=== PATIENT | male | born 1945 | race Caucasian/White ===

== ENCOUNTER 2020-05-13 16:52 | Inpatient (IN) | payer OTHER ==
[~2020-05-13] VITALS: Ht 170.2 cm; Wt 54.6 kg
[2020-05-13] MEDS ORDERED: dexAMETHasone 10mg/ml Inj IV ONE (17:15)
[2020-05-13 17:30] VITALS: BP 131/52
[2020-05-13] MEDS ORDERED: PROSCAR5 MG ORAL (17:44)
[2020-05-13] MEDS ORDERED: ATORVASTATIN CA10 MG ORAL (17:44)
[2020-05-13] MEDS ORDERED: ISOSORBIDE MONO30 M1 PO (17:44)
[2020-05-13] MEDS ORDERED: MIRALAX17 G2 ORAL (17:44)
[2020-05-13] MEDS ORDERED: COREG3.125 MG ORAL (17:44)
[2020-05-13] MEDS ORDERED: ASPIRIN EC81 MG ORAL (17:44)
[2020-05-13] MEDS ORDERED: LISINOPRIL5 MG ORAL (17:45)
[2020-05-13] MEDS ORDERED: PACERONE200 MG ORAL (17:45)
[2020-05-13 18:22] LABS: HEMATOCRIT 43.7 % (42.0-52.0); HEMOGLOBIN 15.1 G/DL (14.2-18.0); MEAN CORPUSCULAR VOLUME 90 FL (80-99); PLATELET COUNT 386 K/UL (150-450); RED BLOOD COUNT 4.83 M/UL (4.70-6.10); RED CELL DISTRIBUTION WIDTH 13.4 % (11.6-14.8); WHITE BLOOD COUNT 9.2 K/UL (4.8-10.8)
[2020-05-13 18:25] LABS: APPEARANCE,URINE CLOUDY; BILIRUBIN, URINE NEGATIVE (NEGATIVE); COLOR,URINE AMBER; GLUCOSE, URINE (UA) NEGATIVE (NEGATIVE); KETONES,URINE 1+ (NEGATIVE); LEUKOCYTE ESTERASE ,URINE 1+ (NEGATIVE); NITRITE,URINE POSITIVE (NEGATIVE); PH,URINE 7 (4.5-8.0); PROTEIN,URINE 3+ (NEGATIVE); UROBILINOGEN,URINE NORMAL MG/DL (0.0-1.0)
[2020-05-13 18:26] LABS: BASOPHILS % (AUTO) 0.7 % (0.0-2.0); LYMPHOCYTES % (AUTO) 6.7 % (20.0-45.0); MONOCYTES % (AUTO) 4.7 % (1.0-10.0); NEUTROPHILS % (AUTO) 87.9 % (45.0-75.0)
[2020-05-13 18:39] LABS: ANION GAP 7 mmol/L (5-15); BLOOD UREA NITROGEN 31 mg/dL (7-18); CALCIUM 8.5 MG/DL (8.5-10.1); CARBON DIOXIDE 29 MMOL/L (21-32); CHLORIDE 98 MMOL/L (98-107); CREATININE 1.6 MG/DL (0.55-1.30); POTASSIUM 4.4 MMOL/L (3.5-5.1); SODIUM 134 MMOL/L (136-145)
--- NOTE | 2020-05-13 18:42 | Emergency Room Report ---
History of Present Illness General Chief Complaint: General Complaint Source: Patient, Medical Record Present Illness HPI Patient is 74-year-old male brought in by basic ambulance after increased generalized weakness. Prior history of COPD as well as cardiac disease. He was started on supplemental oxygen by paramedics. Was noted to have increased generalized weakness and decreased p.o. intake. 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 COVID-19 Screening: Positive COVID-19 COVID-19 Testing Source: at [facility] Patient History Past Medical History: see triage record Reviewed Nursing Documentation: PMH: Agreed; PSxH: Agreed Nursing Documentation-PMH Past Medical History: No History, Except For Hx Cardiac Problems: Yes - afib, high cholesterol, Covid + Hx Hypertension: Yes Hx COPD: Yes Hx Cerebrovascular Accident: Yes - TIA Review of Systems All Other Systems: negative except mentioned in HPI Physical Exam Vital Signs Date Time Temp Pulse Resp B/P (MAP) Pulse Ox O2 Delivery O2 Flow Rate FiO2 05/13/20 16:55 98.2 72 14 134/56 (82) 88 Room Air 05/13/20 17:30 12.0 91 Sp02 EP Interpretation: reviewed, normal General Appearance: normal inspection, well appearing, no apparent distress, alert, GCS 15, non-toxic Head: atraumatic ENT: normal ENT inspection, hearing grossly normal, normal voice Neck: normal inspection, full range of motion, supple, no bony tend Respiratory: normal inspection, lungs clear, normal breath sounds, no respiratory distress, no retraction, no wheezing Cardiovascular #1: regular rate, rhythm, no edema Gastrointestinal: normal inspection, normal bowel sounds, non tender, soft, no guarding, no hernia Genitourinary: no CVA tenderness Musculoskeletal: normal inspection, back normal, normal range of motion Neurologic: alert, motor strength/tone normal, 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 Differential diagnosis include was not limited to coronavirus pneumonia, psychosis, dehydration among others. Because of complexity of patient's case laboratory tests and imaging studies were ordered. Patient noted to have prior history of recent coronavirus infection. Chest x-ray showed diffuse patchy infiltrates to both lungs. Patient started on IV fluids as well as IV Decadron. He was given supplemental oxygen. Patient be hospitalized for further management of hypoxemia due to coronavirus. Dr. Sonny Gonzales was contacted for inpatient management. Labs Test 05/13/20 18:03 05/13/20 18:04 Urine Color Rema Urine Appearance Cloudy Urine pH 7 (4.5-8.0) Urine Specific [place] 1.010 (1.005-1.035) Urine Protein 3+ (NEGATIVE) Urine Glucose (UA) Negative (NEGATIVE) Urine Ketones 1+ (NEGATIVE) Urine Blood 3+ (NEGATIVE) Urine Nitrite Positive (NEGATIVE) Urine Bilirubin Negative (NEGATIVE) Urine Urobilinogen Normal MG/DL (0.0-1.0) Urine Leukocyte Esterase 1+ (NEGATIVE) White Blood Count 9.2 K/UL (4.8-10.8) Red Blood Count 4.83 M/UL (4.70-6.10) Hemoglobin 15.1 G/DL (14.2-18.0) Hematocrit 43.7 % (42.0-52.0) Mean Corpuscular Volume 90 FL (80-99) Mean Corpuscular Hemoglobin 31.3 PG (27.0-31.0) Mean Corpuscular Hemoglobin Concent 34.6 G/DL (32.0-36.0) Red Cell Distribution Width 13.4 % (11.6-14.8) Platelet Count 386 K/UL (150-450) Mean Platelet Volume 8.1 FL (6.5-10.1) Neutrophils (%) (Auto) 87.9 % (45.0-75.0) Lymphocytes (%) (Auto) 6.7 % (20.0-45.0) Monocytes (%) (Auto) 4.7 % (1.0-10.0) Eosinophils (%) (Auto) 0.0 % (0.0-3.0) Basophils (%) (Auto) 0.7 % (0.0-2.0) Sodium Level 134 MMOL/L (136-145) Potassium Level 4.4 MMOL/L (3.5-5.1) Chloride Level 98 MMOL/L (98-107) Carbon Dioxide Level 29 MMOL/L (21-32) Anion Gap 7 mmol/L (5-15) Blood Urea Nitrogen 31 mg/dL (7-18) Creatinine 1.6 MG/DL (0.55-1.30) Estimat Glomerular Filtration Rate 42.6 mL/min (>60) Glucose Level 103 MG/DL (74-106) Calcium Level 8.5 MG/DL (8.5-10.1) EKG Diagnostic Results Rate: normal Rhythm: NSR ASA given to the pt in ED: No Last Vital Signs Date Time Temp Pulse Resp B/P (MAP) Pulse Ox O2 Delivery O2 Flow Rate FiO2 05/13/20 17:30 98.2 75 18 131/52 91 Non-Rebreather 12.0 05/13/20 17:30 91 Status: unchanged Disposition: ADMITTED INPATIENT Condition: Stable Sanjeev Akbar MD May 13, 2020 18:42
[2020-05-13 18:53] LABS: ALANINE AMINOTRANSFERASE 88 U/L (12-78); ALBUMIN 2.6 G/DL (3.4-5.0); ALBUMIN/GLOBULIN RATIO 0.5 (1.0-2.7); ALKALINE PHOSPHATASE 54 U/L (46-116); ASPARTATE AMINO TRANSFERASE 165 U/L (15-37); BILIRUBIN,TOTAL 0.9 MG/DL (0.2-1.0); CKMB < 0.5 NG/ML (0.0-3.6); CREATINE KINASE 187 U/L (26-308); FERRITIN 1246 NG/ML (8-388); LACTATE DEHYDROGENASE 748 U/L (81-234)
[2020-05-13 21:03] VITALS: BP 127/53
[2020-05-13 22:26] VITALS: BP 121/55
[2020-05-13] MEDS ORDERED: Albuterol/Ipratropium 3ml neb HHN PRN (23:30)
[2020-05-13] MEDS ORDERED: Promethazine/Codeine 5ml UD ORAL PRN (23:30)
[2020-05-13] MEDS: cefTRIAXone 1 GM in D5W 55 ML IVPB SCH (23:43)
[2020-05-14] VITALS (9 sets, daily range): BP systolic 98–131; BP diastolic 59–77
[2020-05-14 06:25] LABS: HEMATOCRIT 37.5 % (42.0-52.0); HEMOGLOBIN 13.4 G/DL (14.2-18.0); MEAN CORPUSCULAR VOLUME 89 FL (80-99); PLATELET COUNT 349 K/UL (150-450); RED BLOOD COUNT 4.24 M/UL (4.70-6.10); RED CELL DISTRIBUTION WIDTH 14.6 % (11.6-14.8); WHITE BLOOD COUNT 7.2 K/UL (4.8-10.8)
[2020-05-14 07:27] LABS: ALANINE AMINOTRANSFERASE 80 U/L (12-78); ALBUMIN 2.2 G/DL (3.4-5.0); ALBUMIN/GLOBULIN RATIO 0.5 (1.0-2.7); ALKALINE PHOSPHATASE 47 U/L (46-116); ANION GAP 9 mmol/L (5-15); ASPARTATE AMINO TRANSFERASE 125 U/L (15-37); BILIRUBIN,TOTAL 0.6 MG/DL (0.2-1.0); BLOOD UREA NITROGEN 36 mg/dL (7-18); CALCIUM 8.1 MG/DL (8.5-10.1); CARBON DIOXIDE 25 MMOL/L (21-32); CHLORIDE 100 MMOL/L (98-107); CREATININE 1.5 MG/DL (0.55-1.30); PHOSPHORUS 4.5 MG/DL (2.5-4.9); POTASSIUM 4.4 MMOL/L (3.5-5.1); SODIUM 134 MMOL/L (136-145)
[2020-05-14] MEDS: Azithromycin 250 MG in D5W 275 ML IV SCH (08:29)
[2020-05-14] MEDS: Lisinopril 2.5mg tab ORAL SCH (08:58)
[2020-05-14] MEDS: Amiodarone 200mg tab ORAL SCH (08:59)
[2020-05-14] MEDS: Heparin 5000 units/ml inj SUBQ SCH ×2 (09:00→21:05)
--- NOTE | 2020-05-14 09:21 | Consultation ---
History of Present Illness General Date patient seen: May 14, 2020 Time patient seen: 13:23 Chief Complaint: General Complaint Referring physician: Dr. Gonzales Reason for Consultation: Pneumonia Present Illness HPI 74yo M from SNF who p/w generalized weakness. Started on suppl. O2 by paramedics. In house, pt has been AF with normal WBC, but on 15L NRB mask. COVID rapid test positive Pt is doing well on NRB mask, denies any fevers/chills, NVD, pain or even issues breathing, says breathing is OK. Is very surprised when told he is COVID positive Lives in SNF PMH: COPD Cardiac disease Allergies: Coded Allergies: No Known Allergies (Unverified , 05/13/20) Medication History Scheduled Amiodarone Hcl* (Pacerone*), 200 MG ORAL DAILY, (Reported) Aspirin Ec* (Aspirin Ec*), 81 MG ORAL DAILY, (Reported) Atorvastatin Calcium* (Lipitor*), 10 MG ORAL BEDTIME, (Reported) Carvedilol (Coreg), 3.125 MG ORAL EVERY 12 HOURS, (Reported) Finasteride* (Proscar*), 5 MG ORAL DAILY, (Reported) Isosorbide Mononitrate (Isosorbide Mononitrate Er), 30 MG PO DAILY, (Reported) Lisinopril (Lisinopril*), 5 MG ORAL DAILY, (Reported) Polyethylene Glycol 3350* (Miralax*), 17 GM ORAL DAILY, (Reported) Patient History Healthcare decision maker Resuscitation status Advanced Directive on File Review of Systems ROS Narrative 10-point ROS neg except as noted in HPI Physical Exam Physical Exam Narrative Gen: NAD HEENT: NCAT Pulm: BL chest rise Abd: Non-distended Ext: No c/c/e Skin: No visible rashes Neuro: Awake Last 24 Hour Vital Signs Date Time Temp Pulse Resp B/P (MAP) Pulse Ox O2 Delivery O2 Flow Rate FiO2 05/14/20 08:59 68 122/71 05/14/20 08:58 122/71 05/14/20 07:20 98.2 63 20 113/67 96 Non-Rebreather 15.0 05/14/20 05:42 55 19 101/61 97 Non-Rebreather 15.0 05/14/20 00:28 62 19 98/59 98 Non-Rebreather 15.0 05/13/20 22:26 98.2 64 21 121/55 94 Non-Rebreather 15.0 91 05/13/20 21:03 98.2 77 21 127/53 95 Non-Rebreather 15.0 91 05/13/20 17:30 98.2 75 18 131/52 91 Non-Rebreather 12.0 05/13/20 17:30 75 18 Non-Rebreather 12.0 91 05/13/20 16:55 98.2 72 14 134/56 (82) 88 Room Air Intake and Output 05/13/20 05/14/20 19:00 07:00 Intake Total 55 ml Balance 55 ml Intake IV Total 55 ml # Voids 1 Laboratory Tests Test 05/13/20 18:03 05/13/20 18:04 05/14/20 06:00 Urine Color Rema Urine Appearance Cloudy Urine pH 7 (4.5-8.0) Urine Specific [place] 1.010 (1.005-1.035) Urine Protein 3+ (NEGATIVE) H Urine Glucose (UA) Negative (NEGATIVE) Urine Ketones 1+ (NEGATIVE) H Urine Blood 3+ (NEGATIVE) H Urine Nitrite Positive (NEGATIVE) H Urine Bilirubin Negative (NEGATIVE) Urine Ictotest Negative (NEGATIVE) Urine Urobilinogen Normal MG/DL (0.0-1.0) Urine Leukocyte Esterase 1+ (NEGATIVE) H Urine RBC 10-15 /HPF (0 - 0) H Urine WBC 5-10 /HPF (0 - 0) H Urine Squamous Epithelial Cells None /LPF (NONE/OCC) Urine Bacteria Many /HPF (NONE) H White Blood Count 9.2 K/UL (4.8-10.8) 7.2 K/UL (4.8-10.8) Red Blood Count 4.83 M/UL (4.70-6.10) 4.24 M/UL (4.70-6.10) L Hemoglobin 15.1 G/DL (14.2-18.0) 13.4 G/DL (14.2-18.0) L Hematocrit 43.7 % (42.0-52.0) 37.5 % (42.0-52.0) L Mean Corpuscular Volume 90 FL (80-99) 89 FL (80-99) Mean Corpuscular Hemoglobin 31.3 PG (27.0-31.0) H 31.7 PG (27.0-31.0) H Mean Corpuscular Hemoglobin Concent 34.6 G/DL (32.0-36.0) 35.8 G/DL (32.0-36.0) Red Cell Distribution Width 13.4 % (11.6-14.8) 14.6 % (11.6-14.8) Platelet Count 386 K/UL (150-450) 349 K/UL (150-450) Mean Platelet Volume 8.1 FL (6.5-10.1) 8.2 FL (6.5-10.1) Neutrophils (%) (Auto) 87.9 % (45.0-75.0) H % (45.0-75.0) Lymphocytes (%) (Auto) 6.7 % (20.0-45.0) L % (20.0-45.0) Monocytes (%) (Auto) 4.7 % (1.0-10.0) % (1.0-10.0) Eosinophils (%) (Auto) 0.0 % (0.0-3.0) % (0.0-3.0) Basophils (%) (Auto) 0.7 % (0.0-2.0) % (0.0-2.0) Prothrombin Time 11.3 SEC (9.30-11.50) Prothromb Time International Ratio 1.0 (0.9-1.1) Activated Partial Thromboplast Time 31 SEC (23-33) D-Dimer 1.76 mg/L FEU (0.00-0.49) H Sodium Level 134 MMOL/L (136-145) L 134 MMOL/L (136-145) L Potassium Level 4.4 MMOL/L (3.5-5.1) 4.4 MMOL/L (3.5-5.1) Chloride Level 98 MMOL/L (98-107) 100 MMOL/L (98-107) Carbon Dioxide Level 29 MMOL/L (21-32) 25 MMOL/L (21-32) Anion Gap 7 mmol/L (5-15) 9 mmol/L (5-15) Blood Urea Nitrogen 31 mg/dL (7-18) H 36 mg/dL (7-18) H Creatinine 1.6 MG/DL (0.55-1.30) H 1.5 MG/DL (0.55-1.30) H Estimat Glomerular Filtration Rate 42.6 mL/min (>60) 45.9 mL/min (>60) Glucose Level 103 MG/DL (74-106) 154 MG/DL (74-106) H Lactic Acid Level 1.60 mmol/L (0.4-2.0) Calcium Level 8.5 MG/DL (8.5-10.1) 8.1 MG/DL (8.5-10.1) L Ferritin 1246 NG/ML (8-388) H Total Bilirubin 0.9 MG/DL (0.2-1.0) 0.6 MG/DL (0.2-1.0) Aspartate Amino Transf (AST/SGOT) 165 U/L (15-37) H 125 U/L (15-37) H Alanine Aminotransferase (ALT/SGPT) 88 U/L (12-78) H 80 U/L (12-78) H Alkaline Phosphatase 54 U/L (46-116) 47 U/L (46-116) Lactate Dehydrogenase 748 U/L (81-234) H Total Creatine Kinase 187 U/L (26-308) Creatine Kinase MB < 0.5 NG/ML (0.0-3.6) Creatine Kinase MB Relative Index 0.2 Troponin I 0.044 ng/mL (0.000-0.056) C-Reactive Protein, Quantitative 62.2 mg/dL (0.00-0.90) H 23.2 mg/dL (0.00-0.90) H Pro-B-Type Natriuretic Peptide 2242 pg/mL (0-125) H Total Protein 7.7 G/DL (6.4-8.2) 6.8 G/DL (6.4-8.2) Albumin 2.6 G/DL (3.4-5.0) L 2.2 G/DL (3.4-5.0) L Globulin 5.1 g/dL 4.6 g/dL Albumin/Globulin Ratio 0.5 (1.0-2.7) L 0.5 (1.0-2.7) L Lipase 248 U/L (73-393) Neutrophils % (Manual) Pending Lymphocytes % (Manual) Pending Platelet Estimate Pending Platelet Morphology Pending Erythrocyte Sedimentation Rate 53 MM/HR (0-20) H Phosphorus Level 4.5 MG/DL (2.5-4.9) Magnesium Level 2.9 MG/DL (1.8-2.4) H Height (Feet): 5 Height (Inches): 7.00 Weight (Pounds): 160 Medications Current Medications Medications (Trade) Dose Ordered Sig/Tami Route PRN Reason Start Time Stop Time Status Last Admin Dose Admin Acetaminophen (Tylenol) 650 mg Q4H PRN ORAL FEVER 05/13/20 23:30 06/12/20 23:29 Albuterol/ Ipratropium (Albuterol/ Ipratropium) 3 ml Q4H PRN HHN Shortness of Breath 05/13/20 23:30 05/18/20 23:29 Amiodarone HCl (Cordarone) 200 mg DAILY ORAL 05/14/20 09:00 08/12/20 08:59 05/14/20 08:59 Azithromycin 250 mg/Dextrose 275 ml @ 275 mls/hr Q24H IV 05/14/20 01:00 05/19/20 00:59 05/14/20 08:29 Carvedilol (Coreg) 3.125 mg EVERY 12 HOURS ORAL 05/14/20 09:00 06/13/20 08:59 05/14/20 08:59 Ceftriaxone Sodium 1 gm/ Dextrose 55 ml @ 110 mls/hr Q24H IVPB 05/13/20 23:30 05/20/20 23:29 05/13/20 23:43 Dexamethasone (Decadron) 4 mg DAILY ORAL 05/14/20 09:00 06/13/20 08:59 05/14/20 08:58 Dextrose (Dextrose 50%) 25 ml Q30M PRN IV Hypoglycemia 05/13/20 23:30 08/11/20 23:29 Dextrose (Dextrose 50%) 50 ml Q30M PRN IV Hypoglycemia 05/13/20 23:30 08/11/20 23:29 Finasteride (Proscar) 5 mg DAILY ORAL 05/14/20 09:00 08/12/20 08:59 05/14/20 08:59 Heparin Sodium (Porcine) (Heparin 5000 units/ml) 5,000 units EVERY 12 HOURS SUBQ 05/14/20 09:00 06/28/20 08:59 05/14/20 09:00 Lisinopril (ZestriL) 5 mg DAILY ORAL 05/14/20 09:00 06/13/20 08:59 05/14/20 08:58 Ondansetron HCl (Zofran) 4 mg Q6H PRN IVP Nausea & Vomiting 05/13/20 23:30 06/12/20 23:29 Polyethylene Glycol (Miralax) 17 gm DAILYPRN PRN ORAL Constipation 05/13/20 23:30 06/12/20 23:29 Promethazine HCl/ Codeine (Phenergan with Codeine) 5 ml Q6H PRN ORAL cough 05/13/20 23:30 06/12/20 23:29 Assessment/Plan Assessment/Plan: 74yo M with: Afebrile Normal WBC Lymphopenia Pneumonia COVID pneumonia, severe Acute hypoxic resp failure on NRB mask 05/13 BCx p UA 5-10 WBC, UCx p COVID rapid positive Elevated LFTs, AST/ALT 125 / 80 CKD, Cr 1.5 COPD Cardiac disease SNF resident Plan: Increase dexamethasone to 6mg daily Start remdesivir given COVID rapid test positive, severe hypoxia. Labs ok Cont CTX/azithro #1 for pneumonia F/u BCx, Resp cx F/u CXR Monitor CBC/CMP Monitor temp curve, hemodynamics Monitor resp status D/w RN Thank you for this consult. [facility] will continue to follow. Kathy Yap M.D. May 14, 2020 09:21
--- NOTE | 2020-05-14 13:46 | Diagnostic Imaging Report ---
Indication: Reason For Exam: SOB Technique: Single AP view of the chest. Comparison: None. Findings: Heart is normal in size when accounting for projection and technique. There are diffuse interstitial opacities and diffuse parenchymal thickening. There is dense right upper lobe and left lower lobe airspace consolidation. No pneumothorax. There is biapical scarring. No pleural effusion. No acute osseous abnormality. IMPRESSION: Findings concerning for multifocal pneumonia.
[2020-05-14] MEDS ORDERED: Varibar Pudding 230ml MC PRN (14:15)
[2020-05-14] MEDS ORDERED: Varibar Nectar 240ml MC PRN (14:15)
[2020-05-14] MEDS ORDERED: Varibar Honey 250ml MC PRN (14:15)
[2020-05-14] MEDS ORDERED: Varibar Thin Liquid powder 148gm MC PRN (14:15)
--- NOTE | 2020-05-14 14:15 | Consultation ---
Consult Note Consult Note I was asked to evaluate the patient at the request of for renal failure and electrolyte imbalances Patient is 74-year-old male brought in by basic ambulance after increased generalized weakness. Prior history of COPD as well as cardiac disease. He was started on supplemental oxygen by paramedics. Was noted to have increased generalized weakness and decreased p.o. intake. 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 Pulmonary treatment, in bed slight short of breath, refusing to answer questions. VITAL SIGNS: Temperature 98 degrees, pulse 64, respirations 22, blood pressure 105/61. HEENT: Normocephalic and atraumatic. NECK: Trachea midline. CARDIOVASCULAR: Slight short of breath. ABDOMEN: No apparent wounds. EXTREMITIES: No cyanosis or clubbing. NEUROLOGIC: The patient moves all extremities, slightly weak. LABORATORY AND DIAGNOSTIC DATA: Labs at this time show hemoglobin and hematocrit 13/37, otherwise CBC is normal. BMP shows sodium 134, BUN creatinine 36/1.5. Glucose 154. Magnesium 2.9. Calcium 8.1. AST 128, ALT 80. Albumin 2.2. INR is 1.0. Urinalysis show positive nitrites. . Assessment/Plan Impression: Renal failure, acute on chronic Partly dehydration COPD, hypoxia, COVID-19 disease Psychosis Atrial fibrillation High cholesterol Hypertension History of CVA Suggestions: Saline hydration Monitor renal parameters and electrolytes Pulmonary support Per consultants Avoid nephrotoxic's Urine studies Per orders Alan Sánchez MD May 14, 2020 14:15
--- NOTE | 2020-05-14 14:25 | Consultation ---
History of Present Illness General Date patient seen: May 14, 2020 Referring physician: Dr. Gonzales Reason for Consultation: Pneumonia Present Illness HPI 74-year-old male, with hx of schizophrenia, COPD, cardiac disease, shelter resident brought in by ambulance with CC of generalized weakness. . He was started on supplemental oxygen by paramedics. His initial CXR in ER showed ex tensive infiltrate and he was COVID positive. He is admitted for further management. Allergies: Coded Allergies: No Known Allergies (Unverified , 05/13/20) Medication History Scheduled Amiodarone Hcl* (Pacerone*), 200 MG ORAL DAILY, (Reported) Aspirin Ec* (Aspirin Ec*), 81 MG ORAL DAILY, (Reported) Atorvastatin Calcium* (Lipitor*), 10 MG ORAL BEDTIME, (Reported) Carvedilol (Coreg), 3.125 MG ORAL EVERY 12 HOURS, (Reported) Finasteride* (Proscar*), 5 MG ORAL DAILY, (Reported) Isosorbide Mononitrate (Isosorbide Mononitrate Er), 30 MG PO DAILY, (Reported) Lisinopril (Lisinopril*), 5 MG ORAL DAILY, (Reported) Polyethylene Glycol 3350* (Miralax*), 17 GM ORAL DAILY, (Reported) Patient History Healthcare decision maker Resuscitation status Advanced Directive on File Past Medical/Surgical History Past Medical/Surgical History: (1) HTN (hypertension) (2) COPD (chronic obstructive pulmonary disease) (3) Psychosis Review of Systems All Other Systems: negative except mentioned in HPI Physical Exam General Appearance: thin Lines, tubes and drains: peripheral Neck: non-tender, normal alignment Respiratory/Chest: chest wall non-tender, lungs clear, rhonchi - left, rhonchi - right Cardiovascular/Chest: normal peripheral pulses, normal rate Abdomen: normal bowel sounds, non tender, soft Genitourinary/Rectal: normal rectal exam Extremities: normal range of motion, non-tender Skin Exam: normal pigmentation Last 24 Hour Vital Signs Date Time Temp Pulse Resp B/P (MAP) Pulse Ox O2 Delivery O2 Flow Rate FiO2 05/14/20 13:00 98.5 63 23 108/77 97 Non-Rebreather 15.0 05/14/20 12:02 98.5 64 22 105/61 96 Non-Rebreather 15.0 91 05/14/20 10:27 98.2 65 22 101/63 97 Non-Rebreather 15.0 05/14/20 08:59 68 122/71 05/14/20 08:58 122/71 05/14/20 07:20 98.2 63 20 113/67 96 Non-Rebreather 15.0 05/14/20 05:42 55 19 101/61 97 Non-Rebreather 15.0 05/14/20 00:28 62 19 98/59 98 Non-Rebreather 15.0 05/13/20 22:26 98.2 64 21 121/55 94 Non-Rebreather 15.0 91 05/13/20 21:03 98.2 77 21 127/53 95 Non-Rebreather 15.0 91 05/13/20 17:30 98.2 75 18 131/52 91 Non-Rebreather 12.0 05/13/20 17:30 75 18 Non-Rebreather 12.0 91 05/13/20 16:55 98.2 72 14 134/56 (82) 88 Room Air Intake and Output 05/13/20 05/14/20 19:00 07:00 Intake Total 55 ml Balance 55 ml Intake IV Total 55 ml # Voids 1 Laboratory Tests Test 05/13/20 18:03 05/13/20 18:04 05/14/20 06:00 Urine Color Rema Urine Appearance Cloudy Urine pH 7 (4.5-8.0) Urine Specific [place] 1.010 (1.005-1.035) Urine Protein 3+ (NEGATIVE) H Urine Glucose (UA) Negative (NEGATIVE) Urine Ketones 1+ (NEGATIVE) H Urine Blood 3+ (NEGATIVE) H Urine Nitrite Positive (NEGATIVE) H Urine Bilirubin Negative (NEGATIVE) Urine Ictotest Negative (NEGATIVE) Urine Urobilinogen Normal MG/DL (0.0-1.0) Urine Leukocyte Esterase 1+ (NEGATIVE) H Urine RBC 10-15 /HPF (0 - 0) H Urine WBC 5-10 /HPF (0 - 0) H Urine Squamous Epithelial Cells None /LPF (NONE/OCC) Urine Bacteria Many /HPF (NONE) H White Blood Count 9.2 K/UL (4.8-10.8) 7.2 K/UL (4.8-10.8) Red Blood Count 4.83 M/UL (4.70-6.10) 4.24 M/UL (4.70-6.10) L Hemoglobin 15.1 G/DL (14.2-18.0) 13.4 G/DL (14.2-18.0) L Hematocrit 43.7 % (42.0-52.0) 37.5 % (42.0-52.0) L Mean Corpuscular Volume 90 FL (80-99) 89 FL (80-99) Mean Corpuscular Hemoglobin 31.3 PG (27.0-31.0) H 31.7 PG (27.0-31.0) H Mean Corpuscular Hemoglobin Concent 34.6 G/DL (32.0-36.0) 35.8 G/DL (32.0-36.0) Red Cell Distribution Width 13.4 % (11.6-14.8) 14.6 % (11.6-14.8) Platelet Count 386 K/UL (150-450) 349 K/UL (150-450) Mean Platelet Volume 8.1 FL (6.5-10.1) 8.2 FL (6.5-10.1) Neutrophils (%) (Auto) 87.9 % (45.0-75.0) H % (45.0-75.0) Lymphocytes (%) (Auto) 6.7 % (20.0-45.0) L % (20.0-45.0) Monocytes (%) (Auto) 4.7 % (1.0-10.0) % (1.0-10.0) Eosinophils (%) (Auto) 0.0 % (0.0-3.0) % (0.0-3.0) Basophils (%) (Auto) 0.7 % (0.0-2.0) % (0.0-2.0) Prothrombin Time 11.3 SEC (9.30-11.50) Prothromb Time International Ratio 1.0 (0.9-1.1) Activated Partial Thromboplast Time 31 SEC (23-33) D-Dimer 1.76 mg/L FEU (0.00-0.49) H Sodium Level 134 MMOL/L (136-145) L 134 MMOL/L (136-145) L Potassium Level 4.4 MMOL/L (3.5-5.1) 4.4 MMOL/L (3.5-5.1) Chloride Level 98 MMOL/L (98-107) 100 MMOL/L (98-107) Carbon Dioxide Level 29 MMOL/L (21-32) 25 MMOL/L (21-32) Anion Gap 7 mmol/L (5-15) 9 mmol/L (5-15) Blood Urea Nitrogen 31 mg/dL (7-18) H 36 mg/dL (7-18) H Creatinine 1.6 MG/DL (0.55-1.30) H 1.5 MG/DL (0.55-1.30) H Estimat Glomerular Filtration Rate 42.6 mL/min (>60) 45.9 mL/min (>60) Glucose Level 103 MG/DL (74-106) 154 MG/DL (74-106) H Lactic Acid Level 1.60 mmol/L (0.4-2.0) Calcium Level 8.5 MG/DL (8.5-10.1) 8.1 MG/DL (8.5-10.1) L Ferritin 1246 NG/ML (8-388) H Total Bilirubin 0.9 MG/DL (0.2-1.0) 0.6 MG/DL (0.2-1.0) Aspartate Amino Transf (AST/SGOT) 165 U/L (15-37) H 125 U/L (15-37) H Alanine Aminotransferase (ALT/SGPT) 88 U/L (12-78) H 80 U/L (12-78) H Alkaline Phosphatase 54 U/L (46-116) 47 U/L (46-116) Lactate Dehydrogenase 748 U/L (81-234) H Total Creatine Kinase 187 U/L (26-308) Creatine Kinase MB < 0.5 NG/ML (0.0-3.6) Creatine Kinase MB Relative Index 0.2 Troponin I 0.044 ng/mL (0.000-0.056) C-Reactive Protein, Quantitative 62.2 mg/dL (0.00-0.90) H 23.2 mg/dL (0.00-0.90) H Pro-B-Type Natriuretic Peptide 2242 pg/mL (0-125) H Total Protein 7.7 G/DL (6.4-8.2) 6.8 G/DL (6.4-8.2) Albumin 2.6 G/DL (3.4-5.0) L 2.2 G/DL (3.4-5.0) L Globulin 5.1 g/dL 4.6 g/dL Albumin/Globulin Ratio 0.5 (1.0-2.7) L 0.5 (1.0-2.7) L Lipase 248 U/L (73-393) Differential Total Cells Counted 100 Neutrophils % (Manual) 82 % (45-75) H Lymphocytes % (Manual) 6 % (20-45) L Monocytes % (Manual) 10 % (1-10) Eosinophils % (Manual) 2 % (0-3) Basophils % (Manual) 0 % (0-2) Band Neutrophils 0 % (0-8) Platelet Estimate Adequate Platelet Morphology Normal Anisocytosis 1+ Erythrocyte Sedimentation Rate 53 MM/HR (0-20) H Phosphorus Level 4.5 MG/DL (2.5-4.9) Magnesium Level 2.9 MG/DL (1.8-2.4) H Microbiology Date/Time Source Procedure Growth Status 05/14/20 08:35 Nasopharynx SARS-CoV-2 RdRp Gene Assay - Final Complete Height (Feet): 5 Height (Inches): 7.00 Weight (Pounds): 160 Medications Current Medications Medications (Trade) Dose Ordered Sig/Tami Route PRN Reason Start Time Stop Time Status Last Admin Dose Admin Acetaminophen (Tylenol) 650 mg Q4H PRN ORAL FEVER 05/13/20 23:30 06/12/20 23:29 Albuterol/ Ipratropium (Combivent Respimat) 1 puff Q4H PRN INH Shortness of Breath 05/14/20 14:15 06/13/20 14:14 Amiodarone HCl (Cordarone) 200 mg DAILY ORAL 05/14/20 09:00 08/12/20 08:59 05/14/20 08:59 Azithromycin 250 mg/Dextrose 275 ml @ 275 mls/hr Q24H IV 05/14/20 01:00 05/19/20 00:59 05/14/20 08:29 Barium Sulfate (Varibar Honey) 250 ml NOW PRN MC RAD 05/14/20 14:15 05/17/20 14:11 Barium Sulfate (Varibar [place]) 240 ml NOW PRN RAD 05/14/20 14:15 05/17/20 14:11 Barium Sulfate (Varibar Pudding) 230 ml NOW PRN RAD 05/14/20 14:15 05/17/20 14:11 Barium Sulfate (Varibar Thin Liquid powder) 148 gm NOW PRN RAD 05/14/20 14:15 05/17/20 14:11 Carvedilol (Coreg) 3.125 mg EVERY 12 HOURS ORAL 05/14/20 09:00 06/13/20 08:59 05/14/20 08:59 Ceftriaxone Sodium 1 gm/ Dextrose 55 ml @ 110 mls/hr Q24H IVPB 05/13/20 23:30 05/20/20 23:29 05/13/20 23:43 Dexamethasone (Decadron) 6 mg DAILY ORAL 05/15/20 09:00 05/24/20 09:01 Dextrose (Dextrose 50%) 25 ml Q30M PRN IV Hypoglycemia 05/13/20 23:30 08/11/20 23:29 Dextrose (Dextrose 50%) 50 ml Q30M PRN IV Hypoglycemia 05/13/20 23:30 08/11/20 23:29 Docusate Sodium (Colace) 100 mg TWICE A DAY ORAL 05/14/20 18:00 06/13/20 17:59 Finasteride (Proscar) 5 mg DAILY ORAL 05/14/20 09:00 08/12/20 08:59 05/14/20 08:59 Heparin Sodium (Porcine) (Heparin 5000 units/ml) 5,000 units EVERY 12 HOURS SUBQ 05/14/20 09:00 06/28/20 08:59 05/14/20 09:00 Lisinopril (ZestriL) 5 mg DAILY ORAL 05/14/20 09:00 06/13/20 08:59 05/14/20 08:58 Ondansetron HCl (Zofran) 4 mg Q6H PRN IVP Nausea & Vomiting 05/13/20 23:30 06/12/20 23:29 Pantoprazole (Protonix) 40 mg DAILY ORAL 05/15/20 09:00 06/14/20 08:59 Polyethylene Glycol (Miralax) 17 gm DAILYPRN PRN ORAL Constipation 05/13/20 23:30 06/12/20 23:29 Promethazine HCl/ Codeine (Phenergan with Codeine) 5 ml Q6H PRN ORAL cough 05/13/20 23:30 06/12/20 23:29 Sodium Chloride 1,000 ml @ 50 mls/hr Q20H IV 05/14/20 14:30 06/13/20 14:29 Tamsulosin HCl (Flomax) 0.4 mg BEDTIME ORAL 05/14/20 21:00 06/13/20 20:59 Assessment/Plan Problem List: (1) 2019 novel coronavirus disease (COVID-19) ICD Codes: U07.1 - COVID-19 SNOMED: 168732841 (2) COPD (chronic obstructive pulmonary disease) ICD Codes: J44.9 - Chronic obstructive pulmonary disease, unspecified SNOMED: 74249690 (3) Psychosis ICD Codes: F29 - Unspecified psychosis not due to a substance or known physiological condition SNOMED: 92541003 (4) HTN (hypertension) ICD Codes: I10 - Essential (primary) hypertension SNOMED: 26193013 Assessment/Plan: titrate fio2 to sat of 92% respiratory treatment prn f/u crp and cxr periodically check sputum ID to manage ABx monitor BP symptomatic treatment. dvt prophylaxis. Umesh Prajapait MD May 14, 2020 14:25
[2020-05-14] MEDS ORDERED: Loading Dose:Remdesivir 200mg/NS 210ml IV SCH ×2 (16:00)
[2020-05-14] MEDS: Docusate 100mg cap ORAL SCH (17:15)
--- NOTE | 2020-05-14 18:31 | History and Physical Report ---
DATE OF ADMISSION: 05/13/2020 DATE AND TIME SEEN: 05/14/2020 at 1 p.m. CONSULTANTS: 1. Richard Simmons MD. 2. Umesh Prajapati MD. 3. Modesto Alvarado MD. CHIEF COMPLAINT: Hypoxia, pneumonia, UTI, and COVID infection. BRIEF HISTORY: This is a 74-year-old male from [place], presented with two days of increased shortness of breath, lethargy, sent to [facility], diagnosed with the above, admitted to telemetry. Currently, getting pulmonary treatment, sleeping in bed, slightly confused, not talking much. REVIEW OF SYSTEMS: Unavailable. PAST MEDICAL HISTORY: Hypertension, COPD, AFib, TIA. PAST SURGICAL HISTORY: Unknown. ALLERGIES: Denies. SOCIAL HISTORY: Unable to obtain secondary to the patient's condition. OBJECTIVE: GENERAL: Calm in room. Pulmonary treatment, in bed slight short of breath, refusing to answer questions. VITAL SIGNS: Temperature 98 degrees, pulse 64, respirations 22, blood pressure 105/61. HEENT: Normocephalic and atraumatic. NECK: Trachea midline. CARDIOVASCULAR: Slight short of breath. ABDOMEN: No apparent wounds. EXTREMITIES: No cyanosis or clubbing. NEUROLOGIC: The patient moves all extremities, slightly weak. LABORATORY AND DIAGNOSTIC DATA: Labs at this time show hemoglobin and hematocrit 13/37, otherwise CBC is normal. BMP shows sodium 134, BUN creatinine 36/1.5. Glucose 154. Magnesium 2.9. Calcium 8.1. AST 128, ALT 80. Albumin 2.2. INR is 1.0. Urinalysis show positive nitrites. ASSESSMENT: 1. COVID infection. 2. Hypoxia. 3. UTI. 4. Bilateral infiltrate, pneumonia. 5. Malnutrition. 6. Hypertension. 7. COPD. 8. AFib. 9. TIA. 10. Dehydration. PLAN: 1. O2 and pulmonary treatment. 2. Antibiotics per Infectious Disease. 3. Blood pressure and pain control. 4. Resume home medications. 5. PT and dietary evaluation. 6. CBC and BMP in the morning. 7. We will continue to follow this patient. 8. We will add nephrology evaluation as well. Sonny Gonzales D.O. DR: MARIBETH JOB#: [id number] CC:
[2020-05-14] MEDS: Tamsulosin 0.4mg cap ORAL SCH (21:07)
--- NOTE | 2020-05-14 21:30 | Consultation ---
DATE OF CONSULTATION: 05/14/2020 PSYCHOTHERAPY CONSULTATION PROGRESS NOTE CONSULTING PHYSICIAN: Brandon Campos PsyD TREATING ATTENDING: Sonny Gonzales DO HISTORY OF PRESENT ILLNESS: Patient is a male patient, who was brought into the hospital for poor oral intake. Apparently, he has been confused psychotherapy services. He is 74 years old. He has history of COPD. I assessed this patient today. Patient was able to state that he wants to be able to go home. He is constantly asking when he can go home. , patient states okay . He denies suicidal or homicidal thoughts of ideation. He denies any auditory or visual hallucination at this time. PAST MEDICAL HISTORY: Includes a history of COPD, cardiac disease. ALLERGIES: Patient has no known drug allergies. SUBSTANCE ABUSE HISTORY: There is no indication of alcohol use or illicit substance use. PSYCHIATRIC HISTORY: No significant psychiatric history listed at this time. SOCIAL HISTORY: Patient is a 74-year-old male at [facility], financially sustained through [employer]. MENTAL STATUS EXAMINATION: He is alert and oriented to person and place. Mood is dysphoric. Affect is blunted. Thought process slightly disorganized. Poor attention and concentration. Poor insight, judgment, and impulse control. DIAGNOSES: 1. Rule out generalized anxiety disorder. 2. COPD. 3. Psychosocial stressors are moderate. PLAN: . I ASSESSED THIS PATIENT AND PROVIDED HIM WITH: 1. Reality orientation. Orientation of patient to person, place, time, and situation. 2. Supportive psychotherapy encouraging him to process thoughts and feelings utilizing positive communication skills. Plan is to make him medication compliant with positive coping skills and stabilizing thoughts and behaviors . This clinician has reviewed the patient's chart and discussed treatment with treatment team. Brandon Campos PsyD. : [facility] JOB#: [id number] CC:
[2020-05-14] MEDS: cefTRIAXone 1 GM in D5W 55 ML IVPB SCH (23:52)
[2020-05-15] VITALS: BP 136/66
[2020-05-15] MEDS: Azithromycin 250 MG in D5W 275 ML IV SCH ×2 (01:00→12:00)
[2020-05-15 04:00] VITALS: BP 108/67
[2020-05-15 05:04] LABS: AMMONIA 30 umol/L (11-32)
[2020-05-15 05:31] LABS: ALANINE AMINOTRANSFERASE 100 U/L (12-78); ALBUMIN 2.1 G/DL (3.4-5.0); ALBUMIN/GLOBULIN RATIO 0.5 (1.0-2.7); ALKALINE PHOSPHATASE 48 U/L (46-116); ANION GAP 10 mmol/L (5-15); ASPARTATE AMINO TRANSFERASE 129 U/L (15-37); BILIRUBIN,TOTAL 0.7 MG/DL (0.2-1.0); BLOOD UREA NITROGEN 37 mg/dL (7-18); CALCIUM 8.1 MG/DL (8.5-10.1); CARBON DIOXIDE 23 MMOL/L (21-32); CHLORIDE 101 MMOL/L (98-107); CHOLESTEROL 138 MG/DL (< 200); CREATININE 1.3 MG/DL (0.55-1.30); HDL CHOLESTEROL 37 MG/DL (40-60); POTASSIUM 4.4 MMOL/L (3.5-5.1); SODIUM 134 MMOL/L (136-145); TRIGLYCERIDES 144 MG/DL (30-150)
[2020-05-15 06:22] LABS: GAMMA GLUTAMYL TRANSPEPTIDASE 27 U/L (5-85); PHOSPHORUS 3.3 MG/DL (2.5-4.9)
[2020-05-15 07:54] LABS: HEMATOCRIT 40.4 % (42.0-52.0); HEMOGLOBIN 14.5 G/DL (14.2-18.0); MEAN CORPUSCULAR VOLUME 88 FL (80-99); PLATELET COUNT 387 K/UL (150-450); RED BLOOD COUNT 4.59 M/UL (4.70-6.10); RED CELL DISTRIBUTION WIDTH 14.4 % (11.6-14.8); WHITE BLOOD COUNT 9.7 K/UL (4.8-10.8)
[2020-05-15 08:00] VITALS: BP 105/62
[2020-05-15 08:19] LABS: % IRON SATURATION 45 % (15-50); IRON 70 ug/dL (50-175); TOTAL IRON BINDING CAPACITY 154 ug/dL (250-450)
--- NOTE | 2020-05-15 08:22 | Infectious Diseases Prog Note ---
Assessment/Plan 74yo M with: Afebrile Normal WBC Lymphopenia Pneumonia COVID pneumonia, severe Acute hypoxic resp failure on NRB mask Possible UTI 05/13 BCx NTD UA 5-10 WBC, UCx >100k GNRs COVID rapid positive CXR: Multifocal pna Elevated LFTs, AST/ALT 125 / 80 TOPHER on CKD, Cr 1.5, improving COPD Cardiac disease SNF resident Plan: Cont dexamethasone 6mg daily #2 Cont remdesivir #2/5 Cont CTX/azithro #2/5 for pneumonia/UTI F/u BCx, Resp cx F/u UCx +GNRs Monitor CBC/CMP Monitor temp curve, hemodynamics Monitor resp status D/w RN Thank you for this consult. [facility] will continue to follow. Subjective Allergies: Coded Allergies: No Known Allergies (Unverified , 05/13/20) AF Remains on 15L NRB mask NAD WBC 9.7 Not feeling well, c/o RIVAS, doesn't want to be examined Objective Last 24 Hour Vital Signs Date Time Temp Pulse Resp B/P (MAP) Pulse Ox O2 Delivery O2 Flow Rate FiO2 05/15/20 04:00 98.0 66 22 108/67 (81) 94 05/15/20 04:00 63 05/15/20 00:00 61 05/15/20 00:00 97.0 72 20 136/66 (89) 94 05/14/20 21:08 67 107/70 05/14/20 21:00 Non-Rebreather 15.0 05/14/20 20:00 67 05/14/20 20:00 97.8 67 24 107/70 (82) 94 05/14/20 16:00 97.3 67 20 120/62 (81) 91 05/14/20 16:00 68 05/14/20 13:11 Room Air 05/14/20 13:11 97.9 20 131/71 (91) 92 05/14/20 13:00 98.5 63 23 108/77 97 Non-Rebreather 15.0 05/14/20 13:00 98.5 63 23 108/77 97 Non-Rebreather 15.0 05/14/20 12:02 98.5 64 22 105/61 96 Non-Rebreather 15.0 91 05/14/20 10:27 98.2 65 22 101/63 97 Non-Rebreather 15.0 05/14/20 08:59 68 122/71 05/14/20 08:58 122/71 Height (Feet): 5 Height (Inches): 7.00 Weight (Pounds): 160 Cardiovascular: normal peripheral pulses Gen: NAD HEENT: NCAT Pulm: BL chest rise Abd: Non-distended Ext: No c/c/e Skin: No visible rashes Neuro: Awake Microbiology Date/Time Source Procedure Growth Status 05/14/20 08:35 Nasopharynx SARS-CoV-2 RdRp Gene Assay - Final Complete 05/13/20 18:04 Blood Blood Culture - Preliminary NO GROWTH AFTER 24 HOURS Resulted 05/13/20 18:03 Urine,Clean Catch Urine Culture - Preliminary Gram Negative Lucas Resulted 05/13/20 17:49 Blood Blood Culture - Preliminary NO GROWTH AFTER 24 HOURS Resulted Laboratory Tests Test 05/15/20 04:20 05/15/20 05:50 Sodium Level 134 MMOL/L (136-145) L Potassium Level 4.4 MMOL/L (3.5-5.1) Chloride Level 101 MMOL/L (98-107) Carbon Dioxide Level 23 MMOL/L (21-32) Anion Gap 10 mmol/L (5-15) Blood Urea Nitrogen 37 mg/dL (7-18) H Creatinine 1.3 MG/DL (0.55-1.30) Estimat Glomerular Filtration Rate 54.1 mL/min (>60) Glucose Level 143 MG/DL (74-106) H Hemoglobin A1c 6.2 % (4.3-6.0) H Uric Acid 4.0 MG/DL (2.6-7.2) Calcium Level 8.1 MG/DL (8.5-10.1) L Phosphorus Level 3.3 MG/DL (2.5-4.9) Magnesium Level 2.6 MG/DL (1.8-2.4) H Iron Level 70 ug/dL (50-175) Total Iron Binding Capacity 154 ug/dL (250-450) L Percent Iron Saturation 45 % (15-50) Unsaturated Iron Binding 84 ug/dL (112-346) L Total Bilirubin 0.7 MG/DL (0.2-1.0) Direct Bilirubin 0.2 MG/DL (0.0-0.3) Gamma Glutamyl Transpeptidase 27 U/L (5-85) Aspartate Amino Transf (AST/SGOT) 129 U/L (15-37) H Alanine Aminotransferase (ALT/SGPT) 100 U/L (12-78) H Alkaline Phosphatase 48 U/L (46-116) Ammonia 30 umol/L (11-32) Troponin I 0.022 ng/mL (0.000-0.056) C-Reactive Protein, Quantitative 12.6 mg/dL (0.00-0.90) H Pro-B-Type Natriuretic Peptide 1087 pg/mL (0-125) H Total Protein 6.7 G/DL (6.4-8.2) Albumin 2.1 G/DL (3.4-5.0) L Globulin 4.6 g/dL Albumin/Globulin Ratio 0.5 (1.0-2.7) L Triglycerides Level 144 MG/DL (30-150) Cholesterol Level 138 MG/DL (< 200) LDL Cholesterol 78 mg/dL (<100) HDL Cholesterol 37 MG/DL (40-60) L Cholesterol/HDL Ratio 3.7 (3.3-4.4) Lipase 282 U/L (73-393) Vitamin B12 Level Pending Folate Pending Thyroid Stimulating Hormone (TSH) 1.166 uiU/mL (0.358-3.740) White Blood Count 9.7 K/UL (4.8-10.8) Red Blood Count 4.59 M/UL (4.70-6.10) L Hemoglobin 14.5 G/DL (14.2-18.0) Hematocrit 40.4 % (42.0-52.0) L Mean Corpuscular Volume 88 FL (80-99) Mean Corpuscular Hemoglobin 31.5 PG (27.0-31.0) H Mean Corpuscular Hemoglobin Concent 35.9 G/DL (32.0-36.0) Red Cell Distribution Width 14.4 % (11.6-14.8) Platelet Count 387 K/UL (150-450) Mean Platelet Volume 8.1 FL (6.5-10.1) Neutrophils (%) (Auto) % (45.0-75.0) Lymphocytes (%) (Auto) % (20.0-45.0) Monocytes (%) (Auto) % (1.0-10.0) Eosinophils (%) (Auto) % (0.0-3.0) Basophils (%) (Auto) % (0.0-2.0) Neutrophils % (Manual) Pending Lymphocytes % (Manual) Pending Platelet Estimate Pending Platelet Morphology Pending Current Medications Medications (Trade) Dose Ordered Sig/Tami Route PRN Reason Start Time Stop Time Status Last Admin Dose Admin Acetaminophen (Tylenol) 650 mg Q4H PRN ORAL FEVER 05/13/20 23:30 06/12/20 23:29 Albuterol/ Ipratropium (Combivent Respimat) 1 puff Q4H PRN INH Shortness of Breath 05/14/20 14:15 06/13/20 14:14 Amiodarone HCl (Cordarone) 200 mg DAILY ORAL 05/14/20 09:00 08/12/20 08:59 05/14/20 08:59 Azithromycin 250 mg/Dextrose 275 ml @ 275 mls/hr Q24H IV 05/14/20 01:00 05/19/20 00:59 05/14/20 08:29 Barium Sulfate (Varibar Honey) 250 ml NOW PRN MC RAD 05/14/20 14:15 05/17/20 14:11 Barium Sulfate (Varibar [place]) 240 ml NOW PRN MC RAD 05/14/20 14:15 05/17/20 14:11 Barium Sulfate (Varibar Pud[place]) 230 ml NOW PRN MC RAD 05/14/20 14:15 05/17/20 14:11 Barium Sulfate (Varibar Thin Liquid powder) 148 gm NOW PRN MC RAD 05/14/20 14:15 05/17/20 14:11 Carvedilol (Coreg) 3.125 mg EVERY 12 HOURS ORAL 05/14/20 09:00 06/13/20 08:59 05/14/20 21:08 Ceftriaxone Sodium 1 gm/ Dextrose 55 ml @ 110 mls/hr Q24H IVPB 05/13/20 23:30 05/20/20 23:29 05/14/20 23:52 Dexamethasone (Decadron) 6 mg DAILY ORAL 05/15/20 09:00 05/24/20 09:01 Dextrose (Dextrose 50%) 25 ml Q30M PRN IV Hypoglycemia 05/13/20 23:30 08/11/20 23:29 Dextrose (Dextrose 50%) 50 ml Q30M PRN IV Hypoglycemia 05/13/20 23:30 08/11/20 23:29 Docusate Sodium (Colace) 100 mg TWICE A DAY ORAL 05/14/20 18:00 06/13/20 17:59 05/14/20 17:15 Finasteride (Proscar) 5 mg DAILY ORAL 05/14/20 09:00 08/12/20 08:59 05/14/20 08:59 Heparin Sodium (Porcine) (Heparin 5000 units/ml) 5,000 units EVERY 12 HOURS SUBQ 05/14/20 09:00 06/28/20 08:59 05/14/20 21:05 Lisinopril (ZestriL) 5 mg DAILY ORAL 05/14/20 09:00 06/13/20 08:59 05/14/20 08:58 Ondansetron HCl (Zofran) 4 mg Q6H PRN IVP Nausea & Vomiting 05/13/20 23:30 06/12/20 23:29 Pantoprazole (Protonix) 40 mg DAILY ORAL 05/15/20 09:00 06/14/20 08:59 Polyethylene Glycol (Miralax) 17 gm DAILYPRN PRN ORAL Constipation 05/13/20 23:30 06/12/20 23:29 Promethazine HCl/ Codeine (Phenergan with Codeine) 5 ml Q6H PRN ORAL cough 05/13/20 23:30 06/12/20 23:29 Remdesivir 100 mg/ Sodium Chloride 250 ml @ 250 mls/hr Q24H IV 05/15/20 16:00 05/18/20 16:59 Sodium Chloride 1,000 ml @ 50 mls/hr Q20H IV 05/14/20 14:30 06/13/20 14:29 05/14/20 14:43 Tamsulosin HCl (Flomax) 0.4 mg BEDTIME ORAL 05/14/20 21:00 06/13/20 20:59 05/14/20 21:07 Kathy Yap M.D. May 15, 2020 08:22
[2020-05-15] MEDS: Lisinopril 2.5mg tab ORAL SCH (08:34)
[2020-05-15] MEDS: Amiodarone 200mg tab ORAL SCH (08:36)
[2020-05-15] MEDS: Docusate 100mg cap ORAL SCH ×2 (08:37→17:22)
[2020-05-15] MEDS: Heparin 5000 units/ml inj SUBQ SCH ×2 (08:38→21:25)
--- NOTE | 2020-05-15 09:17 | General Progress Note ---
Subjective Constitutional: Reports: weakness Allergies: Coded Allergies: No Known Allergies (Unverified , 05/13/20) All Systems: reviewed and negative except above Subjective calm in room Objective Last 24 Hour Vital Signs Date Time Temp Pulse Resp B/P (MAP) Pulse Ox O2 Delivery O2 Flow Rate FiO2 05/15/20 08:34 105/62 05/15/20 08:34 66 105/62 05/15/20 08:00 97.7 66 20 105/62 (76) 92 05/15/20 04:00 98.0 66 22 108/67 (81) 94 05/15/20 04:00 63 05/15/20 00:00 61 05/15/20 00:00 97.0 72 20 136/66 (89) 94 05/14/20 21:08 67 107/70 05/14/20 21:00 Non-Rebreather 15.0 05/14/20 20:00 67 05/14/20 20:00 97.8 67 24 107/70 (82) 94 05/14/20 16:00 97.3 67 20 120/62 (81) 91 05/14/20 16:00 68 05/14/20 13:11 Room Air 05/14/20 13:11 97.9 20 131/71 (91) 92 05/14/20 13:00 98.5 63 23 108/77 97 Non-Rebreather 15.0 05/14/20 13:00 98.5 63 23 108/77 97 Non-Rebreather 15.0 05/14/20 12:02 98.5 64 22 105/61 96 Non-Rebreather 15.0 91 05/14/20 10:27 98.2 65 22 101/63 97 Non-Rebreather 15.0 Intake and Output 05/14/20 05/15/20 19:00 07:00 Intake Total 515 ml 150 ml Output Total 600 ml Balance 515 ml -450 ml Intake Oral 240 ml 150 ml IV Total 275 ml Output Urine Total 600 ml Laboratory Tests 05/15/20 04:20: Sodium Level 134L, Potassium Level 4.4, Chloride Level 101, Carbon Dioxide Level 23, Anion Gap 10, Blood Urea Nitrogen 37H, Creatinine 1.3, Estimat Glomerular Filtration Rate 54.1, Glucose Level 143H, Hemoglobin A1c 6.2H, Uric Acid 4.0, Calcium Level 8.1L, Phosphorus Level 3.3, Magnesium Level 2.6H, Iron Level 70, Total Iron Binding Capacity 154L, Percent Iron Saturation 45, Unsaturated Iron Binding 84L, Total Bilirubin 0.7, Direct Bilirubin 0.2, Gamma Glutamyl Transpeptidase 27, Aspartate Amino Transf (AST/SGOT) 129H, Alanine Aminotransferase (ALT/SGPT) 100H, Alkaline Phosphatase 48, Ammonia 30, Troponin I 0.022, C-Reactive Protein, Quantitative 12.6H, Pro-B-Type Natriuretic Peptide 1087H, Total Protein 6.7, Albumin 2.1L, Globulin 4.6, Albumin/Globulin Ratio 0.5L, Triglycerides Level 144, Cholesterol Level 138, LDL Cholesterol 78, HDL Cholesterol 37L, Cholesterol/HDL Ratio 3.7, Lipase 282, Vitamin B12 Level 1906H, Folate 18.3, Thyroid Stimulating Hormone (TSH) 1.166 05/15/20 05:50: White Blood Count 9.7, Red Blood Count 4.59L, Hemoglobin 14.5, Hematocrit 40.4L, Mean Corpuscular Volume 88, Mean Corpuscular Hemoglobin 31.5H, Mean Corpuscular Hemoglobin Concent 35.9, Red Cell Distribution Width 14.4, Platelet Count 387, Mean Platelet Volume 8.1, Neutrophils (%) (Auto) , Lymphocytes (%) (Auto) , Monocytes (%) (Auto) , Eosinophils (%) (Auto) , Basophils (%) (Auto) , Neutrophils % (Manual) [Pending], Lymphocytes % (Manual) [Pending], Platelet Estimate [Pending], Platelet Morphology [Pending] Height (Feet): 5 Height (Inches): 7.00 Weight (Pounds): 160 General Appearance: lethargic EENT: normal ENT inspection Neck: normal alignment Cardiovascular: normal peripheral pulses, normal rate, regular rhythm Respiratory/Chest: chest wall non-tender, lungs clear, normal breath sounds Abdomen: normal bowel sounds, non tender, soft Extremities: normal inspection Edema: no edema noted Arm (L), no edema noted Arm (R), no edema noted Leg (L), no edema noted Leg (R), no edema noted Pedal (L), no edema noted Pedal (R), no edema noted Generalized Neurologic: motor weakness Skin: normal pigmentation, warm/dry Assessment/Plan Problem List: (1) Pneumonia ICD Codes: J18.9 - Pneumonia, unspecified organism SNOMED: 878617399 (2) HTN (hypertension) ICD Codes: I10 - Essential (primary) hypertension SNOMED: 92953619 (3) COPD (chronic obstructive pulmonary disease) ICD Codes: J44.9 - Chronic obstructive pulmonary disease, unspecified SNOMED: 48694475 (4) Malnutrition ICD Codes: E46 - Unspecified protein-calorie malnutrition SNOMED: 25988588 (5) Dehydration ICD Codes: E86.0 - Dehydration SNOMED: 86510732 (6) Hypoxia ICD Codes: R09.02 - Hypoxemia SNOMED: 006274822 (7) 2019 novel coronavirus disease (COVID-19) ICD Codes: U07.1 - COVID-19 SNOMED: 652385205 (8) Psychosis ICD Codes: F29 - Unspecified psychosis not due to a substance or known physiological condition SNOMED: 42804773 Status: unchanged Assessment/Plan: o2p ulm tx abx pt diet cbc bmp am Sonny Gonzales DO May 15, 2020 09:17
[2020-05-15] MEDS ORDERED: Tubing IV Secondary IV ONE (10:07)
--- NOTE | 2020-05-15 10:48 | Nephrology Progress Note ---
Assessment/Plan Problem List: (1) TOPHER (acute kidney injury) (2) Dehydration (3) 2019 novel coronavirus disease (COVID-19) (4) Pneumonia (5) COPD (chronic obstructive pulmonary disease) (6) Psychosis Assessment Renal failure, acute on chronic Partly dehydration COPD, hypoxia, COVID-19 disease Psychosis Atrial fibrillation High cholesterol Hypertension History of CVA Plan Adjust blood pressure medication Stop saline hydration Monitor renal parameters and electrolytes Pulmonary support Per consultants Avoid nephrotoxic's Urine studies Per orders Subjective ROS Limited/Unobtainable: No Constitutional: Reports: malaise Objective Objective Last 24 Hour Vital Signs Date Time Temp Pulse Resp B/P (MAP) Pulse Ox O2 Delivery O2 Flow Rate FiO2 05/15/20 09:00 Room Air 05/15/20 08:34 105/62 05/15/20 08:34 66 105/62 05/15/20 08:00 66 05/15/20 08:00 97.7 66 20 105/62 (76) 92 05/15/20 04:00 98.0 66 22 108/67 (81) 94 05/15/20 04:00 63 05/15/20 00:00 61 05/15/20 00:00 97.0 72 20 136/66 (89) 94 05/14/20 21:08 67 107/70 05/14/20 21:00 Non-Rebreather 15.0 05/14/20 20:00 67 05/14/20 20:00 97.8 67 24 107/70 (82) 94 05/14/20 16:00 97.3 67 20 120/62 (81) 91 05/14/20 16:00 68 05/14/20 13:11 Room Air 05/14/20 13:11 97.9 20 131/71 (91) 92 05/14/20 13:00 98.5 63 23 108/77 97 Non-Rebreather 15.0 05/14/20 13:00 98.5 63 23 108/77 97 Non-Rebreather 15.0 05/14/20 12:02 98.5 64 22 105/61 96 Non-Rebreather 15.0 91 Intake and Output 05/14/20 05/15/20 19:00 07:00 Intake Total 515 ml 150 ml Output Total 600 ml Balance 515 ml -450 ml Intake Oral 240 ml 150 ml IV Total 275 ml Output Urine Total 600 ml Laboratory Tests 05/15/20 04:20: Sodium Level 134L, Potassium Level 4.4, Chloride Level 101, Carbon Dioxide Level 23, Anion Gap 10, Blood Urea Nitrogen 37H, Creatinine 1.3, Estimat Glomerular Filtration Rate 54.1, Glucose Level 143H, Hemoglobin A1c 6.2H, Uric Acid 4.0, Calcium Level 8.1L, Phosphorus Level 3.3, Magnesium Level 2.6H, Iron Level 70, Total Iron Binding Capacity 154L, Percent Iron Saturation 45, Unsaturated Iron Binding 84L, Total Bilirubin 0.7, Direct Bilirubin 0.2, Gamma Glutamyl Transpeptidase 27, Aspartate Amino Transf (AST/SGOT) 129H, Alanine Aminotransferase (ALT/SGPT) 100H, Alkaline Phosphatase 48, Ammonia 30, Troponin I 0.022, C-Reactive Protein, Quantitative 12.6H, Pro-B-Type Natriuretic Peptide 1087H, Total Protein 6.7, Albumin 2.1L, Globulin 4.6, Albumin/Globulin Ratio 0.5L, Triglycerides Level 144, Cholesterol Level 138, LDL Cholesterol 78, HDL Cholesterol 37L, Cholesterol/HDL Ratio 3.7, Lipase 282, Vitamin B12 Level 1906H, Folate 18.3, Thyroid Stimulating Hormone (TSH) 1.166 05/15/20 05:50: White Blood Count 9.7, Red Blood Count 4.59L, Hemoglobin 14.5, Hematocrit 40.4L, Mean Corpuscular Volume 88, Mean Corpuscular Hemoglobin 31.5H, Mean Corpuscular Hemoglobin Concent 35.9, Red Cell Distribution Width 14.4, Platelet Count 387, Mean Platelet Volume 8.1, Neutrophils (%) (Auto) , Lymphocytes (%) (Auto) , Monocytes (%) (Auto) , Eosinophils (%) (Auto) , Basophils (%) (Auto) , Neutrophi ls % (Manual) [Pending], Lymphocytes % (Manual) [Pending], Platelet Estimate [Pending], Platelet Morphology [Pending] Height (Feet): 5 Height (Inches): 7.00 Weight (Pounds): 160 General Appearance: no apparent distress Cardiovascular: normal rate Respiratory/Chest: decreased breath sounds Abdomen: distended Alan Sánchez MD May 15, 2020 10:48
--- NOTE | 2020-05-15 11:09 | Pulmonology Progress Note ---
Subjective ROS Limited/Unobtainable: No Allergies: Coded Allergies: No Known Allergies (Unverified , 05/13/20) All Systems: reviewed and negative except above Objective Last 24 Hour Vital Signs Date Time Temp Pulse Resp B/P (MAP) Pulse Ox O2 Delivery O2 Flow Rate FiO2 05/15/20 09:00 Room Air 05/15/20 08:34 105/62 05/15/20 08:34 66 105/62 05/15/20 08:00 66 05/15/20 08:00 97.7 66 20 105/62 (76) 92 05/15/20 04:00 98.0 66 22 108/67 (81) 94 05/15/20 04:00 63 05/15/20 00:00 61 05/15/20 00:00 97.0 72 20 136/66 (89) 94 05/14/20 21:08 67 107/70 05/14/20 21:00 Non-Rebreather 15.0 05/14/20 20:00 67 05/14/20 20:00 97.8 67 24 107/70 (82) 94 05/14/20 16:00 97.3 67 20 120/62 (81) 91 05/14/20 16:00 68 05/14/20 13:11 Room Air 05/14/20 13:11 97.9 20 131/71 (91) 92 05/14/20 13:00 98.5 63 23 108/77 97 Non-Rebreather 15.0 05/14/20 13:00 98.5 63 23 108/77 97 Non-Rebreather 15.0 05/14/20 12:02 98.5 64 22 105/61 96 Non-Rebreather 15.0 91 Intake and Output 05/14/20 05/15/20 19:00 07:00 Intake Total 515 ml 150 ml Output Total 600 ml Balance 515 ml -450 ml Intake Oral 240 ml 150 ml IV Total 275 ml Output Urine Total 600 ml General Appearance: WD/WN HEENT: normocephalic, atraumatic Respiratory: chest wall non-tender, rhonchi - left, rhonchi - right Cardiovascular: normal peripheral pulses, normal rate Abdomen: normal bowel sounds, soft, non tender Genitourinary: normal external genitalia Extremities: no clubbing Neurologic: dope sprayer II-XII grossly normal Microbiology Date/Time Source Procedure Growth Status 05/14/20 08:35 Nasopharynx SARS-CoV-2 RdRp Gene Assay - Final Complete 05/13/20 18:04 Blood Blood Culture - Preliminary NO GROWTH AFTER 24 HOURS Resulted 05/13/20 18:03 Urine,Clean Catch Urine Culture - Preliminary Gram Negative Lucas Resulted 05/13/20 17:49 Blood Blood Culture - Preliminary NO GROWTH AFTER 24 HOURS Resulted Laboratory Tests 05/15/20 04:20: Sodium Level 134L, Potassium Level 4.4, Chloride Level 101, Carbon Dioxide Level 23, Anion Gap 10, Blood Urea Nitrogen 37H, Creatinine 1.3, Estimat Glomerular Filtration Rate 54.1, Glucose Level 143H, Hemoglobin A1c 6.2H, Uric Acid 4.0, Calcium Level 8.1L, Phosphorus Level 3.3, Magnesium Level 2.6H, Iron Level 70, Total Iron Binding Capacity 154L, Percent Iron Saturation 45, Unsaturated Iron Binding 84L, Total Bilirubin 0.7, Direct Bilirubin 0.2, Gamma Glutamyl Transpeptidase 27, Aspartate Amino Transf (AST/SGOT) 129H, Alanine Aminotransferase (ALT/SGPT) 100H, Alkaline Phosphatase 48, Ammonia 30, Troponin I 0.022, C-Reactive Protein, Quantitative 12.6H, Pro-B-Type Natriuretic Peptide 1087H, Total Protein 6.7, Albumin 2.1L, Globulin 4.6, Albumin/Globulin Ratio 0.5L, Triglycerides Level 144, Cholesterol Level 138, LDL Cholesterol 78, HDL Cholesterol 37L, Cholesterol/HDL Ratio 3.7, Lipase 282, Vitamin B12 Level 1906H, Folate 18.3, Thyroid Stimulating Hormone (TSH) 1.166 05/15/20 05:50: White Blood Count 9.7, Red Blood Count 4.59L, Hemoglobin 14.5, Hematocrit 40.4L, Mean Corpuscular Volume 88, Mean Corpuscular Hemoglobin 31.5H, Mean Corpuscular Hemoglobin Concent 35.9, Red Cell Distribution Width 14.4, Platelet Count 387, Mean Platelet Volume 8.1, Neutrophils (%) (Auto) , Lymphocytes (%) (Auto) , Monocytes (%) (Auto) , Eosinophils (%) (Auto) , Basophils (%) (Auto) , Differential Total Cells Counted 100, Neutrophils % (Manual) 89H, Lymphocytes % (Manual) 6L, Monocytes % (Manual) 5, Eosinophils % (Manual) 0, Basophils % (Manual) 0, Band Neutrophils 0, Platelet Estimate Adequate, Platelet Morphology Normal, Red Blood Cell Morphology Normal Current Medications Medications (Trade) Dose Ordered Sig/Tami Route PRN Reason Start Time Stop Time Status Last Admin Dose Admin Acetaminophen (Tylenol) 650 mg Q4H PRN ORAL FEVER 05/13/20 23:30 06/12/20 23:29 Albuterol/ Ipratropium (Combivent Respimat) 1 puff Q4H PRN INH Shortness of Breath 05/14/20 14:15 06/13/20 14:14 Amiodarone HCl (Cordarone) 200 mg DAILY ORAL 05/14/20 09:00 08/12/20 08:59 05/15/20 08:36 Azithromycin 250 mg/Dextrose 275 ml @ 275 mls/hr Q24H IV 05/15/20 12:00 05/18/20 12:59 Barium Sulfate (Varibar Honey) 250 ml NOW PRN MC RAD 05/14/20 14:15 05/17/20 14:11 Barium Sulfate (Varibar [place]) 240 ml NOW PRN MC RAD 05/14/20 14:15 05/17/20 14:11 Barium Sulfate (Varibar Pudding) 230 ml NOW PRN MC RAD 05/14/20 14:15 05/17/20 14:11 Barium Sulfate (Varibar Thin Liquid powder) 148 gm NOW PRN MC RAD 05/14/20 14:15 05/17/20 14:11 Carvedilol (Coreg) 3.125 mg EVERY 12 HOURS ORAL 05/14/20 09:00 06/13/20 08:59 05/14/20 21:08 Ceftriaxone Sodium 1 gm/ Dextrose 55 ml @ 110 mls/hr Q24H IVPB 05/13/20 23:30 05/20/20 23:29 05/14/20 23:52 Dexamethasone (Decadron) 6 mg DAILY ORAL 05/15/20 09:00 05/24/20 09:01 05/15/20 08:37 Dextrose (Dextrose 50%) 25 ml Q30M PRN IV Hypoglycemia 05/13/20 23:30 08/11/20 23:29 Dextrose (Dextrose 50%) 50 ml Q30M PRN IV Hypoglycemia 05/13/20 23:30 08/11/20 23:29 Docusate Sodium (Colace) 100 mg TWICE A DAY ORAL 05/14/20 18:00 06/13/20 17:59 05/15/20 08:37 Finasteride (Proscar) 5 mg DAILY ORAL 05/14/20 09:00 08/12/20 08:59 05/15/20 08:36 Heparin Sodium (Porcine) (Heparin 5000 units/ml) 5,000 units EVERY 12 HOURS SUBQ 05/14/20 09:00 06/28/20 08:59 05/15/20 08:38 Lisinopril (ZestriL) 5 mg DAILY ORAL 05/14/20 09:00 06/13/20 08:59 05/14/20 08:58 Ondansetron HCl (Zofran) 4 mg Q6H PRN IVP Nausea & Vomiting 05/13/20 23:30 06/12/20 23:29 Pantoprazole (Protonix) 40 mg DAILY ORAL 05/15/20 09:00 06/14/20 08:59 05/15/20 08:36 Polyethylene Glycol (Miralax) 17 gm DAILYPRN PRN ORAL Constipation 05/13/20 23:30 06/12/20 23:29 Promethazine HCl/ Codeine (Phenergan with Codeine) 5 ml Q6H PRN ORAL cough 05/13/20 23:30 06/12/20 23:29 Remdesivir 100 mg/ Sodium Chloride 250 ml @ 250 mls/hr Q24H IV 05/15/20 16:00 05/18/20 16:59 Tamsulosin HCl (Flomax) 0.4 mg BEDTIME ORAL 05/14/20 21:00 06/13/20 20:59 05/14/20 21:07 Assessment/Plan Problems: (1) 2019 novel coronavirus disease (COVID-19) (2) COPD (chronic obstructive pulmonary disease) (3) Psychosis (4) HTN (hypertension) Assessment/Plan all reviewed titrate fio2 to sat of 92% respiratory treatment prn f/u crp and cxr periodically check sputum ID to manage ABx monitor BP symptomatic treatment. dvt prophylaxis. Umesh Prajapati MD May 15, 2020 11:09
[2020-05-15 12:00] VITALS: BP 110/62
[2020-05-15] MEDS: LORazepam 1mg tab ORAL PRN (15:45)
[2020-05-15 16:00] VITALS: BP 105/68
[2020-05-15] MEDS: Maintenance Dose:Remdesivir 100mg/NS 230ml x 4 Doses IV SCH ×2 (16:12)
[2020-05-15 20:00] VITALS: BP 148/66
[2020-05-15] MEDS: Tamsulosin 0.4mg cap ORAL SCH (21:23)
[2020-05-15] MEDS: cefTRIAXone 1 GM in D5W 55 ML IVPB SCH (23:23)
[2020-05-16] VITALS: BP 136/67
[2020-05-16 04:00] VITALS: BP 123/68
[2020-05-16 04:37] LABS: HEMATOCRIT 42.5 % (42.0-52.0); HEMOGLOBIN 15.3 G/DL (14.2-18.0); MEAN CORPUSCULAR VOLUME 89 FL (80-99); PLATELET COUNT 424 K/UL (150-450); RED CELL DISTRIBUTION WIDTH 14.4 % (11.6-14.8); WHITE BLOOD COUNT 11.4 K/UL (4.8-10.8)
[2020-05-16 04:55] LABS: PHOSPHORUS 2.8 MG/DL (2.5-4.9)
[2020-05-16 04:58] LABS: ALBUMIN 2.6 G/DL (3.4-5.0); ALBUMIN/GLOBULIN RATIO 0.5 (1.0-2.7); BILIRUBIN,DIRECT 0.3 MG/DL (0.0-0.3); BILIRUBIN,TOTAL 0.8 MG/DL (0.2-1.0); CALCIUM 8.7 MG/DL (8.5-10.1); CREATININE 1.5 MG/DL (0.55-1.30); POTASSIUM 4.6 MMOL/L (3.5-5.1)
[2020-05-16 08:00] VITALS: BP 151/74
--- NOTE | 2020-05-16 08:49 | General Progress Note ---
Subjective Constitutional: Reports: weakness Allergies: Coded Allergies: No Known Allergies (Unverified , 05/13/20) All Systems: reviewed and negative except above Subjective sleepy in room Objective Last 24 Hour Vital Signs Date Time Temp Pulse Resp B/P (MAP) Pulse Ox O2 Delivery O2 Flow Rate FiO2 05/16/20 04:00 67 05/16/20 04:00 97.2 68 20 123/68 (86) 94 05/16/20 00:00 97.0 65 20 136/67 (90) 94 05/16/20 00:00 60 05/15/20 21:23 64 148/66 05/15/20 21:00 Room Air 05/15/20 20:00 67 05/15/20 20:00 96.4 64 20 148/66 (93) 92 05/15/20 16:15 57 22 110/62 95 05/15/20 16:00 97.7 70 20 105/68 (80) 94 05/15/20 16:00 57 05/15/20 15:45 57 22 110/62 95 05/15/20 12:00 97.7 68 22 110/62 (78) 95 05/15/20 12:00 57 05/15/20 09:00 Room Air Intake and Output 05/15/20 05/16/20 19:00 07:00 Intake Total 370 ml 200 ml Balance 370 ml 200 ml Intake Oral 120 ml 200 ml IV Total 250 ml # Voids 3 3 Laboratory Tests 05/16/20 04:00: White Blood Count 11.4H, Red Blood Count 4.80, Hemoglobin 15.3, Hematocrit 42.5, Mean Corpuscular Volume 89, Mean Corpuscular Hemoglobin 31.8H, Mean Corpuscular Hemoglobin Concent 35.9, Red Cell Distribution Width 14.4, Platelet Count 424, Mean Platelet Volume 8.5, Neutrophils (%) (Auto) , Lymphocytes (%) (Auto) , Monocytes (%) (Auto) , Eosinophils (%) (Auto) , Basophils (%) (Auto) , Neutrophils % (Manual) [Pending], Lymphocytes % (Manual) [Pending], Platelet Estimate [Pending], Platelet Morphology [Pending], Erythrocyte Sedimentation Rate 31H, Sodium Level 133L, Potassium Level 4.6, Chloride Level 101, Carbon Dioxide Level 26, Anion Gap 6, Blood Urea Nitrogen 39H, Creatinine 1.5H, Estimat Glomerular Filtration Rate 45.9, Glucose Level 142H, Uric Acid 4.0, Calcium Level 8.7, Phosphorus Level 2.8, Magnesium Level 2.8H, Total Bilirubin 0.8, Direct Bilirubin 0.3, Aspartate Amino Transf (AST/SGOT) 77H, Alanine Aminotransferase (ALT/SGPT) 91H, Alkaline Phosphatase 54, C-Reactive Protein, Quantitative 6.8H, Total Protein 7.4, Albumin 2.6L, Globulin 4.8, Albumin/Globulin Ratio 0.5L Height (Feet): 5 Height (Inches): 7.00 Weight (Pounds): 160 General Appearance: lethargic EENT: normal ENT inspection Neck: normal alignment Cardiovascular: normal peripheral pulses, normal rate, regular rhythm Respiratory/Chest: chest wall non-tender, lungs clear, normal breath sounds Abdomen: normal bowel sounds, non tender, soft Extremities: normal inspection Edema: no edema noted Arm (L), no edema noted Arm (R), no edema noted Leg (L), no edema noted Leg (R), no edema noted Pedal (L), no edema noted Pedal (R), no edema noted Generalized Neurologic: motor weakness Skin: normal pigmentation, warm/dry Assessment/Plan Problem List: (1) Pneumonia ICD Codes: J18.9 - Pneumonia, unspecified organism SNOMED: 897536498 (2) HTN (hypertension) ICD Codes: I10 - Essential (primary) hypertension SNOMED: 14403087 (3) COPD (chronic obstructive pulmonary disease) ICD Codes: J44.9 - Chronic obstructive pulmonary disease, unspecified SNOMED: 58232678 (4) Dehydration ICD Codes: E86.0 - Dehydration SNOMED: 70676100 (5) 2019 novel coronavirus disease (COVID-19) ICD Codes: U07.1 - COVID-19 SNOMED: 948557658 (6) Psychosis ICD Codes: F29 - Unspecified psychosis not due to a substance or known physiological condition SNOMED: 18732204 Status: unchanged Assessment/Plan: o2p ulm tx abx pt diet cbc bmp am Sonny GonzalesNadege DO May 16, 2020 08:49
[2020-05-16] MEDS: Docusate 100mg cap ORAL SCH ×3 (09:00→17:13)
[2020-05-16] MEDS: Amiodarone 200mg tab ORAL SCH (09:16)
[2020-05-16] MEDS: Lisinopril 2.5mg tab ORAL SCH (09:16)
[2020-05-16] MEDS: Heparin 5000 units/ml inj SUBQ SCH ×2 (09:18→21:20)
[2020-05-16] MEDS: LORazepam 1mg tab ORAL PRN (10:13)
[2020-05-16] MEDS: Azithromycin 250 MG in D5W 275 ML IV SCH (11:22)
[2020-05-16 12:00] VITALS: BP 136/78
--- NOTE | 2020-05-16 12:18 | Nephrology Progress Note ---
Assessment/Plan Problem List: (1) TOPHER (acute kidney injury) (2) 2019 novel coronavirus disease (COVID-19) (3) Pneumonia (4) COPD (chronic obstructive pulmonary disease) (5) Psychosis Assessment Renal failure, acute on chronic Partly dehydration COPD, hypoxia, COVID-19 disease Psychosis Atrial fibrillation High cholesterol Hypertension History of CVA Plan May 16: Labs reviewed. Creatinine 1.5 unchanged. Blood pressure stable. Electrolytes unchanged. Serum sodium 133. Continue to monitor renal parameters Adjust blood pressure medication Stop saline hydration Monitor renal parameters and electrolytes Pulmonary support Per consultants Avoid nephrotoxic's Urine studies Per orders Subjective ROS Limited/Unobtainable: No Constitutional: Reports: malaise Objective Objective Last 24 Hour Vital Signs Date Time Temp Pulse Resp B/P (MAP) Pulse Ox O2 Delivery O2 Flow Rate FiO2 05/16/20 10:43 76 19 151/74 97 05/16/20 10:13 76 19 151/74 97 05/16/20 09:16 151/74 05/16/20 09:16 76 151/74 05/16/20 09:00 Room Air 05/16/20 08:00 76 05/16/20 08:00 97.8 76 18 151/74 (99) 97 05/16/20 04:00 67 05/16/20 04:00 97.2 68 20 123/68 (86) 94 05/16/20 00:00 97.0 65 20 136/67 (90) 94 05/16/20 00:00 60 05/15/20 21:23 64 148/66 05/15/20 21:00 Room Air 05/15/20 20:00 67 05/15/20 20:00 96.4 64 20 148/66 (93) 92 05/15/20 16:15 57 22 110/62 95 05/15/20 16:00 97.7 70 20 105/68 (80) 94 05/15/20 16:00 57 05/15/20 15:45 57 22 110/62 95 Intake and Output 05/15/20 05/16/20 19:00 07:00 Intake Total 370 ml 200 ml Balance 370 ml 200 ml Intake Oral 120 ml 200 ml IV Total 250 ml # Voids 3 3 Current Medications Medications (Trade) Dose Ordered Sig/Tami Route PRN Reason Start Time Stop Time Status Last Admin Dose Admin Acetaminophen (Tylenol) 650 mg Q4H PRN ORAL FEVER 05/13/20 23:30 06/12/20 23:29 Albuterol/ Ipratropium (Combivent Respimat) 1 puff Q4H PRN INH Shortness of Breath 05/14/20 14:15 06/13/20 14:14 Amiodarone HCl (Cordarone) 200 mg DAILY ORAL 05/14/20 09:00 08/12/20 08:59 05/16/20 09:16 Azithromycin 250 mg/Dextrose 275 ml @ 275 mls/hr Q24H IV 05/15/20 12:00 05/18/20 12:59 05/16/20 11:22 Barium Sulfate (Varibar Honey) 250 ml NOW PRN MC RAD 05/14/20 14:15 05/17/20 14:11 Barium Sulfate (Varibar [place]) 240 ml NOW PRN MC RAD 05/14/20 14:15 05/17/20 14:11 Barium Sulfate (Varibar Pudding) 230 ml NOW PRN MC RAD 05/14/20 14:15 05/17/20 14:11 Barium Sulfate (Varibar Thin Liquid powder) 148 gm NOW PRN MC RAD 05/14/20 14:15 05/17/20 14:11 Carvedilol (Coreg) 3.125 mg EVERY 12 HOURS ORAL 05/14/20 09:00 06/13/20 08:59 05/16/20 09:16 Ceftriaxone Sodium 1 gm/ Dextrose 55 ml @ 110 mls/hr Q24H IVPB 05/13/20 23:30 05/20/20 23:29 05/15/20 23:23 Dexamethasone (Decadron) 6 mg DAILY ORAL 05/15/20 09:00 05/24/20 09:01 05/16/20 09:16 Dextrose (Dextrose 50%) 25 ml Q30M PRN IV Hypoglycemia 05/13/20 23:30 08/11/20 23:29 Dextrose (Dextrose 50%) 50 ml Q30M PRN IV Hypoglycemia 05/13/20 23:30 08/11/20 23:29 Docusate Sodium (Colace) 100 mg TWICE A DAY ORAL 05/14/20 18:00 06/13/20 17:59 05/15/20 17:22 Finasteride (Proscar) 5 mg DAILY ORAL 05/14/20 09:00 08/12/20 08:59 05/16/20 09:16 Heparin Sodium (Porcine) (Heparin 5000 units/ml) 5,000 units EVERY 12 HOURS SUBQ 05/14/20 09:00 06/28/20 08:59 05/16/20 09:18 Lisinopril (ZestriL) 5 mg DAILY ORAL 05/14/20 09:00 06/13/20 08:59 05/16/20 09:16 Lorazepam (Ativan) 1 mg Q6H PRN ORAL For Anxiety 05/15/20 15:30 05/22/20 15:29 05/16/20 10:13 Ondansetron HCl (Zofran) 4 mg Q6H PRN IVP Nausea & Vomiting 05/13/20 23:30 06/12/20 23:29 Pantoprazole (Protonix) 40 mg DAILY ORAL 05/15/20 09:00 06/14/20 08:59 05/15/20 08:36 Polyethylene Glycol (Miralax) 17 gm DAILYPRN PRN ORAL Constipation 05/13/20 23:30 06/12/20 23:29 Promethazine HCl/ Codeine (Phenergan with Codeine) 5 ml Q6H PRN ORAL cough 05/13/20 23:30 06/12/20 23:29 Remdesivir 100 mg/ Sodium Chloride 250 ml @ 250 mls/hr Q24H IV 05/15/20 16:00 05/18/20 16:59 05/15/20 16:12 Risperidone (RisperDAL) 0.5 mg BID ORAL 05/15/20 18:00 06/29/20 17:59 05/16/20 09:16 Tamsulosin HCl (Flomax) 0.4 mg BEDTIME ORAL 05/14/20 21:00 06/13/20 20:59 05/15/20 21:23 Laboratory Tests 05/16/20 04:00: White Blood Count 11.4H, Red Blood Count 4.80, Hemoglobin 15.3, Hematocrit 42.5, Mean Corpuscular Volume 89, Mean Corpuscular Hemoglobin 31.8H, Mean Corpuscular Hemoglobin Concent 35.9, Red Cell Distribution Width 14.4, Platelet Count 424, Mean Platelet Volume 8.5, Neutrophils (%) (Auto) , Lymphocytes (%) (Auto) , Monocytes (%) (Auto) , Eosinophils (%) (Auto) , Basophils (%) (Auto) , Differential Total Cells Counted 100, Neutrophils % (Manual) 83H, Lymphocytes % (Manual) 12L, Monocytes % (Manual) 5, Eosinophils % (Manual) 0, Basophils % (Manual) 0, Band Neutrophils 0, Platelet Estimate Adequate, Platelet Morphology Normal, Anisocytosis 1+, Erythrocyte Sedimentation Rate 31H, Sodium Level 133L, Potassium Level 4.6, Chloride Level 101, Carbon Dioxide Level 26, Anion Gap 6, Blood Urea Nitrogen 39H, Creatinine 1.5H, Estimat Glomerular Filtration Rate 45.9, Glucose Level 142H, Uric Acid 4.0, Calcium Level 8.7, Phosphorus Level 2.8, Magnesium Level 2.8H, Total Bilirubin 0.8, Direct Bilirubin 0.3, Aspartate Amino Transf (AST/SGOT) 77H, Alanine Aminotransferase (ALT/SGPT) 91H, Alkaline Phosphatase 54, C-Reactive Protein, Quantitative 6.8H, Total Protein 7.4, Albumin 2.6L, Globulin 4.8, Albumin/Globulin Ratio 0.5L Height (Feet): 5 Height (Inches): 7.00 Weight (Pounds): 160 General Appearance: no apparent distress Cardiovascular: normal rate Respiratory/Chest: decreased breath sounds Abdomen: soft Alan Sánchez MD May 16, 2020 12:18
--- NOTE | 2020-05-16 12:38 | Pulmonology Progress Note ---
Subjective ROS Limited/Unobtainable: No Allergies: Coded Allergies: No Known Allergies (Unverified , 05/13/20) All Systems: reviewed and negative except above Objective Last 24 Hour Vital Signs Date Time Temp Pulse Resp B/P (MAP) Pulse Ox O2 Delivery O2 Flow Rate FiO2 05/16/20 10:43 76 19 151/74 97 05/16/20 10:13 76 19 151/74 97 05/16/20 09:16 151/74 05/16/20 09:16 76 151/74 05/16/20 09:00 Room Air 05/16/20 08:00 76 05/16/20 08:00 97.8 76 18 151/74 (99) 97 05/16/20 04:00 67 05/16/20 04:00 97.2 68 20 123/68 (86) 94 05/16/20 00:00 97.0 65 20 136/67 (90) 94 05/16/20 00:00 60 05/15/20 21:23 64 148/66 05/15/20 21:00 Room Air 05/15/20 20:00 67 05/15/20 20:00 96.4 64 20 148/66 (93) 92 05/15/20 16:15 57 22 110/62 95 05/15/20 16:00 97.7 70 20 105/68 (80) 94 05/15/20 16:00 57 05/15/20 15:45 57 22 110/62 95 Intake and Output 05/15/20 05/16/20 19:00 07:00 Intake Total 370 ml 200 ml Balance 370 ml 200 ml Intake Oral 120 ml 200 ml IV Total 250 ml # Voids 3 3 General Appearance: WD/WN HEENT: normocephalic, atraumatic Respiratory: chest wall non-tender, rhonchi - left, rhonchi - right Cardiovascular: normal peripheral pulses, normal rate Abdomen: normal bowel sounds, soft, non tender Genitourinary: normal external genitalia Extremities: no clubbing Neurologic: estimator paperboard boxes II-XII grossly normal Microbiology Date/Time Source Procedure Growth Status 05/14/20 08:35 Nasopharynx SARS-CoV-2 RdRp Gene Assay - Final Complete 05/13/20 18:04 Blood Blood Culture - Preliminary NO GROWTH AFTER 48 HOURS Resulted 05/13/20 18:03 Urine,Clean Catch Urine Culture - Final Klebsiella Pneumoniae Complete 05/13/20 17:49 Blood Blood Culture - Preliminary NO GROWTH AFTER 48 HOURS Resulted Laboratory Tests 05/16/20 04:00: White Blood Count 11.4H, Red Blood Count 4.80, Hemoglobin 15.3, Hematocrit 42.5, Mean Corpuscular Volume 89, Mean Corpuscular Hemoglobin 31.8H, Mean Corpuscular Hemoglobin Concent 35.9, Red Cell Distribution Width 14.4, Platelet Count 424, Mean Platelet Volume 8.5, Neutrophils (%) (Auto) , Lymphocytes (%) (Auto) , Monocytes (%) (Auto) , Eosinophils (%) (Auto) , Basophils (%) (Auto) , Differential Total Cells Counted 100, Neutrophils % (Manual) 83H, Lymphocytes % (Manual) 12L, Monocytes % (Manual) 5, Eosinophils % (Manual) 0, Basophils % (Manual) 0, Band Neutrophils 0, Platelet Estimate Adequate, Platelet Morphology Normal, Anisocytosis 1+, Erythrocyte Sedimentation Rate 31H, Sodium Level 133L, Potassium Level 4.6, Chloride Level 101, Carbon Dioxide Level 26, Anion Gap 6, Blood Urea Nitrogen 39H, Creatinine 1.5H, Estimat Glomerular Filtration Rate 45.9, Glucose Level 142H, Uric Acid 4.0, Calcium Level 8.7, Phosphorus Level 2.8, Magnesium Level 2.8H, Total Bilirubin 0.8, Direct Bilirubin 0.3, Aspartate Amino Transf (AST/SGOT) 77H, Alanine Aminotransferase (ALT/SGPT) 91H, Alkaline Phosphatase 54, C-Reactive Protein, Quantitative 6.8H, Total Protein 7.4, Albumin 2.6L, Globulin 4.8, Albumin/Globulin Ratio 0.5L Current Medications Medications (Trade) Dose Ordered Sig/Tami Route PRN Reason Start Time Stop Time Status Last Admin Dose Admin Acetaminophen (Tylenol) 650 mg Q4H PRN ORAL FEVER 05/13/20 23:30 06/12/20 23:29 Albuterol/ Ipratropium (Combivent Respimat) 1 puff Q4H PRN INH Shortness of Breath 05/14/20 14:15 06/13/20 14:14 Amiodarone HCl (Cordarone) 200 mg DAILY ORAL 05/14/20 09:00 08/12/20 08:59 05/16/20 09:16 Azithromycin 250 mg/Dextrose 275 ml @ 275 mls/hr Q24H IV 05/15/20 12:00 05/18/20 12:59 05/16/20 11:22 Barium Sulfate (Varibar Honey) 250 ml NOW PRN RAD 05/14/20 14:15 05/17/20 14:11 Barium Sulfate (Varibar [place]) 240 ml NOW PRN RAD 05/14/20 14:15 05/17/20 14:11 Barium Sulfate (Varibar Pudding) 230 ml NOW PRN RAD 05/14/20 14:15 05/17/20 14:11 Barium Sulfate (Varibar Thin Liquid powder) 148 gm NOW PRN RAD 05/14/20 14:15 05/17/20 14:11 Carvedilol (Coreg) 3.125 mg EVERY 12 HOURS ORAL 05/14/20 09:00 06/13/20 08:59 05/16/20 09:16 Ceftriaxone Sodium 1 gm/ Dextrose 55 ml @ 110 mls/hr Q24H IVPB 05/13/20 23:30 05/20/20 23:29 05/15/20 23:23 Dexamethasone (Decadron) 6 mg DAILY ORAL 05/15/20 09:00 05/24/20 09:01 05/16/20 09:16 Dextrose (Dextrose 50%) 25 ml Q30M PRN IV Hypoglycemia 05/13/20 23:30 08/11/20 23:29 Dextrose (Dextrose 50%) 50 ml Q30M PRN IV Hypoglycemia 05/13/20 23:30 08/11/20 23:29 Docusate Sodium (Colace) 100 mg TWICE A DAY ORAL 05/14/20 18:00 06/13/20 17:59 05/15/20 17:22 Finasteride (Proscar) 5 mg DAILY ORAL 05/14/20 09:00 08/12/20 08:59 05/16/20 09:16 Heparin Sodium (Porcine) (Heparin 5000 units/ml) 5,000 units EVERY 12 HOURS SUBQ 05/14/20 09:00 06/28/20 08:59 05/16/20 09:18 Hydralazine HCl (Apresoline) 25 mg Q8HR ORAL 05/16/20 14:00 08/14/20 13:59 Lisinopril (ZestriL) 5 mg DAILY ORAL 05/14/20 09:00 06/13/20 08:59 05/16/20 09:16 Lorazepam (Ativan) 1 mg Q6H PRN ORAL For Anxiety 05/15/20 15:30 05/22/20 15:29 05/16/20 10:13 Ondansetron HCl (Zofran) 4 mg Q6H PRN IVP Nausea & Vomiting 05/13/20 23:30 06/12/20 23:29 Pantoprazole (Protonix) 40 mg DAILY ORAL 05/15/20 09:00 06/14/20 08:59 05/15/20 08:36 Polyethylene Glycol (Miralax) 17 gm DAILYPRN PRN ORAL Constipation 05/13/20 23:30 06/12/20 23:29 Promethazine HCl/ Codeine (Phenergan with Codeine) 5 ml Q6H PRN ORAL cough 05/13/20 23:30 06/12/20 23:29 Remdesivir 100 mg/ Sodium Chloride 250 ml @ 250 mls/hr Q24H IV 05/15/20 16:00 05/18/20 16:59 05/15/20 16:12 Risperidone (RisperDAL) 0.5 mg BID ORAL 05/15/20 18:00 06/29/20 17:59 05/16/20 09:16 Tamsulosin HCl (Flomax) 0.4 mg Q12HR ORAL 05/16/20 12:30 06/15/20 12:29 Assessment/Plan Problems: (1) 2019 novel coronavirus disease (COVID-19) (2) COPD (chronic obstructive pulmonary disease) (3) Psychosis (4) HTN (hypertension) Assessment/Plan all reviewed titrate fio2 to sat of 92% respiratory treatment prn f/u crp and cxr periodically check sputum ID to manage ABx monitor BP symptomatic treatment. dvt prophylaxis. Umesh Prajapati MD May 16, 2020 12:38
--- NOTE | 2020-05-16 12:51 | Pulmonology Progress Note ---
Subjective ROS Limited/Unobtainable: No Constitutional: Reports: no symptoms HEENT: Repors: no symptoms Allergies: Coded Allergies: No Known Allergies (Unverified , 05/13/20) All Systems: reviewed and negative except above Objective Last 24 Hour Vital Signs Date Time Temp Pulse Resp B/P (MAP) Pulse Ox O2 Delivery O2 Flow Rate FiO2 05/16/20 10:43 76 19 151/74 97 05/16/20 10:13 76 19 151/74 97 05/16/20 09:16 151/74 05/16/20 09:16 76 151/74 05/16/20 09:00 Room Air 05/16/20 08:00 76 05/16/20 08:00 97.8 76 18 151/74 (99) 97 05/16/20 04:00 67 05/16/20 04:00 97.2 68 20 123/68 (86) 94 05/16/20 00:00 97.0 65 20 136/67 (90) 94 05/16/20 00:00 60 05/15/20 21:23 64 148/66 05/15/20 21:00 Room Air 05/15/20 20:00 67 05/15/20 20:00 96.4 64 20 148/66 (93) 92 05/15/20 16:15 57 22 110/62 95 05/15/20 16:00 97.7 70 20 105/68 (80) 94 05/15/20 16:00 57 05/15/20 15:45 57 22 110/62 95 Intake and Output 05/15/20 05/16/20 19:00 07:00 Intake Total 370 ml 200 ml Balance 370 ml 200 ml Intake Oral 120 ml 200 ml IV Total 250 ml # Voids 3 3 General Appearance: WD/WN HEENT: normocephalic, atraumatic Respiratory: chest wall non-tender, rhonchi - left, rhonchi - right Cardiovascular: normal peripheral pulses, normal rate Abdomen: normal bowel sounds, soft, non tender Genitourinary: normal external genitalia Extremities: no clubbing Neurologic: technologies division chair II-XII grossly normal Microbiology Date/Time Source Procedure Growth Status 05/14/20 08:35 Nasopharynx SARS-CoV-2 RdRp Gene Assay - Final Complete 05/13/20 18:04 Blood Blood Culture - Preliminary NO GROWTH AFTER 48 HOURS Resulted 05/13/20 18:03 Urine,Clean Catch Urine Culture - Final Klebsiella Pneumoniae Complete 05/13/20 17:49 Blood Blood Culture - Preliminary NO GROWTH AFTER 48 HOURS Resulted Laboratory Tests 05/16/20 04:00: White Blood Count 11.4H, Red Blood Count 4.80, Hemoglobin 15.3, Hematocrit 42.5, Mean Corpuscular Volume 89, Mean Corpuscular Hemoglobin 31.8H, Mean Corpuscular Hemoglobin Concent 35.9, Red Cell Distribution Width 14.4, Platelet Count 424, Mean Platelet Volume 8.5, Neutrophils (%) (Auto) , Lymphocytes (%) (Auto) , Monocytes (%) (Auto) , Eosinophils (%) (Auto) , Basophils (%) (Auto) , Differential Total Cells Counted 100, Neutrophils % (Manual) 83H, Lymphocytes % (Manual) 12L, Monocytes % (Manual) 5, Eosinophils % (Manual) 0, Basophils % (Manual) 0, Band Neutrophils 0, Platelet Estimate Adequate, Platelet Morphology Normal, Anisocytosis 1+, Erythrocyte Sedimentation Rate 31H, Sodium Level 133L, Potassium Level 4.6, Chloride Level 101, Carbon Dioxide Level 26, Anion Gap 6, Blood Urea Nitrogen 39H, Creatinine 1.5H, Estimat Glomerular Filtration Rate 45.9, Glucose Level 142H, Uric Acid 4.0, Calcium Level 8.7, Phosphorus Level 2.8, Magnesium Level 2.8H, Total Bilirubin 0.8, Direct Bilirubin 0.3, Aspartate Amino Transf (AST/SGOT) 77H, Alanine Aminotransferase (ALT/SGPT) 91H, Alkaline Phosphatase 54, C-Reactive Protein, Quantitative 6.8H, Total Protein 7.4, Albumin 2.6L, Globulin 4.8, Albumin/Globulin Ratio 0.5L Current Medications Medications (Trade) Dose Ordered Sig/Tami Route PRN Reason Start Time Stop Time Status Last Admin Dose Admin Acetaminophen (Tylenol) 650 mg Q4H PRN ORAL FEVER 05/13/20 23:30 06/12/20 23:29 Albuterol/ Ipratropium (Combivent Respimat) 1 puff Q4H PRN INH Shortness of Breath 05/14/20 14:15 06/13/20 14:14 Amiodarone HCl (Cordarone) 200 mg DAILY ORAL 05/14/20 09:00 08/12/20 08:59 05/16/20 09:16 Azithromycin 250 mg/Dextrose 275 ml @ 275 mls/hr Q24H IV 05/15/20 12:00 05/18/20 12:59 05/16/20 11:22 Barium Sulfate (Varibar Honey) 250 ml NOW PRN RAD 05/14/20 14:15 05/17/20 14:11 Barium Sulfate (Varibar [place]) 240 ml NOW PRN RAD 05/14/20 14:15 05/17/20 14:11 Barium Sulfate (Varibar Pudding) 230 ml NOW PRN RAD 05/14/20 14:15 05/17/20 14:11 Barium Sulfate (Varibar Thin Liquid powder) 148 gm NOW PRN RAD 05/14/20 14:15 05/17/20 14:11 Carvedilol (Coreg) 3.125 mg EVERY 12 HOURS ORAL 05/14/20 09:00 06/13/20 08:59 05/16/20 09:16 Ceftriaxone Sodium 1 gm/ Dextrose 55 ml @ 110 mls/hr Q24H IVPB 05/13/20 23:30 05/20/20 23:29 05/15/20 23:23 Dexamethasone (Decadron) 6 mg DAILY ORAL 05/15/20 09:00 05/24/20 09:01 05/16/20 09:16 Dextrose (Dextrose 50%) 25 ml Q30M PRN IV Hypoglycemia 05/13/20 23:30 08/11/20 23:29 Dextrose (Dextrose 50%) 50 ml Q30M PRN IV Hypoglycemia 05/13/20 23:30 08/11/20 23:29 Docusate Sodium (Colace) 100 mg TWICE A DAY ORAL 05/14/20 18:00 06/13/20 17:59 05/15/20 17:22 Finasteride (Proscar) 5 mg DAILY ORAL 05/14/20 09:00 08/12/20 08:59 05/16/20 09:16 Heparin Sodium (Porcine) (Heparin 5000 units/ml) 5,000 units EVERY 12 HOURS SUBQ 05/14/20 09:00 06/28/20 08:59 05/16/20 09:18 Hydralazine HCl (Apresoline) 25 mg Q8HR ORAL 05/16/20 14:00 08/14/20 13:59 UNV Lisinopril (ZestriL) 5 mg DAILY ORAL 05/14/20 09:00 06/13/20 08:59 05/16/20 09:16 Lorazepam (Ativan) 1 mg Q6H PRN ORAL For Anxiety 05/15/20 15:30 05/22/20 15:29 05/16/20 10:13 Ondansetron HCl (Zofran) 4 mg Q6H PRN IVP Nausea & Vomiting 05/13/20 23:30 06/12/20 23:29 Pantoprazole (Protonix) 40 mg DAILY ORAL 05/15/20 09:00 06/14/20 08:59 05/15/20 08:36 Polyethylene Glycol (Miralax) 17 gm DAILYPRN PRN ORAL Constipation 05/13/20 23:30 06/12/20 23:29 Promethazine HCl/ Codeine (Phenergan with Codeine) 5 ml Q6H PRN ORAL cough 05/13/20 23:30 06/12/20 23:29 Remdesivir 100 mg/ Sodium Chloride 250 ml @ 250 mls/hr Q24H IV 05/15/20 16:00 05/18/20 16:59 05/15/20 16:12 Risperidone (RisperDAL) 0.5 mg BID ORAL 05/15/20 18:00 06/29/20 17:59 05/16/20 09:16 Tamsulosin HCl (Flomax) 0.4 mg BID ORAL 05/16/20 12:15 06/13/20 20:59 UNV Assessment/Plan Problems: (1) 2019 novel coronavirus disease (COVID-19) (2) COPD (chronic obstructive pulmonary disease) (3) Psychosis (4) HTN (hypertension) Assessment/Plan doing betteer all reviewed titrate fio2 to sat of 92% respiratory treatment prn f/u crp and cxr periodically check sputum ID to manage ABx monitor BP symptomatic treatment. dvt prophylaxis. Umesh Prajapati MD May 16, 2020 12:51
[2020-05-16] MEDS ORDERED: Haloperidol Decanoate (Long Acting) 50mg Inj IM ONE (13:00)
[2020-05-16] MEDS ORDERED: LORazepam Inj 2mg/ml 1ml IM SCH ×2 (13:00→14:15)
[2020-05-16] MEDS ORDERED: DiphenhydrAMINE 50mg/ml Inj IM SCH ×2 (13:00→14:15)
[2020-05-16] MEDS: HydrALAZINE 25mg tab ORAL SCH ×2 (13:22→21:20)
[2020-05-16] MEDS: Tamsulosin 0.4mg cap ORAL SCH ×2 (13:23→21:19)
[2020-05-16] MEDS: Miralax 17gm pkt ORAL PRN (13:23)
[2020-05-16] MEDS ORDERED: Haloperidol Lactate 5 MG in D5W 55 ML IVPB ONE (14:15)
[2020-05-16] MEDS ORDERED: Haloperidol 5mg/ml Inj IM SCH (14:30)
[2020-05-16] MEDS ORDERED: NS 275ml ONE (15:35)
[2020-05-16] MEDS: Maintenance Dose:Remdesivir 100mg/NS 230ml x 4 Doses IV SCH ×2 (15:57)
[2020-05-16 16:00] VITALS: BP 128/78
[2020-05-16] MEDS: Lactulose 20gm/30ml UDC ORAL SCH (17:14)
[2020-05-16 20:00] VITALS: BP 135/77
[2020-05-16] MEDS: cefTRIAXone 1 GM in D5W 55 ML IVPB SCH (23:39)
[2020-05-17] VITALS: BP 100/51
[2020-05-17 04:00] VITALS: BP 141/88
[2020-05-17] MEDS: HydrALAZINE 25mg tab ORAL SCH ×3 (06:04→22:26)
[2020-05-17 08:00] VITALS: BP 132/82
[2020-05-17] MEDS: Docusate 100mg cap ORAL SCH ×2 (09:13→16:57)
[2020-05-17] MEDS: Amiodarone 200mg tab ORAL SCH (09:14)
[2020-05-17] MEDS: Tamsulosin 0.4mg cap ORAL SCH ×2 (09:14→21:00)
[2020-05-17] MEDS: Lisinopril 2.5mg tab ORAL SCH (09:14)
[2020-05-17] MEDS: Lactulose 20gm/30ml UDC ORAL SCH ×4 (09:15→16:57)
[2020-05-17] MEDS: Heparin 5000 units/ml inj SUBQ SCH ×2 (09:16→21:00)
--- NOTE | 2020-05-17 09:28 | General Progress Note ---
Subjective Constitutional: Reports: weakness Allergies: Coded Allergies: No Known Allergies (Unverified , 05/13/20) All Systems: reviewed and negative except above Subjective sleepy in room Objective Last 24 Hour Vital Signs Date Time Temp Pulse Resp B/P (MAP) Pulse Ox O2 Delivery O2 Flow Rate FiO2 05/17/20 09:14 132/82 05/17/20 09:14 91 132/82 05/17/20 08:00 96.3 91 20 132/82 (99) 95 05/17/20 06:04 141/88 05/17/20 04:00 92 05/17/20 04:00 97.2 91 22 141/88 (105) 94 05/17/20 00:00 96.5 99 22 100/51 (67) 95 05/16/20 21:21 92 144/66 05/16/20 21:20 144/66 05/16/20 21:00 Nasal Cannula 4.0 05/16/20 20:00 97.2 92 22 135/77 (96) 95 05/16/20 20:00 107 05/16/20 16:00 98.1 71 17 128/78 (95) 92 05/16/20 16:00 97 05/16/20 15:20 84 18 136/78 93 05/16/20 13:22 136/78 05/16/20 12:00 84 05/16/20 12:00 97.0 73 18 136/78 (97) 92 05/16/20 10:43 76 19 151/74 97 05/16/20 10:13 76 19 151/74 97 Intake and Output 05/16/20 05/17/20 19:00 07:00 Intake Total 840 ml Balance 840 ml Intake Oral 840 ml # Voids 6 2 Height (Feet): 5 Height (Inches): 7.00 Weight (Pounds): 160 General Appearance: lethargic EENT: normal ENT inspection Neck: normal alignment Cardiovascular: normal peripheral pulses, normal rate, regular rhythm Respiratory/Chest: chest wall non-tender, lungs clear, normal breath sounds Abdomen: normal bowel sounds, non tender, soft Extremities: normal inspection Edema: no edema noted Arm (L), no edema noted Arm (R), no edema noted Leg (L), no edema noted Leg (R), no edema noted Pedal (L), no edema noted Pedal (R), no edema noted Generalized Neurologic: motor weakness Skin: normal pigmentation, warm/dry Assessment/Plan Problem List: (1) Pneumonia ICD Codes: J18.9 - Pneumonia, unspecified organism SNOMED: 879164336 (2) HTN (hypertension) ICD Codes: I10 - Essential (primary) hypertension SNOMED: 26238460 (3) COPD (chronic obstructive pulmonary disease) ICD Codes: J44.9 - Chronic obstructive pulmonary disease, unspecified SNOMED: 73198585 (4) Dehydration ICD Codes: E86.0 - Dehydration SNOMED: 75560657 (5) 2019 novel coronavirus disease (COVID-19) ICD Codes: U07.1 - COVID-19 SNOMED: 575428028 (6) Psychosis ICD Codes: F29 - Unspecified psychosis not due to a substance or known physiological condition SNOMED: 49973557 Status: unchanged Assessment/Plan: o2p ulm tx abx pt diet cbc bmp am Sonny Gonzales DO May 17, 2020 09:28
--- NOTE | 2020-05-17 11:24 | Infectious Diseases Prog Note ---
Assessment/Plan 74yo M with: Afebrile Normal WBC Lymphopenia Pneumonia COVID pneumonia, severe Acute hypoxic resp failure on NRB mask Possible UTI 05/13 BCx NTD UA 5-10 WBC, UCx >100k Kleb COVID rapid positive CXR: Multifocal pna Elevated LFTs, AST/ALT 125 / 80 TOPHER on CKD, Cr 1.5, improving COPD Cardiac disease SNF resident Plan: Cont dexamethasone 6mg daily #4 Cont remdesivir #4/5 Cont CTX/azithro #4/5 for pneumonia/UTI F/u BCx, Resp cx F/u UCx +GNRs Monitor CBC/CMP Monitor temp curve, hemodynamics Monitor resp status D/w RN Thank you for this consult. [facility] will continue to follow. Subjective Allergies: Coded Allergies: No Known Allergies (Unverified , 05/13/20) Afebrile no acute event Objective Last 24 Hour Vital Signs Date Time Temp Pulse Resp B/P (MAP) Pulse Ox O2 Delivery O2 Flow Rate FiO2 05/17/20 09:14 132/82 05/17/20 09:14 91 132/82 05/17/20 08:00 96.3 91 20 132/82 (99) 95 05/17/20 06:04 141/88 05/17/20 04:00 92 05/17/20 04:00 97.2 91 22 141/88 (105) 94 05/17/20 00:00 96.5 99 22 100/51 (67) 95 05/16/20 21:21 92 144/66 05/16/20 21:20 144/66 05/16/20 21:00 Nasal Cannula 4.0 05/16/20 20:00 97.2 92 22 135/77 (96) 95 05/16/20 20:00 107 05/16/20 16:00 98.1 71 17 128/78 (95) 92 05/16/20 16:00 97 05/16/20 15:20 84 18 136/78 93 05/16/20 13:22 136/78 05/16/20 12:00 84 05/16/20 12:00 97.0 73 18 136/78 (97) 92 Height (Feet): 5 Height (Inches): 7.00 Weight (Pounds): 160 HEENT: atraumatic Respiratory/Chest: normal breath sounds Cardiovascular: regular rhythm Abdomen: soft, non tender Current Medications Medications (Trade) Dose Ordered Sig/Tami Route PRN Reason Start Time Stop Time Status Last Admin Dose Admin Acetaminophen (Tylenol) 650 mg Q4H PRN ORAL FEVER 05/13/20 23:30 06/12/20 23:29 Albuterol/ Ipratropium (Combivent Respimat) 1 puff Q4H PRN INH Shortness of Breath 05/14/20 14:15 06/13/20 14:14 Amiodarone HCl (Cordarone) 200 mg DAILY ORAL 05/14/20 09:00 08/12/20 08:59 05/17/20 09:14 Azithromycin 250 mg/Dextrose 275 ml @ 275 mls/hr Q24H IV 05/15/20 12:00 05/18/20 12:59 05/16/20 11:22 Barium Sulfate (Varibar [place]) 250 ml NOW PRN MC RAD 05/14/20 14:15 05/17/20 14:11 Barium Sulfate (Varibar [place]) 240 ml NOW PRN MC RAD 05/14/20 14:15 05/17/20 14:11 Barium Sulfate (Varibar Pudding) 230 ml NOW PRN MC RAD 05/14/20 14:15 05/17/20 14:11 Barium Sulfate (Varibar Thin Liquid powder) 148 gm NOW PRN MC RAD 05/14/20 14:15 05/17/20 14:11 Carvedilol (Coreg) 3.125 mg EVERY 12 HOURS ORAL 05/14/20 09:00 06/13/20 08:59 05/17/20 09:14 Ceftriaxone Sodium 1 gm/ Dextrose 55 ml @ 110 mls/hr Q24H IVPB 05/13/20 23:30 05/20/20 23:29 05/16/20 23:39 Dexamethasone (Decadron) 6 mg DAILY ORAL 05/15/20 09:00 05/24/20 09:01 05/17/20 09:13 Dextrose (Dextrose 50%) 25 ml Q30M PRN IV Hypoglycemia 05/13/20 23:30 08/11/20 23:29 Dextrose (Dextrose 50%) 50 ml Q30M PRN IV Hypoglycemia 05/13/20 23:30 08/11/20 23:29 Docusate Sodium (Colace) 100 mg TWICE A DAY ORAL 05/14/20 18:00 06/13/20 17:59 05/17/20 09:13 Finasteride (Proscar) 5 mg DAILY ORAL 05/14/20 09:00 08/12/20 08:59 05/17/20 09:14 Heparin Sodium (Porcine) (Heparin 5000 units/ml) 5,000 units EVERY 12 HOURS SUBQ 05/14/20 09:00 06/28/20 08:59 05/17/20 09:16 Hydralazine HCl (Apresoline) 25 mg Q8HR ORAL 05/16/20 14:00 08/14/20 13:59 05/17/20 06:04 Lactulose (Cephulac) 30 gm THREE TIMES A DAY ORAL 05/16/20 18:00 06/15/20 17:59 05/17/20 09:15 Lisinopril (ZestriL) 5 mg DAILY ORAL 05/14/20 09:00 06/13/20 08:59 05/17/20 09:14 Lorazepam (Ativan) 1 mg Q6H PRN ORAL For Anxiety 05/15/20 15:30 05/22/20 15:29 05/16/20 10:13 Ondansetron HCl (Zofran) 4 mg Q6H PRN IVP Nausea & Vomiting 05/13/20 23:30 06/12/20 23:29 Pantoprazole (Protonix) 40 mg DAILY ORAL 05/15/20 09:00 06/14/20 08:59 05/17/20 09:14 Polyethylene Glycol (Miralax) 17 gm DAILYPRN PRN ORAL Constipation 05/13/20 23:30 06/12/20 23:29 05/16/20 13:23 Promethazine HCl/ Codeine (Phenergan with Codeine) 5 ml Q6H PRN ORAL cough 05/13/20 23:30 06/12/20 23:29 Remdesivir 100 mg/ Sodium Chloride 250 ml @ 250 mls/hr Q24H IV 05/15/20 16:00 05/18/20 16:59 05/16/20 15:57 Risperidone (RisperDAL) 0.5 mg BID ORAL 05/15/20 18:00 06/29/20 17:59 05/17/20 09:14 Tamsulosin HCl (Flomax) 0.4 mg Q12HR ORAL 05/16/20 12:30 06/15/20 12:29 05/17/20 09:14 Modesto Alvarado MD May 17, 2020 11:24
--- NOTE | 2020-05-17 11:50 | General Progress Note ---
Subjective ROS Limited/Unobtainable: Yes Allergies: Coded Allergies: No Known Allergies (Unverified , 05/13/20) Objective Last 24 Hour Vital Signs Date Time Temp Pulse Resp B/P (MAP) Pulse Ox O2 Delivery O2 Flow Rate FiO2 05/17/20 09:14 132/82 05/17/20 09:14 91 132/82 05/17/20 08:00 96.3 91 20 132/82 (99) 95 05/17/20 06:04 141/88 05/17/20 04:00 92 05/17/20 04:00 97.2 91 22 141/88 (105) 94 05/17/20 00:00 96.5 99 22 100/51 (67) 95 05/16/20 21:21 92 144/66 05/16/20 21:20 144/66 05/16/20 21:00 Nasal Cannula 4.0 05/16/20 20:00 97.2 92 22 135/77 (96) 95 05/16/20 20:00 107 05/16/20 16:00 98.1 71 17 128/78 (95) 92 05/16/20 16:00 97 05/16/20 15:20 84 18 136/78 93 05/16/20 13:22 136/78 05/16/20 12:00 84 05/16/20 12:00 97.0 73 18 136/78 (97) 92 Intake and Output 05/16/20 05/17/20 19:00 07:00 Intake Total 840 ml Balance 840 ml Intake Oral 840 ml # Voids 6 2 Height (Feet): 5 Height (Inches): 7.00 Weight (Pounds): 160 General Appearance: no apparent distress EENT: normal ENT inspection Neck: supple Cardiovascular: normal rate Respiratory/Chest: decreased breath sounds Abdomen: normal bowel sounds, non tender, soft Extremities: non-tender Assessment/Plan Problem List: (1) Elevated LFTs ICD Codes: R79.89 - Other specified abnormal findings of blood chemistry SNOMED: 971623091, 801557063 (2) COPD (chronic obstructive pulmonary disease) ICD Codes: J44.9 - Chronic obstructive pulmonary disease, unspecified SNOMED: 47380427 (3) Dehydration ICD Codes: E86.0 - Dehydration SNOMED: 14387350 (4) Pneumonia ICD Codes: J18.9 - Pneumonia, unspecified organism SNOMED: 122780543 (5) HTN (hypertension) ICD Codes: I10 - Essential (primary) hypertension SNOMED: 23804605 (6) 2019 novel coronavirus disease (COVID-19) ICD Codes: U07.1 - COVID-19 SNOMED: 323878020 Status: unchanged Assessment/Plan: repeat LFTS hold abd us for now hepatitis panel fu ID [email or web address] Zhang MD May 17, 2020 11:49
[2020-05-17 12:00] VITALS: BP 126/49
[2020-05-17] MEDS: Azithromycin 250 MG in D5W 275 ML IV SCH (12:00)
[2020-05-17 12:03] LABS: HEMATOCRIT 44.9 % (42.0-52.0); HEMOGLOBIN 15.6 G/DL (14.2-18.0); MEAN CORPUSCULAR VOLUME 90 FL (80-99); PLATELET COUNT 389 K/UL (150-450); RED BLOOD COUNT 4.99 M/UL (4.70-6.10); RED CELL DISTRIBUTION WIDTH 13.3 % (11.6-14.8); WHITE BLOOD COUNT 15.6 K/UL (4.8-10.8)
[2020-05-17 12:20] LABS: ALBUMIN 2.6 G/DL (3.4-5.0); ALBUMIN/GLOBULIN RATIO 0.6 (1.0-2.7); BILIRUBIN,DIRECT 0.5 MG/DL (0.0-0.3); CALCIUM 8.9 MG/DL (8.5-10.1); CREATININE 1.5 MG/DL (0.55-1.30); POTASSIUM 4.3 MMOL/L (3.5-5.1)
[2020-05-17 12:39] LABS: PHOSPHORUS 3.2 MG/DL (2.5-4.9)
--- NOTE | 2020-05-17 14:02 | Pulmonology Progress Note ---
Subjective ROS Limited/Unobtainable: Yes Constitutional: Reports: no symptoms HEENT: Repors: no symptoms Allergies: Coded Allergies: No Known Allergies (Unverified , 05/13/20) All Systems: reviewed and negative except above Objective Last 24 Hour Vital Signs Date Time Temp Pulse Resp B/P (MAP) Pulse Ox O2 Delivery O2 Flow Rate FiO2 05/17/20 13:55 126/49 05/17/20 09:14 132/82 05/17/20 09:14 91 132/82 05/17/20 08:00 96.3 91 20 132/82 (99) 95 05/17/20 06:04 141/88 05/17/20 04:00 92 05/17/20 04:00 97.2 91 22 141/88 (105) 94 05/17/20 00:00 96.5 99 22 100/51 (67) 95 05/16/20 21:21 92 144/66 05/16/20 21:20 144/66 05/16/20 21:00 Nasal Cannula 4.0 05/16/20 20:00 97.2 92 22 135/77 (96) 95 05/16/20 20:00 107 05/16/20 16:00 98.1 71 17 128/78 (95) 92 05/16/20 16:00 97 05/16/20 15:20 84 18 136/78 93 Intake and Output 05/16/20 05/17/20 19:00 07:00 Intake Total 840 ml Balance 840 ml Intake Oral 840 ml # Voids 6 2 General Appearance: WD/WN HEENT: normocephalic, atraumatic Respiratory: chest wall non-tender, rhonchi - left, rhonchi - right Cardiovascular: normal peripheral pulses, normal rate Abdomen: normal bowel sounds, soft, non tender Genitourinary: normal external genitalia Extremities: no clubbing 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 Laboratory Tests 05/17/20 11:45: White Blood Count 15.6H, Red Blood Count 4.99, Hemoglobin 15.6, Hematocrit 44.9, Mean Corpuscular Volume 90, Mean Corpuscular Hemoglobin 31.3H, Mean Corpuscular Hemoglobin Concent 34.8, Red Cell Distribution Width 13.3, Platelet Count 389, Mean Platelet Volume 7.8, Neutrophils (%) (Auto) , Lymphocytes (%) (Auto) , Monocytes (%) (Auto) , Eosinophils (%) (Auto) , Basophils (%) (Auto) , Differential Total Cells Counted 100, Neutrophils % (Manual) 93H, Lymphocytes % (Manual) 5L, Monocytes % (Manual) 2, Eosinophils % (Manual) 0, Basophils % (Manual) 0, Band Neutrophils 0, Platelet Estimate Adequate, Platelet Morphology Normal, Red Blood Cell Morphology Normal, Sodium Level 140, Potassium Level 4.3, Chloride Level 106, Carbon Dioxide Level 19L, Anion Gap 15, Blood Urea Nitrogen 37H, Creatinine 1.5H, Estimat Glomerular Filtration Rate 45.9, Glucose Level 116H, Uric Acid 4.4, Calcium Level 8.9, Phosphorus Level 3.2, Magnesium Level 2.8H, Total Bilirubin 1.0, Direct Bilirubin 0.5H, Aspartate Amino Transf (AST/SGOT) 85H, Alanine Aminotransferase (ALT/SGPT) 76, Alkaline Phosphatase 58, Total Protein 7.2, Albumin 2.6L, Globulin 4.6, Albumin/Globulin Ratio 0.6L Current Medications Medications (Trade) Dose Ordered Sig/Tami Route PRN Reason Start Time Stop Time Status Last Admin Dose Admin Acetaminophen (Tylenol) 650 mg Q4H PRN ORAL FEVER 05/13/20 23:30 06/12/20 23:29 Albuterol/ Ipratropium (Combivent Respimat) 1 puff Q4H PRN INH Shortness of Breath 05/14/20 14:15 06/13/20 14:14 Amiodarone HCl (Cordarone) 200 mg DAILY ORAL 05/14/20 09:00 08/12/20 08:59 05/17/20 09:14 Azithromycin 250 mg/Dextrose 275 ml @ 275 mls/hr Q24H IV 05/15/20 12:00 05/21/20 11:59 05/16/20 11:22 Barium Sulfate (Varibar Honey) 250 ml NOW PRN MC RAD 05/14/20 14:15 05/17/20 14:11 Barium Sulfate (Varibar [place]) 240 ml NOW PRN MC RAD 05/14/20 14:15 05/17/20 14:11 Barium Sulfate (Varibar Pudding) 230 ml NOW PRN MC RAD 05/14/20 14:15 05/17/20 14:11 Barium Sulfate (Varibar Thin Liquid powder) 148 gm NOW PRN MC RAD 05/14/20 14:15 05/17/20 14:11 Carvedilol (Coreg) 3.125 mg EVERY 12 HOURS ORAL 05/14/20 09:00 06/13/20 08:59 05/17/20 09:14 Ceftriaxone Sodium 1 gm/ Dextrose 55 ml @ 110 mls/hr Q24H IVPB 05/13/20 23:30 05/20/20 23:29 05/16/20 23:39 Dexamethasone (Decadron) 6 mg DAILY ORAL 05/15/20 09:00 05/24/20 09:01 05/17/20 09:13 Dextrose (Dextrose 50%) 25 ml Q30M PRN IV Hypoglycemia 05/13/20 23:30 08/11/20 23:29 Dextrose (Dextrose 50%) 50 ml Q30M PRN IV Hypoglycemia 05/13/20 23:30 08/11/20 23:29 Docusate Sodium (Colace) 100 mg TWICE A DAY ORAL 05/14/20 18:00 06/13/20 17:59 05/17/20 09:13 Finasteride (Proscar) 5 mg DAILY ORAL 05/14/20 09:00 08/12/20 08:59 05/17/20 09:14 Heparin Sodium (Porcine) (Heparin 5000 units/ml) 5,000 units EVERY 12 HOURS SUBQ 05/14/20 09:00 06/28/20 08:59 05/17/20 09:16 Hydralazine HCl (Apresoline) 25 mg Q8HR ORAL 05/16/20 14:00 08/14/20 13:59 05/17/20 06:04 Lactulose (Cephulac) 30 gm THREE TIMES A DAY ORAL 05/16/20 18:00 06/15/20 17:59 05/17/20 09:15 Lisinopril (ZestriL) 5 mg DAILY ORAL 05/14/20 09:00 06/13/20 08:59 05/17/20 09:14 Lorazepam (Ativan) 1 mg Q6H PRN ORAL For Anxiety 05/15/20 15:30 05/22/20 15:29 05/16/20 10:13 Ondansetron HCl (Zofran) 4 mg Q6H PRN IVP Nausea & Vomiting 05/13/20 23:30 06/12/20 23:29 Pantoprazole (Protonix) 40 mg DAILY ORAL 05/15/20 09:00 06/14/20 08:59 05/17/20 09:14 Polyethylene Glycol (Miralax) 17 gm DAILYPRN PRN ORAL Constipation 05/13/20 23:30 06/12/20 23:29 05/16/20 13:23 Promethazine HCl/ Codeine (Phenergan with Codeine) 5 ml Q6H PRN ORAL cough 05/13/20 23:30 06/12/20 23:29 Remdesivir 100 mg/ Sodium Chloride 250 ml @ 250 mls/hr Q24H IV 05/15/20 16:00 05/18/20 16:59 05/16/20 15:57 Risperidone (RisperDAL) 0.5 mg BID ORAL 05/15/20 18:00 06/29/20 17:59 05/17/20 09:14 Tamsulosin HCl (Flomax) 0.4 mg Q12HR ORAL 05/16/20 12:30 06/15/20 12:29 05/17/20 09:14 Assessment/Plan Problems: (1) 2019 novel coronavirus disease (COVID-19) (2) COPD (chronic obstructive pulmonary disease) (3) Psychosis (4) HTN (hypertension) Assessment/Plan doing betteer all reviewed titrate fio2 to sat of 92% respiratory treatment prn f/u crp and cxr periodically check sputum ID to manage ABx monitor BP symptomatic treatment. dvt prophylaxis. keep in isolation Umesh Prajapati MD May 17, 2020 14:02
[2020-05-17 16:00] VITALS: BP 112/72
[2020-05-17] MEDS: Maintenance Dose:Remdesivir 100mg/NS 230ml x 4 Doses IV SCH ×2 (16:00)
[2020-05-17] MEDS: Azithromycin 250mg tab ORAL SCH (16:59)
--- NOTE | 2020-05-17 18:11 | Nephrology Progress Note ---
Assessment/Plan Problem List: (1) TOPHER (acute kidney injury) (2) 2019 novel coronavirus disease (COVID-19) (3) Pneumonia (4) COPD (chronic obstructive pulmonary disease) (5) Psychosis Assessment Renal failure, acute on chronic Partly dehydration COPD, hypoxia, COVID-19 disease Psychosis Atrial fibrillation High cholesterol Hypertension History of CVA Plan May 17: Labs reviewed. Serum sodium normalized. Serum creatinine 1.5 stable. Continue per current management. May 16: Labs reviewed. Creatinine 1.5 unchanged. Blood pressure stable. Electrolytes unchanged. Serum sodium 133. Continue to monitor renal parameters Adjust blood pressure medication Stop saline hydration Monitor renal parameters and electrolytes Pulmonary support Per consultants Avoid nephrotoxic's Urine studies Per orders Subjective ROS Limited/Unobtainable: Yes Objective Objective Last 24 Hour Vital Signs Date Time Temp Pulse Resp B/P (MAP) Pulse Ox O2 Delivery O2 Flow Rate FiO2 05/17/20 16:00 97.0 87 21 112/72 (85) 92 05/17/20 13:55 126/49 05/17/20 12:00 96 05/17/20 12:00 96.3 72 20 126/49 (74) 93 05/17/20 09:14 132/82 05/17/20 09:14 91 132/82 05/17/20 09:00 Nasal Cannula 4.0 05/17/20 08:00 96.3 91 20 132/82 (99) 95 05/17/20 08:00 94 05/17/20 06:04 141/88 05/17/20 04:00 92 05/17/20 04:00 97.2 91 22 141/88 (105) 94 05/17/20 00:00 96.5 99 22 100/51 (67) 95 05/16/20 21:21 92 144/66 05/16/20 21:20 144/66 05/16/20 21:00 Nasal Cannula 4.0 05/16/20 20:00 97.2 92 22 135/77 (96) 95 05/16/20 20:00 107 Intake and Output 05/16/20 05/17/20 19:00 07:00 Intake Total 840 ml Balance 840 ml Intake Oral 840 ml # Voids 6 2 Laboratory Tests 05/17/20 11:45: White Blood Count 15.6H, Red Blood Count 4.99, Hemoglobin 15.6, Hematocrit 44.9, Mean Corpuscular Volume 90, Mean Corpuscular Hemoglobin 31.3H, Mean Corpuscular Hemoglobin Concent 34.8, Red Cell Distribution Width 13.3, Platelet Count 389, Mean Platelet Volume 7.8, Neutrophils (%) (Auto) , Lymphocytes (%) (Auto) , Monocytes (%) (Auto) , Eosinophils (%) (Auto) , Basophils (%) (Auto) , Differential Total Cells Counted 100, Neutrophils % (Manual) 93H, Lymphocytes % (Manual) 5L, Monocytes % (Manual) 2, Eosinophils % (Manual) 0, Basophils % (Manual) 0, Band Neutrophils 0, Platelet Estimate Adequate, Platelet Morphology Normal, Red Blood Cell Morphology Normal, Sodium Level 140, Potassium Level 4.3, Chloride Level 106, Carbon Dioxide Level 19L, Anion Gap 15, Blood Urea Nitrogen 37H, Creatinine 1.5H, Estimat Glomerular Filtration Rate 45.9, Glucose Level 116H, Uric Acid 4.4, Calcium Level 8.9, Phosphorus Level 3.2, Magnesium Level 2.8H, Total Bilirubin 1.0, Direct Bilirubin 0.5H, Aspartate Amino Transf (AST/SGOT) 85H, Alanine Aminotransferase (ALT/SGPT) 76, Alkaline Phosphatase 58, Total Protein 7.2, Albumin 2.6L, Globulin 4.6, Albumin/Globulin Ratio 0.6L Height (Feet): 5 Height (Inches): 7.00 Weight (Pounds): 160 General Appearance: lethargic, confused Cardiovascular: tachycardia Respiratory/Chest: decreased breath sounds Abdomen: distended Alan Sánchez MD May 17, 2020 18:11
[2020-05-17 20:00] VITALS: BP 121/76
[2020-05-17] MEDS: Augmentin 875mg Tab ORAL SCH (21:00)
[2020-05-18] VITALS: BP 135/72
[2020-05-18 04:00] VITALS: BP 125/76
[2020-05-18] MEDS: HydrALAZINE 25mg tab ORAL SCH ×3 (06:12→22:00)
--- NOTE | 2020-05-18 07:57 | Infectious Diseases Prog Note ---
Assessment/Plan 74yo M with: Afebrile Normal WBC Lymphopenia Pneumonia COVID pneumonia, severe Acute hypoxic resp failure on NRB mask Possible UTI 05/13 BCx NTD UA 5-10 WBC, UCx >100k Kleb pna (S-CTX) COVID rapid positive CXR: Multifocal pna Elevated LFTs, AST/ALT 125 / 80 TOPHER on CKD, Cr 1.5, improving COPD Cardiac disease SNF resident Plan: Cont dexamethasone 6mg daily #5 Cont remdesivir #5/5 Cont Augmentin #1 (Abx day #5) for pneumonia/UTI - will stop after doses today Cont azithro #5/5 for pneumonia 05/17 SP CTX #4 Monitor CBC/CMP Monitor temp curve, hemodynamics Monitor resp status D/w RN Thank you for this consult. [facility] will continue to follow. Subjective Allergies: Coded Allergies: No Known Allergies (Unverified , 05/13/20) AF 4L NC WBC 14.5 Doesn't feel well, refusing lunch Objective Last 24 Hour Vital Signs Date Time Temp Pulse Resp B/P (MAP) Pulse Ox O2 Delivery O2 Flow Rate FiO2 05/18/20 06:12 125/76 05/18/20 04:00 88 05/18/20 04:00 97.9 97 20 125/76 (92) 92 05/18/20 00:00 97 05/18/20 00:00 98.1 91 18 135/72 (93) 93 05/17/20 22:26 121/76 05/17/20 21:00 88 121/76 05/17/20 21:00 Nasal Cannula 4.0 05/17/20 20:00 97.6 88 22 121/76 (91) 92 05/17/20 16:00 97.0 87 21 112/72 (85) 92 05/17/20 16:00 99 05/17/20 13:55 126/49 05/17/20 12:00 96 05/17/20 12:00 96.3 72 20 126/49 (74) 93 05/17/20 09:14 132/82 05/17/20 09:14 91 132/82 05/17/20 09:00 Nasal Cannula 4.0 05/17/20 08:00 96.3 91 20 132/82 (99) 95 05/17/20 08:00 94 Height (Feet): 5 Height (Inches): 7.00 Weight (Pounds): 160 Gen: NAD HEENT: NCAT Pulm: BL chest rise on CA Abd: Non-distended Ext: No c/c/e Skin: No visible rashes Neuro: Awake Laboratory Tests Test 05/17/20 11:45 White Blood Count 15.6 K/UL (4.8-10.8) H Red Blood Count 4.99 M/UL (4.70-6.10) Hemoglobin 15.6 G/DL (14.2-18.0) Hematocrit 44.9 % (42.0-52.0) Mean Corpuscular Volume 90 FL (80-99) Mean Corpuscular Hemoglobin 31.3 PG (27.0-31.0) H Mean Corpuscular Hemoglobin Concent 34.8 G/DL (32.0-36.0) Red Cell Distribution Width 13.3 % (11.6-14.8) Platelet Count 389 K/UL (150-450) Mean Platelet Volume 7.8 FL (6.5-10.1) Neutrophils (%) (Auto) % (45.0-75.0) Lymphocytes (%) (Auto) % (20.0-45.0) Monocytes (%) (Auto) % (1.0-10.0) Eosinophils (%) (Auto) % (0.0-3.0) Basophils (%) (Auto) % (0.0-2.0) Differential Total Cells Counted 100 Neutrophils % (Manual) 93 % (45-75) H Lymphocytes % (Manual) 5 % (20-45) L Monocytes % (Manual) 2 % (1-10) Eosinophils % (Manual) 0 % (0-3) Basophils % (Manual) 0 % (0-2) Band Neutrophils 0 % (0-8) Platelet Estimate Adequate Platelet Morphology Normal Red Blood Cell Morphology Normal Sodium Level 140 MMOL/L (136-145) Potassium Level 4.3 MMOL/L (3.5-5.1) Chloride Level 106 MMOL/L (98-107) Carbon Dioxide Level 19 MMOL/L (21-32) L Anion Gap 15 mmol/L (5-15) Blood Urea Nitrogen 37 mg/dL (7-18) H Creatinine 1.5 MG/DL (0.55-1.30) H Estimat Glomerular Filtration Rate 45.9 mL/min (>60) Glucose Level 116 MG/DL (74-106) H Uric Acid 4.4 MG/DL (2.6-7.2) Calcium Level 8.9 MG/DL (8.5-10.1) Phosphorus Level 3.2 MG/DL (2.5-4.9) Magnesium Level 2.8 MG/DL (1.8-2.4) H Total Bilirubin 1.0 MG/DL (0.2-1.0) Direct Bilirubin 0.5 MG/DL (0.0-0.3) H Aspartate Amino Transf (AST/SGOT) 85 U/L (15-37) H Alanine Aminotransferase (ALT/SGPT) 76 U/L (12-78) Alkaline Phosphatase 58 U/L (46-116) Total Protein 7.2 G/DL (6.4-8.2) Albumin 2.6 G/DL (3.4-5.0) L Globulin 4.6 g/dL Albumin/Globulin Ratio 0.6 (1.0-2.7) L Current Medications Medications (Trade) Dose Ordered Sig/Tami Route PRN Reason Start Time Stop Time Status Last Admin Dose Admin Acetaminophen (Tylenol) 650 mg Q4H PRN ORAL FEVER 05/13/20 23:30 06/12/20 23:29 Albuterol/ Ipratropium (Combivent Respimat) 1 puff Q4H PRN INH Shortness of Breath 05/14/20 14:15 06/13/20 14:14 Amiodarone HCl (Cordarone) 200 mg DAILY ORAL 05/14/20 09:00 08/12/20 08:59 05/17/20 09:14 Amoxicillin/ Clavulanate Potassium (Augmentin) 875 mg Q12HR ORAL 05/17/20 21:00 05/24/20 20:59 05/17/20 21:00 Azithromycin (Zithromax) 250 mg DAILY ORAL 05/17/20 17:00 05/24/20 16:59 05/17/20 16:59 Carvedilol (Coreg) 3.125 mg EVERY 12 HOURS ORAL 05/14/20 09:00 06/13/20 08:59 05/17/20 21:00 Dexamethasone (Decadron) 6 mg DAILY ORAL 05/15/20 09:00 05/24/20 09:01 05/17/20 09:13 Dextrose (Dextrose 50%) 25 ml Q30M PRN IV Hypoglycemia 05/13/20 23:30 08/11/20 23:29 Dextrose (Dextrose 50%) 50 ml Q30M PRN IV Hypoglycemia 05/13/20 23:30 08/11/20 23:29 Docusate Sodium (Colace) 100 mg TWICE A DAY ORAL 05/14/20 18:00 06/13/20 17:59 05/17/20 16:57 Finasteride (Proscar) 5 mg DAILY ORAL 05/14/20 09:00 08/12/20 08:59 05/17/20 09:14 Heparin Sodium (Porcine) (Heparin 5000 units/ml) 5,000 units EVERY 12 HOURS SUBQ 05/14/20 09:00 06/28/20 08:59 05/17/20 21:00 Hydralazine HCl (Apresoline) 25 mg Q8HR ORAL 05/16/20 14:00 08/14/20 13:59 05/18/20 06:12 Lactulose (Cephulac) 30 gm THREE TIMES A DAY ORAL 05/16/20 18:00 06/15/20 17:59 05/17/20 16:57 Lisinopril (ZestriL) 5 mg DAILY ORAL 05/14/20 09:00 06/13/20 08:59 05/17/20 09:14 Lorazepam (Ativan) 1 mg Q6H PRN ORAL For Anxiety 05/15/20 15:30 05/22/20 15:29 05/16/20 10:13 Ondansetron HCl (Zofran) 4 mg Q6H PRN IVP Nausea & Vomiting 05/13/20 23:30 06/12/20 23:29 Pantoprazole (Protonix) 40 mg DAILY ORAL 05/15/20 09:00 06/14/20 08:59 05/17/20 09:14 Polyethylene Glycol (Miralax) 17 gm DAILYPRN PRN ORAL Constipation 05/13/20 23:30 06/12/20 23:29 05/16/20 13:23 Promethazine HCl/ Codeine (Phenergan with Codeine) 5 ml Q6H PRN ORAL cough 05/13/20 23:30 06/12/20 23:29 Remdesivir 100 mg/ Sodium Chloride 250 ml @ 250 mls/hr Q24H IV 05/15/20 16:00 05/18/20 16:59 05/16/20 15:57 Risperidone (RisperDAL) 0.5 mg BID ORAL 05/15/20 18:00 06/29/20 17:59 05/17/20 16:57 Tamsulosin HCl (Flomax) 0.4 mg Q12HR ORAL 05/16/20 12:30 06/15/20 12:29 05/17/20 21:00 Kathy Yap M.D. May 18, 2020 07:57
[2020-05-18 08:00] VITALS: BP 123/77
[2020-05-18 08:32] LABS: HEMATOCRIT 43.1 % (42.0-52.0); MEAN CORPUSCULAR VOLUME 91 FL (80-99); PLATELET COUNT 398 K/UL (150-450); RED BLOOD COUNT 4.76 M/UL (4.70-6.10); RED CELL DISTRIBUTION WIDTH 13.3 % (11.6-14.8); WHITE BLOOD COUNT 14.5 K/UL (4.8-10.8)
--- NOTE | 2020-05-18 08:42 | General Progress Note ---
Subjective ROS Limited/Unobtainable: No Allergies: Coded Allergies: No Known Allergies (Unverified , 05/13/20) Objective Last 24 Hour Vital Signs Date Time Temp Pulse Resp B/P (MAP) Pulse Ox O2 Delivery O2 Flow Rate FiO2 05/18/20 08:00 96.8 89 20 123/77 (92) 92 05/18/20 06:12 125/76 05/18/20 04:00 88 05/18/20 04:00 97.9 97 20 125/76 (92) 92 05/18/20 00:00 97 05/18/20 00:00 98.1 91 18 135/72 (93) 93 05/17/20 22:26 121/76 05/17/20 21:00 88 121/76 05/17/20 21:00 Nasal Cannula 4.0 05/17/20 20:00 97.6 88 22 121/76 (91) 92 05/17/20 16:00 97.0 87 21 112/72 (85) 92 05/17/20 16:00 99 05/17/20 13:55 126/49 05/17/20 12:00 96 05/17/20 12:00 96.3 72 20 126/49 (74) 93 05/17/20 09:14 132/82 05/17/20 09:14 91 132/82 05/17/20 09:00 Nasal Cannula 4.0 Intake and Output 05/17/20 05/18/20 19:00 07:00 Intake Total 50 ml Balance 50 ml Intake Oral 50 ml # Voids 6 3 # Bowel Movements 1 Laboratory Tests 05/17/20 11:45: White Blood Count 15.6H, Red Blood Count 4.99, Hemoglobin 15.6, Hematocrit 44.9, Mean Corpuscular Volume 90, Mean Corpuscular Hemoglobin 31.3H, Mean Corpuscular Hemoglobin Concent 34.8, Red Cell Distribution Width 13.3, Platelet Count 389, Mean Platelet Volume 7.8, Neutrophils (%) (Auto) , Lymphocytes (%) (Auto) , Monocytes (%) (Auto) , Eosinophils (%) (Auto) , Basophils (%) (Auto) , Differential Total Cells Counted 100, Neutrophils % (Manual) 93H, Lymphocytes % (Manual) 5L, Monocytes % (Manual) 2, Eosinophils % (Manual) 0, Basophils % (Manual) 0, Band Neutrophils 0, Platelet Estimate Adequate, Platelet Morphology Normal, Red Blood Cell Morphology Normal, Sodium Level 140, Potassium Level 4.3, Chloride Level 106, Carbon Dioxide Level 19L, Anion Gap 15, Blood Urea Nitrogen 37H, Creatinine 1.5H, Estimat Glomerular Filtration Rate 45.9, Glucose Level 116H, Uric Acid 4.4, Calcium Level 8.9, Phosphorus Level 3.2, Magnesium Level 2.8H, Total Bilirubin 1.0, Direct Bilirubin 0.5H, Aspartate Amino Transf (AST/SGOT) 85H, Alanine Aminotransferase (ALT/SGPT) 76, Alkaline Phosphatase 58, Total Protein 7.2, Albumin 2.6L, Globulin 4.6, Albumin/Globulin Ratio 0.6L 05/18/20 06:15: White Blood Count 14.5H, Red Blood Count 4.76, Hemoglobin 15.0, Hematocrit 43.1, Mean Corpuscular Volume 91, Mean Corpuscular Hemoglobin 31.4H, Mean Corpuscular Hemoglobin Concent 34.7, Red Cell Distribution Width 13.3, Platelet Count 398, Mean Platelet Volume 7.9, Neutrophils (%) (Auto) , Lymphocytes (%) (Auto) , Monocytes (%) (Auto) , Eosinophils (%) (Auto) , Basophils (%) (Auto) , Neutrophils % (Manual) [Pending], Lymphocytes % (Manual) [Pending], Platelet Estimate [Pending], Platelet Morphology [Pending], Sodium Level [Pending], Potassium Level [Pending], Chloride Level [Pending], Carbon Dioxide Level [Pending], Blood Urea Nitrogen [Pending], Creatinine [Pending], Estimat Glomerular Filtration Rate [Pending], Glucose Level [Pending], Calcium Level [ Pending], Total Bilirubin [Pending], Direct Bilirubin [Pending], Aspartate Amino Transf (AST/SGOT) [Pending], Alanine Aminotransferase (ALT/SGPT) [Pending], Alkaline Phosphatase [Pending], Total Protein [Pending], Albumin [Pending], Globulin [Pending], Hepatitis A IgM Antibody [Pending], Hepatitis B Surface Antigen [Pending], Hepatitis B Core IgM Antibody [Pending], Hepatitis C Antibody [Pending] Height (Feet): 5 Height (Inches): 7.00 Weight (Pounds): 160 General Appearance: no apparent distress EENT: PERRL/EOMI Neck: supple Cardiovascular: normal rate Respiratory/Chest: decreased breath sounds Abdomen: normal bowel sounds, non tender, soft Extremities: non-tender Assessment/Plan Problem List: (1) Elevated LFTs ICD Codes: R79.89 - Other specified abnormal findings of blood chemistry SNOMED: 564406163, 628143661 (2) COPD (chronic obstructive pulmonary disease) ICD Codes: J44.9 - Chronic obstructive pulmonary disease, unspecified SNOMED: 05304962 (3) Dehydration ICD Codes: E86.0 - Dehydration SNOMED: 44624144 (4) Pneumonia ICD Codes: J18.9 - Pneumonia, unspecified organism SNOMED: 745762418 (5) HTN (hypertension) ICD Codes: I10 - Essential (primary) hypertension SNOMED: 95345520 (6) 2019 novel coronavirus disease (COVID-19) ICD Codes: U07.1 - COVID-19 SNOMED: 069915937 Status: unchanged Assessment/Plan: repeat LFTS hold abd for now hepatitis panel fu ID recs Stefan Wilde MD May 18, 2020 08:42
[2020-05-18] MEDS: Tamsulosin 0.4mg cap ORAL SCH ×2 (08:59→20:59)
[2020-05-18] MEDS: Docusate 100mg cap ORAL SCH ×2 (08:59→17:10)
[2020-05-18] MEDS: Lactulose 20gm/30ml UDC ORAL SCH ×3 (08:59→17:10)
[2020-05-18] MEDS: Augmentin 875mg Tab ORAL SCH ×2 (09:00→20:59)
[2020-05-18] MEDS: Lisinopril 2.5mg tab ORAL SCH (09:00)
[2020-05-18] MEDS: Amiodarone 200mg tab ORAL SCH (09:01)
[2020-05-18] MEDS: Azithromycin 250mg tab ORAL SCH (09:01)
[2020-05-18] MEDS: Heparin 5000 units/ml inj SUBQ SCH ×2 (09:02→21:01)
[2020-05-18 09:05] LABS: ALBUMIN 2.6 G/DL (3.4-5.0); ALBUMIN/GLOBULIN RATIO 0.6 (1.0-2.7); BILIRUBIN,DIRECT 0.6 MG/DL (0.0-0.3); BILIRUBIN,TOTAL 1.1 MG/DL (0.2-1.0); CALCIUM 8.9 MG/DL (8.5-10.1); CREATININE 1.7 MG/DL (0.55-1.30); POTASSIUM 3.5 MMOL/L (3.5-5.1)
--- NOTE | 2020-05-18 09:14 | General Progress Note ---
Subjective Constitutional: Reports: weakness Allergies: Coded Allergies: No Known Allergies (Unverified , 05/13/20) All Systems: reviewed and negative except above Subjective sleepy in room Objective Last 24 Hour Vital Signs Date Time Temp Pulse Resp B/P (MAP) Pulse Ox O2 Delivery O2 Flow Rate FiO2 05/18/20 09:00 123/77 05/18/20 09:00 89 123/77 05/18/20 08:00 96.8 89 20 123/77 (92) 92 05/18/20 06:12 125/76 05/18/20 04:00 88 05/18/20 04:00 97.9 97 20 125/76 (92) 92 05/18/20 00:00 97 05/18/20 00:00 98.1 91 18 135/72 (93) 93 05/17/20 22:26 121/76 05/17/20 21:00 88 121/76 05/17/20 21:00 Nasal Cannula 4.0 05/17/20 20:00 97.6 88 22 121/76 (91) 92 05/17/20 16:00 97.0 87 21 112/72 (85) 92 05/17/20 16:00 99 05/17/20 13:55 126/49 05/17/20 12:00 96 05/17/20 12:00 96.3 72 20 126/49 (74) 93 Intake and Output 05/17/20 05/18/20 19:02 07:02 Intake Total 50 ml Balance 50 ml Intake Oral 50 ml # Voids 6 3 # Bowel Movements 1 Laboratory Tests 05/17/20 11:45: White Blood Count 15.6H, Red Blood Count 4.99, Hemoglobin 15.6, Hematocrit 44.9, Mean Corpuscular Volume 90, Mean Corpuscular Hemoglobin 31.3H, Mean Corpuscular Hemoglobin Concent 34.8, Red Cell Distribution Width 13.3, Platelet Count 389, Mean Platelet Volume 7.8, Neutrophils (%) (Auto) , Lymphocytes (%) (Auto) , Monocytes (%) (Auto) , Eosinophils (%) (Auto) , Basophils (%) (Auto) , Differential Total Cells Counted 100, Neutrophils % (Manual) 93H, Lymphocytes % (Manual) 5L, Monocytes % (Manual) 2, Eosinophils % (Manual) 0, Basophils % (Manual) 0, Band Neutrophils 0, Platelet Estimate Adequate, Platelet Morphology Normal, Red Blood Cell Morphology Normal, Sodium Level 140, Potassium Level 4.3, Chloride Level 106, Carbon Dioxide Level 19L, Anion Gap 15, Blood Urea Nitrogen 37H, Creatinine 1.5H, Estimat Glomerular Filtration Rate 45.9, Glucose Level 116H, Uric Acid 4.4, Calcium Level 8.9, Phosphorus Level 3.2, Magnesium Level 2.8H, Total Bilirubin 1.0, Direct Bilirubin 0.5H, Aspartate Amino Transf (AST/SGOT) 85H, Alanine Aminotransferase (ALT/SGPT) 76, Alkaline Phosphatase 58, Total Protein 7.2, Albumin 2.6L, Globulin 4.6, Albumin/Globulin Ratio 0.6L 05/18/20 06:15: White Blood Count 14.5H, Red Blood Count 4.76, Hemoglobin 15.0, Hematocrit 43.1, Mean Corpuscular Volume 91, Mean Corpuscular Hemoglobin 31.4H, Mean Corpuscular Hemoglobin Concent 34.7, Red Cell Distribution Width 13.3, Platelet Count 398, Mean Platelet Volume 7.9, Neutrophils (%) (Auto) , Lymphocytes (%) (Auto) , Monocytes (%) (Auto) , Eosinophils (%) (Auto) , Basophils (%) (Auto) , Neutrophils % (Manual) [Pending], Lymphocytes % (Manual) [Pending], Platelet Estimate [Pending], Platelet Morphology [Pending], Sodium Level [Pending], Potassium Level [Pending], Chloride Level [Pending], Carbon Dioxide Level [Pending], Blood Urea Nitrogen [Pending], Creatinine [Pending], Estimat Glomerular Filtration Rate [Pending], Glucose Level [Pending], Calcium Level [Pending], Total Bilirubin [Pending], Direct Bilirubin [Pending], Aspartate Amino Transf (AST/SGOT) [Pending], Alanine Aminotransferase (ALT/SGPT) [Pending], Alkaline Phosphatase [Pending], Total Protein [Pending], Albumin [Pending], Globulin [Pending], Hepatitis A IgM Antibody [Pending], Hepatitis B Surface Antigen [Pending], Hepatitis B Core IgM Antibody [Pending], Hepatitis C Antibody [Pending] Height (Feet): 5 Height (Inches): 7.00 Weight (Pounds): 160 General Appearance: lethargic EENT: normal ENT inspection Neck: normal alignment Cardiovascular: normal peripheral pulses, normal rate, regular rhythm Respiratory/Chest: chest wall non-tender, lungs clear, normal breath sounds Abdomen: normal bowel sounds, non tender, soft Extremities: normal inspection Edema: no edema noted Arm (L), no edema noted Arm (R), no edema noted Leg (L), no edema noted Leg (R), no edema noted Pedal (L), no edema noted Pedal (R), no edema noted Generalized Neurologic: motor weakness Skin: normal pigmentation, warm/dry Assessment/Plan Problem List: (1) Pneumonia ICD Codes: J18.9 - Pneumonia, unspecified organism SNOMED: 218384344 (2) HTN (hypertension) ICD Codes: I10 - Essential (primary) hypertension SNOMED: 75811051 (3) COPD (chronic obstructive pulmonary disease) ICD Codes: J44.9 - Chronic obstructive pulmonary disease, unspecified SNOMED: 48859053 (4) Dehydration ICD Codes: E86.0 - Dehydration SNOMED: 20072838 (5) 2019 novel coronavirus disease (COVID-19) ICD Codes: U07.1 - COVID-19 SNOMED: 125362373 (6) Psychosis ICD Codes: F29 - Unspecified psychosis not due to a substance or known physiological condition SNOMED: 36211644 Status: unchanged Assessment/Plan: o2p ulm tx abx pt diet cbc bmp am Sonny Gonzales DO May 18, 2020 09:17
[2020-05-18 12:00] VITALS: BP 111/68
[2020-05-18 16:00] VITALS: BP 99/60
[2020-05-18] MEDS: Maintenance Dose:Remdesivir 100mg/NS 230ml x 4 Doses IV SCH ×2 (16:00)
--- NOTE | 2020-05-18 17:26 | Pulmonology Progress Note ---
Subjective ROS Limited/Unobtainable: No Constitutional: Reports: no symptoms HEENT: Repors: no symptoms Allergies: Coded Allergies: No Known Allergies (Unverified , 05/13/20) All Systems: reviewed and negative except above Objective Last 24 Hour Vital Signs Date Time Temp Pulse Resp B/P (MAP) Pulse Ox O2 Delivery O2 Flow Rate FiO2 05/18/20 16:00 88 05/18/20 16:00 97.9 87 20 99/60 (73) 95 05/18/20 14:11 128/80 05/18/20 12:00 80 05/18/20 12:00 97.7 89 20 111/68 (82) 99 05/18/20 09:00 123/77 05/18/20 09:00 89 123/77 05/18/20 09:00 Nasal Cannula 4.0 05/18/20 08:00 96.8 89 20 123/77 (92) 92 05/18/20 08:00 92 05/18/20 06:12 125/76 05/18/20 04:00 88 05/18/20 04:00 97.9 97 20 125/76 (92) 92 05/18/20 00:00 97 05/18/20 00:00 98.1 91 18 135/72 (93) 93 05/17/20 22:26 121/76 05/17/20 21:00 88 121/76 05/17/20 21:00 Nasal Cannula 4.0 05/17/20 20:00 97.6 88 22 121/76 (91) 92 Intake and Output 05/17/20 05/18/20 19:00 07:00 Intake Total 50 ml Balance 50 ml Intake Oral 50 ml # Voids 6 3 # Bowel Movements 1 General Appearance: WD/WN HEENT: normocephalic, atraumatic Respiratory: chest wall non-tender, rhonchi - left, rhonchi - right Cardiovascular: normal peripheral pulses, normal rate Abdomen: normal bowel sounds, soft, non tender Genitourinary: normal external genitalia Extremities: no clubbing 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 Laboratory Tests 05/18/20 06:15: White Blood Count 14.5H, Red Blood Count 4.76, Hemoglobin 15.0, Hematocrit 43.1, Mean Corpuscular Volume 91, Mean Corpuscular Hemoglobin 31.4H, Mean Corpuscular Hemoglobin Concent 34.7, Red Cell Distribution Width 13.3, Platelet Count 398, Mean Platelet Volume 7.9, Neutrophils (%) (Auto) , Lymphocytes (%) (Auto) , Monocytes (%) (Auto) , Eosinophils (%) (Auto) , Basophils (%) (Auto) , Differential Total Cells Counted 100, Neutrophils % (Manual) 94H, Lymphocytes % (Manual) 3L, Monocytes % (Manual) 3, Eosinophils % (Manual) 0, Basophils % (Manual) 0, Band Neutrophils 0, Platelet Estimate Adequate, Platelet Morphology Normal, Red Blood Cell Morphology Normal, Sodium Level 147H, Potassium Level 3.5, Chloride Level 109H, Carbon Dioxide Level 22, Anion Gap 16H, Blood Urea Nitrogen 42H, Creatinine 1.7H, Estimat Glomerular Filtration Rate 39.7, Glucose Level 132H, Calcium Level 8.9, Total Bilirubin 1.1H, Direct Bilirubin 0.6H, Aspartate Amino Transf (AST/SGOT) 95H, Alanine Aminotransferase (ALT/SGPT) 98H, Alkaline Phosphatase 76, Total Protein 7.1, Albumin 2.6L, Globulin 4.5, Albumin/Globulin Ratio 0.6L, Hepatitis A IgM Antibody [Pending], Hepatitis B Surface Antigen [Pending], Hepatitis B Core IgM Antibody [Pending], Hepatitis C Antibody [Pending] Current Medications Medications (Trade) Dose Ordered Sig/Tami Route PRN Reason Start Time Stop Time Status Last Admin Dose Admin Acetaminophen (Tylenol) 650 mg Q4H PRN ORAL FEVER 05/13/20 23:30 06/12/20 23:29 Albuterol/ Ipratropium (Combivent Respimat) 1 puff Q4H PRN INH Shortness of Breath 05/14/20 14:15 06/13/20 14:14 Amiodarone HCl (Cordarone) 200 mg DAILY ORAL 05/14/20 09:00 08/12/20 08:59 05/18/20 09:01 Amoxicillin/ Clavulanate Potassium (Augmentin) 875 mg Q12HR ORAL 05/17/20 21:00 05/24/20 20:59 05/18/20 09:00 Azithromycin (Zithromax) 250 mg DAILY ORAL 05/17/20 17:00 05/24/20 16:59 05/18/20 09:01 Carvedilol (Coreg) 3.125 mg EVERY 12 HOURS ORAL 05/14/20 09:00 06/13/20 08:59 05/18/20 09:00 Dexamethasone (Decadron) 6 mg DAILY ORAL 05/15/20 09:00 05/24/20 09:01 05/18/20 09:00 Dextrose (Dextrose 50%) 25 ml Q30M PRN IV Hypoglycemia 05/13/20 23:30 08/11/20 23:29 Dextrose (Dextrose 50%) 50 ml Q30M PRN IV Hypoglycemia 05/13/20 23:30 08/11/20 23:29 Docusate Sodium (Colace) 100 mg TWICE A DAY ORAL 05/14/20 18:00 06/13/20 17:59 05/18/20 17:10 Finasteride (Proscar) 5 mg DAILY ORAL 05/14/20 09:00 08/12/20 08:59 05/18/20 08:59 Heparin Sodium (Porcine) (Heparin 5000 units/ml) 5,000 units EVERY 12 HOURS SUBQ 05/14/20 09:00 06/28/20 08:59 05/18/20 09:02 Hydralazine HCl (Apresoline) 25 mg Q8HR ORAL 05/16/20 14:00 08/14/20 13:59 05/18/20 14:11 Lactulose (Cephulac) 30 gm THREE TIMES A DAY ORAL 05/16/20 18:00 06/15/20 17:59 05/18/20 17:10 Lisinopril (ZestriL) 5 mg DAILY ORAL 05/14/20 09:00 06/13/20 08:59 05/18/20 09:00 Lorazepam (Ativan) 1 mg Q6H PRN ORAL For Anxiety 05/15/20 15:30 05/22/20 15:29 05/16/20 10:13 Ondansetron HCl (Zofran) 4 mg Q6H PRN IVP Nausea & Vomiting 05/13/20 23:30 06/12/20 23:29 Pantoprazole (Protonix) 40 mg DAILY ORAL 05/15/20 09:00 06/14/20 08:59 05/18/20 08:59 Polyethylene Glycol (Miralax) 17 gm DAILYPRN PRN ORAL Constipation 05/13/20 23:30 06/12/20 23:29 05/16/20 13:23 Promethazine HCl/ Codeine (Phenergan with Codeine) 5 ml Q6H PRN ORAL cough 05/13/20 23:30 06/12/20 23:29 Remdesivir 100 mg/ Sodium Chloride 250 ml @ 250 mls/hr Q24H IV 05/18/20 16:00 05/19/20 16:59 05/18/20 16:00 Risperidone (RisperDAL) 0.5 mg BID ORAL 05/15/20 18:00 06/29/20 17:59 05/18/20 17:10 Tamsulosin HCl (Flomax) 0.4 mg Q12HR ORAL 05/16/20 12:30 06/15/20 12:29 05/18/20 08:59 Assessment/Plan Problems: (1) 2019 novel coronavirus disease (COVID-19) (2) COPD (chronic obstructive pulmonary disease) (3) Psychosis (4) HTN (hypertension) Assessment/Plan no new complains all reviewed titrate fio2 to sat of 92% respiratory treatment prn f/u crp and cxr periodically check sputum ID to manage ABx monitor BP symptomatic treatment. dvt prophylaxis. keep in isolation Umesh Prajapati MD May 18, 2020 17:26
--- NOTE | 2020-05-18 17:30 | Nephrology Progress Note ---
Assessment/Plan Problem List: (1) TOPHER (acute kidney injury) (2) 2019 novel coronavirus disease (COVID-19) (3) Pneumonia (4) COPD (chronic obstructive pulmonary disease) (5) Psychosis Assessment Renal failure, acute on chronic Partly dehydration COPD, hypoxia, COVID-19 disease Psychosis Atrial fibrillation High cholesterol Hypertension History of CVA Plan May 18: Labs reviewed. Serum creatinine up to 1.7. Electrolytes within normal limit. Continue to monitor renal parameters. Continue per consultants. May 17: Labs reviewed. Serum sodium normalized. Serum creatinine 1.5 stable. Continue per current management. May 16: Labs reviewed. Creatinine 1.5 unchanged. Blood pressure stable. Electrolytes unchanged. Serum sodium 133. Continue to monitor renal parameters Adjust blood pressure medication Stop saline hydration Monitor renal parameters and electrolytes Pulmonary support Per consultants Avoid nephrotoxic's Urine studies Per orders Subjective ROS Limited/Unobtainable: No Constitutional: Reports: malaise, weakness Objective Objective Last 24 Hour Vital Signs Date Time Temp Pulse Resp B/P (MAP) Pulse Ox O2 Delivery O2 Flow Rate FiO2 05/18/20 16:00 88 05/18/20 16:00 97.9 87 20 99/60 (73) 95 05/18/20 14:11 128/80 05/18/20 12:00 80 05/18/20 12:00 97.7 89 20 111/68 (82) 99 05/18/20 09:00 123/77 05/18/20 09:00 89 123/77 05/18/20 09:00 Nasal Cannula 4.0 05/18/20 08:00 96.8 89 20 123/77 (92) 92 05/18/20 08:00 92 05/18/20 06:12 125/76 05/18/20 04:00 88 05/18/20 04:00 97.9 97 20 125/76 (92) 92 05/18/20 00:00 97 05/18/20 00:00 98.1 91 18 135/72 (93) 93 05/17/20 22:26 121/76 05/17/20 21:00 88 121/76 05/17/20 21:00 Nasal Cannula 4.0 05/17/20 20:00 97.6 88 22 121/76 (91) 92 Intake and Output 12/13/20 12/14/20 19:00 07:00 Intake Total 50 ml Balance 50 ml Intake Oral 50 ml # Voids 6 3 # Bowel Movements 1 Laboratory Tests 05/18/20 06:15: White Blood Count 14.5H, Red Blood Count 4.76, Hemoglobin 15.0, Hematocrit 43.1, Mean Corpuscular Volume 91, Mean Corpuscular Hemoglobin 31.4H, Mean Corpuscular Hemoglobin Concent 34.7, Red Cell Distribution Width 13.3, Platelet Count 398, Mean Platelet Volume 7.9, Neutrophils (%) (Auto) , Lymphocytes (%) (Auto) , Monocytes (%) (Auto) , Eosinophils (%) (Auto) , Basophils (%) (Auto) , Differential Total Cells Counted 100, Neutrophils % (Manual) 94H, Lymphocytes % (Manual) 3L, Monocytes % (Manual) 3, Eosinophils % (Manual) 0, Basophils % (Manual) 0, Band Neutrophils 0, Platelet Estimate Adequate, Platelet Morphology Normal, Red Blood Cell Morphology Normal, Sodium Level 147H, Potassium Level 3.5, Chloride Level 109H, Carbon Dioxide Level 22, Anion Gap 16H, Blood Urea Nitrogen 42H, Creatinine 1.7H, Estimat Glomerular Filtration Rate 39.7, Glucose Level 132H, Calcium Level 8.9, Total Bilirubin 1.1H, Direct Bilirubin 0.6H, Aspartate Amino Transf (AST/SGOT) 95H, Alanine Aminotransferase (ALT/SGPT) 98H, Alkaline Phosphatase 76, Total Protein 7.1, Albumin 2.6L, Globulin 4.5, Albumin/Globulin Ratio 0.6L, Hepatitis A IgM Antibody [Pending], Hepatitis B Surface Antigen [Pending], Hepatitis B Core IgM Antibody [Pending], Hepatitis C Antibody [Pending] Height (Feet): 5 Height (Inches): 7.00 Weight (Pounds): 160 Cardiovascular: normal rate Respiratory/Chest: decreased breath sounds Abdomen: soft, distended Alan Sánchez MD May 18, 2020 17:30
[2020-05-18 20:00] VITALS: BP 113/75
[2020-05-18] MEDS: LORazepam 1mg tab ORAL PRN (21:00)
[2020-05-19] VITALS: BP 132/68
[2020-05-19 04:00] VITALS: BP 107/61
[2020-05-19] MEDS: HydrALAZINE 25mg tab ORAL SCH ×3 (06:00→22:00)
[2020-05-19] MEDS: LORazepam 1mg tab ORAL PRN (06:48)
[2020-05-19 07:12] LABS: HEMATOCRIT 46.1 % (42.0-52.0); MEAN CORPUSCULAR VOLUME 92 FL (80-99); PLATELET COUNT 402 K/UL (150-450); RED BLOOD COUNT 5.01 M/UL (4.70-6.10); RED CELL DISTRIBUTION WIDTH 13.5 % (11.6-14.8); WHITE BLOOD COUNT 16.5 K/UL (4.8-10.8)
--- NOTE | 2020-05-19 07:17 | Infectious Diseases Prog Note ---
Assessment/Plan 74yo M with: Afebrile Normal WBC Lymphopenia Pneumonia COVID pneumonia, severe Acute hypoxic resp failure on NRB mask Possible UTI 05/13 BCx NTD UA 5-10 WBC, UCx >100k Kleb pna (S-CTX) COVID rapid positive CXR: Multifocal pna Elevated LFTs, AST/ALT 125 / 80 TOPHER on CKD, Cr 1.5, improving COPD Cardiac disease SNF resident Plan: Cont dexamethasone 6mg daily #6/ Stop remdesivir #5/5 Stop Augmentin #1 (Abx day #5) for pneumonia/UTI Stop azithro #5/5 for pneumonia 05/18 SP RDV #5 05/18 SP Augmentin #1, Azithro #5 / SP CTX #4 Monitor CBC/CMP Monitor temp curve, hemodynamics Monitor resp status D/w RN Thank you for this consult. [facility] will continue to follow. Subjective Allergies: Coded Allergies: No Known Allergies (Unverified , 05/13/20) AF Satting 96% on 6L NC NAD WBC 16, up slightly on steroids Not interactive much today though awake Objective Last 24 Hour Vital Signs Date Time Temp Pulse Resp B/P (MAP) Pulse Ox O2 Delivery O2 Flow Rate FiO2 05/19/20 06:00 107/67 05/19/20 04:00 97.5 76 19 107/61 (76) 96 05/19/20 04:00 82 05/19/20 00:00 98.1 78 20 132/68 (89) 96 05/19/20 00:00 78 05/18/20 22:00 129/78 05/18/20 21:00 Nasal Cannula 4.0 05/18/20 20:59 81 129/78 05/18/20 20:00 83 05/18/20 20:00 97.0 99 21 113/75 (88) 97 05/18/20 16:00 88 05/18/20 16:00 97.9 87 20 99/60 (73) 95 05/18/20 14:11 128/80 05/18/20 12:00 80 05/18/20 12:00 97.7 89 20 111/68 (82) 99 05/18/20 09:00 123/77 05/18/20 09:00 89 123/77 05/18/20 09:00 Nasal Cannula 4.0 05/18/20 08:00 96.8 89 20 123/77 (92) 92 05/18/20 08:00 92 Height (Feet): 5 Height (Inches): 7.00 Weight (Pounds): 160 Gen: NAD HEENT: NCAT Pulm: BL chest rise on NC Abd: Soft, NTND Ext: No c/c/e Skin: No visible rashes Neuro: Awake, minimally interactive Laboratory Tests Test 05/19/20 06:00 White Blood Count Pending Red Blood Count Pending Hemoglobin Pending Hematocrit Pending Mean Corpuscular Volume Pending Mean Corpuscular Hemoglobin Pending Mean Corpuscular Hemoglobin Concent Pending Red Cell Distribution Width Pending Platelet Count Pending Mean Platelet Volume Pending Neutrophils (%) (Auto) Pending Lymphocytes (%) (Auto) Pending Monocytes (%) (Auto) Pending Eosinophils (%) (Auto) Pending Basophils (%) (Auto) Pending Sodium Level Pending Potassium Level Pending Chloride Level Pending Carbon Dioxide Level Pending Blood Urea Nitrogen Pending Creatinine Pending Estimat Glomerular Filtration Rate Pending Glucose Level Pending Calcium Level Pending Phosphorus Level Pending Magnesium Level Pending Total Bilirubin Pending Direct Bilirubin Pending Aspartate Amino Transf (AST/SGOT) Pending Alanine Aminotransferase (ALT/SGPT) Pending Alkaline Phosphatase Pending C-Reactive Protein, Quantitative Pending Total Protein Pending Albumin Pending Globulin Pending Current Medications Medications (Trade) Dose Ordered Sig/Tami Route PRN Reason Start Time Stop Time Status Last Admin Dose Admin Acetaminophen (Tylenol) 650 mg Q4H PRN ORAL FEVER 05/13/20 23:30 06/12/20 23:29 Albuterol/ Ipratropium (Combivent Respimat) 1 puff Q4H PRN INH Shortness of Breath 05/14/20 14:15 06/13/20 14:14 Amiodarone HCl (Cordarone) 200 mg DAILY ORAL 05/14/20 09:00 08/12/20 08:59 05/18/20 09:01 Amoxicillin/ Clavulanate Potassium (Augmentin) 875 mg Q12HR ORAL 05/17/20 21:00 05/24/20 20:59 05/18/20 20:59 Azithromycin (Zithromax) 250 mg DAILY ORAL 05/17/20 17:00 05/24/20 16:59 05/18/20 09:01 Carvedilol (Coreg) 3.125 mg EVERY 12 HOURS ORAL 05/14/20 09:00 06/13/20 08:59 05/18/20 20:59 Dexamethasone (Decadron) 6 mg DAILY ORAL 05/15/20 09:00 05/24/20 09:01 05/18/20 09:00 Dextrose (Dextrose 50%) 25 ml Q30M PRN IV Hypoglycemia 05/13/20 23:30 08/11/20 23:29 Dextrose (Dextrose 50%) 50 ml Q30M PRN IV Hypoglycemia 05/13/20 23:30 08/11/20 23:29 Docusate Sodium (Colace) 100 mg TWICE A DAY ORAL 05/14/20 18:00 06/13/20 17:59 05/18/20 17:10 Finasteride (Proscar) 5 mg DAILY ORAL 05/14/20 09:00 08/12/20 08:59 05/18/20 08:59 Heparin Sodium (Porcine) (Heparin 5000 units/ml) 5,000 units EVERY 12 HOURS SUBQ 05/14/20 09:00 06/28/20 08:59 05/18/20 21:01 Hydralazine HCl (Apresoline) 25 mg Q8HR ORAL 05/16/20 14:00 08/14/20 13:59 05/18/20 22:00 Lactulose (Cephulac) 30 gm THREE TIMES A DAY ORAL 05/16/20 18:00 06/15/20 17:59 05/18/20 17:10 Lisinopril (ZestriL) 5 mg DAILY ORAL 05/14/20 09:00 06/13/20 08:59 05/18/20 09:00 Lorazepam (Ativan) 1 mg Q6H PRN ORAL For Anxiety 05/15/20 15:30 05/22/20 15:29 05/19/20 06:48 Ondansetron HCl (Zofran) 4 mg Q6H PRN IVP Nausea & Vomiting 05/13/20 23:30 06/12/20 23:29 Pantoprazole (Protonix) 40 mg DAILY ORAL 05/15/20 09:00 06/14/20 08:59 05/18/20 08:59 Polyethylene Glycol (Miralax) 17 gm DAILYPRN PRN ORAL Constipation 05/13/20 23:30 06/12/20 23:29 05/16/20 13:23 Promethazine HCl/ Codeine (Phenergan with Codeine) 5 ml Q6H PRN ORAL cough 05/13/20 23:30 06/12/20 23:29 Remdesivir 100 mg/ Sodium Chloride 250 ml @ 250 mls/hr Q24H IV 05/18/20 16:00 05/19/20 16:59 05/18/20 16:00 Risperidone (RisperDAL) 0.5 mg BID ORAL 05/15/20 18:00 06/29/20 17:59 05/18/20 17:10 Tamsulosin HCl (Flomax) 0.4 mg Q12HR ORAL 05/16/20 12:30 06/15/20 12:29 05/18/20 20:59 Kathy Yap M.D. May 19, 2020 07:17
[2020-05-19 08:00] VITALS: BP 118/84
--- NOTE | 2020-05-19 08:31 | General Progress Note ---
Subjective ROS Limited/Unobtainable: No Allergies: Coded Allergies: No Known Allergies (Unverified , 05/13/20) Objective Last 24 Hour Vital Signs Date Time Temp Pulse Resp B/P (MAP) Pulse Ox O2 Delivery O2 Flow Rate FiO2 05/19/20 08:13 96 Nasal Cannula 4.0 36 05/19/20 06:00 107/67 05/19/20 04:00 97.5 76 19 107/61 (76) 96 05/19/20 04:00 82 05/19/20 00:00 98.1 78 20 132/68 (89) 96 05/19/20 00:00 78 05/18/20 22:00 129/78 05/18/20 21:00 Nasal Cannula 4.0 05/18/20 20:59 81 129/78 05/18/20 20:00 83 05/18/20 20:00 97.0 99 21 113/75 (88) 97 05/18/20 16:00 88 05/18/20 16:00 97.9 87 20 99/60 (73) 95 05/18/20 14:11 128/80 05/18/20 12:00 80 05/18/20 12:00 97.7 89 20 111/68 (82) 99 05/18/20 09:00 123/77 05/18/20 09:00 89 123/77 05/18/20 09:00 Nasal Cannula 4.0 Intake and Output 05/18/20 05/19/20 19:00 07:00 Intake Total 195 ml Balance 195 ml Intake Oral 195 ml # Voids 2 3 Laboratory Tests 05/19/20 06:00: White Blood Count 16.5H, Red Blood Count 5.01, Hemoglobin 16.0, Hematocrit 46.1, Mean Corpuscular Volume 92, Mean Corpuscular Hemoglobin 31.8H, Mean Corpuscular Hemoglobin Concent 34.6, Red Cell Distribution Width 13.5, Platelet Count 402, Mean Platelet Volume 8.3, Neutrophils (%) (Auto) , Lymphocytes (%) (Auto) , Monocytes (%) (Auto) , Eosinophils (%) (Auto) , Basophils (%) (Auto) , Neutrophils % (Manual) [Pending], Lymphocytes % (Manual) [Pending], Platelet Estimate [Pending], Platelet Morphology [Pending], Sodium Level [Pending], Potassium Level [Pending], Chloride Level [Pending], Carbon Dioxide Level [Pending], Blood Urea Nitrogen [Pending], Creatinine [Pending], Estimat Glomerular Filtration Rate [Pending], Glucose Level [Pending], Calcium Level [Pending], Phosphorus Level [Pending], Magnesium Level [Pending], Total Bilirubin [Pending], Direct Bilirubin [Pending], Aspartate Amino Transf (AST/SGO T) [Pending], Alanine Aminotransferase (ALT/SGPT) [Pending], Alkaline Phosphatase [Pending], C-Reactive Protein, Quantitative [Pending], Total Protein [Pending], Albumin [Pending], Globulin [Pending] Height (Feet): 5 Height (Inches): 7.00 Weight (Pounds): 160 General Appearance: no apparent distress EENT: normal ENT inspection Neck: supple Cardiovascular: normal rate Respiratory/Chest: decreased breath sounds Abdomen: normal bowel sounds, non tender, soft Extremities: non-tender Assessment/Plan Problem List: (1) Elevated LFTs ICD Codes: R79.89 - Other specified abnormal findings of blood chemistry SNOMED: 778614226, 110457474 (2) COPD (chronic obstructive pulmonary disease) ICD Codes: J44.9 - Chronic obstructive pulmonary disease, unspecified SNOMED: 33144621 (3) Dehydration ICD Codes: E86.0 - Dehydration SNOMED: 12527214 (4) Pneumonia ICD Codes: J18.9 - Pneumonia, unspecified organism SNOMED: 095070603 (5) HTN (hypertension) ICD Codes: I10 - Essential (primary) hypertension SNOMED: 10157642 (6) 2019 novel coronavirus disease (COVID-19) ICD Codes: U07.1 - COVID-19 SNOMED: 552103833 Status: unchanged Assessment/Plan: repeat LFTS hold abd us for now hepatitis panel>> neg fu ID recs Stefan Wilde MD May 19, 2020 08:31
[2020-05-19 08:33] LABS: ALBUMIN 2.7 G/DL (3.4-5.0); ALBUMIN/GLOBULIN RATIO 0.6 (1.0-2.7); BILIRUBIN,TOTAL 0.8 MG/DL (0.2-1.0); CALCIUM 9.1 MG/DL (8.5-10.1); CREATININE 1.5 MG/DL (0.55-1.30); POTASSIUM 3.9 MMOL/L (3.5-5.1)
[2020-05-19 08:36] LABS: PHOSPHORUS 3.9 MG/DL (2.5-4.9)
[2020-05-19] MEDS: Heparin 5000 units/ml inj SUBQ SCH ×2 (09:56→21:30)
[2020-05-19] MEDS: Docusate 100mg cap ORAL SCH ×2 (09:56→18:04)
[2020-05-19] MEDS: Lisinopril 2.5mg tab ORAL SCH (09:56)
[2020-05-19] MEDS: Tamsulosin 0.4mg cap ORAL SCH ×2 (09:57→21:31)
[2020-05-19] MEDS: Amiodarone 200mg tab ORAL SCH (09:58)
[2020-05-19] MEDS: Lactulose 20gm/30ml UDC ORAL SCH ×3 (09:59→18:04)
--- NOTE | 2020-05-19 11:15 | Pulmonology Progress Note ---
Subjective ROS Limited/Unobtainable: No Constitutional: Reports: no symptoms HEENT: Repors: no symptoms Allergies: Coded Allergies: No Known Allergies (Unverified , 05/13/20) All Systems: reviewed and negative except above Objective Last 24 Hour Vital Signs Date Time Temp Pulse Resp B/P (MAP) Pulse Ox O2 Delivery O2 Flow Rate FiO2 05/19/20 09:58 94 118/84 05/19/20 09:56 118/84 05/19/20 08:13 96 Nasal Cannula 4.0 36 05/19/20 08:00 97.2 94 24 118/84 (95) 95 05/19/20 06:00 107/67 05/19/20 04:00 97.5 76 19 107/61 (76) 96 05/19/20 04:00 82 05/19/20 00:00 98.1 78 20 132/68 (89) 96 05/19/20 00:00 78 05/18/20 22:00 129/78 05/18/20 21:00 Nasal Cannula 4.0 05/18/20 20:59 81 129/78 05/18/20 20:00 83 05/18/20 20:00 97.0 99 21 113/75 (88) 97 05/18/20 16:00 88 05/18/20 16:00 97.9 87 20 99/60 (73) 95 05/18/20 14:11 128/80 05/18/20 12:00 80 05/18/20 12:00 97.7 89 20 111/68 (82) 99 Intake and Output 05/18/20 05/19/20 19:00 07:00 Intake Total 195 ml Balance 195 ml Intake Oral 195 ml # Voids 2 3 General Appearance: WD/WN HEENT: normocephalic, atraumatic Respiratory: chest wall non-tender, rhonchi - left, rhonchi - right Cardiovascular: normal peripheral pulses, normal rate Abdomen: normal bowel sounds, soft, non tender Genitourinary: normal external genitalia Extremities: no clubbing 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 normal Lymphatic: no neck adenopathy Laboratory Tests 05/19/20 06:00: White Blood Count 16.5H, Red Blood Count 5.01, Hemoglobin 16.0, Hematocrit 46.1, Mean Corpuscular Volume 92, Mean Corpuscular Hemoglobin 31.8H, Mean Corpuscular Hemoglobin Concent 34.6, Red Cell Distribution Width 13.5, Platelet Count 402, Mean Platelet Volume 8.3, Neutrophils (%) (Auto) , Lymphocytes (%) (Auto) , Monocytes (%) (Auto) , Eosinophils (%) (Auto) , Basophils (%) (Auto) , Differential Total Cells Counted 100, Neutrophils % (Manual) 92H, Lymphocytes % (Manual) 3L, Monocytes % (Manual) 5, Eosinophils % (Manual) 0, Basophils % (Manual) 0, Band Neutrophils 0, Platelet Estimate Adequate, Platelet Morphology Normal, Red Blood Cell Morphology Normal, Sodium Level 150H, Potassium Level 3.9, Chloride Level 114H, Carbon Dioxide Level 25, Anion Gap 11, Blood Urea Nitrogen 47H, Creatinine 1.5H, Estimat Glomerular Filtration Rate 45.9, Glucose Level 152H, Calcium Level 9.1, Phosphorus Level 3.9, Magnesium Level 3.0H, Total Bilirubin 0.8, Direct Bilirubin 0.3, Aspartate Amino Transf (AST/SGOT) 57H, Alanine Aminotransferase (ALT/SGPT) 90H, Alkaline Phosphatase 67, C-Reactive Protein, Quantitative 8.6H, Total Protein 7.6, Albumin 2.7L, Globulin 4.9, Albumin/Globulin Ratio 0.6L Current Medications Medications (Trade) Dose Ordered Sig/Tami Route PRN Reason Start Time Stop Time Status Last Admin Dose Admin Acetaminophen (Tylenol) 650 mg Q4H PRN ORAL FEVER 05/13/20 23:30 06/12/20 23:29 Albuterol/ Ipratropium (Combivent Respimat) 1 puff Q4H PRN INH Shortness of Breath 05/14/20 14:15 06/13/20 14:14 Amiodarone HCl (Cordarone) 200 mg DAILY ORAL 05/14/20 09:00 08/12/20 08:59 05/19/20 09:58 Carvedilol (Coreg) 3.125 mg EVERY 12 HOURS ORAL 05/14/20 09:00 06/13/20 08:59 05/19/20 09:58 Dexamethasone (Decadron) 6 mg DAILY ORAL 05/15/20 09:00 05/24/20 09:01 05/19/20 09:57 Dextrose (Dextrose 50%) 25 ml Q30M PRN IV Hypoglycemia 05/13/20 23:30 08/11/20 23:29 Dextrose (Dextrose 50%) 50 ml Q30M PRN IV Hypoglycemia 05/13/20 23:30 08/11/20 23:29 Docusate Sodium (Colace) 100 mg TWICE A DAY ORAL 05/14/20 18:00 06/13/20 17:59 05/19/20 09:56 Finasteride (Proscar) 5 mg DAILY ORAL 05/14/20 09:00 08/12/20 08:59 05/19/20 09:58 Heparin Sodium (Porcine) (Heparin 5000 units/ml) 5,000 units EVERY 12 HOURS SUBQ 05/14/20 09:00 06/28/20 08:59 05/19/20 09:56 Hydralazine HCl (Apresoline) 25 mg Q8HR ORAL 05/16/20 14:00 08/14/20 13:59 05/18/20 22:00 Lactulose (Cephulac) 30 gm THREE TIMES A DAY ORAL 05/16/20 18:00 06/15/20 17:59 05/19/20 09:59 Lisinopril (ZestriL) 5 mg DAILY ORAL 05/14/20 09:00 06/13/20 08:59 05/19/20 09:56 Lorazepam (Ativan) 1 mg Q6H PRN ORAL For Anxiety 05/15/20 15:30 05/22/20 15:29 05/19/20 06:48 Ondansetron HCl (Zofran) 4 mg Q6H PRN IVP Nausea & Vomiting 05/13/20 23:30 06/12/20 23:29 Pantoprazole (Protonix) 40 mg DAILY ORAL 05/15/20 09:00 06/14/20 08:59 05/19/20 09:57 Polyethylene Glycol (Miralax) 17 gm DAILYPRN PRN ORAL Constipation 05/13/20 23:30 06/12/20 23:29 05/16/20 13:23 Promethazine HCl/ Codeine (Phenergan with Codeine) 5 ml Q6H PRN ORAL cough 05/13/20 23:30 06/12/20 23:29 Remdesivir 100 mg/ Sodium Chloride 250 ml @ 250 mls/hr Q24H IV 05/18/20 16:00 05/19/20 16:59 05/18/20 16:00 Risperidone (RisperDAL) 0.5 mg BID ORAL 05/15/20 18:00 06/29/20 17:59 05/19/20 09:57 Tamsulosin HCl (Flomax) 0.4 mg Q12HR ORAL 05/16/20 12:30 06/15/20 12:29 05/19/20 09:57 Assessment/Plan Problems: (1) 2019 novel coronavirus disease (COVID-19) (2) COPD (chronic obstructive pulmonary disease) (3) Psychosis (4) HTN (hypertension) Assessment/Plan wbc still high afebrile no new complains all reviewed titrate fio2 to sat of 92% respiratory treatment prn f/u crp and cxr periodically check sputum ID to manage ABx monitor BP symptomatic treatment. dvt prophylaxis. keep in isolation Umesh Prajapati MD May 19, 2020 11:15
[2020-05-19 12:00] VITALS: BP 101/61
[2020-05-19] MEDS: Demeclocycline 150mg tab ORAL SCH ×2 (12:43→21:31)
--- NOTE | 2020-05-19 12:58 | Nephrology Progress Note ---
Assessment/Plan Problem List: (1) TOPHER (acute kidney injury) (2) 2019 novel coronavirus disease (COVID-19) (3) Pneumonia (4) COPD (chronic obstructive pulmonary disease) (5) Psychosis Assessment Renal failure, acute on chronic Partly dehydration COPD, hypoxia, COVID-19 disease Psychosis Atrial fibrillation High cholesterol Hypertension History of CVA Plan May 19: Labs reviewed. Serum creatinine lower to 1.5. Serum sodium mildly elevated. Continue free water administration. Monitor renal parameters. Continue per consultants. May 18: Labs reviewed. Serum creatinine up to 1.7. Electrolytes within normal limit. Continue to monitor renal parameters. Continue per consultants. May 17: Labs reviewed. Serum sodium normalized. Serum creatinine 1.5 stable. Continue per current management. May 16: Labs reviewed. Creatinine 1.5 unchanged. Blood pressure stable. Electrolytes unchanged. Serum sodium 133. Continue to monitor renal parameters Adjust blood pressure medication Stop saline hydration Monitor renal parameters and electrolytes Pulmonary support Per consultants Avoid nephrotoxic's Urine studies Per orders Subjective ROS Limited/Unobtainable: No Constitutional: Reports: malaise, weakness Objective Objective Last 24 Hour Vital Signs Date Time Temp Pulse Resp B/P (MAP) Pulse Ox O2 Delivery O2 Flow Rate FiO2 05/19/20 09:58 94 118/84 05/19/20 09:56 118/84 05/19/20 09:00 Nasal Cannula 4.0 05/19/20 08:13 96 Nasal Cannula 4.0 36 05/19/20 08:00 97.2 94 24 118/84 (95) 95 05/19/20 08:00 100 05/19/20 06:00 107/67 05/19/20 04:00 97.5 76 19 107/61 (76) 96 05/19/20 04:00 82 05/19/20 00:00 98.1 78 20 132/68 (89) 96 05/19/20 00:00 78 05/18/20 22:00 129/78 05/18/20 21:00 Nasal Cannula 4.0 05/18/20 20:59 81 129/78 05/18/20 20:00 83 05/18/20 20:00 97.0 99 21 113/75 (88) 97 05/18/20 16:00 88 05/18/20 16:00 97.9 87 20 99/60 (73) 95 05/18/20 14:11 128/80 Intake and Output 05/18/20 05/19/20 19:00 07:00 Intake Total 195 ml Balance 195 ml Intake Oral 195 ml # Voids 2 3 Current Medications Medications (Trade) Dose Ordered Sig/Tami Route PRN Reason Start Time Stop Time Status Last Admin Dose Admin Acetaminophen (Tylenol) 650 mg Q4H PRN ORAL FEVER 05/13/20 23:30 06/12/20 23:29 Albuterol/ Ipratropium (Combivent Respimat) 1 puff Q4H PRN INH Shortness of Breath 05/14/20 14:15 06/13/20 14:14 Amiodarone HCl (Cordarone) 200 mg DAILY ORAL 05/14/20 09:00 08/12/20 08:59 05/19/20 09:58 Carvedilol (Coreg) 3.125 mg EVERY 12 HOURS ORAL 05/14/20 09:00 06/13/20 08:59 05/19/20 09:58 Demeclocycline HCl (Declomycin) 600 mg EVERY 12 HOURS ORAL 05/19/20 11:30 05/26/20 11:29 05/19/20 12:43 Dexamethasone (Decadron) 6 mg DAILY ORAL 05/15/20 09:00 05/24/20 09:01 05/19/20 09:57 Dextrose (Dextrose 50%) 25 ml Q30M PRN IV Hypoglycemia 05/13/20 23:30 08/11/20 23:29 Dextrose (Dextrose 50%) 50 ml Q30M PRN IV Hypoglycemia 05/13/20 23:30 08/11/20 23:29 Docusate Sodium (Colace) 100 mg TWICE A DAY ORAL 05/14/20 18:00 06/13/20 17:59 05/19/20 09:56 Finasteride (Proscar) 5 mg DAILY ORAL 05/14/20 09:00 08/12/20 08:59 05/19/20 09:58 Heparin Sodium (Porcine) (Heparin 5000 units/ml) 5,000 units EVERY 12 HOURS SUBQ 05/14/20 09:00 06/28/20 08:59 05/19/20 09:56 Hydralazine HCl (Apresoline) 25 mg Q8HR ORAL 05/16/20 14:00 08/14/20 13:59 05/18/20 22:00 Lactulose (Cephulac) 30 gm THREE TIMES A DAY ORAL 05/16/20 18:00 06/15/20 17:59 05/19/20 12:43 Lisinopril (ZestriL) 5 mg DAILY ORAL 05/14/20 09:00 06/13/20 08:59 05/19/20 09:56 Lorazepam (Ativan) 1 mg Q6H PRN ORAL For Anxiety 05/15/20 15:30 05/22/20 15:29 05/19/20 06:48 Ondansetron HCl (Zofran) 4 mg Q6H PRN IVP Nausea & Vomiting 05/13/20 23:30 06/12/20 23:29 Pantoprazole (Protonix) 40 mg DAILY ORAL 05/15/20 09:00 06/14/20 08:59 05/19/20 09:57 Polyethylene Glycol (Miralax) 17 gm DAILYPRN PRN ORAL Constipation 05/13/20 23:30 06/12/20 23:29 05/16/20 13:23 Promethazine HCl/ Codeine (Phenergan with Codeine) 5 ml Q6H PRN ORAL cough 05/13/20 23:30 06/12/20 23:29 Remdesivir 100 mg/ Sodium Chloride 250 ml @ 250 mls/hr Q24H IV 05/18/20 16:00 05/19/20 16:59 05/18/20 16:00 Risperidone (RisperDAL) 0.5 mg BID ORAL 05/15/20 18:00 06/29/20 17:59 05/19/20 09:57 Tamsulosin HCl (Flomax) 0.4 mg Q12HR ORAL 05/16/20 12:30 06/15/20 12:29 05/19/20 09:57 Laboratory Tests 05/19/20 06:00: White Blood Count 16.5H, Red Blood Count 5.01, Hemoglobin 16.0, Hematocrit 46.1, Mean Corpuscular Volume 92, Mean Corpuscular Hemoglobin 31.8H, Mean Corpuscular Hemoglobin Concent 34.6, Red Cell Distribution Width 13.5, Platelet Count 402, Mean Platelet Volume 8.3, Neutrophils (%) (Auto) , Lymphocytes (%) (Auto) , Monocytes (%) (Auto) , Eosinophils (%) (Auto) , Basophils (%) (Auto) , Differential Total Cells Counted 100, Neutrophils % (Manual) 92H, Lymphocytes % (Manual) 3L, Monocytes % (Manual) 5, Eosinophils % (Manual) 0, Basophils % (Manual) 0, Band Neutrophils 0, Platelet Estimate Adequate, Platelet Morphology Normal, Red Blood Cell Morphology Normal, Sodium Level 150H, Potassium Level 3.9, Chloride Level 114H, Carbon Dioxide Level 25, Anion Gap 11, Blood Urea Nitrogen 47H, Creatinine 1.5H, Estimat Glomerular Filtration Rate 45.9, Glucose Level 152H, Calcium Level 9.1, Phosphorus Level 3.9, Magnesium Level 3.0H, Total Bilirubin 0.8, Direct Bilirubin 0.3, Aspartate Amino Transf (AST/SGOT) 57H, Alanine Aminotransferase (ALT/SGPT) 90H, Alkaline Phosphatase 67, C-Reactive Protein, Quantitative 8.6H, Total Protein 7.6, Albumin 2.7L, Globulin 4.9, Albumin/Globulin Ratio 0.6L Height (Feet): 5 Height (Inches): 7.00 Weight (Pounds): 160 Cardiovascular: tachycardia Respiratory/Chest: decreased breath sounds Abdomen: distended Alan Sánchez MD May 19, 2020 12:58
--- NOTE | 2020-05-19 14:32 | Diagnostic Imaging Report ---
Indication: Dyspnea Technique: One view of the chest Comparison: 05/13/2020 Findings: Right upper lobe infiltrate and left perihilar infiltrate again demonstrated. There is increasing infiltrate in the left lower lung and in the right lower lung. Are size is normal. The pleural spaces remain clear Impression: Increasing bilateral infiltrates
[2020-05-19 16:00] VITALS: BP 114/67
[2020-05-19] MEDS: Maintenance Dose:Remdesivir 100mg/NS 230ml x 4 Doses IV SCH ×2 (16:12)
[2020-05-19 20:00] VITALS: BP 116/76
--- NOTE | 2020-05-19 20:55 | General Progress Note ---
Subjective ROS Limited/Unobtainable: Yes Allergies: Coded Allergies: No Known Allergies (Unverified , 05/13/20) Objective Last 24 Hour Vital Signs Date Time Temp Pulse Resp B/P (MAP) Pulse Ox O2 Delivery O2 Flow Rate FiO2 05/19/20 16:00 97.5 82 22 114/67 (83) 95 05/19/20 16:00 71 05/19/20 13:07 118/84 05/19/20 12:00 76 05/19/20 12:00 97.5 120 20 101/61 (74) 96 05/19/20 09:58 94 118/84 05/19/20 09:56 118/84 05/19/20 09:00 Nasal Cannula 4.0 05/19/20 08:13 96 Nasal Cannula 4.0 36 05/19/20 08:00 97.2 94 24 118/84 (95) 95 05/19/20 08:00 100 05/19/20 06:00 107/67 05/19/20 04:00 97.5 76 19 107/61 (76) 96 05/19/20 04:00 82 05/19/20 00:00 98.1 78 20 132/68 (89) 96 05/19/20 00:00 78 05/18/20 22:00 129/78 05/18/20 21:00 Nasal Cannula 4.0 05/18/20 20:59 81 129/78 l Intake and Output 05/18/20 05/19/20 19:00 07:00 Intake Total 195 ml Balance 195 ml Intake Oral 195 ml # Voids 2 3 Laboratory Tests 05/19/20 06:00: White Blood Count 16.5H, Red Blood Count 5.01, Hemoglobin 16.0, Hematocrit 46.1, Mean Corpuscular Volume 92, Mean Corpuscular Hemoglobin 31.8H, Mean Corpuscular Hemoglobin Concent 34.6, Red Cell Distribution Width 13.5, Platelet Count 402, Mean Platelet Volume 8.3, Neutrophils (%) (Auto) , Lymphocytes (%) (Auto) , Monocytes (%) (Auto) , Eosinophils (%) (Auto) , Basophils (%) (Auto) , Differential Total Cells Counted 100, Neutrophils % (Manual) 92H, Lymphocytes % (Manual) 3L, Monocytes % (Manual) 5, Eosinophils % (Manual) 0, Basophils % (Manual) 0, Band Neutrophils 0, Platelet Estimate Adequate, Platelet Morphology Normal, Red Blood Cell Morphology Normal, Sodium Level 150H, Potassium Level 3.9, Chloride Level 114H, Carbon Dioxide Level 25, Anion Gap 11, Blood Urea Nitrogen 47H, Creatinine 1.5H, Estimat Glomerular Filtration Rate 45.9, Glucose Level 152H, Calcium Level 9.1, Phosphorus Level 3.9, Magnesium Level 3.0H, Total Bilirubin 0.8, Direct Bilirubin 0.3, Aspartate Amino Transf (AST/SGOT) 57H, Alanine Aminotransferase (ALT/SGPT) 90H, Alkaline Phosphatase 67, C-Reactive Protein, Quantitative 8.6H, Total Protein 7.6, Albumin 2.7L, Globulin 4.9, Albumin/Globulin Ratio 0.6L Height (Feet): 5 Height (Inches): 7.00 Weight (Pounds): 160 Assessment/Plan Problem List: (1) COPD (chronic obstructive pulmonary disease) ICD Codes: J44.9 - Chronic obstructive pulmonary disease, unspecified SNOMED: 06935157 (2) Dehydration ICD Codes: E86.0 - Dehydration SNOMED: 42851536 (3) Pneumonia ICD Codes: J18.9 - Pneumonia, unspecified organism SNOMED: 865715889 (4) HTN (hypertension) ICD Codes: I10 - Essential (primary) hypertension SNOMED: 31318532 (5) 2019 novel coronavirus disease (COVID-19) ICD Codes: U07.1 - COVID-19 SNOMED: 907307374 (6) TOPHER (acute kidney injury) ICD Codes: N17.9 - Acute kidney failure, unspecified SNOMED: 9802329, 07739321 Status: unchanged Assessment/Plan: covid + pna hypoxia copd resp insuff htn dehydration arf Hillary Smallwood MD May 19, 2020 20:55
[2020-05-20] VITALS (7 sets, daily range): BP systolic 101–135; BP diastolic 63–82
[2020-05-20] MEDS: HydrALAZINE 25mg tab ORAL SCH ×3 (05:34→22:00)
[2020-05-20 07:49] LABS: HEMATOCRIT 38.1 % (42.0-52.0); HEMOGLOBIN 13.7 G/DL (14.2-18.0); MEAN CORPUSCULAR VOLUME 90 FL (80-99); PLATELET COUNT 306 K/UL (150-450); RED BLOOD COUNT 4.21 M/UL (4.70-6.10); RED CELL DISTRIBUTION WIDTH 14.4 % (11.6-14.8); WHITE BLOOD COUNT 18.2 K/UL (4.8-10.8)
--- NOTE | 2020-05-20 08:01 | Infectious Diseases Prog Note ---
Assessment/Plan 74yo M with: Afebrile Normal WBC Lymphopenia Pneumonia COVID pneumonia, severe Acute hypoxic resp failure on NRB mask Possible UTI 05/13 BCx NTD UA 5-10 WBC, UCx >100k Kleb pna (S-CTX) COVID rapid positive CXR: Multifocal pna 05/19 CXR: Increasing bilateral infiltrates Elevated LFTs, AST/ALT 125 / 80 TOPHER on CKD, Cr 1.5, improving COPD Cardiac disease SNF resident Plan: Cont dexamethasone 6mg daily #7/10 Monitor off abx 05/18 SP RDV #5 05/18 SP Augmentin #1, Azithro #5 05/17 SP CTX #4 Monitor CBC/CMP Monitor temp curve, hemodynamics Monitor resp status D/w RN Thank you for this consult. [facility] will continue to follow. Subjective Allergies: Coded Allergies: No Known Allergies (Unverified , 05/13/20) AF NAD WBC 18, up slightly on steroids Objective Last 24 Hour Vital Signs Date Time Temp Pulse Resp B/P (MAP) Pulse Ox O2 Delivery O2 Flow Rate FiO2 05/20/20 07:48 97.2 80 18 128/82 (97) 97 05/20/20 06:00 97.7 71 20 109/70 (83) 94 05/20/20 05:34 114/73 05/20/20 04:00 97.7 71 20 109/70 (83) 94 05/20/20 04:00 60 05/20/20 00:00 97.2 89 20 119/67 (84) 94 05/20/20 00:00 85 05/19/20 22:00 111/63 05/19/20 21:31 74 116/76 05/19/20 21:00 Nasal Cannula 4.0 05/19/20 20:05 97 Nasal Cannula 4.0 36 05/19/20 20:00 83 05/19/20 20:00 97.7 74 20 116/76 (89) 100 05/19/20 16:00 97.5 82 22 114/67 (83) 95 05/19/20 16:00 71 05/19/20 13:07 118/84 05/19/20 12:00 76 05/19/20 12:00 97.5 120 20 101/61 (74) 96 05/19/20 09:58 94 118/84 05/19/20 09:56 118/84 05/19/20 09:00 Nasal Cannula 4.0 05/19/20 08:13 96 Nasal Cannula 4.0 36 Height (Feet): 5 Height (Inches): 7.00 Weight (Pounds): 160 Gen: NAD HEENT: NCAT Pulm: BL chest rise on NC Abd: Soft, NTND Ext: No c/c/e Skin: No visible rashes Neuro: Awake, minimally interactive Laboratory Tests Test 05/20/20 07:40 White Blood Count 18.2 K/UL (4.8-10.8) H Red Blood Count 4.21 M/UL (4.70-6.10) L Hemoglobin 13.7 G/DL (14.2-18.0) L Hematocrit 38.1 % (42.0-52.0) L Mean Corpuscular Volume 90 FL (80-99) Mean Corpuscular Hemoglobin 32.5 PG (27.0-31.0) H Mean Corpuscular Hemoglobin Concent 35.9 G/DL (32.0-36.0) Red Cell Distribution Width 14.4 % (11.6-14.8) Platelet Count 306 K/UL (150-450) Mean Platelet Volume 8.3 FL (6.5-10.1) Neutrophils (%) (Auto) % (45.0-75.0) Lymphocytes (%) (Auto) % (20.0-45.0) Monocytes (%) (Auto) % (1.0-10.0) Eosinophils (%) (Auto) % (0.0-3.0) Basophils (%) (Auto) % (0.0-2.0) Neutrophils % (Manual) Pending Lymphocytes % (Manual) Pending Platelet Estimate Pending Platelet Morphology Pending Sodium Level Pending Potassium Level Pending Chloride Level Pending Carbon Dioxide Level Pending Blood Urea Nitrogen Pending Creatinine Pending Estimat Glomerular Filtration Rate Pending Glucose Level Pending Calcium Level Pending Total Bilirubin Pending Aspartate Amino Transf (AST/SGOT) Pending Alanine Aminotransferase (ALT/SGPT) Pending Alkaline Phosphatase Pending Total Protein Pending Albumin Pending Globulin Pending Current Medications Medications (Trade) Dose Ordered Sig/Tami Route PRN Reason Start Time Stop Time Status Last Admin Dose Admin Acetaminophen (Tylenol) 650 mg Q4H PRN ORAL FEVER 05/13/20 23:30 06/12/20 23:29 Albuterol/ Ipratropium (Combivent Respimat) 1 puff Q4H PRN INH Shortness of Breath 05/14/20 14:15 06/13/20 14:14 Amiodarone HCl (Cordarone) 200 mg DAILY ORAL 05/14/20 09:00 08/12/20 08:59 05/19/20 09:58 Carvedilol (Coreg) 3.125 mg EVERY 12 HOURS ORAL 05/14/20 09:00 06/13/20 08:59 05/19/20 21:31 Demeclocycline HCl (Declomycin) 600 mg EVERY 12 HOURS ORAL 05/19/20 11:30 05/26/20 11:29 05/19/20 21:31 Dexamethasone (Decadron) 6 mg DAILY ORAL 05/15/20 09:00 05/24/20 09:01 05/19/20 09:57 Dextrose (Dextrose 50%) 25 ml Q30M PRN IV Hypoglycemia 05/13/20 23:30 08/11/20 23:29 Dextrose (Dextrose 50%) 50 ml Q30M PRN IV Hypoglycemia 05/13/20 23:30 08/11/20 23:29 Docusate Sodium (Colace) 100 mg TWICE A DAY ORAL 05/14/20 18:00 06/13/20 17:59 05/19/20 18:04 Finasteride (Proscar) 5 mg DAILY ORAL 05/14/20 09:00 08/12/20 08:59 05/19/20 09:58 Heparin Sodium (Porcine) (Heparin 5000 units/ml) 5,000 units EVERY 12 HOURS SUBQ 05/14/20 09:00 06/28/20 08:59 05/19/20 21:30 Hydralazine HCl (Apresoline) 25 mg Q8HR ORAL 05/16/20 14:00 08/14/20 13:59 05/19/20 13:07 Lactulose (Cephulac) 30 gm THREE TIMES A DAY ORAL 05/16/20 18:00 06/15/20 17:59 05/19/20 18:04 Lisinopril (ZestriL) 5 mg DAILY ORAL 05/14/20 09:00 06/13/20 08:59 05/19/20 09:56 Lorazepam (Ativan) 1 mg Q6H PRN ORAL For Anxiety 05/15/20 15:30 05/22/20 15:29 05/19/20 06:48 Ondansetron HCl (Zofran) 4 mg Q6H PRN IVP Nausea & Vomiting 05/13/20 23:30 06/12/20 23:29 Pantoprazole (Protonix) 40 mg DAILY ORAL 05/15/20 09:00 06/14/20 08:59 05/19/20 09:57 Polyethylene Glycol (Miralax) 17 gm DAILYPRN PRN ORAL Constipation 05/13/20 23:30 06/12/20 23:29 05/16/20 13:23 Promethazine HCl/ Codeine (Phenergan with Codeine) 5 ml Q6H PRN ORAL cough 05/13/20 23:30 06/12/20 23:29 Risperidone (RisperDAL) 0.5 mg BID ORAL 05/15/20 18:00 06/29/20 17:59 05/19/20 18:04 Tamsulosin HCl (Flomax) 0.4 mg Q12HR ORAL 05/16/20 12:30 06/15/20 12:29 05/19/20 21:31 Kathy Yap M.D. May 20, 2020 08:01
[2020-05-20 08:09] LABS: ALBUMIN 2.2 G/DL (3.4-5.0); ALBUMIN/GLOBULIN RATIO 0.5 (1.0-2.7); BILIRUBIN,TOTAL 0.6 MG/DL (0.2-1.0); CALCIUM 8.2 MG/DL (8.5-10.1); CREATININE 1.5 MG/DL (0.55-1.30)
[2020-05-20] MEDS: Tamsulosin 0.4mg cap ORAL SCH ×2 (08:33→21:56)
[2020-05-20] MEDS: Lactulose 20gm/30ml UDC ORAL SCH ×3 (08:33→17:07)
[2020-05-20] MEDS: Amiodarone 200mg tab ORAL SCH (08:33)
[2020-05-20] MEDS: Demeclocycline 150mg tab ORAL SCH ×2 (08:33→21:56)
[2020-05-20] MEDS: Lisinopril 2.5mg tab ORAL SCH (08:33)
[2020-05-20] MEDS: Docusate 100mg cap ORAL SCH ×2 (08:33→17:07)
[2020-05-20] MEDS: Heparin 5000 units/ml inj SUBQ SCH ×2 (08:39→21:58)
--- NOTE | 2020-05-20 10:01 | General Progress Note ---
Subjective ROS Limited/Unobtainable: No Allergies: Coded Allergies: No Known Allergies (Unverified , 05/13/20) Objective Last 24 Hour Vital Signs Date Time Temp Pulse Resp B/P (MAP) Pulse Ox O2 Delivery O2 Flow Rate FiO2 05/20/20 09:56 96 Nasal Cannula 4.0 36 05/20/20 08:34 80 128/82 05/20/20 08:33 128/82 05/20/20 08:24 Nasal Cannula 4.0 05/20/20 08:00 58 05/20/20 07:48 97.2 80 18 128/82 (97) 97 05/20/20 06:00 97.7 71 20 109/70 (83) 94 05/20/20 05:34 114/73 05/20/20 04:00 97.7 71 20 109/70 (83) 94 05/20/20 04:00 60 05/20/20 00:00 97.2 89 20 119/67 (84) 94 05/20/20 00:00 85 05/19/20 22:00 111/63 05/19/20 21:31 74 116/76 05/19/20 21:00 Nasal Cannula 4.0 05/19/20 20:05 97 Nasal Cannula 4.0 36 05/19/20 20:00 83 05/19/20 20:00 97.7 74 20 116/76 (89) 100 05/19/20 16:00 97.5 82 22 114/67 (83) 95 05/19/20 16:00 71 05/19/20 13:07 118/84 05/19/20 12:00 76 05/19/20 12:00 97.5 120 20 101/61 (74) 96 Intake and Output 05/19/20 05/20/20 19:00 07:00 Intake Total 50 ml Balance 50 ml Intake Oral 50 ml # Voids 4 2 Laboratory Tests 05/20/20 07:40: White Blood Count 18.2H, Red Blood Count 4.21L, Hemoglobin 13.7L, Hematocrit 3 8.1L, Mean Corpuscular Volume 90, Mean Corpuscular Hemoglobin 32.5H, Mean Corpuscular Hemoglobin Concent 35.9, Red Cell Distribution Width 14.4, Platelet Count 306, Mean Platelet Volume 8.3, Neutrophils (%) (Auto) , Lymphocytes (%) (Auto) , Monocytes (%) (Auto) , Eosinophils (%) (Auto) , Basophils (%) (Auto) , Neutrophils % (Manual) [Pending], Lymphocytes % (Manual) [Pending], Platelet Estimate [Pending], Platelet Morphology [Pending], Sodium Level 147H, Potassium Level 4.0, Chloride Level 115H, Carbon Dioxide Level 24, Anion Gap 8, Blood Urea Nitrogen 45H, Creatinine 1.5H, Estimat Glomerular Filtration Rate 45.9, Glucose Level 135H, Calcium Level 8.2L, Total Bilirubin 0.6, Aspartate Amino Transf (AST/SGOT) 36, Alanine Aminotransferase (ALT/SGPT) 61, Alkaline Phosphatase 61, Total Protein 6.4, Albumin 2.2L, Globulin 4.2, Albumin/Globulin Ratio 0.5L Height (Feet): 5 Height (Inches): 7.00 Weight (Pounds): 160 General Appearance: no apparent distress EENT: normal ENT inspection Neck: supple Cardiovascular: normal rate Respiratory/Chest: decreased breath sounds Abdomen: hypoactive bowel sounds Extremities: non-tender Assessment/Plan Problem List: (1) Elevated LFTs ICD Codes: R79.89 - Other specified abnormal findings of blood chemistry SNOMED: 588075190, 179981965 (2) COPD (chronic obstructive pulmonary disease) ICD Codes: J44.9 - Chronic obstructive pulmonary disease, unspecified SNOMED: 86687645 (3) Dehydration ICD Codes: E86.0 - Dehydration SNOMED: 70287751 (4) Pneumonia ICD Codes: J18.9 - Pneumonia, unspecified organism SNOMED: 038220865 (5) HTN (hypertension) ICD Codes: I10 - Essential (primary) hypertension SNOMED: 31164344 (6) 2019 novel coronavirus disease (COVID-19) ICD Codes: U07.1 - COVID-19 SNOMED: 989048113 Status: unchanged Assessment/Plan: repeat LFTS hold abd us for now hepatitis panel>> neg fu ID recs dc protonix change diet to reg add marinol 2.5 Stefan Wilde MD May 20, 2020 10:01
--- NOTE | 2020-05-20 11:34 | Pulmonology Progress Note ---
Subjective ROS Limited/Unobtainable: No Constitutional: Reports: no symptoms HEENT: Repors: no symptoms Allergies: Coded Allergies: No Known Allergies (Unverified , 05/13/20) All Systems: reviewed and negative except above Objective Last 24 Hour Vital Signs Date Time Temp Pulse Resp B/P (MAP) Pulse Ox O2 Delivery O2 Flow Rate FiO2 05/20/20 09:56 96 Nasal Cannula 4.0 36 05/20/20 08:34 80 128/82 05/20/20 08:33 128/82 05/20/20 08:24 Nasal Cannula 4.0 05/20/20 08:00 58 05/20/20 07:48 97.2 80 18 128/82 (97) 97 05/20/20 06:00 97.7 71 20 109/70 (83) 94 05/20/20 05:34 114/73 05/20/20 04:00 97.7 71 20 109/70 (83) 94 05/20/20 04:00 60 05/20/20 00:00 97.2 89 20 119/67 (84) 94 05/20/20 00:00 85 05/19/20 22:00 111/63 05/19/20 21:31 74 116/76 05/19/20 21:00 Nasal Cannula 4.0 05/19/20 20:05 97 Nasal Cannula 4.0 36 05/19/20 20:00 83 05/19/20 20:00 97.7 74 20 116/76 (89) 100 05/19/20 16:00 97.5 82 22 114/67 (83) 95 05/19/20 16:00 71 05/19/20 13:07 118/84 05/19/20 12:00 76 05/19/20 12:00 97.5 120 20 101/61 (74) 96 Intake and Output 05/19/20 05/20/20 19:00 07:00 Intake Total 50 ml Balance 50 ml Intake Oral 50 ml # Voids 4 2 General Appearance: WD/WN HEENT: normocephalic, atraumatic Respiratory: chest wall non-tender, rhonchi - left, rhonchi - right Cardiovascular: normal peripheral pulses, normal rate Abdomen: normal bowel sounds, soft, non tender Genitourinary: normal external genitalia Extremities: no clubbing Neurologic: regional guide II-XII grossly normal Lymphatic: no neck adenopathy Laboratory Tests 05/20/20 07:40: White Blood Count 18.2H, Red Blood Count 4.21L, Hemoglobin 13.7L, Hematocrit 38.1L, Mean Corpuscular Volume 90, Mean Corpuscular Hemoglobin 32.5H, Mean Corpuscular Hemoglobin Concent 35.9, Red Cell Distribution Width 14.4, Platelet Count 306, Mean Platelet Volume 8.3, Neutrophils (%) (Auto) , Lymphocytes (%) (Auto) , Monocytes (%) (Auto) , Eosinophils (%) (Auto) , Basophils (%) (Auto) , Differential Total Cells Counted 100, Neutrophils % (Manual) 91H, Lymphocytes % (Manual) 4L, Monocytes % (Manual) 5, Eosinophils % (Manual) 0, Basophils % (M anual) 0, Band Neutrophils 0, Platelet Estimate Adequate, Platelet Morphology , Giant Platelets Occasional, Red Blood Cell Morphology Normal, Sodium Level 147H, Potassium Level 4.0, Chloride Level 115H, Carbon Dioxide Level 24, Anion Gap 8, Blood Urea Nitrogen 45H, Creatinine 1.5H, Estimat Glomerular Filtration Rate 45.9, Glucose Level 135H, Calcium Level 8.2L, Total Bilirubin 0.6, Aspartate Amino Transf (AST/SGOT) 36, Alanine Aminotransferase (ALT/SGPT) 61, Alkaline Phosphatase 61, Total Protein 6.4, Albumin 2.2L, Globulin 4.2, Albumin/Globulin Ratio 0.5L Current Medications Medications (Trade) Dose Ordered Sig/Tami Route PRN Reason Start Time Stop Time Status Last Admin Dose Admin Acetaminophen (Tylenol) 650 mg Q4H PRN ORAL FEVER 05/13/20 23:30 06/12/20 23:29 Albuterol/ Ipratropium (Combivent Respimat) 1 puff Q4H PRN INH Shortness of Breath 05/14/20 14:15 06/13/20 14:14 Amiodarone HCl (Cordarone) 200 mg DAILY ORAL 05/14/20 09:00 08/12/20 08:59 05/20/20 08:33 Carvedilol (Coreg) 3.125 mg EVERY 12 HOURS ORAL 05/14/20 09:00 06/13/20 08:59 05/20/20 08:34 Demeclocycline HCl (Declomycin) 600 mg EVERY 12 HOURS ORAL 05/19/20 11:30 05/26/20 11:29 05/20/20 08:33 Dexamethasone (Decadron) 6 mg DAILY ORAL 05/15/20 09:00 05/24/20 09:01 05/20/20 08:33 Dextrose (Dextrose 50%) 25 ml Q30M PRN IV Hypoglycemia 05/13/20 23:30 08/11/20 23:29 Dextrose (Dextrose 50%) 50 ml Q30M PRN IV Hypoglycemia 05/13/20 23:30 08/11/20 23:29 Docusate Sodium (Colace) 100 mg TWICE A DAY ORAL 05/14/20 18:00 06/13/20 17:59 05/20/20 08:33 Dronabinol (Marinol) 2.5 mg BID ORAL 05/20/20 18:00 08/18/20 17:59 Finasteride (Proscar) 5 mg DAILY ORAL 05/14/20 09:00 08/12/20 08:59 05/20/20 08:34 Heparin Sodium (Porcine) (Heparin 5000 units/ml) 5,000 units EVERY 12 HOURS SUBQ 05/14/20 09:00 06/28/20 08:59 05/20/20 08:39 Hydralazine HCl (Apresoline) 25 mg Q8HR ORAL 05/16/20 14:00 08/14/20 13:59 05/19/20 13:07 Lactulose (Cephulac) 30 gm THREE TIMES A DAY ORAL 05/16/20 18:00 06/15/20 17:59 05/20/20 08:33 Lisinopril (ZestriL) 5 mg DAILY ORAL 05/14/20 09:00 06/13/20 08:59 05/20/20 08:33 Lorazepam (Ativan) 1 mg Q6H PRN ORAL For Anxiety 05/15/20 15:30 05/22/20 15:29 05/19/20 06:48 Ondansetron HCl (Zofran) 4 mg Q6H PRN IVP Nausea & Vomiting 05/13/20 23:30 06/12/20 23:29 Polyethylene Glycol (Miralax) 17 gm DAILYPRN PRN ORAL Constipation 05/13/20 23:30 06/12/20 23:29 05/16/20 13:23 Promethazine HCl/ Codeine (Phenergan with Codeine) 5 ml Q6H PRN ORAL cough 05/13/20 23:30 06/12/20 23:29 Risperidone (RisperDAL) 0.5 mg BID ORAL 05/15/20 18:00 06/29/20 17:59 05/20/20 08:34 Tamsulosin HCl (Flomax) 0.4 mg Q12HR ORAL 05/16/20 12:30 06/15/20 12:29 05/20/20 08:33 Assessment/Plan Problems: (1) 2019 novel coronavirus disease (COVID-19) (2) COPD (chronic obstructive pulmonary disease) (3) Psychosis (4) HTN (hypertension) Assessment/Plan cxr 05/09 showed increasing bilateral infiltrate afebrile no new complains all reviewed titrate fio2 to sat of 92% respiratory treatment prn f/u crp and cxr periodically check sputum ID to manage ABx monitor BP symptomatic treatment. dvt prophylaxis. keep in isolation Umesh Prajapati MD May 20, 2020 11:34
[2020-05-20] MEDS: Dronabinol 2.5mg Cap ORAL SCH (17:07)
--- NOTE | 2020-05-20 17:49 | Nephrology Progress Note ---
Assessment/Plan Problem List: (1) TOPHER (acute kidney injury) (2) 2019 novel coronavirus disease (COVID-19) (3) Pneumonia (4) COPD (chronic obstructive pulmonary disease) (5) Psychosis Assessment Renal failure, acute on chronic Partly dehydration COPD, hypoxia, COVID-19 disease Psychosis Atrial fibrillation High cholesterol Hypertension History of CVA Plan May 20: Lab reviewed. Serum creatinine 1.5 stable. Serum sodium lowering. Continue per consultants. May 19: Labs reviewed. Serum creatinine lower to 1.5. Serum sodium mildly elevated. Continue free water administration. Monitor renal parameters. Continue per consultants. May 18: Labs reviewed. Serum creatinine up to 1.7. Electrolytes within normal limit. Continue to monitor renal parameters. Continue per consultants. May 17: Labs reviewed. Serum sodium normalized. Serum creatinine 1.5 stable. Continue per current management. May 16: Labs reviewed. Creatinine 1.5 unchanged. Blood pressure stable. Electrolytes unchanged. Serum sodium 133. Continue to monitor renal parameters Adjust blood pressure medication Stop saline hydration Monitor renal parameters and electrolytes Pulmonary support Per consultants Avoid nephrotoxic's Urine studies Per orders Subjective ROS Limited/Unobtainable: No Constitutional: Reports: malaise Objective Objective Last 24 Hour Vital Signs Date Time Temp Pulse Resp B/P (MAP) Pulse Ox O2 Delivery O2 Flow Rate FiO2 05/20/20 16:00 97.6 78 22 104/63 (77) 94 05/20/20 16:00 70 05/20/20 14:00 101/68 05/20/20 12:00 77 05/20/20 12:00 97.2 114 22 101/68 (79) 100 05/20/20 09:56 96 Nasal Cannula 4.0 36 05/20/20 08:34 80 128/82 05/20/20 08:33 128/82 05/20/20 08:24 Nasal Cannula 4.0 05/20/20 08:00 58 05/20/20 07:48 97.2 80 18 128/82 (97) 97 05/20/20 06:00 97.7 71 20 109/70 (83) 94 05/20/20 05:34 114/73 05/20/20 04:00 97.7 71 20 109/70 (83) 94 05/20/20 04:00 60 05/20/20 00:00 97.2 89 20 119/67 (84) 94 05/20/20 00:00 85 05/19/20 22:00 111/63 05/19/20 21:31 74 116/76 05/19/20 21:00 Nasal Cannula 4.0 05/19/20 20:05 97 Nasal Cannula 4.0 36 05/19/20 20:00 83 05/19/20 20:00 97.7 74 20 116/76 (89) 100 Intake and Output 05/19/20 05/20/20 19:00 07:00 Intake Total 50 ml Balance 50 ml Intake Oral 50 ml # Voids 4 2 Laboratory Tests 05/20/20 07:40: White Blood Count 18.2H, Red Blood Count 4.21L, Hemoglobin 13.7L, Hematocrit 38.1L, Mean Corpuscular Volume 90, Mean Corpuscular Hemoglobin 32.5H, Mean Corpuscular Hemoglobin Concent 35.9, Red Cell Distribution Width 14.4, Platelet Count 306, Mean Platelet Volume 8.3, Neutrophils (%) (Auto) , Lymphocytes (%) (Auto) , Monocytes (%) (Auto) , Eosinophils (%) (Auto) , Basophils (%) (Auto) , Differential Total Cells Counted 100, Neutrophils % (Manual) 91H, Lymphocytes % (Manual) 4L, Monocytes % (Manual) 5, Eosinophils % (Manual) 0, Basophils % (Manual) 0, Band Neutrophils 0, Platelet Estimate Adequate, Platelet Morphology , Giant Platelets Occasional, Red Blood Cell Morphology Normal, Sodium Level 147H, Potassium Level 4.0, Chloride Level 115H, Carbon Dioxide Level 24, Anion Gap 8, Blood Urea Nitrogen 45H, Creatinine 1.5H, Estimat Glomerular Filtration Rate 45.9, Glucose Level 135H, Calcium Level 8.2L, Total Bilirubin 0.6, Aspartate Amino Transf (AST/SGOT) 36, Alanine Aminotransferase (ALT/SGPT) 61, Alkaline Phosphatase 61, Total Protein 6.4, Albumin 2.2L, Globulin 4.2, Albumin/Globulin Ratio 0.5L Height (Feet): 5 Height (Inches): 7.00 Weight (Pounds): 160 General Appearance: confused Cardiovascular: tachycardia, other Respiratory/Chest: decreased breath sounds Abdomen: distended Alan Sánchez MD May 20, 2020 17:48
--- NOTE | 2020-05-20 21:16 | General Progress Note ---
Subjective ROS Limited/Unobtainable: Yes Allergies: Coded Allergies: No Known Allergies (Unverified , 05/13/20) Objective Last 24 Hour Vital Signs Date Time Temp Pulse Resp B/P (MAP) Pulse Ox O2 Delivery O2 Flow Rate FiO2 05/20/20 19:36 96 Nasal Cannula 4.0 36 05/20/20 16:00 97.6 78 22 104/63 (77) 94 05/20/20 16:00 70 05/20/20 14:00 101/68 05/20/20 12:00 77 05/20/20 12:00 97.2 114 22 101/68 (79) 100 05/20/20 09:56 96 Nasal Cannula 4.0 36 05/20/20 08:34 80 128/82 05/20/20 08:33 128/82 05/20/20 08:24 Nasal Cannula 4.0 05/20/20 08:00 58 05/20/20 07:48 97.2 80 18 128/82 (97) 97 05/20/20 06:00 97.7 71 20 109/70 (83) 94 05/20/20 05:34 114/73 05/20/20 04:00 97.7 71 20 109/70 (83) 94 05/20/20 04:00 60 05/20/20 00:00 97.2 89 20 119/67 (84) 94 05/20/20 00:00 85 05/19/20 22:00 111/63 05/19/20 21:31 74 116/76 Intake and Output 05/19/20 05/20/20 19:00 07:00 Intake Total 50 ml Balance 50 ml Intake Oral 50 ml # Voids 4 2 Laboratory Tests 05/20/20 07:40: White Blood Count 18.2H, Red Blood Count 4.21L, Hemoglobin 13.7L, Hematocrit 38.1L, Mean Corpuscular Volume 90, Mean Corpuscular Hemoglobin 32.5H, Mean Corpuscular Hemoglobin Concent 35.9, Red Cell Distribution Width 14.4, Platelet Count 306, Mean Platelet Volume 8.3, Neutrophils (%) (Auto) , Lymphocytes (%) (Auto) , Monocytes (%) (Auto) , Eosinophils (%) (Auto) , Basophils (%) (Auto) , Differential Total Cells Counted 100, Neutrophils % (Manual) 91H, Lymphocytes % (Manual) 4L, Monocytes % (Manual) 5, Eosinophils % (Manual) 0, Basophils % (Manual) 0, Band Neutrophils 0, Platelet Estimate Adequate, Platelet Morphology , Giant Platelets Occasional, Red Blood Cell Morphology Normal, Sodium Level 147H, Potassium Level 4.0, Chloride Level 115H, Carbon Dioxide Level 24, Anion Gap 8, Blood Urea Nitrogen 45H, Creatinine 1.5H, Estimat Glomerular Filtration Rate 45.9, Glucose Level 135H, Calcium Level 8.2L, Total Bilirubin 0.6, Aspartate Amino Transf (AST/SGOT) 36, Alanine Aminotransferase (ALT/SGPT) 61, Alkaline Phosphatase 61, Total Protein 6.4, Albumin 2.2L, Globulin 4.2, Albumin/Globulin Ratio 0.5L Height (Feet): 5 Height (Inches): 7.00 Weight (Pounds): 160 Assessment/Plan Problem List: (1) COPD (chronic obstructive pulmonary disease) ICD Codes: J44.9 - Chronic obstructive pulmonary disease, unspecified SNOMED: 40621684 (2) Dehydration ICD Codes: E86.0 - Dehydration SNOMED: 69272832 (3) Pneumonia ICD Codes: J18.9 - Pneumonia, unspecified organism SNOMED: 122142727 (4) HTN (hypertension) ICD Codes: I10 - Essential (primary) hypertension SNOMED: 55840008 (5) 2019 novel coronavirus disease (COVID-19) ICD Codes: U07.1 - COVID-19 SNOMED: 563606658 (6) TOPHER (acute kidney injury) ICD Codes: N17.9 - Acute kidney failure, unspecified SNOMED: 8584715, 01235163 Status: progressing, unchanged Assessment/Plan: covid + pna hypoxia copd resp insuff htn dehydration arf is stable prn supportive care afebrile Hillary Smallwood MD May 20, 2020 21:16
[2020-05-21] VITALS: BP 115/73
[2020-05-21 04:00] VITALS: BP 108/67
[2020-05-21] MEDS: HydrALAZINE 25mg tab ORAL SCH ×2 (05:07→13:55)
--- NOTE | 2020-05-21 07:51 | Infectious Diseases Prog Note ---
Assessment/Plan 74yo M with: Afebrile Normal WBC Lymphopenia Pneumonia COVID pneumonia, severe Acute hypoxic resp failure on NRB mask Possible UTI 05/13 BCx NTD UA 5-10 WBC, UCx >100k Kleb pna (S-CTX) COVID rapid positive CXR: Multifocal pna 05/19 CXR: Increasing bilateral infiltrates Elevated LFTs, AST/ALT 125 / 80 TOPHER on CKD, Cr 1.5, improving COPD Cardiac disease SNF resident Plan: Cont dexamethasone 6mg daily #8/10 Monitor off abx 05/18 SP RDV #5 05/18 SP Augmentin #1, Azithro #5 05/17 SP CTX #4 Monitor CBC/CMP Monitor temp curve, hemodynamics Monitor resp status D/w RN Thank you for this consult. [facility] will continue to follow. Subjective Allergies: Coded Allergies: No Known Allergies (Unverified , 05/13/20) AF NAD On 2L NC Minimally interactive Objective Last 24 Hour Vital Signs Date Time Temp Pulse Resp B/P (MAP) Pulse Ox O2 Delivery O2 Flow Rate FiO2 05/21/20 05:07 102/59 05/21/20 04:00 97.2 62 16 108/67 (81) 98 05/21/20 04:00 82 05/21/20 00:00 97.3 85 26 115/73 (87) 93 05/21/20 00:00 73 05/20/20 22:00 119/70 05/20/20 21:55 82 120/72 05/20/20 21:00 Nasal Cannula 4.0 05/20/20 20:00 96.6 70 26 135/73 (93) 92 05/20/20 20:00 73 05/20/20 19:36 96 Nasal Cannula 4.0 36 05/20/20 16:00 97.6 78 22 104/63 (77) 94 05/20/20 16:00 70 05/20/20 14:00 101/68 05/20/20 12:00 77 05/20/20 12:00 97.2 114 22 101/68 (79) 100 05/20/20 09:56 96 Nasal Cannula 4.0 36 05/20/20 08:34 80 128/82 05/20/20 08:33 128/82 05/20/20 08:24 Nasal Cannula 4.0 05/20/20 08:00 58 Height (Feet): 5 Height (Inches): 7.00 Weight (Pounds): 160 Gen: NAD HEENT: NCAT Pulm: BL chest rise on NC Abd: Soft, NTND Ext: No c/c/e Skin: No visible rashes Neuro: Awake, minimally interactive Current Medications Medications (Trade) Dose Ordered Sig/Tami Route PRN Reason Start Time Stop Time Status Last Admin Dose Admin Acetaminophen (Tylenol) 650 mg Q4H PRN ORAL FEVER 05/13/20 23:30 06/12/20 23:29 Albuterol/ Ipratropium (Combivent Respimat) 1 puff Q4H PRN INH Shortness of Breath 05/14/20 14:15 06/13/20 14:14 Amiodarone HCl (Cordarone) 200 mg DAILY ORAL 05/14/20 09:00 08/12/20 08:59 05/20/20 08:33 Carvedilol (Coreg) 3.125 mg EVERY 12 HOURS ORAL 05/14/20 09:00 06/13/20 08:59 05/20/20 21:55 Demeclocycline HCl (Declomycin) 600 mg EVERY 12 HOURS ORAL 05/19/20 11:30 05/26/20 11:29 05/20/20 21:56 Dexamethasone (Decadron) 6 mg DAILY ORAL 05/15/20 09:00 05/24/20 09:01 05/20/20 08:33 Dextrose (Dextrose 50%) 25 ml Q30M PRN IV Hypoglycemia 05/13/20 23:30 08/11/20 23:29 Dextrose (Dextrose 50%) 50 ml Q30M PRN IV Hypoglycemia 05/13/20 23:30 08/11/20 23:29 Docusate Sodium (Colace) 100 mg TWICE A DAY ORAL 05/14/20 18:00 06/13/20 17:59 05/20/20 17:07 Dronabinol (Marinol) 2.5 mg BID ORAL 05/20/20 18:00 08/18/20 17:59 05/20/20 17:07 Finasteride (Proscar) 5 mg DAILY ORAL 05/14/20 09:00 08/12/20 08:59 05/20/20 08:34 Heparin Sodium (Porcine) (Heparin 5000 units/ml) 5,000 units EVERY 12 HOURS SUBQ 05/14/20 09:00 06/28/20 08:59 05/20/20 21:58 Hydralazine HCl (Apresoline) 25 mg Q8HR ORAL 05/16/20 14:00 08/14/20 13:59 05/19/20 13:07 Lactulose (Cephulac) 30 gm THREE TIMES A DAY ORAL 05/16/20 18:00 06/15/20 17:59 05/20/20 17:07 Lisinopril (ZestriL) 5 mg DAILY ORAL 05/14/20 09:00 06/13/20 08:59 05/20/20 08:33 Lorazepam (Ativan) 1 mg Q6H PRN ORAL For Anxiety 05/15/20 15:30 05/22/20 15:29 05/19/20 06:48 Ondansetron HCl (Zofran) 4 mg Q6H PRN IVP Nausea & Vomiting 05/13/20 23:30 06/12/20 23:29 Polyethylene Glycol (Miralax) 17 gm DAILYPRN PRN ORAL Constipation 05/13/20 23:30 06/12/20 23:29 05/16/20 13:23 Promethazine HCl/ Codeine (Phenergan with Codeine) 5 ml Q6H PRN ORAL cough 05/13/20 23:30 06/12/20 23:29 Risperidone (RisperDAL) 0.5 mg BID ORAL 05/15/20 18:00 06/29/20 17:59 05/20/20 17:07 Tamsulosin HCl (Flomax) 0.4 mg Q12HR ORAL 05/16/20 12:30 06/15/20 12:29 05/20/20 21:56 Kathy Yap M.D. May 21, 2020 07:51
[2020-05-21 08:00] VITALS: BP 134/80
[2020-05-21] MEDS: Demeclocycline 150mg tab ORAL SCH ×2 (09:46→21:00)
[2020-05-21] MEDS: Amiodarone 200mg tab ORAL SCH (09:46)
[2020-05-21] MEDS: Docusate 100mg cap ORAL SCH ×2 (09:47→18:11)
[2020-05-21] MEDS: Tamsulosin 0.4mg cap ORAL SCH ×2 (09:48→21:00)
[2020-05-21] MEDS: Lisinopril 2.5mg tab ORAL SCH (09:48)
[2020-05-21] MEDS: Dronabinol 2.5mg Cap ORAL SCH ×2 (09:50→18:11)
[2020-05-21] MEDS: Lactulose 20gm/30ml UDC ORAL SCH ×3 (09:51→18:10)
[2020-05-21] MEDS: Heparin 5000 units/ml inj SUBQ SCH ×2 (10:18→21:00)
--- NOTE | 2020-05-21 10:22 | Pulmonology Progress Note ---
Subjective ROS Limited/Unobtainable: Yes Constitutional: Reports: no symptoms HEENT: Repors: no symptoms Allergies: Coded Allergies: No Known Allergies (Unverified , 05/13/20) All Systems: reviewed and negative except above Objective Last 24 Hour Vital Signs Date Time Temp Pulse Resp B/P (MAP) Pulse Ox O2 Delivery O2 Flow Rate FiO2 05/21/20 09:50 89 134/80 05/21/20 09:48 172/95 05/21/20 05:07 102/59 05/21/20 04:00 97.2 62 16 108/67 (81) 98 05/21/20 04:00 82 05/21/20 00:00 97.3 85 26 115/73 (87) 93 05/21/20 00:00 73 05/20/20 22:00 119/70 05/20/20 21:55 82 120/72 05/20/20 21:00 Nasal Cannula 4.0 05/20/20 20:00 96.6 70 26 135/73 (93) 92 05/20/20 20:00 73 05/20/20 19:36 96 Nasal Cannula 4.0 36 05/20/20 16:00 97.6 78 22 104/63 (77) 94 05/20/20 16:00 70 05/20/20 14:00 101/68 05/20/20 12:00 77 05/20/20 12:00 97.2 114 22 101/68 (79) 100 Intake and Output 05/20/20 05/21/20 19:00 07:00 Intake Total 100 ml 30 ml Balance 100 ml 30 ml Intake Oral 100 ml 30 ml # Voids 3 General Appearance: WD/WN HEENT: normocephalic, atraumatic Respiratory: chest wall non-tender, rhonchi - left, rhonchi - right Cardiovascular: normal peripheral pulses, normal rate Abdomen: normal bowel sounds, soft, non tender Genitourinary: normal external genitalia Extremities: no clubbing 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 Lymphatic: no neck adenopathy Current Medications Medications (Trade) Dose Ordered Sig/Tami Route PRN Reason Start Time Stop Time Status Last Admin Dose Admin Acetaminophen (Tylenol) 650 mg Q4H PRN ORAL FEVER 05/13/20 23:30 06/12/20 23:29 Albuterol/ Ipratropium (Combivent Respimat) 1 puff Q4H PRN INH Shortness of Breath 05/14/20 14:15 06/13/20 14:14 Amiodarone HCl (Cordarone) 200 mg DAILY ORAL 05/14/20 09:00 08/12/20 08:59 05/21/20 09:46 Carvedilol (Coreg) 3.125 mg EVERY 12 HOURS ORAL 05/14/20 09:00 06/13/20 08:59 05/21/20 09:50 Demeclocycline HCl (Declomycin) 600 mg EVERY 12 HOURS ORAL 05/19/20 11:30 05/26/20 11:29 05/21/20 09:46 Dexamethasone (Decadron) 6 mg DAILY ORAL 05/15/20 09:00 05/24/20 09:01 05/20/20 08:33 Dextrose (Dextrose 50%) 25 ml Q30M PRN IV Hypoglycemia 05/13/20 23:30 08/11/20 23:29 Dextrose (Dextrose 50%) 50 ml Q30M PRN IV Hypoglycemia 05/13/20 23:30 08/11/20 23:29 Docusate Sodium (Colace) 100 mg TWICE A DAY ORAL 05/14/20 18:00 06/13/20 17:59 05/21/20 09:47 Dronabinol (Marinol) 2.5 mg BID ORAL 05/20/20 18:00 08/18/20 17:59 05/21/20 09:50 Finasteride (Proscar) 5 mg DAILY ORAL 05/14/20 09:00 08/12/20 08:59 05/21/20 09:49 Heparin Sodium (Porcine) (Heparin 5000 units/ml) 5,000 units EVERY 12 HOURS SUBQ 05/14/20 09:00 06/28/20 08:59 05/20/20 21:58 Hydralazine HCl (Apresoline) 25 mg Q8HR ORAL 05/16/20 14:00 08/14/20 13:59 05/19/20 13:07 Lactulose (Cephulac) 30 gm THREE TIMES A DAY ORAL 05/16/20 18:00 06/15/20 17:59 05/21/20 09:51 Lisinopril (ZestriL) 5 mg DAILY ORAL 05/14/20 09:00 06/13/20 08:59 05/21/20 09:48 Lorazepam (Ativan) 1 mg Q6H PRN ORAL For Anxiety 05/15/20 15:30 05/22/20 15:29 05/19/20 06:48 Ondansetron HCl (Zofran) 4 mg Q6H PRN IVP Nausea & Vomiting 05/13/20 23:30 06/12/20 23:29 Polyethylene Glycol (Miralax) 17 gm DAILYPRN PRN ORAL Constipation 05/13/20 23:30 06/12/20 23:29 05/16/20 13:23 Promethazine HCl/ Codeine (Phenergan with Codeine) 5 ml Q6H PRN ORAL cough 05/13/20 23:30 06/12/20 23:29 Risperidone (RisperDAL) 0.5 mg BID ORAL 05/15/20 18:00 06/29/20 17:59 05/21/20 09:49 Tamsulosin HCl (Flomax) 0.4 mg Q12HR ORAL 05/16/20 12:30 06/15/20 12:29 05/21/20 09:48 Assessment/Plan Problems: (1) 2019 novel coronavirus disease (COVID-19) (2) COPD (chronic obstructive pulmonary disease) (3) Psychosis (4) HTN (hypertension) Assessment/Plan cxr 05/09 showed increasing bilateral infiltrate wbc still high afebrile no new complains all reviewed titrate fio2 to sat of 92% respiratory treatment prn f/u crp and cxr periodically check sputum ID to manage ABx, off abx onw monitor BP symptomatic treatment. dvt prophylaxis. keep in isolation Umesh Prajapati MD May 21, 2020 10:22
[2020-05-21 12:00] VITALS: BP 126/82
--- NOTE | 2020-05-21 12:42 | General Progress Note ---
Subjective ROS Limited/Unobtainable: No Allergies: Coded Allergies: No Known Allergies (Unverified , 05/13/20) Objective Last 24 Hour Vital Signs Date Time Temp Pulse Resp B/P (MAP) Pulse Ox O2 Delivery O2 Flow Rate FiO2 05/21/20 09:50 89 134/80 05/21/20 09:48 172/95 05/21/20 09:00 Nasal Cannula 2.0 05/21/20 08:00 65 05/21/20 08:00 96.3 89 20 134/80 (98) 97 05/21/20 05:07 102/59 05/21/20 04:00 97.2 62 16 108/67 (81) 98 05/21/20 04:00 82 05/21/20 00:00 97.3 85 26 115/73 (87) 93 05/21/20 00:00 73 05/20/20 22:00 119/70 05/20/20 21:55 82 120/72 05/20/20 21:00 Nasal Cannula 4.0 05/20/20 20:00 96.6 70 26 135/73 (93) 92 05/20/20 20:00 73 05/20/20 19:36 96 Nasal Cannula 4.0 36 05/20/20 16:00 97.6 78 22 104/63 (77) 94 05/20/20 16:00 70 05/20/20 14:00 101/68 Intake and Output 05/20/20 05/21/20 19:00 07:00 Intake Total 100 ml 30 ml Balance 100 ml 30 ml Intake Oral 100 ml 30 ml # Voids 3 Height (Feet): 5 Height (Inches): 7.00 Weight (Pounds): 160 General Appearance: alert EENT: normal ENT inspection Neck: supple Cardiovascular: normal rate Respiratory/Chest: lungs clear Abdomen: normal bowel sounds, non tender, soft Extremities: non-tender Assessment/Plan Problem List: (1) Elevated LFTs ICD Codes: R79.89 - Other specified abnormal findings of blood chemistry SNOMED: 874391928, 440489452 (2) COPD (chronic obstructive pulmonary disease) ICD Codes: J44.9 - Chronic obstructive pulmonary disease, unspecified SNOMED: 98340013 (3) Dehydration ICD Codes: E86.0 - Dehydration SNOMED: 93176693 (4) Pneumonia ICD Codes: J18.9 - Pneumonia, unspecified organism SNOMED: 574951948 (5) HTN (hypertension) ICD Codes: I10 - Essential (primary) hypertension SNOMED: 76810720 (6) 2019 novel coronavirus disease (COVID-19) ICD Codes: U07.1 - COVID-19 SNOMED: 298491466 Status: progressing, unchanged Assessment/Plan: repeat LFTS hold abd us for now hepatitis panel>> neg fu ID recs off protonix change diet to reg on marinol 2.5 Stefan Wilde MD May 21, 2020 12:42
[2020-05-21] MEDS ORDERED: LORazepam 1mg tab ORAL PRN (15:30)
[2020-05-21 16:00] VITALS: BP 118/78
--- NOTE | 2020-05-21 16:08 | Nephrology Progress Note ---
Assessment/Plan Problem List: (1) TOPHER (acute kidney injury) (2) 2019 novel coronavirus disease (COVID-19) (3) Pneumonia (4) COPD (chronic obstructive pulmonary disease) (5) Psychosis Assessment Renal failure, acute on chronic Partly dehydration COPD, hypoxia, COVID-19 disease Psychosis Atrial fibrillation High cholesterol Hypertension History of CVA Plan May 21: No labs drawn today. Stable from renal standpoint of view. Co ntinue per consultants. May 20: Lab reviewed. Serum creatinine 1.5 stable. Serum sodium lowering. Continue per consultants. May 19: Labs reviewed. Serum creatinine lower to 1.5. Serum sodium mildly elevated. Continue free water administration. Monitor renal parameters. Continue per consultants. May 18: Labs reviewed. Serum creatinine up to 1.7. Electrolytes within normal limit. Continue to monitor renal parameters. Continue per consultants. May 17: Labs reviewed. Serum sodium normalized. Serum creatinine 1.5 stable. Continue per current management. May 16: Labs reviewed. Creatinine 1.5 unchanged. Blood pressure stable. Electrolytes unchanged. Serum sodium 133. Continue to monitor renal parameters Adjust blood pressure medication Stop saline hydration Monitor renal parameters and electrolytes Pulmonary support Per consultants Avoid nephrotoxic's Urine studies Per orders Subjective ROS Limited/Unobtainable: No Constitutional: Reports: malaise Objective Objective Last 24 Hour Vital Signs Date Time Temp Pulse Resp B/P (MAP) Pulse Ox O2 Delivery O2 Flow Rate FiO2 05/21/20 13:55 153/51 05/21/20 12:00 96.1 77 20 126/82 (97) 94 05/21/20 12:00 62 05/21/20 09:50 89 134/80 05/21/20 09:48 172/95 05/21/20 09:00 Nasal Cannula 2.0 05/21/20 08:00 65 05/21/20 08:00 96.3 89 20 134/80 (98) 97 05/21/20 05:07 102/59 05/21/20 04:00 97.2 62 16 108/67 (81) 98 05/21/20 04:00 82 05/21/20 00:00 97.3 85 26 115/73 (87) 93 05/21/20 00:00 73 05/20/20 22:00 119/70 05/20/20 21:55 82 120/72 05/20/20 21:00 Nasal Cannula 4.0 05/20/20 20:00 96.6 70 26 135/73 (93) 92 05/20/20 20:00 73 05/20/20 19:36 96 Nasal Cannula 4.0 36 Intake and Output 05/20/20 05/21/20 19:00 07:00 Intake Total 100 ml 30 ml Balance 100 ml 30 ml Intake Oral 100 ml 30 ml # Voids 3 Height (Feet): 5 Height (Inches): 7.00 Weight (Pounds): 160 General Appearance: no apparent distress, confused Cardiovascular: normal rate Respiratory/Chest: decreased breath sounds Abdomen: soft Alan Sánchez MD May 21, 2020 16:08
[2020-05-21 20:00] VITALS: BP_SYST 100; BP_SYST 110; BP_DIAS 62; BP_DIAS 69
--- NOTE | 2020-05-21 20:52 | General Progress Note ---
Subjective ROS Limited/Unobtainable: Yes Allergies: Coded Allergies: No Known Allergies (Unverified , 05/13/20) Objective Last 24 Hour Vital Signs Date Time Temp Pulse Resp B/P (MAP) Pulse Ox O2 Delivery O2 Flow Rate FiO2 05/21/20 20:09 96 Nasal Cannula 4.0 36 05/21/20 16:00 97.5 85 20 118/78 (91) 96 05/21/20 16:00 77 05/21/20 13:55 153/51 05/21/20 12:00 96.1 77 20 126/82 (97) 94 05/21/20 12:00 62 05/21/20 09:50 89 134/80 05/21/20 09:48 172/95 05/21/20 09:00 Nasal Cannula 2.0 05/21/20 08:00 65 05/21/20 08:00 96.3 89 20 134/80 (98) 97 05/21/20 05:07 102/59 05/21/20 04:00 97.2 62 16 108/67 (81) 98 05/21/20 04:00 82 05/21/20 00:00 97.3 85 26 115/73 (87) 93 05/21/20 00:00 73 05/20/20 22:00 119/70 05/20/20 21:55 82 120/72 05/20/20 21:00 Nasal Cannula 4.0 Intake and Output 05/20/20 05/21/20 19:00 07:00 Intake Total 100 ml 30 ml Balance 100 ml 30 ml Intake Oral 100 ml 30 ml # Voids 3 Height (Feet): 5 Height (Inches): 7.00 Weight (Pounds): 160 Assessment/Plan Problem List: (1) COPD (chronic obstructive pulmonary disease) ICD Codes: J44.9 - Chronic obstructive pulmonary disease, unspecified SNOMED: 61893779 (2) Dehydration ICD Codes: E86.0 - Dehydration SNOMED: 50585558 (3) Pneumonia ICD Codes: J18.9 - Pneumonia, unspecified organism SNOMED: 121728614 (4) HTN (hypertension) ICD Codes: I10 - Essential (primary) hypertension SNOMED: 28439094 (5) 2019 novel coronavirus disease (COVID-19) ICD Codes: U07.1 - COVID-19 SNOMED: 811411358 (6) TOPHER (acute kidney injury) ICD Codes: N17.9 - Acute kidney failure, unspecified SNOMED: 6965925, 12580374 Status: progressing, unchanged Assessment/Plan: covid + pna not hypoxia copd no wheezing no fever Hillary Smallwood MD May 21, 2020 20:52
[2020-05-21] MEDS: HydrALAZINE 50mg tab ORAL SCH (22:00)
[2020-05-22] VITALS: BP 110/69
[2020-05-22 04:00] VITALS: BP 105/60
[2020-05-22] MEDS: HydrALAZINE 50mg tab ORAL SCH (06:00)
[2020-05-22 07:04] LABS: HEMATOCRIT 46.4 % (42.0-52.0); HEMOGLOBIN 15.3 G/DL (14.2-18.0); MEAN CORPUSCULAR VOLUME 96 FL (80-99); PLATELET COUNT 270 K/UL (150-450); RED BLOOD COUNT 4.85 M/UL (4.70-6.10); RED CELL DISTRIBUTION WIDTH 14.1 % (11.6-14.8); WHITE BLOOD COUNT 18.3 K/UL (4.8-10.8)
[2020-05-22 07:24] LABS: ALBUMIN 2.3 G/DL (3.4-5.0); ALBUMIN/GLOBULIN RATIO 0.5 (1.0-2.7); BILIRUBIN,TOTAL 0.5 MG/DL (0.2-1.0); CREATININE 1.9 MG/DL (0.55-1.30); PHOSPHORUS 5.4 MG/DL (2.5-4.9); POTASSIUM 4.2 MMOL/L (3.5-5.1)
[2020-05-22 08:00] VITALS: BP 95/63
--- NOTE | 2020-05-22 08:05 | Infectious Diseases Prog Note ---
Assessment/Plan 74yo M with: Afebrile Normal WBC Lymphopenia Pneumonia COVID pneumonia, severe Acute hypoxic resp failure on NRB mask Possible UTI 05/13 BCx NTD UA 5-10 WBC, UCx >100k Kleb pna (S-CTX) COVID rapid positive CXR: Multifocal pna 05/19 CXR: Increasing bilateral infiltrates Elevated LFTs, AST/ALT 125 / 80 TOPHER on CKD, Cr 1.5, improving COPD Cardiac disease SNF resident Plan: Cont dexamethasone 6mg daily #02/12 Cont to monitor off abx Trend WBC, Cr Trend mental status 05/18 SP RDV #5 05/18 SP Augmentin #1, Azithro #5 05/17 SP CTX #4 Monitor CBC/CMP Monitor temp curve, hemodynamics Monitor resp status D/w RN Thank you for this consult. [facility] will continue to follow. Subjective Allergies: Coded Allergies: No Known Allergies (Unverified , 05/13/20) AF NAD On 2L NC but more lethargic, desatting, upped to 5L WBC stable at 18 on steroids Cr up to 1.9 Objective Last 24 Hour Vital Signs Date Time Temp Pulse Resp B/P (MAP) Pulse Ox O2 Delivery O2 Flow Rate FiO2 05/22/20 06:00 100/60 05/22/20 04:00 97.5 73 19 105/60 (75) 97 05/22/20 04:00 73 05/22/20 00:00 97.5 85 18 110/69 (83) 94 05/22/20 00:00 63 05/21/20 22:00 100/64 05/21/20 21:00 65 05/21/20 21:00 Nasal Cannula 2.0 05/21/20 20:09 96 Nasal Cannula 4.0 36 05/21/20 20:00 97.5 77 20 100/62 (75) 96 05/21/20 20:00 85 05/21/20 16:00 97.5 85 20 118/78 (91) 96 05/21/20 16:00 77 05/21/20 13:55 153/51 05/21/20 12:00 96.1 77 20 126/82 (97) 94 05/21/20 12:00 62 05/21/20 09:50 89 134/80 05/21/20 09:48 172/95 05/21/20 09:00 Nasal Cannula 2.0 Height (Feet): 5 Height (Inches): 7.00 Weight (Pounds): 160 Gen: NAD HEENT: NCAT Pulm: BL chest rise on NC Abd: Soft, NTND Ext: No c/c/e Skin: No visible rashes Neuro: Awake, minimally interactive Laboratory Tests Test 05/22/20 05:20 White Blood Count 18.3 K/UL (4.8-10.8) H Red Blood Count 4.85 M/UL (4.70-6.10) Hemoglobin 15.3 G/DL (14.2-18.0) Hematocrit 46.4 % (42.0-52.0) Mean Corpuscular Volume 96 FL (80-99) Mean Corpuscular Hemoglobin 31.5 PG (27.0-31.0) H Mean Corpuscular Hemoglobin Concent 32.9 G/DL (32.0-36.0) Red Cell Distribution Width 14.1 % (11.6-14.8) Platelet Count 270 K/UL (150-450) Mean Platelet Volume 8.6 FL (6.5-10.1) Neutrophils (%) (Auto) % (45.0-75.0) Lymphocytes (%) (Auto) % (20.0-45.0) Monocytes (%) (Auto) % (1.0-10.0) Eosinophils (%) (Auto) % (0.0-3.0) Basophils (%) (Auto) % (0.0-2.0) Neutrophils % (Manual) Pending Lymphocytes % (Manual) Pending Platelet Estimate Pending Platelet Morphology Pending Erythrocyte Sedimentation Rate Pending Sodium Level 154 MMOL/L (136-145) H Potassium Level 4.2 MMOL/L (3.5-5.1) Chloride Level 120 MMOL/L (98-107) H Carbon Dioxide Level 24 MMOL/L (21-32) Anion Gap 10 mmol/L (5-15) Blood Urea Nitrogen 62 mg/dL (7-18) H Creatinine 1.9 MG/DL (0.55-1.30) H Estimat Glomerular Filtration Rate 34.9 mL/min (>60) Glucose Level 155 MG/DL (74-106) H Calcium Level 9.0 MG/DL (8.5-10.1) Phosphorus Level 5.4 MG/DL (2.5-4.9) H Magnesium Level 3.1 MG/DL (1.8-2.4) H Total Bilirubin 0.5 MG/DL (0.2-1.0) Aspartate Amino Transf (AST/SGOT) 28 U/L (15-37) Alanine Aminotransferase (ALT/SGPT) 53 U/L (12-78) Alkaline Phosphatase 74 U/L (46-116) C-Reactive Protein, Quantitative 2.9 mg/dL (0.00-0.90) H Total Protein 7.0 G/DL (6.4-8.2) Albumin 2.3 G/DL (3.4-5.0) L Globulin 4.7 g/dL Albumin/Globulin Ratio 0.5 (1.0-2.7) L Current Medications Medications (Trade) Dose Ordered Sig/Tami Route PRN Reason Start Time Stop Time Status Last Admin Dose Admin Acetaminophen (Tylenol) 650 mg Q4H PRN ORAL FEVER 05/13/20 23:30 06/12/20 23:29 Albuterol/ Ipratropium (Combivent Respimat) 1 puff Q4H PRN INH Shortness of Breath 05/14/20 14:15 06/13/20 14:14 Amiodarone HCl (Cordarone) 200 mg DAILY ORAL 05/14/20 09:00 08/12/20 08:59 05/21/20 09:46 Carvedilol (Coreg) 3.125 mg EVERY 12 HOURS ORAL 05/14/20 09:00 06/13/20 08:59 05/21/20 09:50 Demeclocycline HCl (Declomycin) 600 mg EVERY 12 HOURS ORAL 05/19/20 11:30 05/26/20 11:29 05/21/20 21:00 Dexamethasone (Decadron) 6 mg DAILY ORAL 05/15/20 09:00 05/24/20 09:01 05/21/20 10:53 Dextrose (Dextrose 50%) 25 ml Q30M PRN IV Hypoglycemia 05/13/20 23:30 08/11/20 23:29 Dextrose (Dextrose 50%) 50 ml Q30M PRN IV Hypoglycemia 05/13/20 23:30 08/11/20 23:29 Docusate Sodium (Colace) 100 mg TWICE A DAY ORAL 05/14/20 18:00 06/13/20 17:59 05/21/20 18:11 Dronabinol (Marinol) 2.5 mg BID ORAL 05/20/20 18:00 08/18/20 17:59 05/21/20 18:11 Finasteride (Proscar) 5 mg DAILY ORAL 05/14/20 09:00 08/12/20 08:59 05/21/20 09:49 Heparin Sodium (Porcine) (Heparin 5000 units/ml) 5,000 units EVERY 12 HOURS SUBQ 05/14/20 09:00 06/28/20 08:59 05/21/20 21:00 Hydralazine HCl (Apresoline) 50 mg Q8HR ORAL 05/21/20 22:00 08/14/20 13:59 Lactulose (Cephulac) 30 gm THREE TIMES A DAY ORAL 05/16/20 18:00 06/15/20 17:59 05/21/20 18:10 Lisinopril (ZestriL) 5 mg DAILY ORAL 05/14/20 09:00 06/13/20 08:59 05/21/20 09:48 Lorazepam (Ativan) 1 mg Q6H PRN ORAL For Anxiety 05/21/20 15:30 05/28/20 15:29 Ondansetron HCl (Zofran) 4 mg Q6H PRN IVP Nausea & Vomiting 05/13/20 23:30 06/12/20 23:29 Polyethylene Glycol (Miralax) 17 gm DAILYPRN PRN ORAL Constipation 05/13/20 23:30 06/12/20 23:29 05/16/20 13:23 Promethazine HCl/ Codeine (Phenergan with Codeine) 5 ml Q6H PRN ORAL cough 05/13/20 23:30 06/12/20 23:29 Risperidone (RisperDAL) 0.5 mg BID ORAL 05/15/20 18:00 06/29/20 17:59 05/21/20 18:11 Tamsulosin HCl (Flomax) 0.4 mg Q12HR ORAL 05/16/20 12:30 06/15/20 12:29 05/21/20 21:00 Kathy Yap M.D. May 22, 2020 08:05
[2020-05-22] MEDS: Lisinopril 2.5mg tab ORAL SCH (09:00)
[2020-05-22] MEDS: Docusate 100mg cap ORAL SCH ×3 (09:00→17:46)
[2020-05-22] MEDS: Lactulose 20gm/30ml UDC ORAL SCH ×4 (09:00→17:46)
--- NOTE | 2020-05-22 11:15 | Pulmonology Progress Note ---
Subjective ROS Limited/Unobtainable: Yes Constitutional: Reports: no symptoms HEENT: Repors: no symptoms Allergies: Coded Allergies: No Known Allergies (Unverified , 05/13/20) All Systems: reviewed and negative except above Objective Last 24 Hour Vital Signs Date Time Temp Pulse Resp B/P (MAP) Pulse Ox O2 Delivery O2 Flow Rate FiO2 05/22/20 09:00 Nasal Cannula 2.0 05/22/20 08:00 97.0 73 18 95/63 (74) 97 05/22/20 08:00 67 05/22/20 06:00 100/60 05/22/20 04:00 97.5 73 19 105/60 (75) 97 05/22/20 04:00 73 05/22/20 00:00 97.5 85 18 110/69 (83) 94 05/22/20 00:00 63 05/21/20 22:00 100/64 05/21/20 21:00 65 05/21/20 21:00 Nasal Cannula 2.0 05/21/20 20:09 96 Nasal Cannula 4.0 36 05/21/20 20:00 97.5 77 20 100/62 (75) 96 05/21/20 20:00 85 05/21/20 16:00 97.5 85 20 118/78 (91) 96 05/21/20 16:00 77 05/21/20 13:55 153/51 05/21/20 12:00 96.1 77 20 126/82 (97) 94 05/21/20 12:00 62 Intake and Output 05/21/20 05/22/20 19:00 07:00 # Voids 3 2 General Appearance: WD/WN HEENT: normocephalic, atraumatic Respiratory: chest wall non-tender, rhonchi - left, rhonchi - right Cardiovascular: normal peripheral pulses, normal rate Abdomen: normal bowel sounds, soft, non tender Genitourinary: normal external genitalia Extremities: no clubbing Neurologic: cuff maker II-XII grossly normal Lymphatic: no neck adenopathy Laboratory Tests 05/22/20 05:20: White Blood Count 18.3H, Red Blood Count 4.85, Hemoglobin 15.3, Hematocrit 46.4, Mean Corpuscular Volume 96, Mean Corpuscular Hemoglobin 31.5H, Mean Corpuscular Hemoglobin Concent 32.9, Red Cell Distribution Width 14.1, Platelet Count 270, Mean Platelet Volume 8.6, Neutrophils (%) (Auto) , Lymphocytes (%) (Auto) , Monocytes (%) (Auto) , Eosinophils (%) (Auto) , Basophils (%) (Auto) , Neutrophils % (Manual) [Pending], Lymphocytes % (Manual) [Pending], Platelet Estimate [Pending], Platelet Morphology [Pending], Erythrocyte Sedimentation Rate 46H, Sodium Level 154H, Potassium Level 4.2, Chloride Level 120H, Carbon Dioxide Level 24, Anion Gap 10, Blood Urea Nitrogen 62H, Creatinine 1.9H, Estimat Glomerular Filtration Rate 34.9, Glucose Level 155H, Calcium Level 9.0, Phosphorus Level 5.4H, Magnesium Level 3.1H, Total Bilirubin 0.5, Aspartate Amino Transf (AST/SGOT) 28, Alanine Aminotransferase (ALT/SGPT) 53, Alkaline Phosphatase 74, C-Reactive Protein, Quantitative 2.9H, Total Protein 7.0, Albumin 2.3L, Globulin 4.7, Albumin/Globulin Ratio 0.5L Current Medications Medications (Trade) Dose Ordered Sig/Tami Route PRN Reason Start Time Stop Time Status Last Admin Dose Admin Acetaminophen (Tylenol) 650 mg Q4H PRN ORAL FEVER 05/13/20 23:30 06/12/20 23:29 Albuterol/ Ipratropium (Combivent Respimat) 1 puff Q4H PRN INH Shortness of Breath 05/14/20 14:15 06/13/20 14:14 Amiodarone HCl (Cordarone) 200 mg DAILY ORAL 05/14/20 09:00 08/12/20 08:59 05/21/20 09:46 Carvedilol (Coreg) 3.125 mg EVERY 12 HOURS ORAL 05/14/20 09:00 06/13/20 08:59 05/21/20 09:50 Demeclocycline HCl (Declomycin) 600 mg EVERY 12 HOURS ORAL 05/19/20 11:30 05/26/20 11:29 05/21/20 21:00 Dexamethasone (Decadron) 6 mg DAILY ORAL 05/15/20 09:00 05/24/20 09:01 05/21/20 10:53 Dextrose 1,000 ml @ 100 mls/hr Q10H IV 05/22/20 09:15 06/21/20 09:14 Dextrose (Dextrose 50%) 25 ml Q30M PRN IV Hypoglycemia 05/13/20 23:30 08/11/20 23:29 Dextrose (Dextrose 50%) 50 ml Q30M PRN IV Hypoglycemia 05/13/20 23:30 08/11/20 23:29 Docusate Sodium (Colace) 100 mg TWICE A DAY ORAL 05/14/20 18:00 06/13/20 17:59 05/21/20 18:11 Dronabinol (Marinol) 2.5 mg BID ORAL 05/20/20 18:00 08/18/20 17:59 05/21/20 18:11 Finasteride (Proscar) 5 mg DAILY ORAL 05/14/20 09:00 08/12/20 08:59 05/21/20 09:49 Heparin Sodium (Porcine) (Heparin 5000 units/ml) 5,000 units EVERY 12 HOURS SUBQ 05/14/20 09:00 06/28/20 08:59 05/21/20 21:00 Hydralazine HCl (Apresoline) 50 mg Q8HR ORAL 05/21/20 22:00 08/14/20 13:59 Lactulose (Cephulac) 30 gm THREE TIMES A DAY ORAL 05/16/20 18:00 06/15/20 17:59 05/21/20 18:10 Lisinopril (ZestriL) 5 mg DAILY ORAL 05/14/20 09:00 06/13/20 08:59 05/21/20 09:48 Lorazepam (Ativan) 1 mg Q6H PRN ORAL For Anxiety 05/21/20 15:30 05/28/20 15:29 Ondansetron HCl (Zofran) 4 mg Q6H PRN IVP Nausea & Vomiting 05/13/20 23:30 06/12/20 23:29 Polyethylene Glycol (Miralax) 17 gm DAILYPRN PRN ORAL Constipation 05/13/20 23:30 06/12/20 23:29 05/16/20 13:23 Promethazine HCl/ Codeine (Phenergan with Codeine) 5 ml Q6H PRN ORAL cough 05/13/20 23:30 06/12/20 23:29 Risperidone (RisperDAL) 0.5 mg BID ORAL 05/15/20 18:00 06/29/20 17:59 05/21/20 18:11 Tamsulosin HCl (Flomax) 0.4 mg Q12HR ORAL 05/16/20 12:30 06/15/20 12:29 05/21/20 21:00 Assessment/Plan Problems: (1) 2019 novel coronavirus disease (COVID-19) (2) Nosocomial pneumonia (3) TOPHER (acute kidney injury) (4) COPD (chronic obstructive pulmonary disease) (5) Psychosis (6) HTN (hypertension) Assessment/Plan no new complains renal function worsening cxr 05/09 showed increasing bilateral infiltrate wbc still high afebrile titrate fio2 to sat of 92% respiratory treatment prn f/u crp and cxr periodically check sputum ID to manage ABx, off abx onw monitor BP symptomatic treatment. dvt prophylaxis. keep in isolation Umesh Prajapati MD May 22, 2020 11:15
[2020-05-22] MEDS: Amiodarone 200mg tab ORAL SCH (11:24)
[2020-05-22] MEDS: Demeclocycline 150mg tab ORAL SCH (11:25)
[2020-05-22] MEDS: Tamsulosin 0.4mg cap ORAL SCH (11:25)
[2020-05-22] MEDS: Dronabinol 2.5mg Cap ORAL SCH (11:25)
[2020-05-22] MEDS: Heparin 5000 units/ml inj SUBQ SCH ×2 (11:27→22:45)
--- NOTE | 2020-05-22 11:49 | General Progress Note ---
Subjective ROS Limited/Unobtainable: No Allergies: Coded Allergies: No Known Allergies (Unverified , 05/13/20) Objective Last 24 Hour Vital Signs Date Time Temp Pulse Resp B/P (MAP) Pulse Ox O2 Delivery O2 Flow Rate FiO2 05/22/20 09:00 Nasal Cannula 2.0 05/22/20 08:00 97.0 73 18 95/63 (74) 97 05/22/20 08:00 67 05/22/20 06:00 100/60 05/22/20 04:00 97.5 73 19 105/60 (75) 97 05/22/20 04:00 73 05/22/20 00:00 97.5 85 18 110/69 (83) 94 05/22/20 00:00 63 05/21/20 22:00 100/64 05/21/20 21:00 65 05/21/20 21:00 Nasal Cannula 2.0 05/21/20 20:09 96 Nasal Cannula 4.0 36 05/21/20 20:00 97.5 77 20 100/62 (75) 96 05/21/20 20:00 85 05/21/20 16:00 97.5 85 20 118/78 (91) 96 05/21/20 16:00 77 05/21/20 13:55 153/51 05/21/20 12:00 96.1 77 20 126/82 (97) 94 05/21/20 12:00 62 Intake and Output 05/21/20 05/22/20 19:00 07:00 # Voids 3 2 Laboratory Tests 05/22/20 05:20: White Blood Count 18.3H, Red Blood Count 4.85, Hemoglobin 15.3, Hematocrit 46.4, Mean Corpuscular Volume 96, Mean Corpuscular Hemoglobin 31.5H, Mean Corpuscular Hemoglobin Concent 32.9, Red Cell Distribution Width 14.1, Platelet Count 270, Mean Platelet Volume 8.6, Neutrophils (%) (Auto) , Lymphocytes (%) (Auto) , Monocytes (%) (Auto) , Eosinophils (%) (Auto) , Basophils (%) (Auto) , Differential Total Cells Counted 100, Neutrophils % (Manual) 90H, Lymphocytes % (Manual) 5L, Monocytes % (Manual) 5, Eosinophils % (Manual) 0, Basophils % (Manual) 0, Band Neutrophils 0, Platelet Estimate Adequate, Platelet Morphology Normal, Red Blood Cell Morphology Normal, Erythrocyte Sedimentation Rate 46H, Sodium Level 154H, Potassium Level 4.2, Chloride Level 120H, Carbon Dioxide Level 24, Anion Gap 10, Blood Urea Nitrogen 62H, Creatinine 1.9H, Estimat Glomerular Filtration Rate 34.9, Glucose Level 155H, Calcium Level 9.0, P hosphorus Level 5.4H, Magnesium Level 3.1H, Total Bilirubin 0.5, Aspartate Amino Transf (AST/SGOT) 28, Alanine Aminotransferase (ALT/SGPT) 53, Alkaline Phosphatase 74, C-Reactive Protein, Quantitative 2.9H, Total Protein 7.0, Albumin 2.3L, Globulin 4.7, Albumin/Globulin Ratio 0.5L Height (Feet): 5 Height (Inches): 7.00 Weight (Pounds): 160 General Appearance: no apparent distress EENT: PERRL/EOMI Neck: normal alignment Cardiovascular: normal rate Respiratory/Chest: decreased breath sounds Abdomen: normal bowel sounds, non tender, soft Extremities: non-tender Assessment/Plan Problem List: (1) Elevated LFTs ICD Codes: R79.89 - Other specified abnormal findings of blood chemistry SNOMED: 537851606, 235244541 (2) COPD (chronic obstructive pulmonary disease) ICD Codes: J44.9 - Chronic obstructive pulmonary disease, unspecified SNOMED: 37868416 (3) Dehydration ICD Codes: E86.0 - Dehydration SNOMED: 49669900 (4) Pneumonia ICD Codes: J18.9 - Pneumonia, unspecified organism SNOMED: 427416165 (5) HTN (hypertension) ICD Codes: I10 - Essential (primary) hypertension SNOMED: 27324491 (6) 2019 novel coronavirus disease (COVID-19) ICD Codes: U07.1 - COVID-19 SNOMED: 499485931 Status: progressing, unchanged Assessment/Plan: repeat LFTS hold abd us for now hepatitis panel>> neg fu ID recs off protonix on marinol 2.5>>will increase to 5 Stefan Wilde MD May 22, 2020 11:49
[2020-05-22 12:00] VITALS: BP 94/59
[2020-05-22] MEDS ORDERED: Dronabinol 2.5mg Cap ORAL SCH (12:00)
--- NOTE | 2020-05-22 12:24 | Nephrology Progress Note ---
Assessment/Plan Problem List: (1) TOPHER (acute kidney injury) (2) 2019 novel coronavirus disease (COVID-19) (3) Pneumonia (4) COPD (chronic obstructive pulmonary disease) (5) Psychosis Assessment Renal failure, acute on chronic Partly dehydration COPD, hypoxia, COVID-19 disease Psychosis Atrial fibrillation High cholesterol Hypertension History of CVA Plan May 22: Patient more encephalopathic. Blood pressure low. Labs reviewed. Renal parameters worsened. [place] catheter ordered. Will stop Flomax and Proscar. Will adjust blood pressure medications. Will give IV fluid. Discussed with NAI Corbett. Will keep the patient n.p.o. due to poor mental status. Per orders. May 21: No labs drawn today. Stable from renal standpoint of view. Continue per consultants. May 20: Lab reviewed. Serum creatinine 1.5 stable. Serum sodium lowering. Continue per consultants. May 19: Labs reviewed. Serum creatinine lower to 1.5. Serum sodium mildly elevated. Continue free water administration. Monitor renal parameters. Continue per consultants. May 18: Labs reviewed. Serum creatinine up to 1.7. Electrolytes within normal limit. Continue to monitor renal parameters. Continue per consultants. May 17: Labs reviewed. Serum sodium normalized. Serum creatinine 1.5 stable. Continue per current management. May 16: Labs reviewed. Creatinine 1.5 unchanged. Blood pressure stable. Electrolytes unchanged. Serum sodium 133. Continue to monitor renal parameters Adjust blood pressure medication Stop saline hydration Monitor renal parameters and electrolytes Pulmonary support Per consultants Avoid nephrotoxic's Urine studies Per orders Subjective ROS Limited/Unobtainable: Yes Objective Objective Last 24 Hour Vital Signs Date Time Temp Pulse Resp B/P (MAP) Pulse Ox O2 Delivery O2 Flow Rate FiO2 05/22/20 12:00 97.3 72 20 94/59 (71) 95 05/22/20 09:00 Nasal Cannula 2.0 05/22/20 08:00 97.0 73 18 95/63 (74) 97 05/22/20 08:00 67 05/22/20 06:00 100/60 05/22/20 04:00 97.5 73 19 105/60 (75) 97 05/22/20 04:00 73 05/22/20 00:00 97.5 85 18 110/69 (83) 94 05/22/20 00:00 63 05/21/20 22:00 100/64 05/21/20 21:00 65 05/21/20 21:00 Nasal Cannula 2.0 05/21/20 20:09 96 Nasal Cannula 4.0 36 05/21/20 20:00 97.5 77 20 100/62 (75) 96 05/21/20 20:00 85 05/21/20 16:00 97.5 85 20 118/78 (91) 96 05/21/20 16:00 77 05/21/20 13:55 153/51 Intake and Output 05/21/20 05/22/20 19:00 07:00 # Voids 3 2 Current Medications Medications (Trade) Dose Ordered Sig/Tami Route PRN Reason Start Time Stop Time Status Last Admin Dose Admin Acetaminophen (Tylenol) 650 mg Q4H PRN ORAL FEVER 05/13/20 23:30 06/12/20 23:29 Albuterol/ Ipratropium (Combivent Respimat) 1 puff Q4H PRN INH Shortness of Breath 05/14/20 14:15 06/13/20 14:14 Amiodarone HCl (Cordarone) 200 mg DAILY ORAL 05/14/20 09:00 08/12/20 08:59 05/22/20 11:24 Carvedilol (Coreg) 3.125 mg EVERY 12 HOURS ORAL 05/14/20 09:00 06/13/20 08:59 05/21/20 09:50 Demeclocycline HCl (Declomycin) 600 mg EVERY 12 HOURS ORAL 05/19/20 11:30 05/26/20 11:29 05/22/20 11:25 Dexamethasone (Decadron) 6 mg DAILY ORAL 05/15/20 09:00 05/24/20 09:01 05/22/20 11:24 Dextrose 1,000 ml @ 100 mls/hr Q10H IV 05/22/20 09:15 06/21/20 09:14 05/22/20 11:28 Dextrose (Dextrose 50%) 25 ml Q30M PRN IV Hypoglycemia 05/13/20 23:30 08/11/20 23:29 Dextrose (Dextrose 50%) 50 ml Q30M PRN IV Hypoglycemia 05/13/20 23:30 08/11/20 23:29 Docusate Sodium (Colace) 100 mg TWICE A DAY ORAL 05/14/20 18:00 06/13/20 17:59 05/22/20 11:24 Dronabinol (Marinol) 5 mg BID ORAL 05/22/20 12:00 08/18/20 17:59 Finasteride (Proscar) 5 mg DAILY ORAL 05/14/20 09:00 08/12/20 08:59 05/22/20 11:25 Heparin Sodium (Porcine) (Heparin 5000 units/ml) 5,000 units EVERY 12 HOURS SUBQ 05/14/20 09:00 06/28/20 08:59 05/22/20 11:27 Hydralazine HCl (Apresoline) 50 mg Q8HR ORAL 05/21/20 22:00 08/14/20 13:59 Lactulose (Cephulac) 30 gm THREE TIMES A DAY ORAL 05/16/20 18:00 06/15/20 17:59 05/22/20 11:24 Lisinopril (ZestriL) 5 mg DAILY ORAL 05/14/20 09:00 06/13/20 08:59 05/21/20 09:48 Lorazepam (Ativan) 1 mg Q6H PRN ORAL For Anxiety 05/21/20 15:30 05/28/20 15:29 Ondansetron HCl (Zofran) 4 mg Q6H PRN IVP Nausea & Vomiting 05/13/20 23:30 06/12/20 23:29 Polyethylene Glycol (Miralax) 17 gm DAILYPRN PRN ORAL Constipation 05/13/20 23:30 06/12/20 23:29 05/16/20 13:23 Promethazine HCl/ Codeine (Phenergan with Codeine) 5 ml Q6H PRN ORAL cough 05/13/20 23:30 06/12/20 23:29 Risperidone (RisperDAL) 0.5 mg BID ORAL 05/15/20 18:00 06/29/20 17:59 05/22/20 11:25 Tamsulosin HCl (Flomax) 0.4 mg Q12HR ORAL 05/16/20 12:30 06/15/20 12:29 05/22/20 11:25 Laboratory Tests 05/22/20 05:20: White Blood Count 18.3H, Red Blood Count 4.85, Hemoglobin 15.3, Hematocrit 46.4, Mean Corpuscular Volume 96, Mean Corpuscular Hemoglobin 31.5H, Mean Corpuscular Hemoglobin Concent 32.9, Red Cell Distribution Width 14.1, Platelet Count 270, Mean Platelet Volume 8.6, Neutrophils (%) (Auto) , Lymphocytes (%) (Auto) , Monocytes (%) (Auto) , Eosinophils (%) (Auto) , Basophils (%) (Auto) , Differential Total Cells Counted 100, Neutrophils % (Manual) 90H, Lymphocytes % (Manual) 5L, Monocytes % (Manual) 5, Eosinophils % (Manual) 0, Basophils % (Manual) 0, Band Neutrophils 0, Platelet Estimate Adequate, Platelet Morphology Normal, Red Blood Cell Morphology Normal, Erythrocyte Sedimentation Rate 46H, Sodium Level 154H, Potassium Level 4.2, Chloride Level 120H, Carbon Dioxide Level 24, Anion Gap 10, Blood Urea Nitrogen 62H, Creatinine 1.9H, Estimat Glomerular Filtration Rate 34.9, Glucose Level 155H, Calcium Level 9.0, Phosphorus Level 5.4H, Magnesium Level 3.1H, Total Bilirubin 0.5, Aspartate Amino Transf (AST/SGOT) 28, Alanine Aminotransferase (ALT/SGPT) 53, Alkaline Phosphatase 74, C-Reactive Protein, Quantitative 2.9H, Total Protein 7.0, Albumin 2.3L, Globulin 4.7, Albumin/Globulin Ratio 0.5L Height (Feet): 5 Height (Inches): 7.00 Weight (Pounds): 160 General Appearance: no apparent distress, lethargic, confused Cardiovascular: normal rate Respiratory/Chest: decreased breath sounds Abdomen: distended Alan Sánchez MD May 22, 2020 12:24
[2020-05-22 16:00] VITALS: BP 107/67
[2020-05-22 20:00] VITALS: BP 112/74
--- NOTE | 2020-05-22 21:25 | General Progress Note ---
Subjective ROS Limited/Unobtainable: Yes Allergies: Coded Allergies: No Known Allergies (Unverified , 05/13/20) Objective Last 24 Hour Vital Signs Date Time Temp Pulse Resp B/P (MAP) Pulse Ox O2 Delivery O2 Flow Rate FiO2 05/22/20 16:00 67 05/22/20 16:00 98.3 72 20 107/67 (80) 95 05/22/20 12:00 69 05/22/20 12:00 97.3 72 20 94/59 (71) 95 05/22/20 09:00 Nasal Cannula 2.0 05/22/20 08:00 97.0 73 18 95/63 (74) 97 05/22/20 08:00 67 05/22/20 06:00 100/60 05/22/20 04:00 97.5 73 19 105/60 (75) 97 05/22/20 04:00 73 05/22/20 00:00 97.5 85 18 110/69 (83) 94 05/22/20 00:00 63 05/21/20 22:00 100/64 Intake and Output 05/21/20 05/22/20 19:00 07:00 # Voids 3 2 Laboratory Tests 05/22/20 05:20: White Blood Count 18.3H, Red Blood Count 4.85, Hemoglobin 15.3, Hematocrit 46.4, Mean Corpuscular Volume 96, Mean Corpuscular Hemoglobin 31.5H, Mean Corpuscular Hemoglobin Concent 32.9, Red Cell Distribution Width 14.1, Platelet Count 270, Mean Platelet Volume 8.6, Neutrophils (%) (Auto) , Lymphocytes (%) (Auto) , Monocytes (%) (Auto) , Eosinophils (%) (Auto) , Basophils (%) (Auto) , Differential Total Cells Counted 100, Neutrophils % (Manual) 90H, Lymphocytes % (Manual) 5L, Monocytes % (Manual) 5, Eosinophils % (Manual) 0, Basophils % (Manual) 0, Band Neutrophils 0, Platelet Estimate Adequate, Platelet Morphology Normal, Red Blood Cell Morphology Normal, Erythrocyte Sedimentation Rate 46H, Sodium Level 154H, Potassium Level 4.2, Chloride Level 120H, Carbon Dioxide Level 24, Anion Gap 10, Blood Urea Nitrogen 62H, Creatinine 1.9H, Estimat Glomerular Filtration Rate 34.9, Glucose Level 155H, Calcium Level 9.0, Phosphorus Level 5.4H, Magnesium Level 3.1H, Total Bilirubin 0.5, Aspartate Amino Transf (AST/SGOT) 28, Alanine Aminotransferase (ALT/SGPT) 53, Alkaline Phosphatase 74, C-Reactive Protein, Quantitative 2.9H, Total Protein 7.0, Albumin 2.3L, Globulin 4.7, Albumin/Globulin Ratio 0.5L Height (Feet): 5 Height (Inches): 7.00 Weight (Pounds): 160 Assessment/Plan Problem List: (1) COPD (chronic obstructive pulmonary disease) ICD Codes: J44.9 - Chronic obstructive pulmonary disease, unspecified SNOMED: 48903397 (2) Dehydration ICD Codes: E86.0 - Dehydration SNOMED: 72553013 (3) Pneumonia ICD Codes: J18.9 - Pneumonia, unspecified organism SNOMED: 694409986 (4) HTN (hypertension) ICD Codes: I10 - Essential (primary) hypertension SNOMED: 09829846 (5) 2019 novel coronavirus disease (COVID-19) ICD Codes: U07.1 - COVID-19 SNOMED: 329420154 (6) TOPHER (acute kidney injury) ICD Codes: N17.9 - Acute kidney failure, unspecified SNOMED: 3160870, 61476150 Status: progressing, unchanged Assessment/Plan: covid + pna resp insuff no change supportive care copd Hillary Smallwood MD May 22, 2020 21:25
[2020-05-23] VITALS: BP 129/74
[2020-05-23 04:00] VITALS: BP 154/70
--- NOTE | 2020-05-23 07:20 | Pulmonology Progress Note ---
Subjective ROS Limited/Unobtainable: Yes Constitutional: Reports: no symptoms Allergies: Coded Allergies: No Known Allergies (Unverified , 05/13/20) Subjective remains hypoxic, on 4 L o2 via NC, in isolation creat worse + leukocytosis, no fevers denies chest pain Objective Last 24 Hour Vital Signs Date Time Temp Pulse Resp B/P (MAP) Pulse Ox O2 Delivery O2 Flow Rate FiO2 05/23/20 04:00 89 05/23/20 00:00 98.2 69 18 129/74 (92) 96 05/23/20 00:00 61 05/23/20 00:00 61 05/22/20 21:00 73 112/74 05/22/20 21:00 Nasal Cannula 4.0 05/22/20 20:00 98.7 73 18 112/74 (87) 100 05/22/20 16:00 67 05/22/20 16:00 98.3 72 20 107/67 (80) 95 05/22/20 12:00 69 05/22/20 12:00 97.3 72 20 94/59 (71) 95 05/22/20 09:00 Nasal Cannula 2.0 05/22/20 08:00 97.0 73 18 95/63 (74) 97 05/22/20 08:00 67 Intake and Output 05/22/20 05/23/20 19:00 07:00 Output Total 150 ml Balance -150 ml Output Urine Total 150 ml General Appearance: WD/WN, other - awake HEENT: normocephalic, atraumatic, anicteric, other - O2 4 L via NC Respiratory: chest wall non-tender, rhonchi - left, rhonchi - right Cardiovascular: normal peripheral pulses, normal rate - SR with BBB, Abdomen: normal bowel sounds, soft, non tender Genitourinary: normal external genitalia Extremities: no clubbing Neurologic: alert Musculoskeletal: atrophy - BLE Current Medications Medications (Trade) Dose Ordered Sig/Tami Route PRN Reason Start Time Stop Time Status Last Admin Dose Admin Acetaminophen (Tylenol) 650 mg Q4H PRN ORAL FEVER 05/13/20 23:30 06/12/20 23:29 Albuterol/ Ipratropium (Combivent Respimat) 1 puff Q4H PRN INH Shortness of Breath 05/14/20 14:15 06/13/20 14:14 Amiodarone HCl (Cordarone) 200 mg DAILY ORAL 05/14/20 09:00 08/12/20 08:59 05/22/20 11:24 Carvedilol (Coreg) 3.125 mg EVERY 12 HOURS ORAL 05/14/20 09:00 06/13/20 08:59 05/21/20 09:50 Dexamethasone (Decadron) 6 mg DAILY ORAL 05/15/20 09:00 05/24/20 09:01 05/22/20 11:24 Dextrose 1,000 ml @ 100 mls/hr Q10H IV 05/22/20 09:15 06/21/20 09:14 05/23/20 05:15 Dextrose (Dextrose 50%) 25 ml Q30M PRN IV Hypoglycemia 05/13/20 23:30 08/11/20 23:29 Dextrose (Dextrose 50%) 50 ml Q30M PRN IV Hypoglycemia 05/13/20 23:30 08/11/20 23:29 Docusate Sodium (Colace) 100 mg TWICE A DAY ORAL 05/14/20 18:00 06/13/20 17:59 05/21/20 18:11 Heparin Sodium (Porcine) (Heparin 5000 units/ml) 5,000 units EVERY 12 HOURS SUBQ 05/14/20 09:00 06/28/20 08:59 05/22/20 22:45 Hydralazine HCl (Apresoline) 10 mg Q4H PRN IV bp over 160 syst 05/22/20 12:30 08/20/20 12:29 Lactulose (Cephulac) 30 gm THREE TIMES A DAY ORAL 05/16/20 18:00 06/15/20 17:59 05/21/20 18:10 Lorazepam (Ativan) 1 mg Q6H PRN ORAL For Anxiety 05/21/20 15:30 05/28/20 15:29 Ondansetron HCl (Zofran) 4 mg Q6H PRN IVP Nausea & Vomiting 05/13/20 23:30 06/12/20 23:29 Polyethylene Glycol (Miralax) 17 gm DAILYPRN PRN ORAL Constipation 05/13/20 23:30 06/12/20 23:29 05/16/20 13:23 Promethazine HCl/ Codeine (Phenergan with Codeine) 5 ml Q6H PRN ORAL cough 05/13/20 23:30 06/12/20 23:29 Risperidone (RisperDAL) 0.5 mg BID ORAL 05/15/20 18:00 06/29/20 17:59 05/21/20 18:11 Assessment/Plan Assessment/Plan ASSESSMENT COVID-19 pneumonia Acute hypoxemic respiratory failure , requiring nonrebreather mask- now on NC Possible UTI TOPHER COPD HTN History of CVA Elevated LFT PLAN OF CARE tele isolation O2 titrate to keep sat above 92%, now on [place] pulmonary toilet steroids ->complete 10 days course s/p abx DVT prophylaxis a/tussive as needed fup with inflamm markers: CRP down to 2.9 f/up with CXR monitor renal parameters, electrolytes, correct as needed ; creat worse , + e/lyte imbalance s/p IVF f/up with further nephro recs trend LFT- down to normal , ammonia WNL hepatitis panel negative supportive care case discussed and evaluated by supervising physician Esperanza Howell NP May 23, 2020 07:20
--- NOTE | 2020-05-23 07:27 | Infectious Diseases Prog Note ---
Assessment/Plan 74yo M with: Afebrile Normal WBC Lymphopenia Pneumonia COVID pneumonia, severe Acute hypoxic resp failure on NRB mask Possible UTI 05/13 BCx NTD UA 5-10 WBC, UCx >100k Kleb pna (S-CTX) COVID rapid positive CXR: Multifocal pna 05/19 CXR: Increasing bilateral infiltrates Elevated LFTs, AST/ALT 125 / 80 TOPHER on CKD, Cr 1.5, improving COPD Cardiac disease SNF resident Plan: Cont dexamethasone 6mg daily #03/14 Cont to monitor off abx Trend WBC, Cr Trend mental status 05/18 SP RDV #5 05/18 SP Augmentin #1, Azithro #5 05/17 SP CTX #4 Monitor CBC/CMP Monitor temp curve, hemodynamics Monitor resp status D/w RN Thank you for this consult. [facility] will continue to follow. Subjective Allergies: Coded Allergies: No Known Allergies (Unverified , 05/13/20) AF NAD On 4L NC WBC 19 on steroids Cr 1.7 Objective Last 24 Hour Vital Signs Date Time Temp Pulse Resp B/P (MAP) Pulse Ox O2 Delivery O2 Flow Rate FiO2 05/23/20 04:00 89 05/23/20 00:00 98.2 69 18 129/74 (92) 96 05/23/20 00:00 61 05/23/20 00:00 61 05/22/20 21:00 73 112/74 05/22/20 21:00 Nasal Cannula 4.0 05/22/20 20:00 98.7 73 18 112/74 (87) 100 05/22/20 16:00 67 05/22/20 16:00 98.3 72 20 107/67 (80) 95 05/22/20 12:00 69 05/22/20 12:00 97.3 72 20 94/59 (71) 95 05/22/20 09:00 Nasal Cannula 2.0 05/22/20 08:00 97.0 73 18 95/63 (74) 97 05/22/20 08:00 67 Height (Feet): 5 Height (Inches): 7.00 Weight (Pounds): 160 Gen: NAD HEENT: NCAT Pulm: BL chest rise on NC Abd: Soft, NTND Ext: No c/c/e Skin: No visible rashes Neuro: Awake, minimally interactive Current Medications Medications (Trade) Dose Ordered Sig/Tami Route PRN Reason Start Time Stop Time Status Last Admin Dose Admin Acetaminophen (Tylenol) 650 mg Q4H PRN ORAL FEVER 05/13/20 23:30 06/12/20 23:29 Albuterol/ Ipratropium (Combivent Respimat) 1 puff Q4H PRN INH Shortness of Breath 05/14/20 14:15 06/13/20 14:14 Amiodarone HCl (Cordarone) 200 mg DAILY ORAL 05/14/20 09:00 08/12/20 08:59 05/22/20 11:24 Carvedilol (Coreg) 3.125 mg EVERY 12 HOURS ORAL 05/14/20 09:00 06/13/20 08:59 05/21/20 09:50 Dexamethasone (Decadron) 6 mg DAILY ORAL 05/15/20 09:00 05/24/20 09:01 05/22/20 11:24 Dextrose 1,000 ml @ 100 mls/hr Q10H IV 05/22/20 09:15 06/21/20 09:14 05/23/20 05:15 Dextrose (Dextrose 50%) 25 ml Q30M PRN IV Hypoglycemia 05/13/20 23:30 08/11/20 23:29 Dextrose (Dextrose 50%) 50 ml Q30M PRN IV Hypoglycemia 05/13/20 23:30 08/11/20 23:29 Docusate Sodium (Colace) 100 mg TWICE A DAY ORAL 05/14/20 18:00 06/13/20 17:59 05/21/20 18:11 Heparin Sodium (Porcine) (Heparin 5000 units/ml) 5,000 units EVERY 12 HOURS SUBQ 05/14/20 09:00 06/28/20 08:59 05/22/20 22:45 Hydralazine HCl (Apresoline) 10 mg Q4H PRN IV bp over 160 syst 05/22/20 12:30 08/20/20 12:29 Lactulose (Cephulac) 30 gm THREE TIMES A DAY ORAL 05/16/20 18:00 06/15/20 17:59 05/21/20 18:10 Lorazepam (Ativan) 1 mg Q6H PRN ORAL For Anxiety 05/21/20 15:30 05/28/20 15:29 Ondansetron HCl (Zofran) 4 mg Q6H PRN IVP Nausea & Vomiting 05/13/20 23:30 06/12/20 23:29 Polyethylene Glycol (Miralax) 17 gm DAILYPRN PRN ORAL Constipation 05/13/20 23:30 06/12/20 23:29 05/16/20 13:23 Promethazine HCl/ Codeine (Phenergan with Codeine) 5 ml Q6H PRN ORAL cough 05/13/20 23:30 06/12/20 23:29 Risperidone (RisperDAL) 0.5 mg BID ORAL 05/15/20 18:00 06/29/20 17:59 05/21/20 18:11 Kathy Yap M.D. May 23, 2020 07:27
[2020-05-23 08:00] VITALS: BP 118/64
[2020-05-23] MEDS: Heparin 5000 units/ml inj SUBQ SCH ×2 (09:00→21:24)
[2020-05-23] MEDS: Docusate 100mg cap ORAL SCH ×2 (10:13→17:51)
[2020-05-23] MEDS: Lactulose 20gm/30ml UDC ORAL SCH ×3 (10:13→17:51)
[2020-05-23] MEDS: Amiodarone 200mg tab ORAL SCH (10:15)
[2020-05-23 10:57] LABS: HEMATOCRIT 48.9 % (42.0-52.0); HEMOGLOBIN 16.9 G/DL (14.2-18.0); MEAN CORPUSCULAR VOLUME 91 FL (80-99); PLATELET COUNT 256 K/UL (150-450); RED BLOOD COUNT 5.41 M/UL (4.70-6.10); WHITE BLOOD COUNT 19.6 K/UL (4.8-10.8)
[2020-05-23 11:18] LABS: ALBUMIN 2.4 G/DL (3.4-5.0); ALBUMIN/GLOBULIN RATIO 0.5 (1.0-2.7); BILIRUBIN,TOTAL 0.7 MG/DL (0.2-1.0); CREATININE 1.7 MG/DL (0.55-1.30); PHOSPHORUS 3.7 MG/DL (2.5-4.9); POTASSIUM 5.4 MMOL/L (3.5-5.1)
[2020-05-23 12:00] VITALS: BP 102/67
--- NOTE | 2020-05-23 13:14 | Nephrology Progress Note ---
Assessment/Plan Problem List: (1) TOPHER (acute kidney injury) (2) 2019 novel coronavirus disease (COVID-19) (3) Pneumonia (4) COPD (chronic obstructive pulmonary disease) (5) Psychosis Assessment Renal failure, acute on chronic Partly dehydration COPD, hypoxia, COVID-19 disease Psychosis Atrial fibrillation High cholesterol Hypertension History of CVA Plan May 23: Labs reviewed. Serum creatinine lower. Serum sodium lower. P otassium 5.4 I suspect partly hemolysis. Patient has a Conway catheter. Continue D5W. Continue to monitor renal parameters. Continue per consultants. May 22: Patient more encephalopathic. Blood pressure low. Labs reviewed. Renal parameters worsened. Conway catheter ordered. Will stop Flomax and Proscar. Will adjust blood pressure medications. Will give IV fluid. Disc ussed with NAI Corbett. Will keep the patient n.p.o. due to poor mental status. Per orders. May 21: No labs drawn today. Stable from renal standpoint of view. Continue per consultants. May 20: Lab reviewed. Serum creatinine 1.5 stable. Serum sodium lowering. Continue per consultants. May 19: Labs reviewed. Serum creatinine lower to 1.5. Serum sodium mildly elevated. Continue free water administration. Monitor renal parameters. Continue per consultants. May 18: Labs reviewed. Serum creatinine up to 1.7. Electrolytes within normal limit. Continue to monitor renal parameters. Continue per consultants. May 17: Labs reviewed. Serum sodium normalized. Serum creatinine 1.5 stable. Continue per current management. May 16: Labs reviewed. Creatinine 1.5 unchanged. Blood pressure stable. Electrolytes unchanged. Serum sodium 133. Continue to monitor renal parameters Adjust blood pressure medication Stop saline hydration Monitor renal parameters and electrolytes Pulmonary support Per consultants Avoid nephrotoxic's Urine studies Per orders Subjective ROS Limited/Unobtainable: No Constitutional: Reports: malaise, weakness Objective Objective Last 24 Hour Vital Signs Date Time Temp Pulse Resp B/P (MAP) Pulse Ox O2 Delivery O2 Flow Rate FiO2 05/23/20 10:14 68 118/64 05/23/20 09:00 Nasal Cannula 4.0 05/23/20 08:00 85 05/23/20 08:00 97.7 68 22 118/64 (82) 94 05/23/20 04:00 89 05/23/20 04:00 98.2 98 20 154/70 (98) 96 05/23/20 00:00 98.2 69 18 129/74 (92) 96 05/23/20 00:00 61 05/23/20 00:00 61 05/22/20 21:00 73 112/74 05/22/20 21:00 Nasal Cannula 4.0 05/22/20 20:00 98.7 73 18 112/74 (87) 100 05/22/20 16:00 67 05/22/20 16:00 98.3 72 20 107/67 (80) 95 Intake and Output 05/22/20 05/23/20 19:00 07:00 Output Total 150 ml 500 ml Balance -150 ml -500 ml Output Urine Total 150 ml 500 ml # Voids 1 Laboratory Tests 05/23/20 10:45: White Blood Count 19.6H, Red Blood Count 5.41, Hemoglobin 16.9, Hematocrit 48.9, Mean Corpuscular Volume 91, Mean Corpuscular Hemoglobin 31.2H, Mean Corpuscular Hemoglobin Concent 34.5, Red Cell Distribution Width 15.0H, Platelet Count 256, Mean Platelet Volume 9.4, Neutrophils (%) (Auto) , Lymphocytes (%) (Auto) , Monocytes (%) (Auto) , Eosinophils (%) (Auto) , Basophils (%) (Auto) , Differential Total Cells Counted 100, Neutrophils % (Manual) 92H, Lymphocytes % (Manual) 6L, Monocytes % (Manual) 2, Eosinophils % (Manual) 0, Basophils % (Manual) 0, Band Neutrophils 0, Platelet Estimate Adequate, Platelet Morphology Normal, Red Blood Cell Morphology Normal, Sodium Level 144, Potassium Level 5.4H , Chloride Level 112H, Carbon Dioxide Level 25, Anion Gap 7, Blood Urea Nitrogen 58H, Creatinine 1.7H, Estimat Glomerular Filtration Rate 39.7, Glucose Level 213H, Calcium Level 9.0, Phosphorus Level 3.7, Magnesium Level 2.9H, Total Bilirubin 0.7, Aspartate Amino Transf (AST/SGOT) 31, Alanine Aminotransferase (ALT/SGPT) 41, Alkaline Phosphatase 74, C-Reactive Protein, Quantitative 2.2H, Total Protein 7.5, Albumin 2.4L, Globulin 5.1, Albumin/Globulin Ratio 0.5L Height (Feet): 5 Height (Inches): 7.00 Weight (Pounds): 160 General Appearance: confused, mild distress Cardiovascular: normal rate Respiratory/Chest: decreased breath sounds Abdomen: soft Alan Sánchez MD May 23, 2020 13:14
[2020-05-23] MEDS ORDERED: Sodium Polystyrene Sulfonate 15gm Powder ORAL SCH (13:15)
[2020-05-23 16:00] VITALS: BP 165/78
[2020-05-23 20:00] VITALS: BP 107/69
--- NOTE | 2020-05-23 21:01 | General Progress Note ---
Subjective ROS Limited/Unobtainable: Yes Allergies: Coded Allergies: No Known Allergies (Unverified , 05/13/20) Objective Last 24 Hour Vital Signs Date Time Temp Pulse Resp B/P (MAP) Pulse Ox O2 Delivery O2 Flow Rate FiO2 05/23/20 16:00 68 05/23/20 16:00 97.7 63 22 165/78 (107) 100 05/23/20 12:00 97.7 74 20 102/67 (79) 99 05/23/20 12:00 73 05/23/20 10:14 68 118/64 05/23/20 09:00 Nasal Cannula 4.0 05/23/20 08:00 85 05/23/20 08:00 97.7 68 22 118/64 (82) 94 05/23/20 04:00 89 05/23/20 04:00 98.2 98 20 154/70 (98) 96 05/23/20 00:00 98.2 69 18 129/74 (92) 96 05/23/20 00:00 61 05/23/20 00:00 61 Intake and Output 05/22/20 05/23/20 19:00 07:00 Output Total 150 ml 500 ml Balance -150 ml -500 ml Output Urine Total 150 ml 500 ml # Voids 1 Laboratory Tests 05/23/20 10:45: White Blood Count 19.6H, Red Blood Count 5.41, Hemoglobin 16.9, Hematocrit 48.9, Mean Corpuscular Volume 91, Mean Corpuscular Hemoglobin 31.2H, Mean Corpuscular Hemoglobin Concent 34.5, Red Cell Distribution Width 15.0H, Platelet Count 256, Mean Platelet Volume 9.4, Neutrophils (%) (Auto) , Lymphocytes (%) (Auto) , Monocytes (%) (Auto) , Eosinophils (%) (Auto) , Basophils (%) (Auto) , Differential Total Cells Counted 100, Neutrophils % (Manual) 92H, Lymphocytes % (Manual) 6L, Monocytes % (Manual) 2, Eosinophils % (Manual) 0, Basophils % (Manual) 0, Band Neutrophils 0, Platelet Estimate Adequate, Platelet Morphology Normal, Red Blood Cell Morphology Normal, Sodium Level 144, Potassium Level 5.4H , Chloride Level 112H, Carbon Dioxide Level 25, Anion Gap 7, Blood Urea Nitrogen 58H, Creatinine 1.7H, Estimat Glomerular Filtration Rate 39.7, Glucose Level 213H, Calcium Level 9.0, Phosphorus Level 3.7, Magnesium Level 2.9H, Total Bilirubin 0.7, Aspartate Amino Transf (AST/SGOT) 31, Alanine Aminotransferase (ALT/SGPT) 41, Alkaline Phosphatase 74, C-Reactive Protein, Quantitative 2.2H, Total Protein 7.5, Albumin 2.4L, Globulin 5.1, Albumin/Globulin Ratio 0.5L Height (Feet): 5 Height (Inches): 7.00 Weight (Pounds): 160 Respiratory/Chest: lungs clear Assessment/Plan Problem List: (1) COPD (chronic obstructive pulmonary disease) ICD Codes: J44.9 - Chronic obstructive pulmonary disease, unspecified SNOMED: 89835158 (2) Dehydration ICD Codes: E86.0 - Dehydration SNOMED: 90889604 (3) Pneumonia ICD Codes: J18.9 - Pneumonia, unspecified organism SNOMED: 069411952 (4) HTN (hypertension) ICD Codes: I10 - Essential (primary) hypertension SNOMED: 77651364 (5) 2019 novel coronavirus disease (COVID-19) ICD Codes: U07.1 - COVID-19 SNOMED: 308885355 (6) TOPHER (acute kidney injury) ICD Codes: N17.9 - Acute kidney failure, unspecified SNOMED: 7947609, 40493174 Status: progressing, unchanged Assessment/Plan: covid + pna resp insuff copd prn supportive care no fever Hillary Smallwood MD May 23, 2020 21:01
[2020-05-24] VITALS: BP 112/69
[2020-05-24 04:00] VITALS: BP 120/77
[2020-05-24 08:00] VITALS: BP 105/68
[2020-05-24 08:12] LABS: HEMATOCRIT 45.5 % (42.0-52.0); HEMOGLOBIN 14.8 G/DL (14.2-18.0); MEAN CORPUSCULAR VOLUME 97 FL (80-99); PLATELET COUNT 186 K/UL (150-450); RED BLOOD COUNT 4.67 M/UL (4.70-6.10); RED CELL DISTRIBUTION WIDTH 14.3 % (11.6-14.8); WHITE BLOOD COUNT 17.1 K/UL (4.8-10.8)
[2020-05-24 08:23] LABS: ALBUMIN/GLOBULIN RATIO 0.4 (1.0-2.7); BILIRUBIN,TOTAL 0.7 MG/DL (0.2-1.0); CALCIUM 8.3 MG/DL (8.5-10.1); CREATININE 1.4 MG/DL (0.55-1.30); PHOSPHORUS 3.8 MG/DL (2.5-4.9)
--- NOTE | 2020-05-24 08:42 | Pulmonology Progress Note ---
Subjective ROS Limited/Unobtainable: Yes Allergies: Coded Allergies: No Known Allergies (Unverified , 05/13/20) Subjective remains hypoxic, on 4 L o2 via NC, in isolation creat down to 1.4 + leukocytosis with small trend down, no fevers denies chest pain Objective Last 24 Hour Vital Signs Date Time Temp Pulse Resp B/P (MAP) Pulse Ox O2 Delivery O2 Flow Rate FiO2 05/24/20 04:00 97.9 60 18 120/77 (91) 98 05/24/20 04:00 62 05/24/20 00:00 63 05/24/20 00:00 97.9 73 18 112/69 (83) 99 05/23/20 21:25 73 107/69 05/23/20 21:00 Nasal Cannula 4.0 05/23/20 20:00 98.2 73 18 107/69 (82) 98 05/23/20 20:00 71 05/23/20 19:41 97 Nasal Cannula 4.0 36 05/23/20 16:00 68 05/23/20 16:00 97.7 63 22 165/78 (107) 100 05/23/20 12:00 97.7 74 20 102/67 (79) 99 05/23/20 12:00 73 05/23/20 10:14 68 118/64 05/23/20 09:00 Nasal Cannula 4.0 Intake and Output 05/23/20 05/24/20 19:00 07:00 Intake Total 800 ml 440 ml Output Total 500 ml 500 ml Balance 300 ml -60 ml IV Total 800 ml 440 ml Output Urine Total 500 ml 500 ml # Voids 1 General Appearance: WD/WN, other - awake HEENT: normocephalic, atraumatic, anicteric, other - O2 4 L via NC Respiratory: chest wall non-tender, rhonchi - left, rhonchi - right Cardiovascular: normal peripheral pulses, normal rate - SR with BBB, Abdomen: normal bowel sounds, soft, non tender Genitourinary: normal external genitalia Extremities: no clubbing Neurologic: alert Musculoskeletal: atrophy - BLE Laboratory Tests 05/23/20 10:45: White Blood Count 19.6H, Red Blood Count 5.41, Hemoglobin 16.9, Hematocrit 48.9, Mean Corpuscular Volume 91, Mean Corpuscular Hemoglobin 31.2H, Mean Corpuscular Hemoglobin Concent 34.5, Red Cell Distribution Width 15.0H, Platelet Count 256, Mean Platelet Volume 9.4, Neutrophils (%) (Auto) , Lymphocytes (%) (Auto) , Monocytes (%) (Auto) , Eosinophils (%) (Auto) , Basophils (%) (Auto) , Differential Total Cells Counted 100, Neutrophils % (Manual) 92H, Lymphocytes % (Manual) 6L, Monocytes % (Manual) 2, Eosinophils % (Manual) 0, Basophils % (Manual) 0, Band Neutrophils 0, Platelet Estimate Adequate, Platelet Morphology Normal, Red Blood Cell Morphology Normal, Sodium Level 144, Potassium Level 5.4H , Chloride Level 112H, Carbon Dioxide Level 25, Anion Gap 7, Blood Urea Nitrogen 58H, Creatinine 1.7H, Estimat Glomerular Filtration Rate 39.7, Glucose Level 213H, Calcium Level 9.0, Phosphorus Level 3.7, Magnesium Level 2.9H, Total Bilirubin 0.7, Aspartate Amino Transf (AST/SGOT) 31, Alanine Aminotransferase (ALT/SGPT) 41, Alkaline Phosphatase 74, C-Reactive Protein, Quantitative 2.2H, Total Protein 7.5, Albumin 2.4L, Globulin 5.1, Albumin/Globulin Ratio 0.5L 05/24/20 06:20: White Blood Count 17.1H, Red Blood Count 4.67L, Hemoglobin 14.8, Hematocrit 45.5, Mean Corpuscular Volume 97, Mean Corpuscular Hemoglobin 31.6H, Mean Corpuscular Hemoglobin Concent 32.5, Red Cell Distribution Width 14.3, Platelet Count 186, Mean Platelet Volume 8.9, Neutrophils (%) (Auto) , Lymphocytes (%) (Auto) , Monocytes (%) (Auto) , Eosinophils (%) (Auto) , Basophils (%) (Auto) , Neutrophils % (Manual) [Pending], Lymphocytes % (Manual) [Pending], Platelet Estimate [Pending], Platelet Morphology [Pending], Sodium Level 141, Potassium Level 4.0, Chloride Level 109H, Carbon Dioxide Level 24, Anion Gap 8, Blood Urea Nitrogen 53H, Creatinine 1.4H, Estimat Glomerular Filtration Rate 49.7, Glucose Level 245H, Calcium Level 8.3L, Phosphorus Level 3.8, Magnesium Level 2.6H, Total Bilirubin 0.7, Aspartate Amino Transf (AST/SGOT) 40H, Alanine Aminotra nsferase (ALT/SGPT) 66, Alkaline Phosphatase 73, Total Protein 6.6, Albumin 2.0L , Globulin 4.6, Albumin/Globulin Ratio 0.4L, Uric Acid 5.5 Current Medications Medications (Trade) Dose Ordered Sig/Tami Route PRN Reason Start Time Stop Time Status Last Admin Dose Admin Acetaminophen (Tylenol) 650 mg Q4H PRN ORAL FEVER 05/13/20 23:30 06/12/20 23:29 Albuterol/ Ipratropium (Combivent Respimat) 1 puff Q4H PRN INH Shortness of Breath 05/14/20 14:15 06/13/20 14:14 Amiodarone HCl (Cordarone) 200 mg DAILY ORAL 05/14/20 09:00 08/12/20 08:59 05/23/20 10:15 Carvedilol (Coreg) 3.125 mg EVERY 12 HOURS ORAL 05/14/20 09:00 06/13/20 08:59 05/23/20 21:25 Dexamethasone (Decadron) 6 mg DAILY ORAL 05/15/20 09:00 05/24/20 09:01 05/23/20 10:13 Dextrose 1,000 ml @ 100 mls/hr Q10H IV 05/22/20 09:15 06/21/20 09:14 05/24/20 04:39 Dextrose (Dextrose 50%) 25 ml Q30M PRN IV Hypoglycemia 05/13/20 23:30 08/11/20 23:29 Dextrose (Dextrose 50%) 50 ml Q30M PRN IV Hypoglycemia 05/13/20 23:30 08/11/20 23:29 Docusate Sodium (Colace) 100 mg TWICE A DAY ORAL 05/14/20 18:00 06/13/20 17:59 05/23/20 17:51 Heparin Sodium (Porcine) (Heparin 5000 units/ml) 5,000 units EVERY 12 HOURS SUBQ 05/14/20 09:00 06/28/20 08:59 05/23/20 21:24 Hydralazine HCl (Apresoline) 10 mg Q4H PRN IV bp over 160 syst 05/22/20 12:30 08/20/20 12:29 Lactulose (Cephulac) 30 gm THREE TIMES A DAY ORAL 05/16/20 18:00 06/15/20 17:59 05/23/20 10:13 Lorazepam (Ativan) 1 mg Q6H PRN ORAL For Anxiety 05/21/20 15:30 05/28/20 15:29 Ondansetron HCl (Zofran) 4 mg Q6H PRN IVP Nausea & Vomiting 05/13/20 23:30 06/12/20 23:29 Polyethylene Glycol (Miralax) 17 gm DAILYPRN PRN ORAL Constipation 05/13/20 23:30 06/12/20 23:29 05/16/20 13:23 Promethazine HCl/ Codeine (Phenergan with Codeine) 5 ml Q6H PRN ORAL cough 05/13/20 23:30 06/12/20 23:29 Risperidone (RisperDAL) 0.5 mg BID ORAL 05/15/20 18:00 06/29/20 17:59 05/23/20 17:51 Assessment/Plan Assessment/Plan ASSESSMENT COVID-19 pneumonia Acute hypoxemic respiratory failure , requiring nonrebreather mask- now on NC Possible UTI TOPHER COPD HTN History of CVA Elevated LFT PLAN OF CARE tele isolation O2 titrate to keep sat above 92%, now on NC pulmonary toilet steroids ->complete 10 days course s/p abx DVT prophylaxis a/tussive as needed fup with inflamm markers: CRP down to 2.9 f/up with CXR monitor renal parameters, electrolytes, correct as needed ; creat worse , + e/lyte imbalance s/p IVF f/up with further nephro recs trend LFT- down to normal , ammonia WNL hepatitis panel negative supportive care case discussed and evaluated by supervising physician Esperanza Howell NP May 24, 2020 08:42
[2020-05-24] MEDS: Lactulose 20gm/30ml UDC ORAL SCH ×3 (10:00→17:41)
[2020-05-24] MEDS: Docusate 100mg cap ORAL SCH ×2 (10:04→17:41)
[2020-05-24] MEDS: Amiodarone 200mg tab ORAL SCH (10:05)
[2020-05-24] MEDS: Heparin 5000 units/ml inj SUBQ SCH ×2 (10:06→20:41)
[2020-05-24 12:00] VITALS: BP 109/71
[2020-05-24] MEDS ORDERED: 1/2 NS 1000ml IV ONE (14:05)
--- NOTE | 2020-05-24 15:59 | Nephrology Progress Note ---
Assessment/Plan Problem List: (1) TOPHER (acute kidney injury) (2) 2019 novel coronavirus disease (COVID-19) (3) Pneumonia (4) COPD (chronic obstructive pulmonary disease) (5) Psychosis Assessment Renal failure, acute on chronic Partly dehydration COPD, hypoxia, COVID-19 disease Psychosis Atrial fibrillation High cholesterol Hypertension History of CVA Plan May 24: Labs reviewed. Serum creatinine lower. Serum sodium normalized. Electrolytes within normal limit. Will change IV to D5 normal saline. Continue per consultants. Blood pressure stable. May 23: Labs reviewed. Serum creatinine lower. Serum sodium lower. Potassium 5.4 , I suspect partly hemolysis. Patient has a Conway catheter. Continue D5W. Continue to monitor renal parameters. Continue per consultants. May 22: Patient more encephalopathic. Blood pressure low. Labs reviewed. Renal parameters worsened. Conway catheter ordered. Will stop Flomax and Proscar. Will adjust blood pressure medications. Will give IV fluid. Discussed with NAI Corbett. Will keep the patient n.p.o. due to poor mental status. Per orders. May 21: No labs drawn today. Stable from renal standpoint of view. Continue per consultants. May 20: Lab reviewed. Serum creatinine 1.5 stable. Serum sodium lowering. Continue per consultants. May 19: Labs reviewed. Serum creatinine lower to 1.5. Serum sodium mildly elevated. Continue free water administration. Monitor renal parameters. Continue per consultants. May 18: Labs reviewed. Serum creatinine up to 1.7. Electrolytes within normal limit. Continue to monitor renal parameters. Continue per consultants. May 17: Labs reviewed. Serum sodium normalized. Serum creatinine 1.5 stable. Continue per current management. May 16: Labs reviewed. Creatinine 1.5 unchanged. Blood pressure stable. Electrolytes unchanged. Serum sodium 133. Continue to monitor renal parameters Adjust blood pressure medication Stop saline hydration Monitor renal parameters and electrolytes Pulmonary support Per consultants Avoid nephrotoxic's Urine studies Per orders Subjective ROS Limited/Unobtainable: Yes Objective Objective Last 24 Hour Vital Signs Date Time Temp Pulse Resp B/P (MAP) Pulse Ox O2 Delivery O2 Flow Rate FiO2 05/24/20 12:00 97.8 60 17 109/71 (84) 94 05/24/20 12:00 60 05/24/20 10:05 66 105/68 05/24/20 09:00 Nasal Cannula 4.0 05/24/20 08:00 62 05/24/20 08:00 97.5 66 19 105/68 (80) 90 05/24/20 04:00 97.9 60 18 120/77 (91) 98 05/24/20 04:00 62 05/24/20 00:00 63 05/24/20 00:00 97.9 73 18 112/69 (83) 99 05/23/20 21:25 73 107/69 05/23/20 21:00 Nasal Cannula 4.0 05/23/20 20:00 98.2 73 18 107/69 (82) 98 05/23/20 20:00 71 05/23/20 19:41 97 Nasal Cannula 4.0 36 05/23/20 16:00 68 05/23/20 16:00 97.7 63 22 165/78 (107) 100 Intake and Output 05/23/20 05/24/20 19:00 07:00 Intake Total 800 ml 440 ml Output Total 500 ml 500 ml Balance 300 ml -60 ml IV Total 800 ml 440 ml Output Urine Total 500 ml 500 ml # Voids 1 Laboratory Tests 05/24/20 06:20: White Blood Count 17.1H, Red Blood Count 4.67L, Hemoglobin 14.8, Hematocrit 45.5, Mean Corpuscular Volume 97, Mean Corpuscular Hemoglobin 31.6H, Mean Co rpuscular Hemoglobin Concent 32.5, Red Cell Distribution Width 14.3, Platelet Count 186, Mean Platelet Volume 8.9, Neutrophils (%) (Auto) , Lymphocytes (%) (Auto) , Monocytes (%) (Auto) , Eosinophils (%) (Auto) , Basophils (%) (Auto) , Differential Total Cells Counted 100, Neutrophils % (Manual) 90H, Lymphocytes % (Manual) 7L, Monocytes % (Manual) 2, Eosinophils % (Manual) 1, Basophils % (Manual) 0, Band Neutrophils 0, Platelet Estimate Adequate, Platelet Morphology Normal, Red Blood Cell Morphology Normal, Sodium Level 141, Potassium Level 4.0, Chloride Level 109H, Carbon Dioxide Level 24, Anion Gap 8, Blood Urea Nitrogen 53H, Creatinine 1.4H, Estimat Glomerular Filtration Rate 49.7, Glucose Level 245H, Uric Acid 5.5, Calcium Level 8.3L, Phosphorus Level 3.8, Magnesium Level 2.6H, Total Bilirubin 0.7, Aspartate Amino Transf (AST/SGOT) 40H, Alanine Aminotransferase (ALT/SGPT) 66, Alkaline Phosphatase 73, Total Protein 6.6, Albumin 2.0L, Globulin 4.6, Albumin/Globulin Ratio 0.4L Height (Feet): 5 Height (Inches): 7.00 Weight (Pounds): 160 General Appearance: no apparent distress, lethargic, confused Cardiovascular: normal rate Respiratory/Chest: decreased breath sounds Abdomen: distended Alan Sánchez MD May 24, 2020 15:59
[2020-05-24 16:00] VITALS: BP 111/70
[2020-05-24] MEDS: D5NS 1,000 ML IV SCH (16:14)
[2020-05-24 20:00] VITALS: BP 115/65
--- NOTE | 2020-05-24 20:06 | General Progress Note ---
Subjective ROS Limited/Unobtainable: Yes Allergies: Coded Allergies: No Known Allergies (Unverified , 05/13/20) Objective Last 24 Hour Vital Signs Date Time Temp Pulse Resp B/P (MAP) Pulse Ox O2 Delivery O2 Flow Rate FiO2 05/24/20 20:03 97 Nasal Cannula 4.0 36 05/24/20 16:00 97.7 62 18 111/70 (84) 96 05/24/20 16:00 70 05/24/20 12:00 97.8 60 17 109/71 (84) 94 05/24/20 12:00 60 05/24/20 10:05 66 105/68 05/24/20 09:00 Nasal Cannula 4.0 05/24/20 08:00 62 05/24/20 08:00 97.5 66 19 105/68 (80) 90 05/24/20 04:00 97.9 60 18 120/77 (91) 98 05/24/20 04:00 62 05/24/20 00:00 63 05/24/20 00:00 97.9 73 18 112/69 (83) 99 05/23/20 21:25 73 107/69 05/23/20 21:00 Nasal Cannula 4.0 Intake and Output 05/23/20 05/24/20 19:00 07:00 Intake Total 800 ml 440 ml Output Total 500 ml 500 ml Balance 300 ml -60 ml IV Total 800 ml 440 ml Output Urine Total 500 ml 500 ml # Voids 1 Laboratory Tests 05/24/20 06:20: White Blood Count 17.1H, Red Blood Count 4.67L, Hemoglobin 14.8, Hematocrit 45.5, Mean Corpuscular Volume 97, Mean Corpuscular Hemoglobin 31.6H, Mean Corpuscular Hemoglobin Concent 32.5, Red Cell Distribution Width 14.3, Platelet Count 186, Mean Platelet Volume 8.9, Neutrophils (%) (Auto) , Lymphocytes (%) (Auto) , Monocytes (%) (Auto) , Eosinophils (%) (Auto) , Basophils (%) (Auto) , Differential Total Cells Counted 100, Neutrophils % (Manual) 90H, Lymphocytes % (Manual) 7L, Monocytes % (Manual) 2, Eosinophils % (Manual) 1, Basophils % (Manual) 0, Band Neutrophils 0, Platelet Estimate Adequate, Platelet Morphology Normal, Red Blood Cell Morphology Normal, Sodium Level 141, Potassium Level 4.0, Chloride Level 109H, Carbon Dioxide Level 24, Anion Gap 8, Blood Urea Nitrogen 53H, Creatinine 1.4H, Estimat Glomerular Filtration Rate 49.7, Glucose Level 245H, Uric Acid 5.5, Calcium Level 8.3L, Phosphorus Level 3.8, Magnesium Level 2.6H, Total Bilirubin 0.7, Aspartate Amino Transf (AST/SGOT) 40H, Alanine Aminotransferase (ALT/SGPT) 66, Alkaline Phosphatase 73, Total Protein 6.6, Albumin 2.0L, Globulin 4.6, Albumin/Globulin Ratio 0.4L Height (Feet): 5 Height (Inches): 7.00 Weight (Pounds): 160 Assessment/Plan Problem List: (1) COPD (chronic obstructive pulmonary disease) ICD Codes: J44.9 - Chronic obstructive pulmonary disease, unspecified SNOMED: 68300282 (2) Dehydration ICD Codes: E86.0 - Dehydration SNOMED: 29299550 (3) Pneumonia ICD Codes: J18.9 - Pneumonia, unspecified organism SNOMED: 830186114 (4) HTN (hypertension) ICD Codes: I10 - Essential (primary) hypertension SNOMED: 98889948 (5) 2019 novel coronavirus disease (COVID-19) ICD Codes: U07.1 - COVID-19 SNOMED: 705360057 (6) TOPHER (acute kidney injury) ICD Codes: N17.9 - Acute kidney failure, unspecified SNOMED: 0873611, 28301930 Status: progressing, unchanged Assessment/Plan: covid + pna resp insuff copd no change supportive care no wheezing Hillary Smallwood MD May 24, 2020 20:06
[2020-05-25] VITALS: BP 111/68
[2020-05-25 04:00] VITALS: BP 103/64
[2020-05-25 07:26] LABS: CALCIUM 8.2 MG/DL (8.5-10.1); CREATININE 1.3 MG/DL (0.55-1.30); POTASSIUM 4.5 MMOL/L (3.5-5.1)
[2020-05-25 07:29] LABS: HEMOGLOBIN 14.6 G/DL (14.2-18.0); MEAN CORPUSCULAR VOLUME 97 FL (80-99); PLATELET COUNT 166 K/UL (150-450); RED BLOOD COUNT 4.61 M/UL (4.70-6.10); RED CELL DISTRIBUTION WIDTH 14.4 % (11.6-14.8)
[2020-05-25 08:00] VITALS: BP 110/67
[2020-05-25] MEDS: Heparin 5000 units/ml inj SUBQ SCH ×2 (09:01→22:21)
[2020-05-25] MEDS: Lactulose 20gm/30ml UDC ORAL SCH ×3 (09:01→17:29)
[2020-05-25] MEDS: Docusate 100mg cap ORAL SCH ×2 (09:01→17:29)
[2020-05-25] MEDS: Amiodarone 200mg tab ORAL SCH (09:03)
--- NOTE | 2020-05-25 09:42 | General Progress Note ---
Subjective ROS Limited/Unobtainable: No Allergies: Coded Allergies: No Known Allergies (Unverified , 05/13/20) Objective Last 24 Hour Vital Signs Date Time Temp Pulse Resp B/P (MAP) Pulse Ox O2 Delivery O2 Flow Rate FiO2 05/25/20 09:04 70 110/67 05/25/20 08:00 97.2 70 19 110/67 (81) 97 05/25/20 04:00 97.1 62 20 103/64 (77) 97 05/25/20 04:00 54 05/25/20 00:00 67 05/25/20 00:00 97.3 65 20 111/68 (82) 94 05/24/20 21:00 Nasal Cannula 4.0 05/24/20 20:40 73 134/74 05/24/20 20:03 97 Nasal Cannula 4.0 36 05/24/20 20:00 97.1 61 19 115/65 (82) 97 05/24/20 20:00 61 05/24/20 16:00 97.7 62 18 111/70 (84) 96 05/24/20 16:00 70 05/24/20 12:00 97.8 60 17 109/71 (84) 94 05/24/20 12:00 60 05/24/20 10:05 66 105/68 Intake and Output 05/24/20 05/25/20 19:00 07:00 Output Total 600 ml 500 ml Balance -600 ml -500 ml Output Urine Total 600 ml 500 ml Laboratory Tests 05/25/20 05:55: White Blood Count 16.0H, Red Blood Count 4.61L, Hemoglobin 14.6, Hematocrit 45.0, Mean Corpuscular Volume 97, Mean Corpuscular Hemoglobin 31.5H, Mean Corpuscular Hemoglobin Concent 32.4, Red Cell Distribution Width 14.4, Platelet Count 166, Mean Platelet Volume 10.2H, Neutrophils (%) (Auto) , Lymphocytes (%) (Auto) , Monocytes (%) (Auto) , Eosinophils (%) (Auto) , Basophils (%) (Auto) , Neutrophils % (Manual) [Pending], Lymphocytes % (Manual) [Pending], Platelet Estimate [Pending], Platelet Morphology [Pending], Sodium Level 142, Potassium Level 4.5, Chloride Level 110H, Carbon Dioxide Level 25, Anion Gap 7, Blood Urea Nitrogen 42H, Creatinine 1.3, Estimat Glomerular Filtration Rate 54.1, Glucose Level 102#, Calcium Level 8.2L Height (Feet): 5 Height (Inches): 7.00 Weight (Pounds): 160 General Appearance: no apparent distress EENT: normal ENT inspection Neck: supple Cardiovascular: normal rate Respiratory/Chest: decreased breath sounds Abdomen: normal bowel sounds, non tender, soft Extremities: non-tender Assessment/Plan Problem List: (1) Elevated LFTs ICD Codes: R79.89 - Other specified abnormal findings of blood chemistry SNOMED: 605231614, 675905059 (2) COPD (chronic obstructive pulmonary disease) ICD Codes: J44.9 - Chronic obstructive pulmonary disease, unspecified SNOMED: 51560144 (3) Dehydration ICD Codes: E86.0 - Dehydration SNOMED: 52717592 (4) Pneumonia ICD Codes: J18.9 - Pneumonia, unspecified organism SNOMED: 338700842 (5) HTN (hypertension) ICD Codes: I10 - Essential (primary) hypertension SNOMED: 34058463 (6) 2019 novel coronavirus disease (COVID-19) ICD Codes: U07.1 - COVID-19 SNOMED: 073207202 Status: progressing, unchanged Assessment/Plan: repeat LFTS hold abd us for now hepatitis panel>> neg fu ID recs off protonix on marinol 5 Stefan Wilde MD May 25, 2020 09:42
--- NOTE | 2020-05-25 11:39 | General Progress Note ---
Subjective ROS Limited/Unobtainable: Yes Allergies: Coded Allergies: No Known Allergies (Unverified , 05/13/20) Objective Last 24 Hour Vital Signs Date Time Temp Pulse Resp B/P (MAP) Pulse Ox O2 Delivery O2 Flow Rate FiO2 05/25/20 09:04 70 110/67 05/25/20 09:00 Nasal Cannula 4.0 05/25/20 08:00 56 05/25/20 08:00 97.2 70 19 110/67 (81) 97 05/25/20 04:00 97.1 62 20 103/64 (77) 97 05/25/20 04:00 54 05/25/20 00:00 67 05/25/20 00:00 97.3 65 20 111/68 (82) 94 05/24/20 21:00 Nasal Cannula 4.0 05/24/20 20:40 73 134/74 05/24/20 20:03 97 Nasal Cannula 4.0 36 05/24/20 20:00 97.1 61 19 115/65 (82) 97 05/24/20 20:00 61 05/24/20 16:00 97.7 62 18 111/70 (84) 96 05/24/20 16:00 70 05/24/20 12:00 97.8 60 17 109/71 (84) 94 05/24/20 12:00 60 Intake and Output 05/24/20 05/25/20 19:00 07:00 Output Total 600 ml 500 ml Balance -600 ml -500 ml Output Urine Total 600 ml 500 ml Laboratory Tests 05/25/20 05:55: White Blood Count 16.0H, Red Blood Count 4.61L, Hemoglobin 14.6, Hematocrit 45.0, Mean Corpuscular Volume 97, Mean Corpuscular Hemoglobin 31.5H, Mean Corpuscular Hemoglobin Concent 32.4, Red Cell Distribution Width 14.4, Platelet Count 166, Mean Platelet Volume 10.2H, Neutrophils (%) (Auto) , Lymphocytes (%) (Auto) , Monocytes (%) (Auto) , Eosinophils (%) (Auto) , Basophils (%) (Auto) , Differential Total Cells Counted 100, Neutrophils % (Manual) 88H, Lymphocytes % (Manual) 6L, Monocytes % (Manual) 6, Eosinophils % (Manual) 0, Basophils % (Manual) 0, Band Neutrophils 0, Platelet Estimate Adequate, Platelet Morphology Normal, Macrocytosis 1+, Sodium Level 142, Potassium Level 4.5, Chloride Level 110H, Carbon Dioxide Level 25, Anion Gap 7, Blood Urea Nitrogen 42H, Creatinine 1.3, Estimat Glomerular Filtration Rate 54.1, Glucose Level 102#, Calcium Level 8.2L Height (Feet): 5 Height (Inches): 7.00 Weight (Pounds): 160 Assessment/Plan Problem List: (1) COPD (chronic obstructive pulmonary disease) ICD Codes: J44.9 - Chronic obstructive pulmonary disease, unspecified SNOMED: 34526800 (2) Dehydration ICD Codes: E86.0 - Dehydration SNOMED: 47338447 (3) Pneumonia ICD Codes: J18.9 - Pneumonia, unspecified organism SNOMED: 295946792 (4) HTN (hypertension) ICD Codes: I10 - Essential (primary) hypertension SNOMED: 72352774 (5) 2019 novel coronavirus disease (COVID-19) ICD Codes: U07.1 - COVID-19 SNOMED: 690339055 (6) TOPHER (acute kidney injury) ICD Codes: N17.9 - Acute kidney failure, unspecified SNOMED: 9316372, 47430705 Status: progressing, unchanged Assessment/Plan: covid + pna resp insuff copd reviewed the chart and labs supportive Hillary Pride MD May 25, 2020 11:39
[2020-05-25 12:00] VITALS: BP 103/62
[2020-05-25] MEDS: D5NS 1,000 ML IV SCH (12:04)
--- NOTE | 2020-05-25 12:33 | Nephrology Progress Note ---
Assessment/Plan Problem List: (1) TOPHER (acute kidney injury) (2) 2019 novel coronavirus disease (COVID-19) (3) Pneumonia (4) COPD (chronic obstructive pulmonary disease) (5) Psychosis Assessment Renal failure, acute on chronic Partly dehydration COPD, hypoxia, COVID-19 disease Psychosis Atrial fibrillation High cholesterol Hypertension History of CVA Plan May 25: Labs reviewed. Renal parameters much improved. Electrolytes w ithin normal limit. Medication list reviewed. Continue per consultants. May 24: Labs reviewed. Serum creatinine lower. Serum sodium normalized. Electrolytes within normal limit. Will change IV to D5 normal saline. Continue per consultants. Blood pressure stable. May 23: Labs reviewed. Serum creatinine lower. Serum sodium lower. Potassium 5.4 , I suspect partly hemolysis. Patient has a Conway catheter. Continue D5W. Continue to monitor renal parameters. Continue per consultants. May 22: Patient more encephalopathic. Blood pressure low. Labs reviewed. Renal parameters worsened. Conway catheter ordered. Will stop Flomax and Proscar. Will adjust blood pressure medications. Will give IV fluid. Discussed with NAI Corbett. Will keep the patient n.p.o. due to poor mental status. Per orders. May 21: No labs drawn today. Stable from renal standpoint of view. Continue per consultants. May 20: Lab reviewed. Serum creatinine 1.5 stable. Serum sodium lowering. Continue per consultants. May 19: Labs reviewed. Serum creatinine lower to 1.5. Serum sodium mildly elevated. Continue free water administration. Monitor renal parameters. Continue per consultants. May 18: Labs reviewed. Serum creatinine up to 1.7. Electrolytes within normal limit. Continue to monitor renal parameters. Continue per consultants. May 17: Labs reviewed. Serum sodium normalized. Serum creatinine 1.5 stable. Continue per current management. May 16: Labs reviewed. Creatinine 1.5 unchanged. Blood pressure stable. Electrolytes unchanged. Serum sodium 133. Continue to monitor renal parameters Adjust blood pressure medication Stop saline hydration Monitor renal parameters and electrolytes Pulmonary support Per consultants Avoid nephrotoxic's Urine studies Per orders Subjective ROS Limited/Unobtainable: No Constitutional: Reports: malaise Objective Objective Last 24 Hour Vital Signs Date Time Temp Pulse Resp B/P (MAP) Pulse Ox O2 Delivery O2 Flow Rate FiO2 05/25/20 09:04 70 110/67 05/25/20 09:00 Nasal Cannula 4.0 05/25/20 08:00 56 05/25/20 08:00 97.2 70 19 110/67 (81) 97 05/25/20 04:00 97.1 62 20 103/64 (77) 97 05/25/20 04:00 54 05/25/20 00:00 67 05/25/20 00:00 97.3 65 20 111/68 (82) 94 05/24/20 21:00 Nasal Cannula 4.0 05/24/20 20:40 73 134/74 05/24/20 20:03 97 Nasal Cannula 4.0 36 05/24/20 20:00 97.1 61 19 115/65 (82) 97 05/24/20 20:00 61 05/24/20 16:00 97.7 62 18 111/70 (84) 96 05/24/20 16:00 70 Intake and Output 05/24/20 05/25/20 19:00 07:00 Output Total 600 ml 500 ml Balance -600 ml -500 ml Output Urine Total 600 ml 500 ml Laboratory Tests 05/25/20 05:55: White Blood Count 16.0H, Red Blood Count 4.61L, Hemoglobin 14.6, Hematocrit 45.0, Mean Corpuscular Volume 97, Mean Corpuscular Hemoglobin 31.5H, Mean Corpuscular Hemoglobin Concent 32.4, Red Cell Distribution Width 14.4, Platelet Count 166, Mean Platelet Volume 10.2H, Neutrophils (%) (Auto) , Lymphocytes (%) (Auto) , Monocytes (%) (Auto) , Eosinophils (%) (Auto) , Basophils (%) (Auto) , Differential Total Cells Counted 100, Neutrophils % (Manual) 88H, Lymphocytes % (Manual) 6L, Monocytes % (Manual) 6, Eosinophils % (Manual) 0, Basophils % (Manual) 0, Band Neutrophils 0, Platelet Estimate Adequate, Platelet Morphology Normal, Macrocytosis 1+, Sodium Level 142, Potassium Level 4.5, Chloride Level 110H, Carbon Dioxide Level 25, Anion Gap 7, Blood Urea Nitrogen 42H, Creatinine 1.3, Estimat Glomerular Filtration Rate 54.1, Glucose Level 102#, Calcium Level 8.2L Height (Feet): 5 Height (Inches): 7.00 Weight (Pounds): 160 General Appearance: no apparent distress Cardiovascular: normal rate Respiratory/Chest: decreased breath sounds Abdomen: soft Alan Sánchez MD May 25, 2020 12:33
--- NOTE | 2020-05-25 13:04 | Diagnostic Imaging Report ---
Indication: Shortness of breath Technique: One view of the chest Comparison: 05/19/2020 Findings: There are bilateral infiltrates again demonstrated, which, allowing for slight differences in exposure technique, are probably unchanged. Normal heart size. Pleural spaces are clear Impression: Unchanged, over 6 days, findings as above.
--- NOTE | 2020-05-25 15:46 | Pulmonology Progress Note ---
Subjective ROS Limited/Unobtainable: No Constitutional: Reports: no symptoms Respiratory: Reports: no symptoms Allergies: Coded Allergies: No Known Allergies (Unverified , 05/13/20) Objective Last 24 Hour Vital Signs Date Time Temp Pulse Resp B/P (MAP) Pulse Ox O2 Delivery O2 Flow Rate FiO2 05/25/20 12:00 98.1 60 22 103/62 (76) 97 05/25/20 12:00 52 05/25/20 09:04 70 110/67 05/25/20 09:00 Nasal Cannula 4.0 05/25/20 08:00 56 05/25/20 08:00 97.2 70 19 110/67 (81) 97 05/25/20 04:00 97.1 62 20 103/64 (77) 97 05/25/20 04:00 54 05/25/20 00:00 67 05/25/20 00:00 97.3 65 20 111/68 (82) 94 05/24/20 21:00 Nasal Cannula 4.0 05/24/20 20:40 73 134/74 05/24/20 20:03 97 Nasal Cannula 4.0 36 05/24/20 20:00 97.1 61 19 115/65 (82) 97 05/24/20 20:00 61 05/24/20 16:00 97.7 62 18 111/70 (84) 96 05/24/20 16:00 70 Intake and Output 05/24/20 05/25/20 19:00 07:00 Output Total 600 ml 500 ml Balance -600 ml -500 ml Output Urine Total 600 ml 500 ml General Appearance: WD/WN, other - awake HEENT: normocephalic, atraumatic, anicteric, other - O2 4 L via NC Respiratory: chest wall non-tender, rhonchi - left, rhonchi - right Cardiovascular: normal peripheral pulses, normal rate - SR with BBB, Abdomen: normal bowel sounds, soft, non tender Genitourinary: normal external genitalia Extremities: no clubbing Neurologic: alert Musculoskeletal: atrophy - BLE Laboratory Tests 05/25/20 05:55: White Blood Count 16.0H, Red Blood Count 4.61L, Hemoglobin 14.6, Hematocrit 45.0, Mean Corpuscular Volume 97, Mean Corpuscular Hemoglobin 31.5H, Mean Corpuscular Hemoglobin Concent 32.4, Red Cell Distribution Width 14.4, Platelet Count 166, Mean Platelet Volume 10.2H, Neutrophils (%) (Auto) , Lymphocytes (%) (Auto) , Monocytes (%) (Auto) , Eosinophils (%) (Auto) , Basophils (%) (Auto) , Differential Total Cells Counted 100, Neutrophils % (Manual) 88H, Lymphocytes % (Manual) 6L, Monocytes % (Manual) 6, Eosinophils % (Manual) 0, Basophils % (Manual) 0, Band Neutrophils 0, Platelet Estimate Adequate, Platelet Morphology Normal, Macrocytosis 1+, Sodium Level 142, Potassium Level 4.5, Chloride Level 110H, Carbon Dioxide Level 25, Anion Gap 7, Blood Urea Nitrogen 42H, Creatinine 1.3, Estimat Glomerular Filtration Rate 54.1, Glucose Level 102#, Calcium Level 8.2L Current Medications Medications (Trade) Dose Ordered Sig/Tami Route PRN Reason Start Time Stop Time Status Last Admin Dose Admin Acetaminophen (Tylenol) 650 mg Q4H PRN ORAL FEVER 05/13/20 23:30 06/12/20 23:29 Albuterol/ Ipratropium (Combivent Respimat) 1 puff Q4H PRN INH Shortness of Breath 05/14/20 14:15 06/13/20 14:14 Amiodarone HCl (Cordarone) 200 mg DAILY ORAL 05/14/20 09:00 08/12/20 08:59 05/25/20 09:03 Carvedilol (Coreg) 3.125 mg EVERY 12 HOURS ORAL 05/14/20 09:00 06/13/20 08:59 05/25/20 09:04 Dextrose (Dextrose 50%) 25 ml Q30M PRN IV Hypoglycemia 05/13/20 23:30 08/11/20 23:29 Dextrose (Dextrose 50%) 50 ml Q30M PRN IV Hypoglycemia 05/13/20 23:30 08/11/20 23:29 Dextrose/Sodium Chloride 1,000 ml @ 50 mls/hr Q20H IV 05/24/20 16:00 06/23/20 15:59 05/25/20 12:04 Docusate Sodium (Colace) 100 mg TWICE A DAY ORAL 05/14/20 18:00 06/13/20 17:59 05/25/20 09:01 Heparin Sodium (Porcine) (Heparin 5000 units/ml) 5,000 units EVERY 12 HOURS SUBQ 05/14/20 09:00 06/28/20 08:59 05/25/20 09:01 Hydralazine HCl (Apresoline) 10 mg Q4H PRN IV bp over 160 syst 05/22/20 12:30 08/20/20 12:29 Lactulose (Cephulac) 30 gm THREE TIMES A DAY ORAL 05/16/20 18:00 06/15/20 17:59 05/25/20 12:04 Lorazepam (Ativan) 1 mg Q6H PRN ORAL For Anxiety 05/21/20 15:30 05/28/20 15:29 Ondansetron HCl (Zofran) 4 mg Q6H PRN IVP Nausea & Vomiting 05/13/20 23:30 06/12/20 23:29 Polyethylene Glycol (Miralax) 17 gm DAILYPRN PRN ORAL Constipation 05/13/20 23:30 06/12/20 23:29 05/16/20 13:23 Promethazine HCl/ Codeine (Phenergan with Codeine) 5 ml Q6H PRN ORAL cough 05/13/20 23:30 06/12/20 23:29 Risperidone (RisperDAL) 0.5 mg BID ORAL 05/15/20 18:00 06/29/20 17:59 05/25/20 09:01 Assessment/Plan Problems: (1) 2019 novel coronavirus disease (COVID-19) (2) Nosocomial pneumonia (3) TOPHER (acute kidney injury) (4) COPD (chronic obstructive pulmonary disease) (5) Psychosis (6) HTN (hypertension) Assessment/Plan no new complains renal function worsening cxr 05/09 showed increasing bilateral infiltrate, 05/25: bilateral infiltrates again demonstrated, which, allowing for slight differences in exposure technique, are probably unchanged afebrile titrate fio2 to sat of 92% respiratory treatment prn f/u crp and cxr periodically monitor BP symptomatic treatment. dvt prophylaxis. keep in isolation Umesh Prajapati MD May 25, 2020 15:46
[2020-05-25 16:00] VITALS: BP 108/59
--- NOTE | 2020-05-25 16:15 | Infectious Diseases Prog Note ---
Assessment/Plan 74yo M with: Afebrile Normal WBC Lymphopenia Pneumonia COVID pneumonia, severe Acute hypoxic resp failure on NRB mask Possible UTI 05/13 BCx NTD UA 5-10 WBC, UCx >100k Kleb pna (S-CTX) COVID rapid positive CXR: Multifocal pna 05/19 CXR: Increasing bilateral infiltrates Elevated LFTs, AST/ALT 125 / 80 TOPHER on CKD, Cr 1.5, improving COPD Cardiac disease SNF resident Plan: Cont to monitor off abx Trend WBC, Cr Trend mental status 05/23 SP dex #10 05/18 SP RDV #5 05/18 SP Augmentin #1, Azithro #5 05/17 SP CTX #4 Monitor CBC/CMP Monitor temp curve, hemodynamics Monitor resp status D/w RN Thank you for this consult. [facility] will continue to follow. Subjective Allergies: Coded Allergies: No Known Allergies (Unverified , 05/13/20) AF NAD On 4L NC WBC 16 on steroids Objective Last 24 Hour Vital Signs Date Time Temp Pulse Resp B/P (MAP) Pulse Ox O2 Delivery O2 Flow Rate FiO2 05/25/20 12:00 98.1 60 22 103/62 (76) 97 05/25/20 12:00 52 05/25/20 09:04 70 110/67 05/25/20 09:00 Nasal Cannula 4.0 05/25/20 08:00 56 05/25/20 08:00 97.2 70 19 110/67 (81) 97 05/25/20 04:00 97.1 62 20 103/64 (77) 97 05/25/20 04:00 54 05/25/20 00:00 67 05/25/20 00:00 97.3 65 20 111/68 (82) 94 05/24/20 21:00 Nasal Cannula 4.0 05/24/20 20:40 73 134/74 05/24/20 20:03 97 Nasal Cannula 4.0 36 05/24/20 20:00 97.1 61 19 115/65 (82) 97 05/24/20 20:00 61 Height (Feet): 5 Height (Inches): 7.00 Weight (Pounds): 160 Gen: NAD HEENT: NCAT Pulm: BL chest rise on NC Abd: Soft, NTND Ext: No c/c/e Skin: No visible rashes Neuro: Awake, minimally interactive Laboratory Tests Test 05/25/20 05:55 White Blood Count 16.0 K/UL (4.8-10.8) H Red Blood Count 4.61 M/UL (4.70-6.10) L Hemoglobin 14.6 G/DL (14.2-18.0) Hematocrit 45.0 % (42.0-52.0) Mean Corpuscular Volume 97 FL (80-99) Mean Corpuscular Hemoglobin 31.5 PG (27.0-31.0) H Mean Corpuscular Hemoglobin Concent 32.4 G/DL (32.0-36.0) Red Cell Distribution Width 14.4 % (11.6-14.8) Platelet Count 166 K/UL (150-450) Mean Platelet Volume 10.2 FL (6.5-10.1) H Neutrophils (%) (Auto) % (45.0-75.0) Lymphocytes (%) (Auto) % (20.0-45.0) Monocytes (%) (Auto) % (1.0-10.0) Eosinophils (%) (Auto) % (0.0-3.0) Basophils (%) (Auto) % (0.0-2.0) Differential Total Cells Counted 100 Neutrophils % (Manual) 88 % (45-75) H Lymphocytes % (Manual) 6 % (20-45) L Monocytes % (Manual) 6 % (1-10) Eosinophils % (Manual) 0 % (0-3) Basophils % (Manual) 0 % (0-2) Band Neutrophils 0 % (0-8) Platelet Estimate Adequate Platelet Morphology Normal Macrocytosis 1+ Sodium Level 142 MMOL/L (136-145) Potassium Level 4.5 MMOL/L (3.5-5.1) Chloride Level 110 MMOL/L (98-107) H Carbon Dioxide Level 25 MMOL/L (21-32) Anion Gap 7 mmol/L (5-15) Blood Urea Nitrogen 42 mg/dL (7-18) H Creatinine 1.3 MG/DL (0.55-1.30) Estimat Glomerular Filtration Rate 54.1 mL/min (>60) Glucose Level 102 MG/DL (74-106) # Calcium Level 8.2 MG/DL (8.5-10.1) L Current Medications Medications (Trade) Dose Ordered Sig/Tami Route PRN Reason Start Time Stop Time Status Last Admin Dose Admin Acetaminophen (Tylenol) 650 mg Q4H PRN ORAL FEVER 05/13/20 23:30 06/12/20 23:29 Albuterol/ Ipratropium (Combivent Respimat) 1 puff Q4H PRN INH Shortness of Breath 05/14/20 14:15 06/13/20 14:14 Amiodarone HCl (Cordarone) 200 mg DAILY ORAL 05/14/20 09:00 08/12/20 08:59 05/25/20 09:03 Carvedilol (Coreg) 3.125 mg EVERY 12 HOURS ORAL 05/14/20 09:00 06/13/20 08:59 05/25/20 09:04 Dextrose (Dextrose 50%) 25 ml Q30M PRN IV Hypoglycemia 05/13/20 23:30 08/11/20 23:29 Dextrose (Dextrose 50%) 50 ml Q30M PRN IV Hypoglycemia 05/13/20 23:30 08/11/20 23:29 Dextrose/Sodium Chloride 1,000 ml @ 50 mls/hr Q20H IV 05/24/20 16:00 06/23/20 15:59 05/25/20 12:04 Docusate Sodium (Colace) 100 mg TWICE A DAY ORAL 05/14/20 18:00 06/13/20 17:59 05/25/20 09:01 Heparin Sodium (Porcine) (Heparin 5000 units/ml) 5,000 units EVERY 12 HOURS SUBQ 05/14/20 09:00 06/28/20 08:59 05/25/20 09:01 Hydralazine HCl (Apresoline) 10 mg Q4H PRN IV bp over 160 syst 05/22/20 12:30 08/20/20 12:29 Lactulose (Cephulac) 30 gm THREE TIMES A DAY ORAL 05/16/20 18:00 06/15/20 17:59 05/25/20 12:04 Lorazepam (Ativan) 1 mg Q6H PRN ORAL For Anxiety 05/21/20 15:30 05/28/20 15:29 Ondansetron HCl (Zofran) 4 mg Q6H PRN IVP Nausea & Vomiting 05/13/20 23:30 06/12/20 23:29 Polyethylene Glycol (Miralax) 17 gm DAILYPRN PRN ORAL Constipation 05/13/20 23:30 06/12/20 23:29 05/16/20 13:23 Promethazine HCl/ Codeine (Phenergan with Codeine) 5 ml Q6H PRN ORAL cough 05/13/20 23:30 06/12/20 23:29 Risperidone (RisperDAL) 0.5 mg BID ORAL 05/15/20 18:00 06/29/20 17:59 05/25/20 09:01 Kathy Yap M.D. May 25, 2020 16:15
[2020-05-25 20:00] VITALS: BP 100/63
[2020-05-26] VITALS: BP 114/71
[2020-05-26 04:00] VITALS: BP 109/63
[2020-05-26 08:00] VITALS: BP 130/61
[2020-05-26] MEDS: Heparin 5000 units/ml inj SUBQ SCH ×2 (09:06→22:00)
[2020-05-26] MEDS: Amiodarone 200mg tab ORAL SCH (09:07)
[2020-05-26] MEDS: Docusate 100mg cap ORAL SCH ×2 (09:07→17:24)
[2020-05-26] MEDS: Lactulose 20gm/30ml UDC ORAL SCH ×3 (09:07→17:24)
--- NOTE | 2020-05-26 09:56 | General Progress Note ---
Subjective ROS Limited/Unobtainable: Yes Allergies: Coded Allergies: No Known Allergies (Unverified , 05/13/20) Objective Last 24 Hour Vital Signs Date Time Temp Pulse Resp B/P (MAP) Pulse Ox O2 Delivery O2 Flow Rate FiO2 05/26/20 09:31 97 Nasal Cannula 4.0 36 05/26/20 09:07 58 130/61 05/26/20 08:00 98.1 58 20 130/61 (84) 96 05/26/20 04:00 65 05/26/20 04:00 97.9 66 20 109/63 (78) 93 05/26/20 00:00 99.0 76 20 114/71 (85) 95 05/26/20 00:00 67 05/25/20 21:00 Nasal Cannula 4.0 05/25/20 21:00 64 100/63 05/25/20 21:00 65 05/25/20 20:21 96 Nasal Cannula 4.0 36 05/25/20 20:00 98.8 64 20 100/63 (75) 97 05/25/20 16:00 97.2 67 20 108/59 (75) 95 05/25/20 16:00 57 05/25/20 12:00 98.1 60 22 103/62 (76) 97 05/25/20 12:00 52 Intake and Output 05/25/20 05/26/20 19:00 07:00 Output Total 400 ml 500 ml Balance -400 ml -500 ml Output Urine Total 400 ml 500 ml Height (Feet): 5 Height (Inches): 7.00 Weight (Pounds): 160 General Appearance: alert EENT: normal ENT inspection Neck: normal alignment Cardiovascular: normal rate Respiratory/Chest: lungs clear Abdomen: normal bowel sounds, non tender, soft Extremities: non-tender Assessment/Plan Problem List: (1) Elevated LFTs ICD Codes: R79.89 - Other specified abnormal findings of blood chemistry SNOMED: 011452208, 012886463 (2) COPD (chronic obstructive pulmonary disease) ICD Codes: J44.9 - Chronic obstructive pulmonary disease, unspecified SNOMED: 17472867 (3) Dehydration ICD Codes: E86.0 - Dehydration SNOMED: 90651792 (4) Pneumonia ICD Codes: J18.9 - Pneumonia, unspecified organism SNOMED: 391322592 (5) HTN (hypertension) ICD Codes: I10 - Essential (primary) hypertension SNOMED: 85200710 (6) 2019 novel coronavirus disease (COVID-19) ICD Codes: U07.1 - COVID-19 SNOMED: 919835973 Status: progressing, unchanged Assessment/Plan: repeat LFTS hold abd us for now hepatitis panel>> neg fu ID recs off protonix on marinol 5 Stefan Wilde MD May 26, 2020 09:56
--- NOTE | 2020-05-26 11:04 | Pulmonology Progress Note ---
Subjective ROS Limited/Unobtainable: Yes Constitutional: Reports: no symptoms Respiratory: Reports: no symptoms Allergies: Coded Allergies: No Known Allergies (Unverified , 05/13/20) Objective Last 24 Hour Vital Signs Date Time Temp Pulse Resp B/P (MAP) Pulse Ox O2 Delivery O2 Flow Rate FiO2 05/26/20 09:31 97 Nasal Cannula 4.0 36 05/26/20 09:07 58 130/61 05/26/20 08:00 98.1 58 20 130/61 (84) 96 05/26/20 04:00 65 05/26/20 04:00 97.9 66 20 109/63 (78) 93 05/26/20 00:00 99.0 76 20 114/71 (85) 95 05/26/20 00:00 67 05/25/20 21:00 Nasal Cannula 4.0 05/25/20 21:00 64 100/63 05/25/20 21:00 65 05/25/20 20:21 96 Nasal Cannula 4.0 36 05/25/20 20:00 98.8 64 20 100/63 (75) 97 05/25/20 16:00 97.2 67 20 108/59 (75) 95 05/25/20 16:00 57 05/25/20 12:00 98.1 60 22 103/62 (76) 97 05/25/20 12:00 52 Intake and Output 05/25/20 05/26/20 19:00 07:00 Output Total 400 ml 500 ml Balance -400 ml -500 ml Output Urine Total 400 ml 500 ml General Appearance: WD/WN, other - awake HEENT: normocephalic, atraumatic, anicteric, other - O2 4 L via NC Respiratory: chest wall non-tender, rhonchi - left, rhonchi - right Cardiovascular: normal peripheral pulses, normal rate - SR with BBB, Abdomen: normal bowel sounds, soft, non tender Genitourinary: normal external genitalia Extremities: no clubbing Neurologic: alert Lymphatic: no neck adenopathy Musculoskeletal: atrophy - BLE Current Medications Medications (Trade) Dose Ordered Sig/Tami Route PRN Reason Start Time Stop Time Status Last Admin Dose Admin Acetaminophen (Tylenol) 650 mg Q4H PRN ORAL FEVER 05/13/20 23:30 06/12/20 23:29 Albuterol/ Ipratropium (Combivent Respimat) 1 puff Q4H PRN INH Shortness of Breath 05/14/20 14:15 06/13/20 14:14 Amiodarone HCl (Cordarone) 200 mg DAILY ORAL 05/14/20 09:00 08/12/20 08:59 05/26/20 09:07 Carvedilol (Coreg) 3.125 mg EVERY 12 HOURS ORAL 05/14/20 09:00 06/13/20 08:59 05/26/20 09:07 Dextrose (Dextrose 50%) 25 ml Q30M PRN IV Hypoglycemia 05/13/20 23:30 08/11/20 23:29 Dextrose (Dextrose 50%) 50 ml Q30M PRN IV Hypoglycemia 05/13/20 23:30 08/11/20 23:29 Dextrose/Sodium Chloride 1,000 ml @ 50 mls/hr Q20H IV 05/24/20 16:00 06/23/20 15:59 05/25/20 12:04 Docusate Sodium (Colace) 100 mg TWICE A DAY ORAL 05/14/20 18:00 06/13/20 17:59 05/26/20 09:07 Heparin Sodium (Porcine) (Heparin 5000 units/ml) 5,000 units EVERY 12 HOURS SUBQ 05/14/20 09:00 06/28/20 08:59 05/26/20 09:06 Hydralazine HCl (Apresoline) 10 mg Q4H PRN IV bp over 160 syst 05/22/20 12:30 08/20/20 12:29 Lactulose (Cephulac) 30 gm THREE TIMES A DAY ORAL 05/16/20 18:00 06/15/20 17:59 05/26/20 09:07 Lorazepam (Ativan) 1 mg Q6H PRN ORAL For Anxiety 05/21/20 15:30 05/28/20 15:29 Ondansetron HCl (Zofran) 4 mg Q6H PRN IVP Nausea & Vomiting 05/13/20 23:30 06/12/20 23:29 Polyethylene Glycol (Miralax) 17 gm DAILYPRN PRN ORAL Constipation 05/13/20 23:30 06/12/20 23:29 05/16/20 13:23 Promethazine HCl/ Codeine (Phenergan with Codeine) 5 ml Q6H PRN ORAL cough 05/13/20 23:30 06/12/20 23:29 Risperidone (RisperDAL) 0.5 mg BID ORAL 05/15/20 18:00 06/29/20 17:59 05/26/20 09:07 Assessment/Plan Problems: (1) 2019 novel coronavirus disease (COVID-19) (2) Nosocomial pneumonia (3) TOPHER (acute kidney injury) (4) COPD (chronic obstructive pulmonary disease) (5) Psychosis (6) HTN (hypertension) Assessment/Plan no new complains renal function worsening cxr 05/09 showed increasing bilateral infiltrate, 05/25: bilateral infiltrates again demonstrated, which, allowing for slight differences in exposure technique, are probably unchanged afebrile titrate fio2 to sat of 92% respiratory treatment prn f/u crp and cxr periodically monitor BP symptomatic treatment. dvt prophylaxis. keep in isolation Umesh Prajapati MD May 26, 2020 11:04
[2020-05-26 12:00] VITALS: BP 131/71
--- NOTE | 2020-05-26 14:13 | Nephrology Progress Note ---
Assessment/Plan Problem List: (1) TOPHER (acute kidney injury) (2) 2019 novel coronavirus disease (COVID-19) (3) Pneumonia (4) COPD (chronic obstructive pulmonary disease) (5) Psychosis Assessment Renal failure, acute on chronic Partly dehydration COPD, hypoxia, COVID-19 disease Psychosis Atrial fibrillation High cholesterol Hypertension History of CVA Plan May 26: No labs drawn today. We will check labs in a.m. Continue per cu rrent management. Medication list reviewed. May 25: Labs reviewed. Renal parameters much improved. Electrolytes within normal limit. Medication list reviewed. Continue per consultants. May 24: Labs reviewed. Serum creatinine lower. Serum sodium normalized. Electrolytes within normal limit. Will change IV to D5 normal saline. Continue per consultants. Blood pressure stable. May 23: Labs reviewed. Serum creatinine lower. Serum sodium lower. Potassium 5.4 , I suspect partly hemolysis. Patient has a Conway catheter. Continue D5W. Continue to monitor renal parameters. Continue per consultants. May 22: Patient more encephalopathic. Blood pressure low. Labs reviewed. Renal parameters worsened. Conway catheter ordered. Will stop Flomax and Proscar. Will adjust blood pressure medications. Will give IV fluid. Discussed with NAI Corbett. Will keep the patient n.p.o. due to poor mental status. Per orders. May 21: No labs drawn today. Stable from renal standpoint of view. C ontinue per consultants. May 20: Lab reviewed. Serum creatinine 1.5 stable. Serum sodium lowering. Continue per consultants. May 19: Labs reviewed. Serum creatinine lower to 1.5. Serum sodium mildly elevated. Continue free water administration. Monitor renal parameters. Continue per consultants. May 18: Labs reviewed. Serum creatinine up to 1.7. Electrolytes within normal limit. Continue to monitor renal parameters. Continue per consultants. May 17: Labs reviewed. Serum sodium normalized. Serum creatinine 1.5 stable. Continue per current management. May 16: Labs reviewed. Creatinine 1.5 unchanged. Blood pressure stable. Electrolytes unchanged. Serum sodium 133. Continue to monitor renal parameters Adjust blood pressure medication Stop saline hydration Monitor renal parameters and electrolytes Pulmonary support Per consultants Avoid nephrotoxic's Urine studies Per orders Subjective ROS Limited/Unobtainable: Yes Objective Objective Last 24 Hour Vital Signs Date Time Temp Pulse Resp B/P (MAP) Pulse Ox O2 Delivery O2 Flow Rate FiO2 05/26/20 12:00 96.8 81 19 131/71 (91) 96 05/26/20 12:00 76 05/26/20 09:31 97 Nasal Cannula 4.0 36 05/26/20 09:07 58 130/61 05/26/20 09:00 Nasal Cannula 4.0 05/26/20 08:00 69 05/26/20 08:00 98.1 58 20 130/61 (84) 96 05/26/20 04:00 65 05/26/20 04:00 97.9 66 20 109/63 (78) 93 05/26/20 00:00 99.0 76 20 114/71 (85) 95 05/26/20 00:00 67 05/25/20 21:00 Nasal Cannula 4.0 05/25/20 21:00 64 100/63 05/25/20 21:00 65 05/25/20 20:21 96 Nasal Cannula 4.0 36 05/25/20 20:00 98.8 64 20 100/63 (75) 97 05/25/20 16:00 97.2 67 20 108/59 (75) 95 05/25/20 16:00 57 Intake and Output 05/25/20 05/26/20 19:00 07:00 Output Total 400 ml 500 ml Balance -400 ml -500 ml Output Urine Total 400 ml 500 ml No labs drawn today Height (Feet): 5 Height (Inches): 7.00 Weight (Pounds): 160 General Appearance: no apparent distress, lethargic Cardiovascular: other - Variable rate Respiratory/Chest: decreased breath sounds Abdomen: distended Alan Sánchez MD May 26, 2020 14:13
[2020-05-26 16:00] VITALS: BP 133/80
[2020-05-26 20:00] VITALS: BP 105/72
--- NOTE | 2020-05-26 21:38 | General Progress Note ---
Subjective ROS Limited/Unobtainable: Yes Allergies: Coded Allergies: No Known Allergies (Unverified , 05/13/20) Objective Last 24 Hour Vital Signs Date Time Temp Pulse Resp B/P (MAP) Pulse Ox O2 Delivery O2 Flow Rate FiO2 05/26/20 20:00 97.7 98 20 105/72 (83) 92 05/26/20 20:00 93 05/26/20 16:00 72 05/26/20 16:00 98.7 78 19 133/80 (97) 97 05/26/20 12:00 96.8 81 19 131/71 (91) 96 05/26/20 12:00 76 05/26/20 09:31 97 Nasal Cannula 4.0 36 05/26/20 09:07 58 130/61 05/26/20 09:00 Nasal Cannula 4.0 05/26/20 08:00 69 05/26/20 08:00 98.1 58 20 130/61 (84) 96 05/26/20 04:00 65 05/26/20 04:00 97.9 66 20 109/63 (78) 93 05/26/20 00:00 99.0 76 20 114/71 (85) 95 05/26/20 00:00 67 Intake and Output 05/25/20 05/26/20 19:00 07:00 Output Total 400 ml 500 ml Balance -400 ml -500 ml Output Urine Total 400 ml 500 ml Height (Feet): 5 Height (Inches): 7.00 Weight (Pounds): 160 Assessment/Plan Problem List: (1) COPD (chronic obstructive pulmonary disease) ICD Codes: J44.9 - Chronic obstructive pulmonary disease, unspecified SNOMED: 53207924 (2) Dehydration ICD Codes: E86.0 - Dehydration SNOMED: 03632729 (3) Pneumonia ICD Codes: J18.9 - Pneumonia, unspecified organism SNOMED: 465393562 (4) HTN (hypertension) ICD Codes: I10 - Essential (primary) hypertension SNOMED: 75333846 (5) 2019 novel coronavirus disease (COVID-19) ICD Codes: U07.1 - COVID-19 SNOMED: 552906010 (6) TOPHER (acute kidney injury) ICD Codes: N17.9 - Acute kidney failure, unspecified SNOMED: 2947713, 60688573 Status: progressing, unchanged Assessment/Plan: covid + pna resp insuff copd pna no change dry htn reviewed chart Hillary Smallwood MD May 26, 2020 21:38
--- NOTE | 2020-05-26 23:08 | Psychiatry Consultation ---
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 Has waxing and waning consciousness. Not able to be engaged. Has episodes of agitation. Patient attempts to pull out lines and her oxygen mask. PAST PSYCHIATRIC HISTORY: Dementia. PAST MEDICAL HISTORY: Significant for pneumonia, renal insufficiency. ALLERGIES: No known drug allergies. SUBSTANCE ABUSE HISTORY: No known history of illicit drug use or alcohol. MENTAL STATUS EXAMINATION: Patient is having waxing and waning consciousness. Mood is anxious. Affect is blunted, congruent with mood. Thought process is concrete. Thought content, no suicidal or homicidal ideation. Cognition is impaired. Insight and judgment is impaired. ASSESSMENT: Vidal I Acute metabolic encephalopathy. Dementia. Vidal II Deferred. Vidal III As above. Vidal IV Low. Vidal V 20. PLAN: 1. We will start patient on Haldol p.r.n. 2. Bilateral soft restraints. Allergies: Coded Allergies: No Known Allergies (Unverified , 05/13/20) Medication History Scheduled Amiodarone Hcl* (Pacerone*), 200 MG ORAL DAILY, (Reported) Aspirin Ec* (Aspirin Ec*), 81 MG ORAL DAILY, (Reported) Atorvastatin Calcium* (Lipitor*), 10 MG ORAL BEDTIME, (Reported) Carvedilol (Coreg), 3.125 MG ORAL EVERY 12 HOURS, (Reported) Finasteride* (Proscar*), 5 MG ORAL DAILY, (Reported) Isosorbide Mononitrate (Isosorbide Mononitrate Er), 30 MG PO DAILY, (Reported) Lisinopril (Lisinopril*), 5 MG ORAL DAILY, (Reported) Polyethylene Glycol 3350* (Miralax*), 17 GM ORAL DAILY, (Reported) Objective Data Height (Feet): 5 Height (Inches): 7.00 Weight (Pounds): 160 Adeel Knapp MD May 26, 2020 23:08
[2020-05-27] VITALS: BP 124/69
[2020-05-27 04:00] VITALS: BP 133/76
[2020-05-27 04:52] LABS: ALBUMIN 1.7 G/DL (3.4-5.0); ALBUMIN/GLOBULIN RATIO 0.4 (1.0-2.7); BILIRUBIN,TOTAL 0.9 MG/DL (0.2-1.0); CALCIUM 8.3 MG/DL (8.5-10.1); CREATININE 1.2 MG/DL (0.55-1.30); PHOSPHORUS 2.5 MG/DL (2.5-4.9); POTASSIUM 4.5 MMOL/L (3.5-5.1)
[2020-05-27 07:06] LABS: HEMATOCRIT 43.9 % (42.0-52.0); MEAN CORPUSCULAR VOLUME 93 FL (80-99); PLATELET COUNT 129 K/UL (150-450); RED BLOOD COUNT 4.73 M/UL (4.70-6.10); RED CELL DISTRIBUTION WIDTH 13.3 % (11.6-14.8)
--- NOTE | 2020-05-27 07:10 | General Progress Note ---
Subjective ROS Limited/Unobtainable: No Allergies: Coded Allergies: No Known Allergies (Unverified , 05/13/20) Objective Last 24 Hour Vital Signs Date Time Temp Pulse Resp B/P (MAP) Pulse Ox O2 Delivery O2 Flow Rate FiO2 05/27/20 04:00 71 05/27/20 04:00 97.2 71 20 133/76 (95) 96 05/27/20 00:00 98.1 77 18 124/69 (87) 95 05/27/20 00:00 88 05/26/20 21:58 93 125/72 05/26/20 21:00 95 Nasal Cannula 3.0 32 05/26/20 21:00 Nasal Cannula 4.0 05/26/20 20:00 97.7 98 20 105/72 (83) 92 05/26/20 20:00 93 05/26/20 16:00 72 05/26/20 16:00 98.7 78 19 133/80 (97) 97 05/26/20 12:00 96.8 81 19 131/71 (91) 96 05/26/20 12:00 76 05/26/20 09:31 97 Nasal Cannula 4.0 36 05/26/20 09:07 58 130/61 05/26/20 09:00 Nasal Cannula 4.0 05/26/20 08:00 69 05/26/20 08:00 98.1 58 20 130/61 (84) 96 Intake and Output 05/26/20 05/27/20 19:00 07:00 Output Total 500 ml 350 ml Balance -500 ml -350 ml Output Urine Total 500 ml 350 ml Laboratory Tests 05/27/20 04:20: Sodium Level 140, Potassium Level 4.5, Chloride Level 111H, Carbon Dioxide Level 21, Anion Gap 8, Blood Urea Nitrogen 32H, Creatinine 1.2, Estimat Glomerular Filtration Rate 59.3, Glucose Level 119H, Calcium Level 8.3L, Phosphorus Level 2.5, Magnesium Level 2.1, Total Bilirubin 0.9, Aspartate Amino Transf (AST/SGOT) 46H, Alanine Aminotransferase (ALT/SGPT) 81H, Alkaline Phosphatase 86, C- Reactive Protein, Quantitative [Pending], Pro-B-Type Natriuretic Peptide 1117H, Total Protein 6.2L, Albumin 1.7L, Globulin 4.5, Albumin/Globulin Ratio 0.4L 05/27/20 05:57: White Blood Count [Pending], Red Blood Count [Pending], Hemoglobin [Pending], Hematocrit [Pending], Mean Corpuscular Volume [Pending], Mean Corpuscular H emoglobin [Pending], Mean Corpuscular Hemoglobin Concent [Pending], Red Cell Distribution Width [Pending], Platelet Count [Pending], Mean Platelet Volume [Pending], Neutrophils (%) (Auto) [Pending], Lymphocytes (%) (Auto) [Pending], Monocytes (%) (Auto) [Pending], Eosinophils (%) (Auto) [Pending], Basophils (%) (Auto) [Pending] Height (Feet): 5 Height (Inches): 7.00 Weight (Pounds): 160 General Appearance: no apparent distress EENT: normal ENT inspection Neck: supple Cardiovascular: normal rate Respiratory/Chest: decreased breath sounds Abdomen: normal bowel sounds, non tender, soft Extremities: non-tender Assessment/Plan Problem List: (1) Elevated LFTs ICD Codes: R79.89 - Other specified abnormal findings of blood chemistry SNOMED: 343473501, 809324893 (2) COPD (chronic obstructive pulmonary disease) ICD Codes: J44.9 - Chronic obstructive pulmonary disease, unspecified SNOMED: 67845954 (3) Dehydration ICD Codes: E86.0 - Dehydration SNOMED: 07716759 (4) Pneumonia ICD Codes: J18.9 - Pneumonia, unspecified organism SNOMED: 804170233 (5) HTN (hypertension) ICD Codes: I10 - Essential (primary) hypertension SNOMED: 19196127 (6) 2019 novel coronavirus disease (COVID-19) ICD Codes: U07.1 - COVID-19 SNOMED: 088045895 Status: progressing, unchanged Assessment/Plan: repeat LFTS hold abd us for now hepatitis panel>> neg fu ID recs off protonix on marinol 5 eating about 30 % add ensure Stefan Wilde MD May 27, 2020 07:10
[2020-05-27 08:00] VITALS: BP 140/87
[2020-05-27] MEDS: Lactulose 20gm/30ml UDC ORAL SCH ×3 (08:51→17:28)
[2020-05-27] MEDS: Docusate 100mg cap ORAL SCH ×2 (08:51→17:28)
[2020-05-27] MEDS: Amiodarone 200mg tab ORAL SCH (08:51)
[2020-05-27] MEDS: Heparin 5000 units/ml inj SUBQ SCH ×2 (08:53→20:44)
--- NOTE | 2020-05-27 09:01 | Infectious Diseases Prog Note ---
Assessment/Plan 74yo M with: Afebrile Normal WBC Lymphopenia Pneumonia COVID pneumonia, severe Acute hypoxic resp failure on NRB mask Possible UTI 05/13 BCx NTD UA 5-10 WBC, UCx >100k Kleb pna (S-CTX) COVID rapid positive CXR: Multifocal pna 05/19 CXR: Increasing bilateral infiltrates Elevated LFTs, AST/ALT 125 / 80 TOPHER on CKD, Cr 1.5, improving COPD Cardiac disease SNF resident Plan: Cont to monitor off abx Pt doing well on RA, off therapeutics, OK to d/c from ID standpoint Trend WBC, Cr Trend mental status 05/23 SP dex #10 05/18 SP RDV #5 05/18 SP Augmentin #1, Azithro #5 05/17 SP CTX #4 Monitor CBC/CMP Monitor temp curve, hemodynamics Monitor resp status D/w RN Thank you for this consult. [facility] will continue to follow. Subjective Allergies: Coded Allergies: No Known Allergies (Unverified , 05/13/20) AF NAD WBC 17, stable More awake and interactive than prior Satting 94-95% on RA Objective Last 24 Hour Vital Signs Date Time Temp Pulse Resp B/P (MAP) Pulse Ox O2 Delivery O2 Flow Rate FiO2 05/27/20 08:51 80 140/87 05/27/20 08:00 96.8 80 20 140/87 (104) 97 05/27/20 04:00 71 05/27/20 04:00 97.2 71 20 133/76 (95) 96 05/27/20 00:00 98.1 77 18 124/69 (87) 95 05/27/20 00:00 88 05/26/20 21:58 93 125/72 05/26/20 21:00 95 Nasal Cannula 3.0 32 05/26/20 21:00 Nasal Cannula 4.0 05/26/20 20:00 97.7 98 20 105/72 (83) 92 05/26/20 20:00 93 05/26/20 16:00 72 05/26/20 16:00 98.7 78 19 133/80 (97) 97 05/26/20 12:00 96.8 81 19 131/71 (91) 96 05/26/20 12:00 76 05/26/20 09:31 97 Nasal Cannula 4.0 36 05/26/20 09:07 58 130/61 Height (Feet): 5 Height (Inches): 7.00 Weight (Pounds): 160 Gen: NAD HEENT: NCAT Pulm: BL chest rise Abd: Soft, NTND Ext: No c/c/e Skin: No visible rashes Neuro: Awake, interactive Laboratory Tests Test 05/27/20 04:20 05/27/20 05:57 Sodium Level 140 MMOL/L (136-145) Potassium Level 4.5 MMOL/L (3.5-5.1) Chloride Level 111 MMOL/L (98-107) H Carbon Dioxide Level 21 MMOL/L (21-32) Anion Gap 8 mmol/L (5-15) Blood Urea Nitrogen 32 mg/dL (7-18) H Creatinine 1.2 MG/DL (0.55-1.30) Estimat Glomerular Filtration Rate 59.3 mL/min (>60) Glucose Level 119 MG/DL (74-106) H Calcium Level 8.3 MG/DL (8.5-10.1) L Phosphorus Level 2.5 MG/DL (2.5-4.9) Magnesium Level 2.1 MG/DL (1.8-2.4) Total Bilirubin 0.9 MG/DL (0.2-1.0) Aspartate Amino Transf (AST/SGOT) 46 U/L (15-37) H Alanine Aminotransferase (ALT/SGPT) 81 U/L (12-78) H Alkaline Phosphatase 86 U/L (46-116) C-Reactive Protein, Quantitative Pending Pro-B-Type Natriuretic Peptide 1117 pg/mL (0-125) H Total Protein 6.2 G/DL (6.4-8.2) L Albumin 1.7 G/DL (3.4-5.0) L Globulin 4.5 g/dL Albumin/Globulin Ratio 0.4 (1.0-2.7) L White Blood Count 17.0 K/UL (4.8-10.8) H Red Blood Count 4.73 M/UL (4.70-6.10) Hemoglobin 15.0 G/DL (14.2-18.0) Hematocrit 43.9 % (42.0-52.0) Mean Corpuscular Volume 93 FL (80-99) Mean Corpuscular Hemoglobin 31.8 PG (27.0-31.0) H Mean Corpuscular Hemoglobin Concent 34.2 G/DL (32.0-36.0) Red Cell Distribution Width 13.3 % (11.6-14.8) Platelet Count 129 K/UL (150-450) L Mean Platelet Volume 12.5 FL (6.5-10.1) H Neutrophils (%) (Auto) % (45.0-75.0) Lymphocytes (%) (Auto) % (20.0-45.0) Monocytes (%) (Auto) % (1.0-10.0) Eosinophils (%) (Auto) % (0.0-3.0) Basophils (%) (Auto) % (0.0-2.0) Neutrophils % (Manual) Pending Lymphocytes % (Manual) Pending Platelet Estimate Pending Platelet Morphology Pending Current Medications Medications (Trade) Dose Ordered Sig/Tami Route PRN Reason Start Time Stop Time Status Last Admin Dose Admin Acetaminophen (Tylenol) 650 mg Q4H PRN ORAL FEVER 05/13/20 23:30 06/12/20 23:29 Albuterol/ Ipratropium (Combivent Respimat) 1 puff Q4H PRN INH Shortness of Breath 05/14/20 14:15 06/13/20 14:14 Amiodarone HCl (Cordarone) 200 mg DAILY ORAL 05/14/20 09:00 08/12/20 08:59 05/27/20 08:51 Carvedilol (Coreg) 3.125 mg EVERY 12 HOURS ORAL 05/14/20 09:00 06/13/20 08:59 05/27/20 08:51 Dextrose (Dextrose 50%) 25 ml Q30M PRN IV Hypoglycemia 05/13/20 23:30 08/11/20 23:29 Dextrose (Dextrose 50%) 50 ml Q30M PRN IV Hypoglycemia 05/13/20 23:30 08/11/20 23:29 Docusate Sodium (Colace) 100 mg TWICE A DAY ORAL 05/14/20 18:00 06/13/20 17:59 05/27/20 08:51 Heparin Sodium (Porcine) (Heparin 5000 units/ml) 5,000 units EVERY 12 HOURS SUBQ 05/14/20 09:00 06/28/20 08:59 05/27/20 08:53 Hydralazine HCl (Apresoline) 10 mg Q4H PRN IV bp over 160 syst 05/22/20 12:30 08/20/20 12:29 Lactulose (Cephulac) 30 gm THREE TIMES A DAY ORAL 05/16/20 18:00 06/15/20 17:59 05/27/20 08:51 Lorazepam (Ativan) 1 mg Q6H PRN ORAL For Anxiety 05/21/20 15:30 05/28/20 15:29 Ondansetron HCl (Zofran) 4 mg Q6H PRN IVP Nausea & Vomiting 05/13/20 23:30 06/12/20 23:29 Polyethylene Glycol (Miralax) 17 gm DAILYPRN PRN ORAL Constipation 05/13/20 23:30 06/12/20 23:29 05/16/20 13:23 Promethazine HCl/ Codeine (Phenergan with Codeine) 5 ml Q6H PRN ORAL cough 05/13/20 23:30 06/12/20 23:29 Risperidone (RisperDAL) 0.5 mg BID ORAL 05/15/20 18:00 06/29/20 17:59 05/27/20 08:51 Kathy Yap M.D. May 27, 2020 09:01
[2020-05-27 12:00] VITALS: BP 102/74
--- NOTE | 2020-05-27 13:27 | Nephrology Progress Note ---
Assessment/Plan Problem List: (1) TOPHER (acute kidney injury) (2) 2019 novel coronavirus disease (COVID-19) (3) Pneumonia (4) COPD (chronic obstructive pulmonary disease) (5) Psychosis Assessment Renal failure, acute on chronic Partly dehydration COPD, hypoxia, COVID-19 disease Psychosis Atrial fibrillation High cholesterol Hypertension History of CVA Plan May 27: Labs reviewed. Stable renal parameters. Leukocytosis persists. May 26: No labs drawn today. We will check labs in a.m. Continue per current management. Medication list reviewed. May 25: Labs reviewed. Renal parameters much improved. Electrolytes within normal limit. Medication list reviewed. Continue per consultants. May 24: Labs reviewed. Serum creatinine lower. Serum sodium normalized. Electrolytes within normal limit. Will change IV to D5 normal saline. Continue per consultants. Blood pressure stable. May 23: Labs reviewed. Serum creatinine lower. Serum sodium lower. Potassium 5.4 , I suspect partly hemolysis. Patient has a Conway catheter. Continue D5W. Continue to monitor renal parameters. Continue per consultants. May 22: Patient more encephalopathic. Blood pressure low. Labs reviewed. Renal parameters worsened. Conway catheter ordered. Will stop Flomax and Proscar. Will adjust blood pressure medications. Will give IV fluid. Discussed with NAI Corbett. Will keep the patient n.p.o. due to poor mental status. Per orders. May 21: No labs drawn today. Stable from renal standpoint of view. Continue per consultants. May 20: Lab reviewed. Serum creatinine 1.5 stable. Serum sodium lowering. Continue per consultants. May 19: Labs reviewed. Serum creatinine lower to 1.5. Serum sodium mildly elevated. Continue free water administration. Monitor renal parameters. Continue per consultants. May 18: Labs reviewed. Serum creatinine up to 1.7. Electrolytes within normal limit. Continue to monitor renal parameters. Continue per consultants. May 17: Labs reviewed. Serum sodium normalized. Serum creatinine 1.5 stable. Continue per current management. May 16: Labs reviewed. Creatinine 1.5 unchanged. Blood pressure stable. Electrolytes unchanged. Serum sodium 133. Continue to monitor renal parameters Adjust blood pressure medication Stop saline hydration Monitor renal parameters and electrolytes Pulmonary support Per consultants Avoid nephrotoxic's Urine studies Per orders Subjective ROS Limited/Unobtainable: No Constitutional: Reports: malaise, weakness Objective Objective Last 24 Hour Vital Signs Date Time Temp Pulse Resp B/P (MAP) Pulse Ox O2 Delivery O2 Flow Rate FiO2 05/27/20 13:13 97 Nasal Cannula 3.0 32 05/27/20 12:50 96 Nasal Cannula 3.0 32 05/27/20 09:00 Nasal Cannula 4.0 05/27/20 08:51 80 140/87 05/27/20 08:00 71 05/27/20 08:00 96.8 80 20 140/87 (104) 97 05/27/20 04:00 71 05/27/20 04:00 97.2 71 20 133/76 (95) 96 05/27/20 00:00 98.1 77 18 124/69 (87) 95 05/27/20 00:00 88 05/26/20 21:58 93 125/72 05/26/20 21:00 95 Nasal Cannula 3.0 32 05/26/20 21:00 Nasal Cannula 4.0 05/26/20 20:00 97.7 98 20 105/72 (83) 92 05/26/20 20:00 93 05/26/20 16:00 72 05/26/20 16:00 98.7 78 19 133/80 (97) 97 Intake and Output 0 05/26/20 05/27/20 19:00 07:00 Output Total 500 ml 350 ml Balance -500 ml -350 ml Output Urine Total 500 ml 350 ml Laboratory Tests 05/27/20 04:20: Sodium Level 140, Potassium Level 4.5, Chloride Level 111H, Carbon Dioxide Level 21, Anion Gap 8, Blood Urea Nitrogen 32H, Creatinine 1.2, Estimat Glomerular Filtration Rate 59.3, Glucose Level 119H, Calcium Level 8.3L, Phosphorus Level 2.5, Magnesium Level 2.1, Total Bilirubin 0.9, Aspartate Amino Transf (AST/SGOT) 46H, Alanine Aminotransferase (ALT/SGPT) 81H, Alkaline Phosphatase 86, C- Reactive Protein, Quantitative 16.1H, Pro-B-Type Natriuretic Peptide 1117H, Total Protein 6.2L, Albumin 1.7L, Globulin 4.5, Albumin/Globulin Ratio 0.4L 05/27/20 05:57: White Blood Count 17.0H, Red Blood Count 4.73, Hemoglobin 15.0, Hematocrit 43.9, Mean Corpuscular Volume 93, Mean Corpuscular Hemoglobin 31.8H, Mean Corpuscular Hemoglobin Concent 34.2, Red Cell Distribution Width 13.3, Platelet Count 129L, Mean Platelet Volume 12.5H, Neutrophils (%) (Auto) , Lymphocytes (%) (Auto) , Monocytes (%) (Auto) , Eosinophils (%) (Auto) , Basophils (%) (Auto) , Differential Total Cells Counted 100, Neutrophils % (Manual) 93H, Lymphocytes % (Manual) 5L, Monocytes % (Manual) 2, Eosinophils % (Manual) 0, Basophils % (Manual) 0, Band Neutrophils 0, Platelet Estimate DecreasedL, Platelet Morphology Normal, Red Blood Cell Morphology Normal Height (Feet): 5 Height (Inches): 7.00 Weight (Pounds): 160 General Appearance: no apparent distress Cardiovascular: normal rate Respiratory/Chest: decreased breath sounds Abdomen: distended Objective No change Alan Snáchez MD May 27, 2020 13:27
--- NOTE | 2020-05-27 13:28 | Pulmonology Progress Note ---
Subjective ROS Limited/Unobtainable: No Constitutional: Reports: no symptoms Respiratory: Reports: no symptoms Allergies: Coded Allergies: No Known Allergies (Unverified , 05/13/20) Objective Last 24 Hour Vital Signs Date Time Temp Pulse Resp B/P (MAP) Pulse Ox O2 Delivery O2 Flow Rate FiO2 05/27/20 13:13 97 Nasal Cannula 3.0 32 05/27/20 12:50 96 Nasal Cannula 3.0 32 05/27/20 09:00 Nasal Cannula 4.0 05/27/20 08:51 80 140/87 05/27/20 08:00 71 05/27/20 08:00 96.8 80 20 140/87 (104) 97 05/27/20 04:00 71 05/27/20 04:00 97.2 71 20 133/76 (95) 96 05/27/20 00:00 98.1 77 18 124/69 (87) 95 05/27/20 00:00 88 05/26/20 21:58 93 125/72 05/26/20 21:00 95 Nasal Cannula 3.0 32 05/26/20 21:00 Nasal Cannula 4.0 05/26/20 20:00 97.7 98 20 105/72 (83) 92 05/26/20 20:00 93 05/26/20 16:00 72 05/26/20 16:00 98.7 78 19 133/80 (97) 97 Intake and Output 05/26/20 05/27/20 19:00 07:00 Output Total 500 ml 350 ml Balance -500 ml -350 ml Output Urine Total 500 ml 350 ml General Appearance: WD/WN, other - awake HEENT: normocephalic, atraumatic, anicteric, other - O2 4 L via NC Respiratory: chest wall non-tender, rhonchi - left, rhonchi - right Cardiovascular: normal peripheral pulses, normal rate - SR with BBB, Abdomen: normal bowel sounds, soft, non tender Genitourinary: normal external genitalia Extremities: no clubbing Neurologic: alert Lymphatic: no neck adenopathy Musculoskeletal: atrophy - BLE Laboratory Tests 05/27/20 04:20: Sodium Level 140, Potassium Level 4.5, Chloride Level 111H, Carbon Dioxide Level 21, Anion Gap 8, Blood Urea Nitrogen 32H, Creatinine 1.2, Estimat Glomerular Filtration Rate 59.3, Glucose Level 119H, Calcium Level 8.3L, Phosphorus Level 2.5, Magnesium Level 2.1, Total Bilirubin 0.9, Aspartate Amino Transf (AST/SGOT) 46H, Alanine Aminotransferase (ALT/SGPT) 81H, Alkaline Phosphatase 86, C- Reactive Protein, Quantitative 16.1H, Pro-B-Type Natriuretic Peptide 1117H, Total Protein 6.2L, Albumin 1.7L, Globulin 4.5, Albumin/Globulin Ratio 0.4L 05/27/20 05:57: White Blood Count 17.0H, Red Blood Count 4.73, Hemoglobin 15.0, Hematocrit 43.9, Mean Corpuscular Volume 93, Mean Corpuscular Hemoglobin 31.8H, Mean Corpuscular Hemoglobin Concent 34.2, Red Cell Distribution Width 13.3, Platelet Count 129L, Mean Platelet Volume 12.5H, Neutrophils (%) (Auto) , Lymphocytes (%) (Auto) , Monocytes (%) (Auto) , Eosinophils (%) (Auto) , Basophils (%) (Auto) , Differential Total Cells Counted 100, Neutrophils % (Manual) 93H, Lymphocytes % (Manual) 5L, Monocytes % (Manual) 2, Eosinophils % (Manual) 0, Basophils % (Manual) 0, Band Neutrophils 0, Platelet Estimate DecreasedL, Platelet Morphology Normal, Red Blood Cell Morphology Normal Current Medications Medications (Trade) Dose Ordered Sig/Tami Route PRN Reason Start Time Stop Time Status Last Admin Dose Admin Acetaminophen (Tylenol) 650 mg Q4H PRN ORAL FEVER 05/13/20 23:30 06/12/20 23:29 Albuterol/ Ipratropium (Combivent Respimat) 1 puff Q4H PRN INH Shortness of Breath 05/14/20 14:15 06/13/20 14:14 Amiodarone HCl (Cordarone) 200 mg DAILY ORAL 05/14/20 09:00 08/12/20 08:59 05/27/20 08:51 Carvedilol (Coreg) 3.125 mg EVERY 12 HOURS ORAL 05/14/20 09:00 06/13/20 08:59 05/27/20 08:51 Dextrose (Dextrose 50%) 25 ml Q30M PRN IV Hypoglycemia 05/13/20 23:30 08/11/20 23:29 Dextrose (Dextrose 50%) 50 ml Q30M PRN IV Hypoglycemia 05/13/20 23:30 08/11/20 23:29 Docusate Sodium (Colace) 100 mg TWICE A DAY ORAL 05/14/20 18:00 06/13/20 17:59 05/27/20 08:51 Heparin Sodium (Porcine) (Heparin 5000 units/ml) 5,000 units EVERY 12 HOURS SUBQ 05/14/20 09:00 06/28/20 08:59 05/27/20 08:53 Hydralazine HCl (Apresoline) 10 mg Q4H PRN IV bp over 160 syst 05/22/20 12:30 08/20/20 12:29 Lactulose (Cephulac) 30 gm THREE TIMES A DAY ORAL 05/16/20 18:00 06/15/20 17:59 05/27/20 08:51 Lorazepam (Ativan) 1 mg Q6H PRN ORAL For Anxiety 05/21/20 15:30 05/28/20 15:29 Ondansetron HCl (Zofran) 4 mg Q6H PRN IVP Nausea & Vomiting 05/13/20 23:30 06/12/20 23:29 Polyethylene Glycol (Miralax) 17 gm DAILYPRN PRN ORAL Constipation 05/13/20 23:30 06/12/20 23:29 05/16/20 13:23 Promethazine HCl/ Codeine (Phenergan with Codeine) 5 ml Q6H PRN ORAL cough 05/13/20 23:30 06/12/20 23:29 Risperidone (RisperDAL) 0.5 mg BID ORAL 05/15/20 18:00 06/29/20 17:59 05/27/20 08:51 Assessment/Plan Problems: (1) 2019 novel coronavirus disease (COVID-19) (2) Nosocomial pneumonia (3) TOPHER (acute kidney injury) (4) COPD (chronic obstructive pulmonary disease) (5) Psychosis (6) HTN (hypertension) Assessment/Plan no new complains renal function worsening cxr 05/09 showed increasing bilateral infiltrate, 05/25: bilateral infiltrates again demonstrated, which, allowing for slight differences in exposure technique, are probably unchanged afebrile titrate fio2 to sat of 92% respiratory treatment prn monitor BP symptomatic treatment. dvt prophylaxis. keep in isolation Umesh Prajapati MD May 27, 2020 13:28
[2020-05-27 16:00] VITALS: BP 103/75
--- NOTE | 2020-05-27 19:00 | Consultation ---
DATE OF CONSULTATION: 05/27/2020 CONSULTING PHYSICIAN: Adeel Knapp MD HISTORY OF PRESENT ILLNESS: This is a 74-year-old male with history of dementia, AFib, hypertension, COPD, TIA who has been admitted to the hospital for COVID-19 pneumonia. Patient is weak, has waxing, waning consciousness and is confused, attempting to pull out lines. He was placed on bilateral soft restraints. PAST PSYCHIATRIC HISTORY: Dementia. PAST MEDICAL HISTORY: Hypertension, UTI, COPD. ALLERGIES: No known drug allergies. SUBSTANCE ABUSE HISTORY: No known history of illicit drug use or alcohol. He is a smoker. MENTAL STATUS EXAMINATION: Patient is awake, disoriented to situation and date. Mood is little anxious. Affect is blunted, congruent with mood. Thought process is concrete. Thought content, no suicidal or homicidal ideation. Cognition is impaired. Insight and judgment is impaired. ASSESSMENT: [place] I Acute toxic encephalopathy. [place] II Deferred. [place] III COVID-19 pneumonia. Renal failure. [place] IV Low. [place] V 20. PLAN: 1. We will discontinue the Ativan and risperidone. 2. Bilateral soft restraints. 3. Discussed with Dr. Smallwood. Adeel Knapp M.D. DR: BUNNY JOB#: [id number] CC:
[2020-05-27 20:00] VITALS: BP 101/72
--- NOTE | 2020-05-27 20:22 | General Progress Note ---
Subjective ROS Limited/Unobtainable: Yes Allergies: Coded Allergies: No Known Allergies (Unverified , 05/13/20) Objective Last 24 Hour Vital Signs Date Time Temp Pulse Resp B/P (MAP) Pulse Ox O2 Delivery O2 Flow Rate FiO2 05/27/20 16:00 97.6 75 20 103/75 (84) 96 05/27/20 16:00 73 05/27/20 13:13 97 Nasal Cannula 3.0 32 05/27/20 12:50 96 Nasal Cannula 3.0 32 05/27/20 12:00 82 05/27/20 12:00 97.6 75 20 102/74 (83) 97 05/27/20 09:00 Nasal Cannula 4.0 05/27/20 08:51 80 140/87 05/27/20 08:00 71 05/27/20 08:00 96.8 80 20 140/87 (104) 97 05/27/20 04:00 71 05/27/20 04:00 97.2 71 20 133/76 (95) 96 05/27/20 00:00 98.1 77 18 124/69 (87) 95 05/27/20 00:00 88 05/26/20 21:58 93 125/72 05/26/20 21:00 95 Nasal Cannula 3.0 32 05/26/20 21:00 Nasal Cannula 4.0 Intake and Output 05/26/20 05/27/20 19:00 07:00 Output Total 500 ml 350 ml Balance -500 ml -350 ml Output Urine Total 500 ml 350 ml Laboratory Tests 05/27/20 04:20: Sodium Level 140, Potassium Level 4.5, Chloride Level 111H, Carbon Dioxide Level 21, Anion Gap 8, Blood Urea Nitrogen 32H, Creatinine 1.2, Estimat Glomerular Filtration Rate 59.3, Glucose Level 119H, Calcium Level 8.3L, Phosphorus Level 2.5, Magnesium Level 2.1, Total Bilirubin 0.9, Aspartate Amino Transf (AST/SGOT) 46H, Alanine Aminotransferase (ALT/SGPT) 81H, Alkaline Phosphatase 86, C- Reactive Protein, Quantitative 16.1H, Pro-B-Type Natriuretic Peptide 1117H, Total Protein 6.2L, Albumin 1.7L, Globulin 4.5, Albumin/Globulin Ratio 0.4L 05/27/20 05:57: White Blood Count 17.0H, Red Blood Count 4.73, Hemoglobin 15.0, Hematocrit 43.9, Mean Corpuscular Volume 93, Mean Corpuscular Hemoglobin 31.8H, Mean Corpuscular Hemoglobin Concent 34.2, Red Cell Distribution Width 13.3, Platelet Count 129L, Mean Platelet Volume 12.5H, Neutrophils (%) (Auto) , Lymphocytes (%) (Auto) , Monocytes (%) (Auto) , Eosinophils (%) (Auto) , Basophils (%) (Auto) , Differential Total Cells Counted 100, Neutrophils % (Manual) 93H, Lymphocytes % (Manual) 5L, Monocytes % (Manual) 2, Eosinophils % (Manual) 0, Basophils % (Manual) 0, Band Neutrophils 0, Platelet Estimate DecreasedL, Platelet Morphology Normal, Red Blood Cell Morphology Normal Height (Feet): 5 Height (Inches): 7.00 Weight (Pounds): 160 Assessment/Plan Problem List: (1) COPD (chronic obstructive pulmonary disease) ICD Codes: J44.9 - Chronic obstructive pulmonary disease, unspecified SNOMED: 83064533 (2) Dehydration ICD Codes: E86.0 - Dehydration SNOMED: 41198290 (3) Pneumonia ICD Codes: J18.9 - Pneumonia, unspecified organism SNOMED: 689223678 (4) HTN (hypertension) ICD Codes: I10 - Essential (primary) hypertension SNOMED: 87891194 (5) 2019 novel coronavirus disease (COVID-19) ICD Codes: U07.1 - COVID-19 SNOMED: 046327372 (6) TOPHER (acute kidney injury) ICD Codes: N17.9 - Acute kidney failure, unspecified SNOMED: 6261506, 10919280 Status: progressing, unchanged Assessment/Plan: covid positive afebrile needs fluid prn supportive care htn reviewed chart Hillary Smallwood MD May 27, 2020 20:22
[2020-05-28] VITALS: BP 128/74
[2020-05-28 04:00] VITALS: BP 120/76
[2020-05-28 07:33] LABS: ALBUMIN 1.8 G/DL (3.4-5.0); ALBUMIN/GLOBULIN RATIO 0.4 (1.0-2.7); BILIRUBIN,TOTAL 0.8 MG/DL (0.2-1.0); CALCIUM 8.8 MG/DL (8.5-10.1); CREATININE 1.2 MG/DL (0.55-1.30); PHOSPHORUS 3.2 MG/DL (2.5-4.9); POTASSIUM 3.5 MMOL/L (3.5-5.1)
[2020-05-28 08:00] VITALS: BP 113/75
[2020-05-28 08:11] LABS: HEMATOCRIT 49.4 % (42.0-52.0); HEMOGLOBIN 15.9 G/DL (14.2-18.0); MEAN CORPUSCULAR VOLUME 99 FL (80-99); PLATELET COUNT 123 K/UL (150-450); RED BLOOD COUNT 5.02 M/UL (4.70-6.10); RED CELL DISTRIBUTION WIDTH 13.2 % (11.6-14.8); WHITE BLOOD COUNT 15.6 K/UL (4.8-10.8)
[2020-05-28] MEDS: Heparin 5000 units/ml inj SUBQ SCH ×2 (09:00→21:00)
[2020-05-28] MEDS: Lactulose 20gm/30ml UDC ORAL SCH ×3 (09:18→17:15)
[2020-05-28] MEDS: Docusate 100mg cap ORAL SCH ×2 (09:18→17:16)
[2020-05-28] MEDS: Amiodarone 200mg tab ORAL SCH (09:18)
--- NOTE | 2020-05-28 09:42 | General Progress Note ---
Subjective ROS Limited/Unobtainable: No Allergies: Coded Allergies: No Known Allergies (Unverified , 05/13/20) Objective Last 24 Hour Vital Signs Date Time Temp Pulse Resp B/P (MAP) Pulse Ox O2 Delivery O2 Flow Rate FiO2 05/28/20 09:00 85 113/75 05/28/20 08:00 98.5 85 17 113/75 (88) 97 05/28/20 04:00 98.1 81 17 120/76 (91) 94 05/28/20 04:00 93 05/28/20 00:00 98.3 75 18 128/74 (92) 95 05/28/20 00:00 82 05/27/20 21:00 Nasal Cannula 2.0 05/27/20 20:50 86 101/72 05/27/20 20:36 94 Nasal Cannula 3.0 32 05/27/20 20:00 98.1 86 20 101/72 (82) 94 05/27/20 20:00 90 05/27/20 16:00 97.6 75 20 103/75 (84) 96 05/27/20 16:00 73 05/27/20 13:13 97 Nasal Cannula 3.0 32 05/27/20 12:50 96 Nasal Cannula 3.0 32 05/27/20 12:00 82 05/27/20 12:00 97.6 75 20 102/74 (83) 97 Intake and Output 05/27/20 05/28/20 19:00 07:00 Intake Total 120 ml 240 ml Output Total 1200 ml 600 ml Balance -1080 ml -360 ml Intake Oral 120 ml 240 ml Output Urine Total 1200 ml 600 ml # Voids 3 1 # Bowel Movements 2 Laboratory Tests 05/28/20 06:08: White Blood Count 15.6H, Red Blood Count 5.02, Hemoglobin 15.9, Hematocrit 49.4, Mean Corpuscular Volume 99, Mean Corpuscular Hemoglobin 31.7H, Mean Corpuscular Hemoglobin Concent 32.2, Red Cell Distribution Width 13.2, Platelet Count 123L, Mean Platelet Volume 11.7H, Neutrophils (%) (Auto) , Lymphocytes (%) (Auto) , Monocytes (%) (Auto) , Eosinophils (%) (Auto) , Basophils (%) (Auto) , Differential Total Cells Counted 100, Neutrophils % (Manual) 90H, Lymphocytes % (Manual) 5L, Monocytes % (Manual) 4, Eosinophils % (Manual) 0, Basophils % (Manual) 1, Band Neutrophils 0, Platelet Estimate DecreasedL, Platelet Morphology Normal, Anisocytosis 1+, Macrocytosis 1+, Erythrocyte Sedimentation Rate [Pending], Sodium Level 150H, Potassium Level 3.5, Chloride Level 116H, Carbon Dioxide Level 25, Anion Gap 9, Blood Urea Nitrogen 33H, Creatinine 1.2, Estimat Glomerular Filtration Rate 59.3, Glucose Level 129H, Calcium Level 8.8, Phosphorus Level 3.2, Magnesium Level 2.2, Total Bilirubin 0.8, Aspartate Amino Transf (AST/SGOT) 38H, Alanine Aminotransferase (ALT/SGPT) 93H, Alkaline Phosphatase 99, C-Reactive Protein, Quantitative 15.6H, Total Protein 6.7, Albumin 1.8L, Globulin 4.9, Albumin/Globulin Ratio 0.4L Height (Feet): 5 Height (Inches): 7.00 Weight (Pounds): 160 General Appearance: no apparent distress EENT: normal ENT inspection Neck: supple Cardiovascular: normal rate Respiratory/Chest: decreased breath sounds Abdomen: normal bowel sounds, non tender, soft Extremities: non-tender Assessment/Plan Problem List: (1) Elevated LFTs ICD Codes: R79.89 - Other specified abnormal findings of blood chemistry SNOMED: 466635250, 730597480 (2) COPD (chronic obstructive pulmonary disease) ICD Codes: J44.9 - Chronic obstructive pulmonary disease, unspecified SNOMED: 26212017 (3) Dehydration ICD Codes: E86.0 - Dehydration SNOMED: 05728686 (4) Pneumonia ICD Codes: J18.9 - Pneumonia, unspecified organism SNOMED: 365155904 (5) HTN (hypertension) ICD Codes: I10 - Essential (primary) hypertension SNOMED: 94997799 (6) 2019 novel coronavirus disease (COVID-19) ICD Codes: U07.1 - COVID-19 SNOMED: 002168445 Status: progressing, unchanged Assessment/Plan: repeat LFTS hold abd us for now hepatitis panel>> neg fu ID recs off protonix on marinol 5 eating some dietitian recommendation reviewed d/w the nurse, plan NGT if patient does not eat enough today on ensure Stefan Wilde MD May 28, 2020 09:42
[2020-05-28 12:00] VITALS: BP 110/64
--- NOTE | 2020-05-28 12:41 | Nephrology Progress Note ---
Assessment/Plan Problem List: (1) TOPHER (acute kidney injury) (2) 2019 novel coronavirus disease (COVID-19) (3) Pneumonia (4) COPD (chronic obstructive pulmonary disease) (5) Psychosis Assessment Renal failure, acute on chronic Partly dehydration COPD, hypoxia, COVID-19 disease Psychosis Atrial fibrillation High cholesterol Hypertension History of CVA Plan May 28: Labs reviewed. Serum sodium slightly elevated. D5W bolus given. Continue per consultants. Renal parameters stable. May 27: Labs reviewed. Stable renal parameters. Leukocytosis persists. May 26: No labs drawn today. We will check labs in a.m. Continue per current management. Medication list reviewed. May 25: Labs reviewed. Renal parameters much improved. Electrolytes within normal limit. Medication list reviewed. Continue per consultants. May 24: Labs reviewed. Serum creatinine lower. Serum sodium normalized. Electrolytes within normal limit. Will change IV to D5 normal saline. Continue per consultants. Blood pressure stable. May 23: Labs reviewed. Serum creatinine lower. Serum sodium lower. Potassium 5.4 , I suspect partly hemolysis. Patient has a Conway catheter. Continue D5W. Continue to monitor renal parameters. Continue per consultants. May 22: Patient more encephalopathic. Blood pressure low. Labs reviewed. Renal parameters worsened. Conway catheter ordered. Will stop Flomax and Proscar. Will adjust blood pressure medications. Will give IV fluid. Discussed with NAI Corbett. Will keep the patient n.p.o. due to poor mental status. Per orders. May 21: No labs drawn today. Stable from renal standpoint of view. Continue per consultants. May 20: Lab reviewed. Serum creatinine 1.5 stable. Serum sodium lowering. Continue per consultants. May 19: Labs reviewed. Serum creatinine lower to 1.5. Serum sodium mildly elevated. Continue free water administration. Monitor renal parameters. Continue per consultants. May 18: Labs reviewed. Serum creatinine up to 1.7. Electrolytes within normal limit. Continue to monitor renal parameters. Continue per consultants. May 17: Labs reviewed. Serum sodium normalized. Serum creatinine 1.5 stable. Continue per current management. May 16 Creatinine 1.5 unchanged. Blood pressure stable. Electrolytes unchanged. Serum sodium 133. Continue to monitor renal parameters Adjust blood pressure medication Stop saline hydration Monitor renal parameters and electrolytes Pulmonary support Per consultants Avoid nephrotoxic's Urine studies Per orders Subjective ROS Limited/Unobtainable: No Objective Objective Last 24 Hour Vital Signs Date Time Temp Pulse Resp B/P (MAP) Pulse Ox O2 Delivery O2 Flow Rate FiO2 05/28/20 09:00 85 113/75 05/28/20 08:00 98.5 85 17 113/75 (88) 97 05/28/20 08:00 80 05/28/20 04:00 98.1 81 17 120/76 (91) 94 05/28/20 04:00 93 05/28/20 00:00 98.3 75 18 128/74 (92) 95 05/28/20 00:00 82 05/27/20 21:00 Nasal Cannula 2.0 05/27/20 20:50 86 101/72 05/27/20 20:36 94 Nasal Cannula 3.0 32 05/27/20 20:00 98.1 86 20 101/72 (82) 94 05/27/20 20:00 90 05/27/20 16:00 97.6 75 20 103/75 (84) 96 05/27/20 16:00 73 05/27/20 13:13 97 Nasal Cannula 3.0 32 05/27/20 12:50 96 Nasal Cannula 3.0 32 Intake and Output 05/27/20 05/28/20 19:00 07:00 Intake Total 120 ml 240 ml Output Total 1200 ml 600 ml Balance -1080 ml -360 ml Intake Oral 120 ml 240 ml Output Urine Total 1200 ml 600 ml # Voids 3 1 # Bowel Movements 2 Laboratory Tests 05/28/20 06:08: White Blood Count 15.6H, Red Blood Count 5.02, Hemoglobin 15.9, Hematocrit 49.4, Mean Corpuscular Volume 99, Mean Corpuscular Hemoglobin 31.7H, Mean Corpuscular Hemoglobin Concent 32.2, Red Cell Distribution Width 13.2, Platelet Count 123L, Mean Platelet Volume 11.7H, Neutrophils (%) (Auto) , Lymphocytes (%) (Auto) , Monocytes (%) (Auto) , Eosinophils (%) (Auto) , Basophils (%) (Auto) , Differential Total Cells Counted 100, Neutrophils % (Manual) 90H, Lymphocytes % (Manual) 5L, Monocytes % (Manual) 4, Eosinophils % (Manual) 0, Basophils % (Manual) 1, Band Neutrophils 0, Platelet Estimate DecreasedL, Platelet Morpholo gy Normal, Anisocytosis 1+, Macrocytosis 1+, Erythrocyte Sedimentation Rate 54H, Sodium Level 150H, Potassium Level 3.5, Chloride Level 116H, Carbon Dioxide Level 25, Anion Gap 9, Blood Urea Nitrogen 33H, Creatinine 1.2, Estimat Glomerular Filtration Rate 59.3, Glucose Level 129H, Calcium Level 8.8, Phosphorus Level 3.2, Magnesium Level 2.2, Total Bilirubin 0.8, Aspartate Amino Transf (AST/SGOT) 38H, Alanine Aminotransferase (ALT/SGPT) 93H, Alkaline Phosphatase 99, C-Reactive Protein, Quantitative 15.6H, Total Protein 6.7, Albumin 1.8L, Globulin 4.9, Albumin/Globulin Ratio 0.4L Height (Feet): 5 Height (Inches): 7.00 Weight (Pounds): 160 General Appearance: no apparent distress, lethargic Cardiovascular: normal rate Respiratory/Chest: decreased breath sounds Abdomen: soft, distended Objective No change Alan Sánchez MD May 28, 2020 12:41
--- NOTE | 2020-05-28 13:07 | General Progress Note ---
Subjective ROS Limited/Unobtainable: Yes Allergies: Coded Allergies: No Known Allergies (Unverified , 05/13/20) Objective Last 24 Hour Vital Signs Date Time Temp Pulse Resp B/P (MAP) Pulse Ox O2 Delivery O2 Flow Rate FiO2 05/28/20 09:00 85 113/75 05/28/20 08:00 98.5 85 17 113/75 (88) 97 05/28/20 08:00 80 05/28/20 04:00 98.1 81 17 120/76 (91) 94 05/28/20 04:00 93 05/28/20 00:00 98.3 75 18 128/74 (92) 95 05/28/20 00:00 82 05/27/20 21:00 Nasal Cannula 2.0 05/27/20 20:50 86 101/72 05/27/20 20:36 94 Nasal Cannula 3.0 32 05/27/20 20:00 98.1 86 20 101/72 (82) 94 05/27/20 20:00 90 05/27/20 16:00 97.6 75 20 103/75 (84) 96 05/27/20 16:00 73 05/27/20 13:13 97 Nasal Cannula 3.0 32 Intake and Output 05/27/20 05/28/20 19:00 07:00 Intake Total 120 ml 240 ml Output Total 1200 ml 600 ml Balance -1080 ml -360 ml Intake Oral 120 ml 240 ml Output Urine Total 1200 ml 600 ml # Voids 3 1 # Bowel Movements 2 Laboratory Tests 05/28/20 06:08: White Blood Count 15.6H, Red Blood Count 5.02, Hemoglobin 15.9, Hematocrit 49.4, Mean Corpuscular Volume 99, Mean Corpuscular Hemoglobin 31.7H, Mean Corpuscular Hemoglobin Concent 32.2, Red Cell Distribution Width 13.2, Platelet Count 123L, Mean Platelet Volume 11.7H, Neutrophils (%) (Auto) , Lymphocytes (%) (Auto) , Monocytes (%) (Auto) , Eosinophils (%) (Auto) , Basophils (%) (Auto) , Differential Total Cells Counted 100, Neutrophils % (Manual) 90H, Lymphocytes % (Manual) 5L, Monocytes % (Manual) 4, Eosinophils % (Manual) 0, Basophils % (Manual) 1, Band Neutrophils 0, Platelet Estimate DecreasedL, Platelet Morphology Normal, Anisocytosis 1+, Macrocytosis 1+, Erythrocyte Sedimentation Rate 54H, Sodium Level 150H, Potassium Level 3.5, Chloride Level 116H, Carbon Dioxide Level 25, Anion Gap 9, Blood Urea Nitrogen 33H, Creatinine 1.2, Estimat Glomerular Filtration Rate 59.3, Glucose Level 129H, Calcium Level 8.8, Phosphorus Level 3.2, Magnesium Level 2.2, Total Bilirubin 0.8, Aspartate Amino Transf (AST/SGOT) 38H, Alanine Aminotransferase (ALT/SGPT) 93H, Alkaline Phosphatase 99, C-Reactive Protein, Quantitative 15.6H, Total Protein 6.7, Albumin 1.8L, Globulin 4.9, Albumin/Globulin Ratio 0.4L Height (Feet): 5 Height (Inches): 7.00 Weight (Pounds): 160 Assessment/Plan Problem List: (1) COPD (chronic obstructive pulmonary disease) ICD Codes: J44.9 - Chronic obstructive pulmonary disease, unspecified SNOMED: 10408760 (2) Dehydration ICD Codes: E86.0 - Dehydration SNOMED: 63156413 (3) Pneumonia ICD Codes: J18.9 - Pneumonia, unspecified organism SNOMED: 710100200 (4) HTN (hypertension) ICD Codes: I10 - Essential (primary) hypertension SNOMED: 48550318 (5) 2019 novel coronavirus disease (COVID-19) ICD Codes: U07.1 - COVID-19 SNOMED: 479354135 (6) TOPHER (acute kidney injury) ICD Codes: N17.9 - Acute kidney failure, unspecified SNOMED: 0286844, 15837492 Status: progressing, unchanged Assessment/Plan: covid positive no change no fever pna vitals stable htn reviewed chart Hillary Smallwood MD May 28, 2020 13:07
[2020-05-28 16:00] VITALS: BP 98/69
--- NOTE | 2020-05-28 17:14 | Pulmonology Progress Note ---
Subjective ROS Limited/Unobtainable: No Constitutional: Reports: no symptoms Respiratory: Reports: no symptoms Allergies: Coded Allergies: No Known Allergies (Unverified , 05/13/20) Objective Last 24 Hour Vital Signs Date Time Temp Pulse Resp B/P (MAP) Pulse Ox O2 Delivery O2 Flow Rate FiO2 05/28/20 12:00 77 05/28/20 12:00 98.1 52 20 110/64 (79) 95 05/28/20 09:00 85 113/75 05/28/20 09:00 Nasal Cannula 2.0 05/28/20 08:00 98.5 85 17 113/75 (88) 97 05/28/20 08:00 80 05/28/20 04:00 98.1 81 17 120/76 (91) 94 05/28/20 04:00 93 05/28/20 00:00 98.3 75 18 128/74 (92) 95 05/28/20 00:00 82 05/27/20 21:00 Nasal Cannula 2.0 05/27/20 20:50 86 101/72 05/27/20 20:36 94 Nasal Cannula 3.0 32 05/27/20 20:00 98.1 86 20 101/72 (82) 94 05/27/20 20:00 90 Intake and Output 05/27/20 05/28/20 19:00 07:00 Intake Total 120 ml 240 ml Output Total 1200 ml 600 ml Balance -1080 ml -360 ml Intake Oral 120 ml 240 ml Output Urine Total 1200 ml 600 ml # Voids 3 1 # Bowel Movements 2 General Appearance: WD/WN, other - awake HEENT: normocephalic, atraumatic, anicteric, other - O2 4 L via NC Respiratory: chest wall non-tender, rhonchi - left, rhonchi - right Cardiovascular: normal peripheral pulses, normal rate - SR with BBB, Abdomen: normal bowel sounds, soft, non tender Genitourinary: normal external genitalia Extremities: no clubbing Neurologic: alert Lymphatic: no neck adenopathy Musculoskeletal: atrophy - BLE Laboratory Tests 05/28/20 06:08: White Blood Count 15.6H, Red Blood Count 5.02, Hemoglobin 15.9, Hematocrit 49.4, Mean Corpuscular Volume 99, Mean Corpuscular Hemoglobin 31.7H, Mean Corpuscular Hemoglobin Concent 32.2, Red Cell Distribution Width 13.2, Platelet Count 123L, Mean Platelet Volume 11.7H, Neutrophils (%) (Auto) , Lymphocytes (%) (Auto) , Monocytes (%) (Auto) , Eosinophils (%) (Auto) , Basophils (%) (Auto) , Differential Total Cells Counted 100, Neutrophils % (Manual) 90H, Lymphocytes % (Manual) 5L, Monocytes % (Manual) 4, Eosinophils % (Manual) 0, Basophils % (Manual) 1, Band Neutrophils 0, Platelet Estimate DecreasedL, Platelet Morphology Normal, Anisocytosis 1+, Macrocytosis 1+, Erythrocyte Sedimentation Rate 54H, Sodium Level 150H, Potassium Level 3.5, Chloride Level 116H, Carbon Dioxide Level 25, Anion Gap 9, Blood Urea Nitrogen 33H, Creatinine 1.2, Estimat Glomerular Filtration Rate 59.3, Glucose Level 129H, Calcium Level 8.8, Phosphorus Level 3.2, Magnesium Level 2.2, Total Bilirubin 0.8, Aspartate Amino Transf (AST/SGOT) 38H, Alanine Aminotransferase (ALT/SGPT) 93H, Alkaline Phosphatase 99, C-Reactive Protein, Quantitative 15.6H, Total Protein 6.7, Albumin 1.8L, Globulin 4.9, Albumin/Globulin Ratio 0.4L Current Medications Medications (Trade) Dose Ordered Sig/Tami Route PRN Reason Start Time Stop Time Status Last Admin Dose Admin Acetaminophen (Tylenol) 650 mg Q4H PRN ORAL FEVER 05/13/20 23:30 06/12/20 23:29 Albuterol/ Ipratropium (Combivent Respimat) 1 puff Q4H PRN INH Shortness of Breath 05/14/20 14:15 06/13/20 14:14 Amiodarone HCl (Cordarone) 200 mg DAILY ORAL 05/14/20 09:00 08/12/20 08:59 05/28/20 09:18 Carvedilol (Coreg) 3.125 mg EVERY 12 HOURS ORAL 05/14/20 09:00 06/13/20 08:59 05/27/20 08:51 Dextrose (Dextrose 50%) 25 ml Q30M PRN IV Hypoglycemia 05/13/20 23:30 08/11/20 23:29 Dextrose (Dextrose 50%) 50 ml Q30M PRN IV Hypoglycemia 05/13/20 23:30 08/11/20 23:29 Docusate Sodium (Colace) 100 mg TWICE A DAY ORAL 05/14/20 18:00 06/13/20 17:59 05/28/20 09:18 Heparin Sodium (Porcine) (Heparin 5000 units/ml) 5,000 units EVERY 12 HOURS SUBQ 05/14/20 09:00 06/28/20 08:59 05/27/20 08:53 Hydralazine HCl (Apresoline) 10 mg Q4H PRN IV bp over 160 syst 05/22/20 12:30 08/20/20 12:29 Lactulose (Cephulac) 30 gm THREE TIMES A DAY ORAL 05/16/20 18:00 06/15/20 17:59 05/28/20 14:40 Ondansetron HCl (Zofran) 4 mg Q6H PRN IVP Nausea & Vomiting 05/13/20 23:30 06/12/20 23:29 Polyethylene Glycol (Miralax) 17 gm DAILYPRN PRN ORAL Constipation 05/13/20 23:30 06/12/20 23:29 05/16/20 13:23 Promethazine HCl/ Codeine (Phenergan with Codeine) 5 ml Q6H PRN ORAL cough 05/13/20 23:30 06/12/20 23:29 Assessment/Plan Problems: (1) 2019 novel coronavirus disease (COVID-19) (2) Nosocomial pneumonia (3) TOPHER (acute kidney injury) (4) COPD (chronic obstructive pulmonary disease) (5) Psychosis (6) HTN (hypertension) Assessment/Plan all reviewed cxr 05/09 showed increasing bilateral infiltrate, 05/25: bilateral infiltrates again demonstrated, which, allowing for slight differences in exposure technique, are probably unchanged afebrile titrate fio2 to sat of 92% respiratory treatment prn monitor BP symptomatic treatment. dvt prophylaxis. keep in isolation Umesh Prajapati MD May 28, 2020 17:14
[2020-05-28 20:00] VITALS: BP 128/74
--- NOTE | 2020-05-28 23:34 | Psychiatric Progress Note ---
Psychiatry Progress Note Psychiatry Progress Note Medications Current Medications Medications (Trade) Dose Ordered Sig/Tami Route PRN Reason Start Time Stop Time Status Last Admin Dose Admin Acetaminophen (Tylenol) 650 mg Q4H PRN ORAL FEVER 05/13/20 23:30 06/12/20 23:29 Albuterol/ Ipratropium (Combivent Respimat) 1 puff Q4H PRN INH Shortness of Breath 05/14/20 14:15 06/13/20 14:14 Amiodarone HCl (Cordarone) 200 mg DAILY ORAL 05/14/20 09:00 08/12/20 08:59 05/28/20 09:18 Carvedilol (Coreg) 3.125 mg EVERY 12 HOURS ORAL 05/14/20 09:00 06/13/20 08:59 05/28/20 22:13 Dextrose (Dextrose 50%) 25 ml Q30M PRN IV Hypoglycemia 05/13/20 23:30 08/11/20 23:29 Dextrose (Dextrose 50%) 50 ml Q30M PRN IV Hypoglycemia 05/13/20 23:30 08/11/20 23:29 Docusate Sodium (Colace) 100 mg TWICE A DAY ORAL 05/14/20 18:00 06/13/20 17:59 05/28/20 17:16 Heparin Sodium (Porcine) (Heparin 5000 units/ml) 5,000 units EVERY 12 HOURS SUBQ 05/14/20 09:00 06/28/20 08:59 05/27/20 08:53 Hydralazine HCl (Apresoline) 10 mg Q4H PRN IV bp over 160 syst 05/22/20 12:30 08/20/20 12:29 Lactulose (Cephulac) 30 gm THREE TIMES A DAY ORAL 05/16/20 18:00 06/15/20 17:59 05/28/20 17:15 Ondansetron HCl (Zofran) 4 mg Q6H PRN IVP Nausea & Vomiting 05/13/20 23:30 06/12/20 23:29 Polyethylene Glycol (Miralax) 17 gm DAILYPRN PRN ORAL Constipation 05/13/20 23:30 06/12/20 23:29 05/16/20 13:23 Promethazine HCl/ Codeine (Phenergan with Codeine) 5 ml Q6H PRN ORAL cough 05/13/20 23:30 06/12/20 23:29 Neurological/Psychiatric: Reports: anxiety, depressed, emotional problems Allergies: Coded Allergies: No Known Allergies (Unverified , 05/13/20) Objective Data Height (Feet): 5 Height (Inches): 7.00 Weight (Pounds): 160 General Appearance: no apparent distress, lethargic Additional Comments: awake, disoriented to situation and date. Mood is little anxious. Affect is blunted, congruent with mood. Thought process is concrete. Thought content, no suicidal or homicidal ideation. Cognition is impaired. Insight and judgment is impaired. Assessment/Plan Status: progressing, unchanged Assessment/Plan: ASSESSMENT: [place] I Acute toxic encephalopathy. [place] II Deferred. [place] III COVID-19 pneumonia. Renal failure. [place] IV Low. [place] V 20. PLAN: 1. We will discontinue the Ativan and risperidone. 2. Bilateral soft restraints. 3. Discussed with Dr. Smallwood. Adeel Knapp MD May 28, 2020 23:34
[2020-05-29] VITALS: BP 124/70
[2020-05-29 04:00] VITALS: BP 111/64
[2020-05-29 08:00] VITALS: BP 102/61
[2020-05-29] MEDS: Heparin 5000 units/ml inj SUBQ SCH ×2 (09:00→20:41)
--- NOTE | 2020-05-29 10:25 | General Progress Note ---
Subjective ROS Limited/Unobtainable: No Allergies: Coded Allergies: No Known Allergies (Unverified , 05/13/20) Objective Last 24 Hour Vital Signs Date Time Temp Pulse Resp B/P (MAP) Pulse Ox O2 Delivery O2 Flow Rate FiO2 05/29/20 04:00 98.1 87 20 111/64 (80) 96 05/29/20 04:00 92 05/29/20 00:00 98.1 90 17 124/70 (88) 95 05/29/20 00:00 86 05/28/20 23:07 97 Nasal Cannula 2.0 28 05/28/20 22:13 95 128/74 05/28/20 21:00 Nasal Cannula 2.0 05/28/20 20:00 114 05/28/20 20:00 97.8 95 18 128/74 (92) 95 05/28/20 16:00 104 05/28/20 16:00 98.1 78 20 98/69 (79) 96 05/28/20 12:00 77 05/28/20 12:00 98.1 52 20 110/64 (79) 95 Intake and Output 05/28/20 05/29/20 19:00 07:00 Intake Total 120 ml 240 ml Output Total 200 ml 400 ml Balance -80 ml -160 ml Intake Oral 120 ml 240 ml Output Urine Total 200 ml 400 ml # Voids 1 # Bowel Movements 3 Height (Feet): 5 Height (Inches): 7.00 Weight (Pounds): 160 General Appearance: no apparent distress EENT: normal ENT inspection Neck: supple Cardiovascular: normal rate Respiratory/Chest: decreased breath sounds Abdomen: hypoactive bowel sounds Extremities: non-tender Assessment/Plan Problem List: (1) Elevated LFTs ICD Codes: R79.89 - Other specified abnormal findings of blood chemistry SNOMED: 053960340, 643986168 (2) COPD (chronic obstructive pulmonary disease) ICD Codes: J44.9 - Chronic obstructive pulmonary disease, unspecified SNOMED: 96384831 (3) Dehydration ICD Codes: E86.0 - Dehydration SNOMED: 04750153 (4) Pneumonia ICD Codes: J18.9 - Pneumonia, unspecified organism SNOMED: 624156430 (5) HTN (hypertension) ICD Codes: I10 - Essential (primary) hypertension SNOMED: 90829167 (6) 2019 novel coronavirus disease (COVID-19) ICD Codes: U07.1 - COVID-19 SNOMED: 807142366 Status: progressing, unchanged Assessment/Plan: repeat LFTS hold abd us for now hepatitis panel>> neg fu ID recs off protonix on marinol 5 eating some dietitian recommendation reviewed on ensure had multiple BMS Stefan Wilde MD May 29, 2020 10:25
[2020-05-29] MEDS: Amiodarone 200mg tab ORAL SCH (10:42)
[2020-05-29 12:00] VITALS: BP 99/55
--- NOTE | 2020-05-29 14:54 | Nephrology Progress Note ---
Assessment/Plan Problem List: (1) TOPHER (acute kidney injury) (2) 2019 novel coronavirus disease (COVID-19) (3) Pneumonia (4) COPD (chronic obstructive pulmonary disease) (5) Psychosis Assessment Renal failure, acute on chronic Partly dehydration COPD, hypoxia, COVID-19 disease Psychosis Atrial fibrillation High cholesterol Hypertension History of CVA Plan May 29: No labs drawn today. Will check can panel tomorrow. Continue per consultants. May 28: Labs reviewed. Serum sodium slightly elevated. D5W bolus given. Continue per consultants. Renal parameters stable. May 27: Labs reviewed. Stable renal parameters. Leukocytosis persists. May 26: No labs drawn today. We will check labs in a.m. Continue per current management. Medication list reviewed. May 25: Labs reviewed. Renal parameters much improved. Electrolytes within normal limit. Medication list reviewed. Continue per consultants. May 24: Labs reviewed. Serum creatinine lower. Serum sodium normalized. Electrolytes within normal limit. Will change IV to D5 normal saline. Continue per consultants. Blood pressure stable. May 23: Labs reviewed. Serum creatinine lower. Serum sodium lower. Potassium 5.4 , I suspect partly hemolysis. Patient has a Conway catheter. Continue D5W. Continue to monitor renal parameters. Continue per consultants. May 22: Patient more encephalopathic. Blood pressure low. Labs reviewed. Renal parameters worsened. Conway catheter ordered. Will stop Flomax and Proscar. Will adjust blood pressure medications. Will give IV fluid. Discussed with NAI Corbett. Will keep the patient n.p.o. due to poor mental status. Per orders. May 21: No labs drawn today. Stable from renal standpoint of view. Continue per consultants. May 20: Lab reviewed. Serum creatinine 1.5 stable. Serum sodium lowering. Continue per consultants. May 19: Labs reviewed. Serum creatinine lower to 1.5. Serum sodium mildly elevated. Continue free water administration. Monitor renal parameters. Continue per consultants. May 18: Labs reviewed. Serum creatinine up to 1.7. Electrolytes within normal limit. Continue to monitor renal parameters. Continue per consultants. May 17: Labs reviewed. Serum sodium normalized. Serum creatinine 1.5 stable. Continue per current management. May 16 Creatinine 1.5 unchanged. Blood pressure stable. Electrolytes unchanged. Serum sodium 133. Continue to monitor renal parameters Adjust blood pressure medication Stop saline hydration Monitor renal parameters and electrolytes Pulmonary support Per consultants Avoid nephrotoxic's Urine studies Per orders Subjective ROS Limited/Unobtainable: No Constitutional: Reports: malaise Objective Objective Last 24 Hour Vital Signs Date Time Temp Pulse Resp B/P (MAP) Pulse Ox O2 Delivery O2 Flow Rate FiO2 05/29/20 12:00 97.5 92 20 99/55 (70) 100 05/29/20 12:00 83 05/29/20 09:00 Nasal Cannula 2.0 05/29/20 09:00 78 102/61 05/29/20 08:00 82 05/29/20 08:00 98.0 78 20 102/61 (75) 99 05/29/20 04:00 98.1 87 20 111/64 (80) 96 05/29/20 04:00 92 05/29/20 00:00 98.1 90 17 124/70 (88) 95 05/29/20 00:00 86 05/28/20 23:07 97 Nasal Cannula 2.0 28 05/28/20 22:13 95 128/74 05/28/20 21:00 Nasal Cannula 2.0 05/28/20 20:00 114 05/28/20 20:00 97.8 95 18 128/74 (92) 95 05/28/20 16:00 104 05/28/20 16:00 98.1 78 20 98/69 (79) 96 Intake and Output 05/28/20 05/29/20 19:00 07:00 Intake Total 120 ml 240 ml Output Total 200 ml 400 ml Balance -80 ml -160 ml Intake Oral 120 ml 240 ml Output Urine Total 200 ml 400 ml # Voids 1 # Bowel Movements 3 Height (Feet): 5 Height (Inches): 7.00 Weight (Pounds): 160 General Appearance: lethargic Cardiovascular: tachycardia Respiratory/Chest: decreased breath sounds Abdomen: distended Objective No change Alan Sánchez MD May 29, 2020 14:54
[2020-05-29 16:00] VITALS: BP 108/73
[2020-05-29 20:00] VITALS: BP 93/56
--- NOTE | 2020-05-29 22:34 | General Progress Note ---
Subjective ROS Limited/Unobtainable: Yes Allergies: Coded Allergies: No Known Allergies (Unverified , 05/13/20) Objective Last 24 Hour Vital Signs Date Time Temp Pulse Resp B/P (MAP) Pulse Ox O2 Delivery O2 Flow Rate FiO2 05/29/20 20:42 76 93/56 05/29/20 20:00 98.2 76 16 93/56 (68) 96 05/29/20 16:00 97.5 84 20 108/73 (85) 97 05/29/20 16:00 83 05/29/20 12:00 97.5 92 20 99/55 (70) 100 05/29/20 12:00 83 05/29/20 09:00 Nasal Cannula 2.0 05/29/20 09:00 78 102/61 05/29/20 08:00 82 05/29/20 08:00 98.0 78 20 102/61 (75) 99 05/29/20 04:00 98.1 87 20 111/64 (80) 96 05/29/20 04:00 92 05/29/20 00:00 98.1 90 17 124/70 (88) 95 05/29/20 00:00 86 05/28/20 23:07 97 Nasal Cannula 2.0 28 Intake and Output 05/28/20 05/29/20 19:00 07:00 Intake Total 120 ml 240 ml Output Total 200 ml 400 ml Balance -80 ml -160 ml Intake Oral 120 ml 240 ml Output Urine Total 200 ml 400 ml # Voids 1 # Bowel Movements 3 Height (Feet): 5 Height (Inches): 7.00 Weight (Pounds): 160 Assessment/Plan Problem List: (1) COPD (chronic obstructive pulmonary disease) ICD Codes: J44.9 - Chronic obstructive pulmonary disease, unspecified SNOMED: 54328148 (2) Dehydration ICD Codes: E86.0 - Dehydration SNOMED: 47358391 (3) Pneumonia ICD Codes: J18.9 - Pneumonia, unspecified organism SNOMED: 629330430 (4) HTN (hypertension) ICD Codes: I10 - Essential (primary) hypertension SNOMED: 37544393 (5) 2019 novel coronavirus disease (COVID-19) ICD Codes: U07.1 - COVID-19 SNOMED: 997610035 (6) TOPHER (acute kidney injury) ICD Codes: N17.9 - Acute kidney failure, unspecified SNOMED: 7951585, 27830456 Status: progressing, unchanged Assessment/Plan: covid positive prn supportive care no fever cough Hillary Smallwood MD May 29, 2020 22:34
[2020-05-30] VITALS: BP 100/76
[2020-05-30 04:00] VITALS: BP 113/69
[2020-05-30 08:00] VITALS: BP 105/68
[2020-05-30] MEDS: Amiodarone 200mg tab ORAL SCH (08:46)
[2020-05-30] MEDS: Heparin 5000 units/ml inj SUBQ SCH ×2 (08:58→21:00)
[2020-05-30 09:38] LABS: HEMATOCRIT 44.8 % (42.0-52.0); HEMOGLOBIN 15.4 G/DL (14.2-18.0); MEAN CORPUSCULAR VOLUME 91 FL (80-99); PLATELET COUNT 115 K/UL (150-450); RED BLOOD COUNT 4.93 M/UL (4.70-6.10); RED CELL DISTRIBUTION WIDTH 14.1 % (11.6-14.8); WHITE BLOOD COUNT 17.8 K/UL (4.8-10.8)
--- NOTE | 2020-05-30 09:53 | General Progress Note ---
Subjective ROS Limited/Unobtainable: No Allergies: Coded Allergies: No Known Allergies (Unverified , 05/13/20) Objective Last 24 Hour Vital Signs Date Time Temp Pulse Resp B/P (MAP) Pulse Ox O2 Delivery O2 Flow Rate FiO2 05/30/20 08:52 76 105/68 05/30/20 04:00 71 05/30/20 04:00 99.0 85 16 113/69 (84) 94 05/30/20 00:00 99.5 82 16 100/76 (84) 94 05/30/20 00:00 93 05/29/20 21:00 Nasal Cannula 2.0 05/29/20 20:42 76 93/56 05/29/20 20:00 84 05/29/20 20:00 98.2 76 16 93/56 (68) 96 05/29/20 16:00 97.5 84 20 108/73 (85) 97 05/29/20 16:00 83 05/29/20 12:00 97.5 92 20 99/55 (70) 100 05/29/20 12:00 83 Intake and Output 05/29/20 05/30/20 19:00 07:00 Output Total 400 ml 325 ml Balance -400 ml -325 ml Output Urine Total 400 ml 325 ml # Voids 1 3 Laboratory Tests 05/30/20 08:50: White Blood Count 17.8H, Red Blood Count 4.93, Hemoglobin 15.4, Hematocrit 44.8, Mean Corpuscular Volume 91, Mean Corpuscular Hemoglobin 31.2H, Mean Corpuscular Hemoglobin Concent 34.4, Red Cell Distribution Width 14.1, Platelet Count 115L, Mean Platelet Volume 11.0H, Neutrophils (%) (Auto) , Lymphocytes (%) (Auto) , Monocytes (%) (Auto) , Eosinophils (%) (Auto) , Basophils (%) (Auto) , Neutrophils % (Manual) [Pending], Lymphocytes % (Manual) [Pending], Platelet Estimate [Pending], Platelet Morphology [Pending], Erythrocyte Sedimentation Rate [Pending], Sodium Level [Pending], Potassium Level [Pending], Chloride Level [Pending], Carbon Dioxide Level [Pending], Blood Urea Nitrogen [Pending], Creatinine [Pending], Estimat Glomerular Filtration Rate [Pending], Glucose Level [Pending], Calcium Level [Pending], Phosphorus Level [Pending], Magnesium Level [Pending], Total Bilirubin [Pending], Aspartate Amino Transf (AST/SGOT) [Pending], Alanine Aminotransferase (ALT/SGPT) [Pending], Alkaline Phosphatase [Pending], C-Reactive Protein, Quantitative [Pending], Total Protein [Pending], Albumin [Pending], Globulin [Pending] Height (Feet): 5 Height (Inches): 7.00 Weight (Pounds): 160 General Appearance: no apparent distress EENT: normal ENT inspection Neck: supple Cardiovascular: normal rate Respiratory/Chest: decreased breath sounds Abdomen: normal bowel sounds, non tender, soft Extremities: non-tender Assessment/Plan Problem List: (1) Elevated LFTs ICD Codes: R79.89 - Other specified abnormal findings of blood chemistry SNOMED: 967828889, 204413785 (2) COPD (chronic obstructive pulmonary disease) ICD Codes: J44.9 - Chronic obstructive pulmonary disease, unspecified SNOMED: 67339037 (3) Dehydration ICD Codes: E86.0 - Dehydration SNOMED: 40070051 (4) Pneumonia ICD Codes: J18.9 - Pneumonia, unspecified organism SNOMED: 531994832 (5) HTN (hypertension) ICD Codes: I10 - Essential (primary) hypertension SNOMED: 18093227 (6) 2019 novel coronavirus disease (COVID-19) ICD Codes: U07.1 - COVID-19 SNOMED: 335313111 Status: progressing, unchanged Assessment/Plan: repeat LFTS hold abd us for now hepatitis panel>> neg fu ID recs off protonix on marinol 5 eating some dietitian recommendation reviewed on ensure Stefan Wilde MD May 30, 2020 09:53
[2020-05-30 10:06] LABS: PHOSPHORUS 2.5 MG/DL (2.5-4.9)
[2020-05-30 10:38] LABS: ALANINE AMINOTRANSFERASE 92 U/L (12-78); ALBUMIN 1.9 G/DL (3.4-5.0); ALBUMIN/GLOBULIN RATIO 0.4 (1.0-2.7); ALKALINE PHOSPHATASE 111 U/L (46-116); ANION GAP 12 mmol/L (5-15); ASPARTATE AMINO TRANSFERASE 39 U/L (15-37); BILIRUBIN,TOTAL 0.9 MG/DL (0.2-1.0); BLOOD UREA NITROGEN 40 mg/dL (7-18); CALCIUM 8.4 MG/DL (8.5-10.1); CARBON DIOXIDE 24 MMOL/L (21-32); CHLORIDE 120 MMOL/L (98-107); CREATININE 1.1 MG/DL (0.55-1.30); POTASSIUM 4.1 MMOL/L (3.5-5.1); SODIUM 156 MMOL/L (136-145)
--- NOTE | 2020-05-30 10:58 | Infectious Diseases Prog Note ---
Assessment/Plan 74yo M with: Afebrile Normal WBC Lymphopenia Pneumonia COVID pneumonia, severe Acute hypoxic resp failure on NRB mask Possible UTI 05/13 BCx NTD UA 5-10 WBC, UCx >100k Kleb pna (S-CTX) COVID rapid positive CXR: Multifocal pna 05/19 CXR: Increasing bilateral infiltrates Elevated LFTs, AST/ALT 125 / 80 TOPHER on CKD, Cr 1.5, improving COPD Cardiac disease SNF resident Plan: Cont to monitor off abx Pt doing well on RA, off therapeutics, OK to d/c from ID standpoint Trend WBC, Cr Trend mental status 05/23 SP dex #10 05/18 SP RDV #5 05/18 SP Augmentin #1, Azithro #5 05/17 SP CTX #4 Monitor CBC/CMP Monitor temp curve, hemodynamics Monitor resp status D/w RN Thank you for this consult. [facility] will continue to follow. Subjective Allergies: Coded Allergies: No Known Allergies (Unverified , 05/13/20) AF NAD WBC 17, stable On RA Objective Last 24 Hour Vital Signs Date Time Temp Pulse Resp B/P (MAP) Pulse Ox O2 Delivery O2 Flow Rate FiO2 05/30/20 09:00 Room Air 05/30/20 08:52 76 105/68 05/30/20 08:00 86 05/30/20 08:00 99.0 76 20 105/68 (80) 94 05/30/20 04:00 71 05/30/20 04:00 99.0 85 16 113/69 (84) 94 05/30/20 00:00 99.5 82 16 100/76 (84) 94 05/30/20 00:00 93 05/29/20 21:00 Nasal Cannula 2.0 05/29/20 20:42 76 93/56 05/29/20 20:00 84 05/29/20 20:00 98.2 76 16 93/56 (68) 96 05/29/20 16:00 97.5 84 20 108/73 (85) 97 05/29/20 16:00 83 05/29/20 12:00 97.5 92 20 99/55 (70) 100 05/29/20 12:00 83 Height (Feet): 5 Height (Inches): 7.00 Weight (Pounds): 160 Gen: NAD HEENT: NCAT Pulm: BL chest rise Abd: Soft, NTND Ext: No c/c/e Skin: No visible rashes Neuro: Awake, interactive Laboratory Tests Test 05/30/20 08:50 White Blood Count 17.8 K/UL (4.8-10.8) H Red Blood Count 4.93 M/UL (4.70-6.10) Hemoglobin 15.4 G/DL (14.2-18.0) Hematocrit 44.8 % (42.0-52.0) Mean Corpuscular Volume 91 FL (80-99) Mean Corpuscular Hemoglobin 31.2 PG (27.0-31.0) H Mean Corpuscular Hemoglobin Concent 34.4 G/DL (32.0-36.0) Red Cell Distribution Width 14.1 % (11.6-14.8) Platelet Count 115 K/UL (150-450) L Mean Platelet Volume 11.0 FL (6.5-10.1) H Neutrophils (%) (Auto) % (45.0-75.0) Lymphocytes (%) (Auto) % (20.0-45.0) Monocytes (%) (Auto) % (1.0-10.0) Eosinophils (%) (Auto) % (0.0-3.0) Basophils (%) (Auto) % (0.0-2.0) Neutrophils % (Manual) Pending Lymphocytes % (Manual) Pending Platelet Estimate Pending Platelet Morphology Pending Erythrocyte Sedimentation Rate Pending Sodium Level 156 MMOL/L (136-145) H Potassium Level 4.1 MMOL/L (3.5-5.1) Chloride Level 120 MMOL/L (98-107) H Carbon Dioxide Level 24 MMOL/L (21-32) Anion Gap 12 mmol/L (5-15) Blood Urea Nitrogen 40 mg/dL (7-18) H Creatinine 1.1 MG/DL (0.55-1.30) Estimat Glomerular Filtration Rate > 60 mL/min (>60) Glucose Level 120 MG/DL (74-106) H Calcium Level 8.4 MG/DL (8.5-10.1) L Phosphorus Level 2.5 MG/DL (2.5-4.9) Magnesium Level 2.3 MG/DL (1.8-2.4) Total Bilirubin 0.9 MG/DL (0.2-1.0) Aspartate Amino Transf (AST/SGOT) 39 U/L (15-37) H Alanine Aminotransferase (ALT/SGPT) 92 U/L (12-78) H Alkaline Phosphatase 111 U/L (46-116) C-Reactive Protein, Quantitative 9.0 mg/dL (0.00-0.90) H Total Protein 6.3 G/DL (6.4-8.2) L Albumin 1.9 G/DL (3.4-5.0) L Globulin 4.4 g/dL Albumin/Globulin Ratio 0.4 (1.0-2.7) L Current Medications Medications (Trade) Dose Ordered Sig/Tami Route PRN Reason Start Time Stop Time Status Last Admin Dose Admin Acetaminophen (Tylenol) 650 mg Q4H PRN ORAL FEVER 05/13/20 23:30 06/12/20 23:29 Albuterol/ Ipratropium (Combivent Respimat) 1 puff Q4H PRN INH Shortness of Breath 05/14/20 14:15 06/13/20 14:14 Amiodarone HCl (Cordarone) 200 mg DAILY ORAL 05/14/20 09:00 08/12/20 08:59 05/30/20 08:46 Carvedilol (Coreg) 3.125 mg EVERY 12 HOURS ORAL 05/14/20 09:00 06/13/20 08:59 05/28/20 22:13 Dextrose (Dextrose 50%) 25 ml Q30M PRN IV Hypoglycemia 05/13/20 23:30 08/11/20 23:29 Dextrose (Dextrose 50%) 50 ml Q30M PRN IV Hypoglycemia 05/13/20 23:30 08/11/20 23:29 Heparin Sodium (Porcine) (Heparin 5000 units/ml) 5,000 units EVERY 12 HOURS SUBQ 05/14/20 09:00 06/28/20 08:59 05/27/20 08:53 Hydralazine HCl (Apresoline) 10 mg Q4H PRN IV bp over 160 syst 05/22/20 12:30 08/20/20 12:29 Ondansetron HCl (Zofran) 4 mg Q6H PRN IVP Nausea & Vomiting 05/13/20 23:30 06/12/20 23:29 Polyethylene Glycol (Miralax) 17 gm DAILYPRN PRN ORAL Constipation 05/13/20 23:30 06/12/20 23:29 05/16/20 13:23 Promethazine HCl/ Codeine (Phenergan with Codeine) 5 ml Q6H PRN ORAL cough 05/13/20 23:30 06/12/20 23:29 Kathy Yap M.D. May 30, 2020 10:57
[2020-05-30 12:00] VITALS: BP 101/69
--- NOTE | 2020-05-30 13:38 | Nephrology Progress Note ---
Assessment/Plan Problem List: (1) TOPHER (acute kidney injury) (2) 2019 novel coronavirus disease (COVID-19) (3) Pneumonia (4) COPD (chronic obstructive pulmonary disease) (5) Psychosis Assessment Renal failure, acute on chronic Partly dehydration COPD, hypoxia, COVID-19 disease Psychosis Atrial fibrillation High cholesterol Hypertension History of CVA Plan May 30: Serum sodium 156. Other renal parameters stable. Will give 1 L of D5W. May 29: No labs drawn today. Will check can panel tomorrow. Continue per consultants. May 28: Labs reviewed. Serum sodium slightly elevated. D5W bolus given. Continue per consultants. Renal parameters stable. May 27: Labs reviewed. Stable renal parameters. Leukocytosis persists. May 26: No labs drawn today. We will check labs in a.m. Continue per current management. Medication list reviewed. May 25: Labs reviewed. Renal parameters much improved. Electrolytes with in normal limit. Medication list reviewed. Continue per consultants. May 24: Labs reviewed. Serum creatinine lower. Serum sodium normalized. Electrolytes within normal limit. Will change IV to D5 normal saline. Continue per consultants. Blood pressure stable. May 23: Labs reviewed. Serum creatinine lower. Serum sodium lower. Potassium 5.4 , I suspect partly hemolysis. Patient has a Conway catheter. Continue D5W. Continue to monitor renal parameters. Continue per consultants. May 22: Patient more encephalopathic. Blood pressure low. Labs reviewed. Renal parameters worsened. Conway catheter ordered. Will stop Flomax and Proscar. Will adjust blood pressure medications. Will give IV fluid. Discussed with NAI Corbett. Will keep the patient n.p.o. due to poor mental status. Per orders. May 21: No labs drawn today. Stable from renal standpoint of view. Continue per consultants. May 20: Lab reviewed. Serum creatinine 1.5 stable. Serum sodium lowering. Continue per consultants. May 19: Labs reviewed. Serum creatinine lower to 1.5. Serum sodium mildly elevated. Continue free water administration. Monitor renal parameters. Continue per consultants. May 18: Labs reviewed. Serum creatinine up to 1.7. Electrolytes within normal limit. Continue to monitor renal parameters. Continue per consultants. May 17: Labs reviewed. Serum sodium normalized. Serum creatinine 1.5 stable. Continue per current management. May 16 Creatinine 1.5 unchanged. Blood pressure stable. Electrolytes unchanged. Serum sodium 133. Continue to monitor renal parameters Adjust blood pressure medication Stop saline hydration Monitor renal parameters and electrolytes Pulmonary support Per consultants Avoid nephrotoxic's Urine studies Per orders Subjective ROS Limited/Unobtainable: No Constitutional: Reports: malaise, weakness Objective Objective Last 24 Hour Vital Signs Date Time Temp Pulse Resp B/P (MAP) Pulse Ox O2 Delivery O2 Flow Rate FiO2 05/30/20 12:00 98.8 87 18 101/69 (80) 95 05/30/20 09:00 Room Air 05/30/20 08:52 76 105/68 05/30/20 08:00 86 05/30/20 08:00 99.0 76 20 105/68 (80) 94 05/30/20 04:00 71 05/30/20 04:00 99.0 85 16 113/69 (84) 94 05/30/20 00:00 99.5 82 16 100/76 (84) 94 05/30/20 00:00 93 05/29/20 21:00 Nasal Cannula 2.0 05/29/20 20:42 76 93/56 05/29/20 20:00 84 05/29/20 20:00 98.2 76 16 93/56 (68) 96 05/29/20 16:00 97.5 84 20 108/73 (85) 97 05/29/20 16:00 83 Intake and Output 05/29/20 05/30/20 19:00 07:00 Output Total 400 ml 325 ml Balance -400 ml -325 ml Output Urine Total 400 ml 325 ml # Voids 1 3 Laboratory Tests 05/30/20 08:50: White Blood Count 17.8H, Red Blood Count 4.93, Hemoglobin 15.4, Hematocrit 44.8, Mean Corpuscular Volume 91, Mean Corpuscular Hemoglobin 31.2H, Mean Corpuscular Hemoglobin Concent 34.4, Red Cell Distribution Width 14.1, Platelet Count 115L, Mean Platelet Volume 11.0H, Neutrophils (%) (Auto) , Lymphocytes (%) (Auto) , Monocytes (%) (Auto) , Eosinophils (%) (Auto) , Basophils (%) (Auto) , Differential Total Cells Counted 100, Neutrophils % (Manual) 91H, Lymphocytes % (Manual) 6L, Monocytes % (Manual) 3, Eosinophils % (Manual) 0, Basophils % (Manual) 0, Band Neutrophils 0, Platelet Estimate DecreasedL, Platelet M orphology Normal, Red Blood Cell Morphology Normal, Anisocytosis , Erythrocyte Sedimentation Rate 54H, Sodium Level 156H, Potassium Level 4.1, Chloride Level 120H, Carbon Dioxide Level 24, Anion Gap 12, Blood Urea Nitrogen 40H, Creatinine 1.1, Estimat Glomerular Filtration Rate > 60, Glucose Level 120H, Calcium Level 8.4L, Phosphorus Level 2.5, Magnesium Level 2.3, Total Bilirubin 0.9, Aspartate Amino Transf (AST/SGOT) 39H, Alanine Aminotransferase (ALT/SGPT) 92H, Alkaline Phosphatase 111, C-Reactive Protein, Quantitative 9.0H, Total Protein 6.3L, Albumin 1.9L, Globulin 4.4, Albumin/Globulin Ratio 0.4L Height (Feet): 5 Height (Inches): 7.00 Weight (Pounds): 160 General Appearance: no apparent distress, lethargic Cardiovascular: normal rate Respiratory/Chest: decreased breath sounds Abdomen: soft Objective No change Alan Sánchez MD May 30, 2020 13:38
--- NOTE | 2020-05-30 15:50 | Pulmonology Progress Note ---
Subjective ROS Limited/Unobtainable: No Constitutional: Reports: no symptoms Respiratory: Reports: no symptoms Allergies: Coded Allergies: No Known Allergies (Unverified , 05/13/20) Objective Last 24 Hour Vital Signs Date Time Temp Pulse Resp B/P (MAP) Pulse Ox O2 Delivery O2 Flow Rate FiO2 05/30/20 12:00 82 05/30/20 12:00 98.8 87 18 101/69 (80) 95 05/30/20 09:00 Room Air 05/30/20 08:52 76 105/68 05/30/20 08:00 86 05/30/20 08:00 99.0 76 20 105/68 (80) 94 05/30/20 04:00 71 05/30/20 04:00 99.0 85 16 113/69 (84) 94 05/30/20 00:00 99.5 82 16 100/76 (84) 94 05/30/20 00:00 93 05/29/20 21:00 Nasal Cannula 2.0 05/29/20 20:42 76 93/56 05/29/20 20:00 84 05/29/20 20:00 98.2 76 16 93/56 (68) 96 05/29/20 16:00 97.5 84 20 108/73 (85) 97 05/29/20 16:00 83 Intake and Output 05/29/20 05/30/20 19:00 07:00 Output Total 400 ml 325 ml Balance -400 ml -325 ml Output Urine Total 400 ml 325 ml # Voids 1 3 General Appearance: WD/WN, other - awake HEENT: normocephalic, atraumatic, anicteric, other - O2 4 L via NC Respiratory: chest wall non-tender, rhonchi - left, rhonchi - right Cardiovascular: normal peripheral pulses, normal rate - SR with BBB, Abdomen: normal bowel sounds, soft, non tender Genitourinary: normal external genitalia Extremities: no clubbing Neurologic: alert Lymphatic: no neck adenopathy Musculoskeletal: atrophy - BLE Laboratory Tests 05/30/20 08:50: White Blood Count 17.8H, Red Blood Count 4.93, Hemoglobin 15.4, Hematocrit 44.8, Mean Corpuscular Volume 91, Mean Corpuscular Hemoglobin 31.2H, Mean Corpuscular Hemoglobin Concent 34.4, Red Cell Distribution Width 14.1, Platelet Count 115L, Mean Platelet Volume 11.0H, Neutrophils (%) (Auto) , Lymphocytes (%) (Auto) , Monocytes (%) (Auto) , Eosinophils (%) (Auto) , Basophils (%) (Auto) , Differential Total Cells Counted 100, Neutrophils % (Manual) 91H, Lymphocytes % (Manual) 6L, Monocytes % (Manual) 3, Eosinophils % (Manual) 0, Basophils % (Manual) 0, Band Neutrophils 0, Platelet Estimate DecreasedL, Platelet Morphology Normal, Red Blood Cell Morphology Normal, Anisocytosis , Erythrocyte Sedimentation Rate 54H, Sodium Level 156H, Potassium Level 4.1, Chloride Level 120H, Carbon Dioxide Level 24, Anion Gap 12, Blood Urea Nitrogen 40H, Creatinine 1.1, Estimat Glomerular Filtration Rate > 60, Glucose Level 120H, Calcium Level 8.4L, Phosphorus Level 2.5, Magnesium Level 2.3, Total Bilirubin 0.9, Aspartate Amino Transf (AST/SGOT) 39H, Alanine Aminotransferase (ALT/SGPT) 92H, Alkaline Phosphatase 111, C-Reactive Protein, Quantitative 9.0H, Total Protein 6.3L, Alb umin 1.9L, Globulin 4.4, Albumin/Globulin Ratio 0.4L Current Medications Medications (Trade) Dose Ordered Sig/Tami Route PRN Reason Start Time Stop Time Status Last Admin Dose Admin Acetaminophen (Tylenol) 650 mg Q4H PRN ORAL FEVER 05/13/20 23:30 06/12/20 23:29 Albuterol/ Ipratropium (Combivent Respimat) 1 puff Q4H PRN INH Shortness of Breath 05/14/20 14:15 06/13/20 14:14 Amiodarone HCl (Cordarone) 200 mg DAILY ORAL 05/14/20 09:00 08/12/20 08:59 05/30/20 08:46 Carvedilol (Coreg) 3.125 mg EVERY 12 HOURS ORAL 05/14/20 09:00 06/13/20 08:59 05/28/20 22:13 Dextrose 1,000 ml @ 100 mls/hr Q10H IV 05/30/20 15:00 05/31/20 00:59 05/30/20 14:51 Dextrose (Dextrose 50%) 25 ml Q30M PRN IV Hypoglycemia 05/13/20 23:30 08/11/20 23:29 Dextrose (Dextrose 50%) 50 ml Q30M PRN IV Hypoglycemia 05/13/20 23:30 08/11/20 23:29 Heparin Sodium (Porcine) (Heparin 5000 units/ml) 5,000 units EVERY 12 HOURS SUBQ 05/14/20 09:00 06/28/20 08:59 05/27/20 08:53 Hydralazine HCl (Apresoline) 10 mg Q4H PRN IV bp over 160 syst 05/22/20 12:30 08/20/20 12:29 Ondansetron HCl (Zofran) 4 mg Q6H PRN IVP Nausea & Vomiting 05/13/20 23:30 06/12/20 23:29 Polyethylene Glycol (Miralax) 17 gm DAILYPRN PRN ORAL Constipation 05/13/20 23:30 06/12/20 23:29 05/16/20 13:23 Promethazine HCl/ Codeine (Phenergan with Codeine) 5 ml Q6H PRN ORAL cough 05/13/20 23:30 06/12/20 23:29 Assessment/Plan Problems: (1) 2019 novel coronavirus disease (COVID-19) (2) Nosocomial pneumonia (3) TOPHER (acute kidney injury) (4) COPD (chronic obstructive pulmonary disease) (5) Psychosis (6) HTN (hypertension) Assessment/Plan all reviewed cxr 05/09 showed increasing bilateral infiltrate, 05/25: bilateral infiltrates again demonstrated, which, allowing for slight differences in exposure technique, are probably unchanged afebrile titrate fio2 to sat of 92% respiratory treatment prn monitor BP symptomatic treatment. dvt prophylaxis. keep in isolation Umesh Prajapati MD May 30, 2020 15:50
[2020-05-30 16:00] VITALS: BP 102/72
[2020-05-30 20:00] VITALS: BP 99/65
--- NOTE | 2020-05-30 21:46 | General Progress Note ---
Subjective ROS Limited/Unobtainable: Yes Allergies: Coded Allergies: No Known Allergies (Unverified , 05/13/20) Objective Last 24 Hour Vital Signs Date Time Temp Pulse Resp B/P (MAP) Pulse Ox O2 Delivery O2 Flow Rate FiO2 05/30/20 16:00 98.4 84 20 102/72 (82) 95 05/30/20 16:00 86 05/30/20 12:00 82 05/30/20 12:00 98.8 87 18 101/69 (80) 95 05/30/20 09:00 Room Air 05/30/20 08:52 76 105/68 05/30/20 08:00 86 05/30/20 08:00 99.0 76 20 105/68 (80) 94 05/30/20 04:00 71 05/30/20 04:00 99.0 85 16 113/69 (84) 94 05/30/20 00:00 99.5 82 16 100/76 (84) 94 05/30/20 00:00 93 Intake and Output 05/29/20 05/30/20 19:00 07:00 Output Total 400 ml 325 ml Balance -400 ml -325 ml Output Urine Total 400 ml 325 ml # Voids 1 3 Laboratory Tests 05/30/20 08:50: White Blood Count 17.8H, Red Blood Count 4.93, Hemoglobin 15.4, Hematocrit 44.8, Mean Corpuscular Volume 91, Mean Corpuscular Hemoglobin 31.2H, Mean Corpuscular Hemoglobin Concent 34.4, Red Cell Distribution Width 14.1, Platelet Count 115L, Mean Platelet Volume 11.0H, Neutrophils (%) (Auto) , Lymphocytes (%) (Auto) , Monocytes (%) (Auto) , Eosinophils (%) (Auto) , Basophils (%) (Auto) , Differential Total Cells Counted 100, Neutrophils % (Manual) 91H, Lymphocytes % (Manual) 6L, Monocytes % (Manual) 3, Eosinophils % (Manual) 0, Basophils % (Manual) 0, Band Neutrophils 0, Platelet Estimate DecreasedL, Platelet Morphology Normal, Red Blood Cell Morphology Normal, Anisocytosis , Erythrocyte Sedimentation Rate 54H, Sodium Level 156H, Potassium Level 4.1, Chloride Level 120H, Carbon Dioxide Level 24, Anion Gap 12, Blood Urea Nitrogen 40H, Creatinine 1.1, Estimat Glomerular Filtration Rate > 60, Glucose Level 120H, Calcium Level 8.4L, Phosphorus Level 2.5, Magnesium Level 2.3, Total Bilirubin 0.9, Aspartate Amino Transf (AST/SGOT) 39H, Alanine Aminotransferase (ALT/SGPT) 92H, Alkaline Phosphatase 111, C-Reactive Protein, Quantitative 9.0H, Total Protein 6.3L, Albumin 1.9L, Globulin 4.4, Albumin/Globulin Ratio 0.4L Height (Feet): 5 Height (Inches): 7.00 Weight (Pounds): 160 Assessment/Plan Problem List: (1) COPD (chronic obstructive pulmonary disease) ICD Codes: J44.9 - Chronic obstructive pulmonary disease, unspecified SNOMED: 77165266 (2) Dehydration ICD Codes: E86.0 - Dehydration SNOMED: 99450359 (3) Pneumonia ICD Codes: J18.9 - Pneumonia, unspecified organism SNOMED: 763912670 (4) HTN (hypertension) ICD Codes: I10 - Essential (primary) hypertension SNOMED: 81799156 (5) 2019 novel coronavirus disease (COVID-19) ICD Codes: U07.1 - COVID-19 SNOMED: 214379863 (6) TOPHER (acute kidney injury) ICD Codes: N17.9 - Acute kidney failure, unspecified SNOMED: 6061366, 74097228 Status: progressing, unchanged Assessment/Plan: covid positive on oxygen arrythmia on amiodarone Hillary Smallwood MD May 30, 2020 21:46
[2020-05-31] VITALS: BP 100/73
[2020-05-31 04:00] VITALS: BP 96/64
[2020-05-31 08:00] VITALS: BP 134/81
[2020-05-31] MEDS: Heparin 5000 units/ml inj SUBQ SCH ×2 (09:00→21:00)
[2020-05-31 09:03] LABS: HEMATOCRIT 42.2 % (42.0-52.0); HEMOGLOBIN 14.5 G/DL (14.2-18.0); MEAN CORPUSCULAR VOLUME 91 FL (80-99); PLATELET COUNT 101 K/UL (150-450); RED BLOOD COUNT 4.62 M/UL (4.70-6.10); RED CELL DISTRIBUTION WIDTH 14.3 % (11.6-14.8); WHITE BLOOD COUNT 18.6 K/UL (4.8-10.8)
[2020-05-31 09:21] LABS: ALBUMIN 1.7 G/DL (3.4-5.0); ALBUMIN/GLOBULIN RATIO 0.4 (1.0-2.7); BILIRUBIN,TOTAL 0.8 MG/DL (0.2-1.0); CALCIUM 8.6 MG/DL (8.5-10.1); CREATININE 1.2 MG/DL (0.55-1.30); PHOSPHORUS 2.3 MG/DL (2.5-4.9); POTASSIUM 3.8 MMOL/L (3.5-5.1)
[2020-05-31] MEDS: Amiodarone 200mg tab ORAL SCH (09:52)
--- NOTE | 2020-05-31 10:41 | General Progress Note ---
Subjective ROS Limited/Unobtainable: No Allergies: Coded Allergies: No Known Allergies (Unverified , 05/13/20) Objective Last 24 Hour Vital Signs Date Time Temp Pulse Resp B/P (MAP) Pulse Ox O2 Delivery O2 Flow Rate FiO2 05/31/20 09:52 86 134/81 05/31/20 08:41 96 Nasal Cannula 2.0 28 05/31/20 08:00 86 05/31/20 08:00 98.1 74 18 134/81 (98) 96 05/31/20 04:00 66 05/31/20 04:00 98.1 85 20 96/64 (75) 93 05/31/20 00:00 80 05/31/20 00:00 98.4 85 20 100/73 (82) 94 05/30/20 21:00 64 99/65 05/30/20 21:00 Room Air 05/30/20 20:00 93 05/30/20 20:00 99.0 64 20 99/65 (76) 94 05/30/20 16:00 98.4 84 20 102/72 (82) 95 05/30/20 16:00 86 05/30/20 12:00 82 05/30/20 12:00 98.8 87 18 101/69 (80) 95 Intake and Output 05/30/20 05/31/20 19:00 07:00 Intake Total 400 ml 300 ml Output Total 200 ml 250 ml Balance 200 ml 50 ml IV Total 400 ml 300 ml Output Urine Total 200 ml 250 ml Laboratory Tests 05/31/20 07:20: White Blood Count 18.6H, Red Blood Count 4.62L, Hemoglobin 14.5, Hematocrit 42.2, Mean Corpuscular Volume 91, Mean Corpuscular Hemoglobin 31.5H, Mean Corpuscular Hemoglobin Concent 34.5, Red Cell Distribution Width 14.3, Platelet Count 101L, Mean Platelet Volume 11.2H, Neutrophils (%) (Auto) , Lymphocytes (%) (Auto) , Monocytes (%) (Auto) , Eosinophils (%) (Auto) , Basophils (%) (Auto) , Differential Total Cells Counted 100, Neutrophils % (Manual) 83H, Lymphocytes % (Manual) 5L, Monocytes % (Manual) 8, Eosinophils % (Manual) 0, Basophils % (Manual) 0, Band Neutrophils 4, Platelet Estimate DecreasedL, Platelet Morphology Normal, Anisocytosis 1+, Sodium Level 149H, Potassium Level 3.8, Chloride Level 117H, Carbon Dioxide Level 24, Anion Gap 8, Blood Urea Nitrogen 3 5H, Creatinine 1.2, Estimat Glomerular Filtration Rate 59.3, Glucose Level 95, Calcium Level 8.6, Phosphorus Level 2.3L, Magnesium Level 2.2, Total Bilirubin 0.8, Aspartate Amino Transf (AST/SGOT) 31, Alanine Aminotransferase (ALT/SGPT) 66, Alkaline Phosphatase 105, Total Protein 6.4, Albumin 1.7L, Globulin 4.7, Albumin/Globulin Ratio 0.4L Height (Feet): 5 Height (Inches): 7.00 Weight (Pounds): 160 General Appearance: no apparent distress EENT: normal ENT inspection Neck: supple Cardiovascular: normal peripheral pulses Respiratory/Chest: decreased breath sounds Abdomen: normal bowel sounds, non tender, soft Extremities: non-tender Assessment/Plan Problem List: (1) Elevated LFTs ICD Codes: R79.89 - Other specified abnormal findings of blood chemistry SNOMED: 489825146, 445664656 (2) COPD (chronic obstructive pulmonary disease) ICD Codes: J44.9 - Chronic obstructive pulmonary disease, unspecified SNOMED: 70732331 (3) Dehydration ICD Codes: E86.0 - Dehydration SNOMED: 90238508 (4) Pneumonia ICD Codes: J18.9 - Pneumonia, unspecified organism SNOMED: 405344797 (5) HTN (hypertension) ICD Codes: I10 - Essential (primary) hypertension SNOMED: 82345133 (6) 2019 novel coronavirus disease (COVID-19) ICD Codes: U07.1 - COVID-19 SNOMED: 300757673 Status: progressing, unchanged Assessment/Plan: repeat LFTS hold abd us for now hepatitis panel>> neg fu ID recs off protonix on marinol 5 eating some dietitian recommendation reviewed on ensure Stefan iWlde MD May 31, 2020 10:41
[2020-05-31] MEDS ORDERED: Potassium Phosphate 20 MM in NS 275 ML IV SCH (11:00)
[2020-05-31 12:00] VITALS: BP 139/67
--- NOTE | 2020-05-31 13:40 | Pulmonology Progress Note ---
Subjective ROS Limited/Unobtainable: No Constitutional: Reports: no symptoms Respiratory: Reports: no symptoms Allergies: Coded Allergies: No Known Allergies (Unverified , 05/13/20) Objective Last 24 Hour Vital Signs Date Time Temp Pulse Resp B/P (MAP) Pulse Ox O2 Delivery O2 Flow Rate FiO2 05/31/20 12:00 97.7 67 19 139/67 (91) 100 05/31/20 12:00 78 05/31/20 09:52 86 134/81 05/31/20 09:00 Room Air 05/31/20 08:41 96 Nasal Cannula 2.0 28 05/31/20 08:00 86 05/31/20 08:00 98.1 74 18 134/81 (98) 96 05/31/20 04:00 66 05/31/20 04:00 98.1 85 20 96/64 (75) 93 05/31/20 00:00 80 05/31/20 00:00 98.4 85 20 100/73 (82) 94 05/30/20 21:00 64 99/65 05/30/20 21:00 Room Air 05/30/20 20:00 93 05/30/20 20:00 99.0 64 20 99/65 (76) 94 05/30/20 16:00 98.4 84 20 102/72 (82) 95 05/30/20 16:00 86 Intake and Output 05/30/20 05/31/20 19:00 07:00 Intake Total 400 ml 300 ml Output Total 200 ml 250 ml Balance 200 ml 50 ml IV Total 400 ml 300 ml Output Urine Total 200 ml 250 ml General Appearance: WD/WN, other - awake HEENT: normocephalic, atraumatic, anicteric, other - O2 4 L via NC Respiratory: chest wall non-tender, rhonchi - left, rhonchi - right Cardiovascular: normal peripheral pulses, normal rate - SR with BBB, Abdomen: normal bowel sounds, soft, non tender Genitourinary: normal external genitalia Extremities: no clubbing Neurologic: alert Lymphatic: no neck adenopathy Musculoskeletal: atrophy - BLE Laboratory Tests 05/31/20 07:20: White Blood Count 18.6H, Red Blood Count 4.62L, Hemoglobin 14.5, Hematocrit 42.2, Mean Corpuscular Volume 91, Mean Corpuscular Hemoglobin 31.5H, Mean Corpuscular Hemoglobin Concent 34.5, Red Cell Distribution Width 14.3, Platelet Count 101L, Mean Platelet Volume 11.2H, Neutrophils (%) (Auto) , Lymphocytes (%) (Auto) , Monocytes (%) (Auto) , Eosinophils (%) (Auto) , Basophils (%) (Auto) , Differential Total Cells Counted 100, Neutrophils % (Manual) 83H, Lymphocytes % (Manual) 5L, Monocytes % (Manual) 8, Eosinophils % (Manual) 0, Basophils % (Manual) 0, Band Neutrophils 4, Platelet Estimate DecreasedL, Platelet Morphology Normal, Anisocytosis 1+, Sodium Level 149H, Potassium Level 3.8, Chloride Level 117H, Carbon Dioxide Level 24, Anion Gap 8, Blood Urea Nitrogen 35H, Creatinine 1.2, Estimat Glomerular Filtration Rate 59.3, Glucose Level 95, Calcium Level 8.6, Phosphorus Level 2.3L, Magnesium Level 2.2, Total Bilirubin 0.8, Aspartate Amino Transf (AST/SGOT) 31, Alanine Aminotransferase (ALT/SGPT) 66, Alkaline Phosphatase 105, Total Protein 6.4, Albumin 1.7L, Globulin 4.7, Albumin/Globulin Ratio 0.4L Current Medications Medications (Trade) Dose Ordered Sig/Tami Route PRN Reason Start Time Stop Time Status Last Admin Dose Admin Acetaminophen (Tylenol) 650 mg Q4H PRN ORAL FEVER 05/13/20 23:30 06/12/20 23:29 Albuterol/ Ipratropium (Combivent Respimat) 1 puff Q4H PRN INH Shortness of Breath 05/14/20 14:15 06/13/20 14:14 Amiodarone HCl (Cordarone) 200 mg DAILY ORAL 05/14/20 09:00 08/12/20 08:59 05/31/20 09:52 Carvedilol (Coreg) 3.125 mg EVERY 12 HOURS ORAL 05/14/20 09:00 06/13/20 08:59 05/31/20 09:52 Dextrose (Dextrose 50%) 25 ml Q30M PRN IV Hypoglycemia 05/13/20 23:30 08/11/20 23:29 Dextrose (Dextrose 50%) 50 ml Q30M PRN IV Hypoglycemia 05/13/20 23:30 08/11/20 23:29 Heparin Sodium (Porcine) (Heparin 5000 units/ml) 5,000 units EVERY 12 HOURS SUBQ 05/14/20 09:00 06/28/20 08:59 05/27/20 08:53 Hydralazine HCl (Apresoline) 10 mg Q4H PRN IV bp over 160 syst 05/22/20 12:30 08/20/20 12:29 Ondansetron HCl (Zofran) 4 mg Q6H PRN IVP Nausea & Vomiting 05/13/20 23:30 06/12/20 23:29 Polyethylene Glycol (Miralax) 17 gm DAILYPRN PRN ORAL Constipation 05/13/20 23:30 06/12/20 23:29 05/16/20 13:23 Promethazine HCl/ Codeine (Phenergan with Codeine) 5 ml Q6H PRN ORAL cough 05/13/20 23:30 06/12/20 23:29 Assessment/Plan Problems: (1) 2019 novel coronavirus disease (COVID-19) (2) Nosocomial pneumonia (3) TOPHER (acute kidney injury) (4) COPD (chronic obstructive pulmonary disease) (5) Psychosis (6) HTN (hypertension) Assessment/Plan all reviewed cxr 05/19 showed increasing bilateral infiltrate, 05/25: bilateral infiltrates again demonstrated, which, allowing for slight differences in exposure technique, are probably unchanged afebrile titrate fio2 to sat of 92% respiratory treatment prn monitor BP symptomatic treatment. dvt prophylaxis. keep in isolation Umesh Prajapati MD May 31, 2020 13:40
--- NOTE | 2020-05-31 14:45 | Nephrology Progress Note ---
Assessment/Plan Problem List: (1) TOPHER (acute kidney injury) (2) 2019 novel coronavirus disease (COVID-19) (3) Pneumonia (4) COPD (chronic obstructive pulmonary disease) (5) Psychosis Assessment Renal failure, acute on chronic Partly dehydration COPD, hypoxia, COVID-19 disease Psychosis Atrial fibrillation High cholesterol Hypertension History of CVA Plan May 31: Serum sodium lowering. Renal parameters stable. Low phosphorus addressed. Discussed with RN. May 30: Serum sodium 156. Other renal parameters stable. Will give 1 L of D5W. May 29: No labs drawn today. Will check can panel tomorrow. Continue per consultants. May 28: Labs reviewed. Serum sodium slightly elevated. D5W bolus given. Continue per consultants. Renal parameters stable. May 27: Labs reviewed. Stable renal parameters. Leukocytosis persists. May 26: No labs drawn today. We will check labs in a.m. Continue per current management. Medication list reviewed. May 25: Labs reviewed. Renal parameters much improved. Electrolytes within normal limit. Medication list reviewed. Continue per consultants. May 24: Labs reviewed. Serum creatinine lower. Serum sodium normalized. Electrolytes within normal limit. Will change IV to D5 normal saline. Continue per consultants. Blood pressure stable. May 23: Labs reviewed. Serum creatinine lower. Serum sodium lower. Potassium 5.4 , I suspect partly hemolysis. Patient has a Conway catheter. Continue D5W. Continue to monitor renal parameters. Continue per consultants. May 22: Patient more encephalopathic. Blood pressure low. Labs reviewed. Renal parameters worsened. Conway catheter ordered. Will stop Flomax and Proscar. Will adjust blood pressure medications. Will give IV fluid. Discussed with NAI Corbett. Will keep the patient n.p.o. due to poor mental status. Per orders. May 21: No labs drawn today. Stable from renal standpoint of view. Continue per consultants. May 20: Lab reviewed. Serum creatinine 1.5 stable. Serum sodium lowering. Continue per consultants. May 19: Labs reviewed. Serum creatinine lower to 1.5. Serum sodium mildly elevated. Continue free water administration. Monitor renal parameters. Continue per consultants. May 18: Labs reviewed. Serum creatinine up to 1.7. Electrolytes within normal limit. Continue to monitor renal parameters. Continue per consultants. May 17: Labs reviewed. Serum sodium normalized. Serum creatinine 1.5 stable. Continue per current management. May 16 Creatinine 1.5 unchanged. Blood pressure stable. Electrolytes unchanged. Serum sodium 133. Continue to monitor renal parameters Adjust blood pressure medication Stop saline hydration Monitor renal parameters and electrolytes Pulmonary support Per consultants Avoid nephrotoxic's Urine studies Per orders Subjective ROS Limited/Unobtainable: No Constitutional: Reports: malaise, weakness Objective Objective Last 24 Hour Vital Signs Date Time Temp Pulse Resp B/P (MAP) Pulse Ox O2 Delivery O2 Flow Rate FiO2 05/31/20 12:00 97.7 67 19 139/67 (91) 100 05/31/20 12:00 78 05/31/20 09:52 86 134/81 05/31/20 09:00 Room Air 05/31/20 08:41 96 Nasal Cannula 2.0 28 05/31/20 08:00 86 05/31/20 08:00 98.1 74 18 134/81 (98) 96 05/31/20 04:00 66 05/31/20 04:00 98.1 85 20 96/64 (75) 93 05/31/20 00:00 80 05/31/20 00:00 98.4 85 20 100/73 (82) 94 05/30/20 21:00 64 99/65 05/30/20 21:00 Room Air 05/30/20 20:00 93 05/30/20 20:00 99.0 64 20 99/65 (76) 94 05/30/20 16:00 98.4 84 20 102/72 (82) 95 05/30/20 16:00 86 Intake and Output 05/30/20 05/31/20 19:00 07:00 Intake Total 400 ml 300 ml Output Total 200 ml 250 ml Balance 200 ml 50 ml IV Total 400 ml 300 ml Output Urine Total 200 ml 250 ml Laboratory Tests 05/31/20 07:20: White Blood Count 18.6H, Red Blood Count 4.62L, Hemoglobin 14.5, Hematocrit 42.2, Mean Corpuscular Volume 91, Mean Corpuscular Hemoglobin 31.5H, Mean Corpuscular Hemoglobin Concent 34.5, Red Cell Distribution Width 14.3, Platelet Count 101L, Mean Platelet Volume 11.2H, Neutrophils (%) (Auto) , Lymphocytes (%) (Auto) , Monocytes (%) (Auto) , Eosinophils (%) (Auto) , Basophils (%) (Auto) , Differential Total Cells Counted 100, Neutrophils % (Manual) 83H, Lymphocytes % (Manual) 5L, Monocytes % (Manual) 8, Eosinophils % (Manual) 0, Basophils % (Manual) 0, Band Neutrophils 4, Platelet Estimate DecreasedL, Platelet Morphology Normal, Anisocytosis 1+, Sodium Level 149H, Potassium Level 3.8, Chloride Level 117H, Carbon Dioxide Level 24, Anion Gap 8, Blood Urea Nitrogen 35H, Creatinine 1.2, Estimat Glomerular Filtration Rate 59.3, Glucose Level 95, Calcium Level 8.6, Phosphorus Level 2.3L, Magnesium Level 2.2, Total Bilirubin 0.8, Aspartate Amino Transf (AST/SGOT) 31, Alanine Aminotransferase (ALT/SGPT) 66, Alkaline Phosphatase 105, Total Protein 6.4, Albumin 1.7L, Globulin 4.7, Albumin/Globulin Ratio 0.4L Height (Feet): 5 Height (Inches): 7.00 Weight (Pounds): 160 Cardiovascular: normal rate Respiratory/Chest: decreased breath sounds Abdomen: distended Objective No change Alan Sánchez MD May 31, 2020 14:45
[2020-05-31 15:06] LABS: APPEARANCE,URINE SLIGHTLY CLOUDY; BILIRUBIN, URINE NEGATIVE (NEGATIVE); GLUCOSE, URINE (UA) NEGATIVE (NEGATIVE); KETONES,URINE 1+ (NEGATIVE); LEUKOCYTE ESTERASE ,URINE 1+ (NEGATIVE); NITRITE,URINE NEGATIVE (NEGATIVE); PH,URINE 5 (4.5-8.0); PROTEIN,URINE 2+ (NEGATIVE); UROBILINOGEN,URINE NORMAL MG/DL (0.0-1.0)
[2020-05-31 15:07] LABS: COLOR,URINE YELLOW
[2020-05-31] MEDS ORDERED: Tubing IV Secondary IV ONE (15:44)
[2020-05-31] MEDS ORDERED: NS 275ml ONE (15:44)
[2020-05-31 16:00] VITALS: BP 137/87
[2020-05-31 20:00] VITALS: BP 120/65
--- NOTE | 2020-05-31 22:08 | General Progress Note ---
Subjective ROS Limited/Unobtainable: Yes Allergies: Coded Allergies: No Known Allergies (Unverified , 05/13/20) Objective Last 24 Hour Vital Signs Date Time Temp Pulse Resp B/P (MAP) Pulse Ox O2 Delivery O2 Flow Rate FiO2 05/31/20 21:15 90 120/65 05/31/20 20:00 88 05/31/20 16:00 96.8 61 21 137/87 (104) 96 05/31/20 16:00 79 05/31/20 12:00 97.7 67 19 139/67 (91) 100 05/31/20 12:00 78 05/31/20 09:52 86 134/81 05/31/20 09:00 Room Air 05/31/20 08:41 96 Nasal Cannula 2.0 28 05/31/20 08:00 86 05/31/20 08:00 98.1 74 18 134/81 (98) 96 05/31/20 04:00 66 05/31/20 04:00 98.1 85 20 96/64 (75) 93 05/31/20 00:00 80 05/31/20 00:00 98.4 85 20 100/73 (82) 94 Intake and Output 05/30/20 05/31/20 19:00 07:00 Intake Total 400 ml 300 ml Output Total 200 ml 250 ml Balance 200 ml 50 ml IV Total 400 ml 300 ml Output Urine Total 200 ml 250 ml Laboratory Tests 05/31/20 07:20: White Blood Count 18.6H, Red Blood Count 4.62L, Hemoglobin 14.5, Hematocrit 42.2, Mean Corpuscular Volume 91, Mean Corpuscular Hemoglobin 31.5H, Mean Corpuscular Hemoglobin Concent 34.5, Red Cell Distribution Width 14.3, Platelet Count 101L, Mean Platelet Volume 11.2H, Neutrophils (%) (Auto) , Lymphocytes (%) (Auto) , Monocytes (%) (Auto) , Eosinophils (%) (Auto) , Basophils (%) (Auto) , Differential Total Cells Counted 100, Neutrophils % (Manual) 83H, Lymphocytes % (Manual) 5L, Monocytes % (Manual) 8, Eosinophils % (Manual) 0, Basophils % (Manual) 0, Band Neutrophils 4, Platelet Estimate DecreasedL, Platelet Morphology Normal, Anisocytosis 1+, Sodium Level 149H, Potassium Level 3.8, Chloride Level 117H, Carbon Dioxide Level 24, Anion Gap 8, Blood Urea Nitrogen 35H, Creatinine 1.2, Estimat Glomerular Filtration Rate 59.3, Glucose Level 95, Calcium Level 8.6, Phosphorus Level 2.3L, Magnesium Level 2.2, Total Bilirubin 0.8, Aspartate Amino Transf (AST/SGOT) 31, Alanine Aminotransferase (ALT/SGPT) 66, Alkaline Phosphatase 105, Total Protein 6.4, Albumin 1.7L, Globulin 4.7, Albumin/Globulin Ratio 0.4L 05/31/20 14:30: Urine Color Yellow, Urine Appearance Slightly cloudy, Urine pH 5, Urine Specific [place] 1.015, Urine Protein 2+H, Urine Glucose (UA) Negative, Urine Ketones 1+H , Urine Blood 5+H, Urine Nitrite Negative, Urine Bilirubin Negative, Urine Urobilinogen Normal, Urine Leukocyte Esterase 1+H, Urine RBC TntcH, Urine WBC 2- 4, Urine Squamous Epithelial Cells None, Urine Uric Acid Crystals FewH, Urine Bacteria Few, Urine Yeast FewH Height (Feet): 5 Height (Inches): 7.00 Weight (Pounds): 160 Assessment/Plan Problem List: (1) COPD (chronic obstructive pulmonary disease) ICD Codes: J44.9 - Chronic obstructive pulmonary disease, unspecified SNOMED: 75608417 (2) Dehydration ICD Codes: E86.0 - Dehydration SNOMED: 34814972 (3) Pneumonia ICD Codes: J18.9 - Pneumonia, unspecified organism SNOMED: 857073809 (4) HTN (hypertension) ICD Codes: I10 - Essential (primary) hypertension SNOMED: 26593298 (5) 2019 novel coronavirus disease (COVID-19) ICD Codes: U07.1 - COVID-19 SNOMED: 356278120 (6) TOPHER (acute kidney injury) ICD Codes: N17.9 - Acute kidney failure, unspecified SNOMED: 1494945, 21822964 Status: progressing, unchanged Assessment/Plan: covid positive on oxygen arrythmia on amiodarone resp insuff htn dehydration no acute change Hillary Smallwood MD May 31, 2020 22:08
[2020-06-01] VITALS: BP 129/65
[2020-06-01 04:00] VITALS: BP 108/56
[2020-06-01 07:43] LABS: HEMOGLOBIN 14.4 G/DL (14.2-18.0); MEAN CORPUSCULAR VOLUME 95 FL (80-99); PLATELET COUNT 100 K/UL (150-450); RED BLOOD COUNT 4.62 M/UL (4.70-6.10); RED CELL DISTRIBUTION WIDTH 14.1 % (11.6-14.8); WHITE BLOOD COUNT 16.7 K/UL (4.8-10.8)
[2020-06-01 08:00] VITALS: BP 123/61
--- NOTE | 2020-06-01 08:03 | Infectious Diseases Prog Note ---
Assessment/Plan 74yo M with: Afebrile Normal WBC Lymphopenia Pneumonia COVID pneumonia, severe Acute hypoxic resp failure on NRB mask Possible UTI 05/13 BCx NTD UA 5-10 WBC, UCx >100k Kleb pna (S-CTX) COVID rapid positive CXR: Multifocal pna 05/19 CXR: Increasing bilateral infiltrates 05/31 UA neg Elevated LFTs, AST/ALT 125 / 80 TOPHER on CKD, Cr 1.5, improving COPD Cardiac disease SNF resident Plan: Cont to monitor off abx Pt doing well on RA, off therapeutics, OK to d/c from ID standpoint Trend WBC, Cr Trend mental status 05/23 SP dex #10 05/18 SP RDV #5 05/18 SP Augmentin #1, Azithro #5 05/17 SP CTX #4 Monitor CBC/CMP Monitor temp curve, hemodynamics Monitor resp status D/w RN Thank you for this consult. [facility] will continue to follow. Subjective Allergies: Coded Allergies: No Known Allergies (Unverified , 05/13/20) AF NAD On RA WBC improving to 16 Objective Last 24 Hour Vital Signs Date Time Temp Pulse Resp B/P (MAP) Pulse Ox O2 Delivery O2 Flow Rate FiO2 06/01/20 04:00 97.7 77 18 108/56 (73) 96 06/01/20 04:00 81 06/01/20 00:00 98.5 94 20 129/65 (86) 96 06/01/20 00:00 87 05/31/20 21:15 90 120/65 05/31/20 21:00 95 Nasal Cannula 2.0 28 05/31/20 21:00 Room Air 05/31/20 20:00 98.6 90 18 120/65 (83) 96 05/31/20 20:00 88 05/31/20 16:00 96.8 61 21 137/87 (104) 96 05/31/20 16:00 79 05/31/20 12:00 97.7 67 19 139/67 (91) 100 05/31/20 12:00 78 05/31/20 09:52 86 134/81 05/31/20 09:00 Room Air 05/31/20 08:41 96 Nasal Cannula 2.0 28 Height (Feet): 5 Height (Inches): 7.00 Weight (Pounds): 160 Gen: NAD HEENT: NCAT Pulm: BL chest rise Abd: Soft, NTND Ext: No c/c/e Skin: No visible rashes Neuro: Awake, interactive Laboratory Tests Test 05/31/20 14:30 06/01/20 06:00 Urine Color Yellow Urine Appearance Slightly cloudy Urine pH 5 (4.5-8.0) Urine Specific [place] 1.015 (1.005-1.035) Urine Protein 2+ (NEGATIVE) H Urine Glucose (UA) Negative (NEGATIVE) Urine Ketones 1+ (NEGATIVE) H Urine Blood 5+ (NEGATIVE) H Urine Nitrite Negative (NEGATIVE) Urine Bilirubin Negative (NEGATIVE) Urine Urobilinogen Normal MG/DL (0.0-1.0) Urine Leukocyte Esterase 1+ (NEGATIVE) H Urine RBC Tntc /HPF (0 - 0) H Urine WBC 2-4 /HPF (0 - 0) Urine Squamous Epithelial Cells None /LPF (NONE/OCC) Urine Uric Acid Crystals Few /LPF (NONE) H Urine Bacteria Few /HPF (NONE) Urine Yeast Few /HPF (NONE) H White Blood Count 16.7 K/UL (4.8-10.8) H Red Blood Count 4.62 M/UL (4.70-6.10) L Hemoglobin 14.4 G/DL (14.2-18.0) Hematocrit 44.0 % (42.0-52.0) Mean Corpuscular Volume 95 FL (80-99) Mean Corpuscular Hemoglobin 31.3 PG (27.0-31.0) H Mean Corpuscular Hemoglobin Concent 32.8 G/DL (32.0-36.0) Red Cell Distribution Width 14.1 % (11.6-14.8) Platelet Count 100 K/UL (150-450) L Mean Platelet Volume 12.3 FL (6.5-10.1) H Neutrophils (%) (Auto) % (45.0-75.0) Lymphocytes (%) (Auto) % (20.0-45.0) Monocytes (%) (Auto) % (1.0-10.0) Eosinophils (%) (Auto) % (0.0-3.0) Basophils (%) (Auto) % (0.0-2.0) Neutrophils % (Manual) Pending Lymphocytes % (Manual) Pending Platelet Estimate Pending Platelet Morphology Pending Erythrocyte Sedimentation Rate Pending Sodium Level Pending Potassium Level Pending Chloride Level Pending Carbon Dioxide Level Pending Blood Urea Nitrogen Pending Creatinine Pending Estimat Glomerular Filtration Rate Pending Glucose Level Pending Calcium Level Pending Phosphorus Level Pending Magnesium Level Pending Total Bilirubin Pending Aspartate Amino Transf (AST/SGOT) Pending Alanine Aminotransferase (ALT/SGPT) Pending Alkaline Phosphatase Pending C-Reactive Protein, Quantitative Pending Total Protein Pending Albumin Pending Globulin Pending Current Medications Medications (Trade) Dose Ordered Sig/Tami Route PRN Reason Start Time Stop Time Status Last Admin Dose Admin Acetaminophen (Tylenol) 650 mg Q4H PRN ORAL FEVER 05/13/20 23:30 06/12/20 23:29 Albuterol/ Ipratropium (Combivent Respimat) 1 puff Q4H PRN INH Shortness of Breath 05/14/20 14:15 06/13/20 14:14 Amiodarone HCl (Cordarone) 200 mg DAILY ORAL 05/14/20 09:00 08/12/20 08:59 05/31/20 09:52 Carvedilol (Coreg) 3.125 mg EVERY 12 HOURS ORAL 05/14/20 09:00 06/13/20 08:59 05/31/20 21:15 Dextrose (Dextrose 50%) 25 ml Q30M PRN IV Hypoglycemia 05/13/20 23:30 08/11/20 23:29 Dextrose (Dextrose 50%) 50 ml Q30M PRN IV Hypoglycemia 05/13/20 23:30 08/11/20 23:29 Heparin Sodium (Porcine) (Heparin 5000 units/ml) 5,000 units EVERY 12 HOURS SUBQ 05/14/20 09:00 06/28/20 08:59 05/27/20 08:53 Hydralazine HCl (Apresoline) 10 mg Q4H PRN IV bp over 160 syst 05/22/20 12:30 08/20/20 12:29 Ondansetron HCl (Zofran) 4 mg Q6H PRN IVP Nausea & Vomiting 05/13/20 23:30 06/12/20 23:29 Polyethylene Glycol (Miralax) 17 gm DAILYPRN PRN ORAL Constipation 05/13/20 23:30 06/12/20 23:29 05/16/20 13:23 Promethazine HCl/ Codeine (Phenergan with Codeine) 5 ml Q6H PRN ORAL cough 05/13/20 23:30 06/12/20 23:29 Kathy Yap M.D. Jun 01, 2020 08:03
--- NOTE | 2020-06-01 08:04 | General Progress Note ---
Subjective ROS Limited/Unobtainable: No Allergies: Coded Allergies: No Known Allergies (Unverified , 05/13/20) Objective Last 24 Hour Vital Signs Date Time Temp Pulse Resp B/P (MAP) Pulse Ox O2 Delivery O2 Flow Rate FiO2 06/01/20 04:00 97.7 77 18 108/56 (73) 96 06/01/20 04:00 81 06/01/20 00:00 98.5 94 20 129/65 (86) 96 06/01/20 00:00 87 05/31/20 21:15 90 120/65 05/31/20 21:00 95 Nasal Cannula 2.0 28 05/31/20 21:00 Room Air 05/31/20 20:00 98.6 90 18 120/65 (83) 96 05/31/20 20:00 88 05/31/20 16:00 96.8 61 21 137/87 (104) 96 05/31/20 16:00 79 05/31/20 12:00 97.7 67 19 139/67 (91) 100 05/31/20 12:00 78 05/31/20 09:52 86 134/81 05/31/20 09:00 Room Air 05/31/20 08:41 96 Nasal Cannula 2.0 28 Intake and Output 05/31/20 06/01/20 18:59 06:59 Intake Total 120 ml 60 ml Output Total 1200 ml 500 ml Balance -1080 ml -440 ml Intake Oral 120 ml 60 ml Output Urine Total 1200 ml 500 ml # Voids 3 1 Laboratory Tests 05/31/20 14:30: Urine Color Yellow, Urine Appearance Slightly cloudy, Urine pH 5, Urine Specific [place] 1.015, Urine Protein 2+H, Urine Glucose (UA) Negative, Urine Ketones 1+H , Urine Blood 5+H, Urine Nitrite Negative, Urine Bilirubin Negative, Urine Uro bilinogen Normal, Urine Leukocyte Esterase 1+H, Urine RBC TntcH, Urine WBC 2-4, Urine Squamous Epithelial Cells None, Urine Uric Acid Crystals FewH, Urine Bacteria Few, Urine Yeast FewH 06/01/20 06:00: White Blood Count 16.7H, Red Blood Count 4.62L, Hemoglobin 14.4, Hematocrit 44.0, Mean Corpuscular Volume 95, Mean Corpuscular Hemoglobin 31.3H, Mean Corpuscular Hemoglobin Concent 32.8, Red Cell Distribution Width 14.1, Platelet Count 100L, Mean Platelet Volume 12.3H, Neutrophils (%) (Auto) , Lymphocytes (%) (Auto) , Monocytes (%) (Auto) , Eosinophils (%) (Auto) , Basophils (%) (Auto) , Neutrophils % (Manual) [Pending], Lymphocytes % (Manual) [Pending], Platelet Estimate [Pending], Platelet Morphology [Pending], Erythrocyte Sedimentation Rate [Pending], Sodium Level [Pending], Potassium Level [Pending], Chloride Level [Pending], Carbon Dioxide Level [Pending], Blood Urea Nitrogen [Pending], Creatinine [Pending], Estimat Glomerular Filtration Rate [Pending], Glucose Leve l [Pending], Calcium Level [Pending], Phosphorus Level [Pending], Magnesium Level [Pending], Total Bilirubin [Pending], Aspartate Amino Transf (AST/SGOT) [Pending], Alanine Aminotransferase (ALT/SGPT) [Pending], Alkaline Phosphatase [Pending], C-Reactive Protein, Quantitative [Pending], Total Protein [Pending], Albumin [Pending], Globulin [Pending] Height (Feet): 5 Height (Inches): 7.00 Weight (Pounds): 160 General Appearance: no apparent distress EENT: normal ENT inspection Neck: supple Cardiovascular: normal rate Respiratory/Chest: decreased breath sounds Abdomen: normal bowel sounds, non tender, soft Extremities: non-tender Assessment/Plan Problem List: (1) Elevated LFTs ICD Codes: R79.89 - Other specified abnormal findings of blood chemistry SNOMED: 516119399, 165808630 (2) COPD (chronic obstructive pulmonary disease) ICD Codes: J44.9 - Chronic obstructive pulmonary disease, unspecified SNOMED: 61086641 (3) Dehydration ICD Codes: E86.0 - Dehydration SNOMED: 83182945 (4) Pneumonia ICD Codes: J18.9 - Pneumonia, unspecified organism SNOMED: 849174069 (5) HTN (hypertension) ICD Codes: I10 - Essential (primary) hypertension SNOMED: 38450122 (6) 2019 novel coronavirus disease (COVID-19) ICD Codes: U07.1 - COVID-19 SNOMED: 341205268 Status: progressing, unchanged Assessment/Plan: repeat LFTS hold abd us for now hepatitis panel>> neg fu ID recs off protonix on marinol 5 eating some dietitian recommendation reviewed on ensure Stefan Wilde MD Jun 01, 2020 08:04
[2020-06-01] MEDS: Heparin 5000 units/ml inj SUBQ SCH ×2 (09:00→20:57)
--- NOTE | 2020-06-01 09:43 | Diagnostic Imaging Report ---
Indication: Dyspnea Technique: One view of the chest Comparison: 05/25/2020 Findings: Bilateral infiltrates are again demonstrated, appear slightly improved. The heart size is normal. The pleural spaces are clear Impression: Interim slight improvement of bilateral infiltrates, over 7 days
[2020-06-01] MEDS: Amiodarone 200mg tab ORAL SCH (09:50)
[2020-06-01 10:02] LABS: ALBUMIN 1.7 G/DL (3.4-5.0); ALBUMIN/GLOBULIN RATIO 0.4 (1.0-2.7); BILIRUBIN,TOTAL 0.6 MG/DL (0.2-1.0); CALCIUM 8.4 MG/DL (8.5-10.1); CREATININE 1.4 MG/DL (0.55-1.30); PHOSPHORUS 3.9 MG/DL (2.5-4.9); POTASSIUM 3.8 MMOL/L (3.5-5.1)
--- NOTE | 2020-06-01 11:12 | Pulmonology Progress Note ---
Subjective ROS Limited/Unobtainable: No Constitutional: Reports: no symptoms Respiratory: Reports: no symptoms Allergies: Coded Allergies: No Known Allergies (Unverified , 05/13/20) Objective Last 24 Hour Vital Signs Date Time Temp Pulse Resp B/P (MAP) Pulse Ox O2 Delivery O2 Flow Rate FiO2 06/01/20 09:50 80 123/61 06/01/20 08:00 98.6 80 20 123/61 (81) 96 06/01/20 08:00 79 06/01/20 04:00 97.7 77 18 108/56 (73) 96 06/01/20 04:00 81 06/01/20 00:00 98.5 94 20 129/65 (86) 96 06/01/20 00:00 87 05/31/20 21:15 90 120/65 05/31/20 21:00 95 Nasal Cannula 2.0 28 05/31/20 21:00 Room Air 05/31/20 20:00 98.6 90 18 120/65 (83) 96 05/31/20 20:00 88 05/31/20 16:00 96.8 61 21 137/87 (104) 96 05/31/20 16:00 79 05/31/20 12:00 97.7 67 19 139/67 (91) 100 05/31/20 12:00 78 Intake and Output 05/31/20 06/01/20 19:00 07:00 Intake Total 120 ml 60 ml Output Total 1200 ml 500 ml Balance -1080 ml -440 ml Intake Oral 120 ml 60 ml Output Urine Total 1200 ml 500 ml # Voids 3 1 General Appearance: WD/WN, other - awake HEENT: normocephalic, atraumatic, anicteric, other - O2 4 L via NC Respiratory: chest wall non-tender, rhonchi - left, rhonchi - right Cardiovascular: normal peripheral pulses, normal rate - SR with BBB, Abdomen: normal bowel sounds, soft, non tender Genitourinary: normal external genitalia Extremities: no clubbing Neurologic: alert Lymphatic: no neck adenopathy Musculoskeletal: atrophy - BLE Laboratory Tests 05/31/20 14:30: Urine Color Yellow, Urine Appearance Slightly cloudy, Urine pH 5, Urine Specific [place] 1.015, Urine Protein 2+H, Urine Glucose (UA) Negative, Urine Ketones 1+H , Urine Blood 5+H, Urine Nitrite Negative, Urine Bilirubin Negative, Urine Urob ilinogen Normal, Urine Leukocyte Esterase 1+H, Urine RBC TntcH, Urine WBC 2-4, Urine Squamous Epithelial Cells None, Urine Uric Acid Crystals FewH, Urine Bacteria Few, Urine Yeast FewH 06/01/20 06:00: White Blood Count 16.7H, Red Blood Count 4.62L, Hemoglobin 14.4, Hematocrit 4 4.0, Mean Corpuscular Volume 95, Mean Corpuscular Hemoglobin 31.3H, Mean Corpuscular Hemoglobin Concent 32.8, Red Cell Distribution Width 14.1, Platelet Count 100L, Mean Platelet Volume 12.3H, Neutrophils (%) (Auto) , Lymphocytes (%) (Auto) , Monocytes (%) (Auto) , Eosinophils (%) (Auto) , Basophils (%) (Auto) , Neutrophils % (Manual) [Pending], Lymphocytes % (Manual) [Pending], Platelet Estimate [Pending], Platelet Morphology [Pending], Erythrocyte Sedimentation Rate [Pending], Sodium Level 154H, Potassium Level 3.8, Chloride Level 118H, Carbon Dioxide Level 22, Anion Gap 14, Blood Urea Nitrogen 38H, Creatinine 1.4H, Estimat Glomerular Filtration Rate 49.7, Glucose Level 77, Calcium Level 8.4L, Phosphorus Level 3.9, Magnesium Level 2.3, Total Bilirubin 0.6, Aspartate Amino Transf (AST/SGOT) 63H, Alanine Aminotransferase (ALT/SGPT) 101H, Alkaline Phosphatase 126H, C-Reactive Protein, Quantitative 19.3H, Total Protein 6.5, Albumin 1.7L, Globulin 4.8, Albumin/Globulin Ratio 0.4L Current Medications Medications (Trade) Dose Ordered Sig/Tami Route PRN Reason Start Time Stop Time Status Last Admin Dose Admin Acetaminophen (Tylenol) 650 mg Q4H PRN ORAL FEVER 05/13/20 23:30 06/12/20 23:29 Albuterol/ Ipratropium (Combivent Respimat) 1 puff Q4H PRN INH Shortness of Breath 05/14/20 14:15 06/13/20 14:14 Amiodarone HCl (Cordarone) 200 mg DAILY ORAL 05/14/20 09:00 08/12/20 08:59 06/01/20 09:50 Carvedilol (Coreg) 3.125 mg EVERY 12 HOURS ORAL 05/14/20 09:00 06/13/20 08:59 06/01/20 09:50 Dextrose (Dextrose 50%) 25 ml Q30M PRN IV Hypoglycemia 05/13/20 23:30 08/11/20 23:29 Dextrose (Dextrose 50%) 50 ml Q30M PRN IV Hypoglycemia 05/13/20 23:30 08/11/20 23:29 Heparin Sodium (Porcine) (Heparin 5000 units/ml) 5,000 units EVERY 12 HOURS SUBQ 05/14/20 09:00 06/28/20 08:59 05/27/20 08:53 Hydralazine HCl (Apresoline) 10 mg Q4H PRN IV bp over 160 syst 05/22/20 12:30 08/20/20 12:29 Ondansetron HCl (Zofran) 4 mg Q6H PRN IVP Nausea & Vomiting 05/13/20 23:30 06/12/20 23:29 Polyethylene Glycol (Miralax) 17 gm DAILYPRN PRN ORAL Constipation 05/13/20 23:30 06/12/20 23:29 05/16/20 13:23 Promethazine HCl/ Codeine (Phenergan with Codeine) 5 ml Q6H PRN ORAL cough 05/13/20 23:30 06/12/20 23:29 Assessment/Plan Problems: (1) 2019 novel coronavirus disease (COVID-19) (2) Nosocomial pneumonia (3) TOPHER (acute kidney injury) (4) COPD (chronic obstructive pulmonary disease) (5) Psychosis (6) HTN (hypertension) Assessment/Plan all reviewed cxr 05/19 showed increasing bilateral infiltrate, 05/25: bilateral infiltrates again demonstrated, which, allowing for slight differences in exposure technique, are probably unchanged cxr 06/01: Interim slight improvement of bilateral infiltrates, over 7 days afebrile titrate fio2 to sat of 92% respiratory treatment prn monitor BP symptomatic treatment. dvt prophylaxis. keep in isolation Umesh Prajapati MD Jun 01, 2020 11:12
--- NOTE | 2020-06-01 11:47 | Nephrology Progress Note ---
Assessment/Plan Problem List: (1) TOPHER (acute kidney injury) (2) 2019 novel coronavirus disease (COVID-19) (3) Pneumonia (4) COPD (chronic obstructive pulmonary disease) (5) Psychosis Assessment Renal failure, acute on chronic Partly dehydration COPD, hypoxia, COVID-19 disease Psychosis Atrial fibrillation High cholesterol Hypertension History of CVA Plan June 01: Serum sodium 154. Serum creatinine up to 1.4. Patient appears to be dehydrated. 1 L of D5W IV ordered. Continue to monitor renal parameters. Continue per consultants. May 31: Serum sodium lowering. Renal parameters stable. Low phosphorus addressed. Discussed with RN. May 30: Serum sodium 156. Other renal parameters stable. Will give 1 L of D5W. May 29: No labs drawn today. Will check can panel tomorrow. Continue per consultants. May 28: Labs reviewed. Serum sodium slightly elevated. D5W bolus given. Continue per consultants. Renal parameters stable. May 27: Labs reviewed. Stable renal parameters. Leukocytosis persists. May 26: No labs drawn today. We will check labs in a.m. Continue per current management. Medication list reviewed. May 25: Labs reviewed. Renal parameters much improved. Electrolytes within normal limit. Medication list reviewed. Continue per consultants. May 24: Labs reviewed. Serum creatinine lower. Serum sodium normalized. Electrolytes within normal limit. Will change IV to D5 normal saline. Continue per consultants. Blood pressure stable. May 23: Labs reviewed. Serum creatinine lower. Serum sodium lower. Potassium 5.4 , I suspect partly hemolysis. Patient has a Conway catheter. Continue D5W. Continue to monitor renal parameters. Continue per consultants. May 22: Patient more encephalopathic. Blood pressure low. Labs reviewed. Renal parameters worsened. Conway catheter ordered. Will stop Flomax and Proscar. Will adjust blood pressure medications. Will give IV fluid. Discussed with RN Chelle. Will keep the patient n.p.o. due to poor mental status. Per orders. May 21: No labs drawn today. Stable from renal standpoint of view. Continue per consultants. May 20: Lab reviewed. Serum creatinine 1.5 stable. Serum sodium lowering. Continue per consultants. May 19: Labs reviewed. Serum creatinine lower to 1.5. Serum sodium mildly elevated. Continue free water administration. Monitor renal parameters. Continue per consultants. May 18: Labs reviewed. Serum creatinine up to 1.7. Electrolytes within normal limit. Continue to monitor renal parameters. Continue per consultants. May 17: Labs reviewed. Serum sodium normalized. Serum creatinine 1.5 stable. Continue per current management. May 16 Creatinine 1.5 unchanged. Blood pressure stable. Electrolytes unchanged. Serum sodium 133. Continue to monitor renal parameters Adjust blood pressure medication Stop saline hydration Monitor renal parameters and electrolytes Pulmonary support Per consultants Avoid nephrotoxic's Urine studies Per orders Subjective ROS Limited/Unobtainable: No Objective Objective Last 24 Hour Vital Signs Date Time Temp Pulse Resp B/P (MAP) Pulse Ox O2 Delivery O2 Flow Rate FiO2 06/01/20 09:50 80 123/61 06/01/20 09:00 Room Air 06/01/20 08:00 98.6 80 20 123/61 (81) 96 06/01/20 08:00 79 06/01/20 04:00 97.7 77 18 108/56 (73) 96 06/01/20 04:00 81 06/01/20 00:00 98.5 94 20 129/65 (86) 96 06/01/20 00:00 87 05/31/20 21:15 90 120/65 05/31/20 21:00 95 Nasal Cannula 2.0 28 05/31/20 21:00 Room Air 05/31/20 20:00 98.6 90 18 120/65 (83) 96 05/31/20 20:00 88 05/31/20 16:00 96.8 61 21 137/87 (104) 96 05/31/20 16:00 79 05/31/20 12:00 97.7 67 19 139/67 (91) 100 05/31/20 12:00 78 Intake and Output 05/31/20 06/01/20 19:00 07:00 Intake Total 120 ml 60 ml Output Total 1200 ml 500 ml Balance -1080 ml -440 ml Intake Oral 120 ml 60 ml Output Urine Total 1200 ml 500 ml # Voids 3 1 Laboratory Tests 05/31/20 14:30: Urine Color Yellow, Urine Appearance Slightly cloudy, Urine pH 5, Urine Specific [place] 1.015, Urine Protein 2+H, Urine Glucose (UA) Negative, Urine Ketones 1+H , Urine Blood 5+H, Urine Nitrite Negative, Urine Bilirubin Negative, Urine Urobilinogen Normal, Urine Leukocyte Esterase 1+H, Urine RBC TntcH, Urine WBC 2- 4, Urine Squamous Epithelial Cells None, Urine Uric Acid Crystals FewH, Urine Bacteria Few, Urine Yeast FewH 06/01/20 06:00: White Blood Count 16.7H, Red Blood Count 4.62L, Hemoglobin 14.4, Hematocrit 44.0, Mean Corpuscular Volume 95, Mean Corpuscular Hemoglobin 31.3H, Mean Corpuscular Hemoglobin Concent 32.8, Red Cell Distribution Width 14.1, Platelet Count 100L, Mean Platelet Volume 12.3H, Neutrophils (%) (Auto) , Lymphocytes (%) (Auto) , Monocytes (%) (Auto) , Eosinophils (%) (Auto) , Basophils (%) (Auto) , Differential Total Cells Counted 100, Neutrophils % (Manual) 90H, Lymphocytes % (Manual) 6L, Monocytes % (Manual) 4, Eosinophils % (Manual) 0, Basophils % (Manual) 0, Band Neutrophils 0, Platelet Estimate DecreasedL, Platelet Morphology Normal, Red Blood Cell Morphology Normal, Erythrocyte Sedimentation Rate [Pending], Sodium Level 154H, Potassium Level 3.8, Chloride Level 118H, Carbon Dioxide Level 22, Anion Gap 14, Blood Urea Nitrogen 38H, Creatinine 1.4H, Estimat Glomerular Filtration Rate 49.7, Glucose Level 77, Calcium Level 8.4L, Phosphorus Level 3.9, Magnesium Level 2.3, Total Bilirubin 0.6, Aspartate Amino Transf (AST/SGOT) 63H, Alanine Aminotransferase (ALT/SGPT) 101H, Alkaline Phosphatase 126H, C-Reactive Protein, Quantitative 19.3H, Total Protein 6.5, Albumin 1.7L, Globulin 4.8, Albumin/Globulin Ratio 0.4L Height (Feet): 5 Height (Inches): 7.00 Weight (Pounds): 160 General Appearance: no apparent distress Cardiovascular: normal rate Respiratory/Chest: decreased breath sounds Abdomen: distended Objective No change Alan Sánchez MD Jun 01, 2020 11:47
[2020-06-01 12:00] VITALS: BP 129/87
[2020-06-01 16:00] VITALS: BP 127/78
[2020-06-01 20:00] VITALS: BP 109/56
--- NOTE | 2020-06-01 21:23 | General Progress Note ---
Subjective ROS Limited/Unobtainable: Yes Allergies: Coded Allergies: No Known Allergies (Unverified , 05/13/20) Objective Last 24 Hour Vital Signs Date Time Temp Pulse Resp B/P (MAP) Pulse Ox O2 Delivery O2 Flow Rate FiO2 06/01/20 20:50 86 109/56 06/01/20 16:00 102 06/01/20 16:00 97.2 97 18 127/78 (94) 97 06/01/20 12:00 96.6 96 18 129/87 (101) 97 06/01/20 12:00 83 06/01/20 09:50 80 123/61 06/01/20 09:00 Room Air 06/01/20 08:00 98.6 80 20 123/61 (81) 96 06/01/20 08:00 79 06/01/20 04:00 97.7 77 18 108/56 (73) 96 06/01/20 04:00 81 06/01/20 00:00 98.5 94 20 129/65 (86) 96 06/01/20 00:00 87 Intake and Output 05/31/20 06/01/20 19:00 07:00 Intake Total 120 ml 60 ml Output Total 1200 ml 500 ml Balance -1080 ml -440 ml Intake Oral 120 ml 60 ml Output Urine Total 1200 ml 500 ml # Voids 3 1 Laboratory Tests 06/01/20 06:00: White Blood Count 16.7H, Red Blood Count 4.62L, Hemoglobin 14.4, Hematocrit 44.0, Mean Corpuscular Volume 95, Mean Corpuscular Hemoglobin 31.3H, Mean Corpuscular Hemoglobin Concent 32.8, Red Cell Distribution Width 14.1, Platelet Count 100L, Mean Platelet Volume 12.3H, Neutrophils (%) (Auto) , Lymphocytes (%) (Auto) , Monocytes (%) (Auto) , Eosinophils (%) (Auto) , Basophils (%) (Auto) , Differential Total Cells Counted 100, Neutrophils % (Manual) 90H, Lymphocytes % (Manual) 6L, Monocytes % (Manual) 4, Eosinophils % (Manual) 0, Basophils % (Manual) 0, Band Neutrophils 0, Platelet Estimate DecreasedL, Platelet Morphology Normal, Red Blood Cell Morphology Normal, Sodium Level 154H, Potassium Level 3.8, Chloride Level 118H, Carbon Dioxide Level 22, Anion Gap 14, Blood Urea Nitrogen 38H, Creatinine 1.4H, Estimat Glomerular Filtration Rate 49.7, Glucose Level 77, Calcium Level 8.4L, Phosphorus Level 3.9, Magnesium Level 2.3, Total Bilirubin 0.6, Aspartate Amino Transf (AST/SGOT) 63H, Alanine Aminotransferase (ALT/SGPT) 101H, Alkaline Phosphatase 126H, C-Reactive Protein, Quantitative 19.3H, Total Protein 6.5, Albumin 1.7L, Globulin 4.8, Albumin/Globulin Ratio 0.4L 06/01/20 13:13: Erythrocyte Sedimentation Rate 70H Height (Feet): 5 Height (Inches): 7.00 Weight (Pounds): 160 Assessment/Plan Problem List: (1) COPD (chronic obstructive pulmonary disease) ICD Codes: J44.9 - Chronic obstructive pulmonary disease, unspecified SNOMED: 38137337 (2) Dehydration ICD Codes: E86.0 - Dehydration SNOMED: 71567933 (3) Pneumonia ICD Codes: J18.9 - Pneumonia, unspecified organism SNOMED: 382980840 (4) HTN (hypertension) ICD Codes: I10 - Essential (primary) hypertension SNOMED: 63631293 (5) 2019 novel coronavirus disease (COVID-19) ICD Codes: U07.1 - COVID-19 SNOMED: 962142346 (6) TOPHER (acute kidney injury) ICD Codes: N17.9 - Acute kidney failure, unspecified SNOMED: 8818533, 01874934 Status: progressing, unchanged Assessment/Plan: covid positive resp insuff htn dehydration pna dehydartion afebrile Hillary Smallwood MD Jun 01, 2020 21:23
[2020-06-02] VITALS: BP 100/68
[2020-06-02 04:00] VITALS: BP 114/62
[2020-06-02 08:00] VITALS: BP_SYST 91; BP_SYST 96; BP_DIAS 71
--- NOTE | 2020-06-02 08:52 | Infectious Diseases Prog Note ---
Assessment/Plan 74yo M with: Afebrile Normal WBC Lymphopenia Pneumonia COVID pneumonia, severe Acute hypoxic resp failure on NRB mask Possible UTI 05/13 BCx NTD UA 5-10 WBC, UCx >100k Kleb pna (S-CTX) COVID rapid positive CXR: Multifocal pna 05/19 CXR: Increasing bilateral infiltrates 05/31 UA neg, UCx 50-60k gamma-Strep and yeast (colonizers) Elevated LFTs, AST/ALT 125 / 80 TOPHER on CKD, Cr 1.5, improving COPD Cardiac disease SNF resident Plan: Cont to monitor off abx Pt doing well on RA, off therapeutics, OK to d/c from ID standpoint OK to d/c COVID isolation given clinical improvement and >10 days from diagnosis Although UCx from 05/31 positive, these represent colonizers given UA without any signs of inflammation and pt wo sx. Would not treat. Trend WBC, Cr Trend mental status 05/23 SP dex #10 05/18 SP RDV #5 05/18 SP Augmentin #1, Azithro #5 05/17 SP CTX #4 Monitor CBC/CMP Monitor temp curve, hemodynamics Monitor resp status D/w RN Thank you for this consult. [facility] will continue to follow. Subjective Allergies: Coded Allergies: No Known Allergies (Unverified , 05/13/20) AF NAD On RA Objective Last 24 Hour Vital Signs Date Time Temp Pulse Resp B/P (MAP) Pulse Ox O2 Delivery O2 Flow Rate FiO2 06/02/20 08:13 97 Room Air 21 06/02/20 04:00 77 06/02/20 04:00 97.8 105 20 114/62 (79) 97 06/02/20 00:00 86 06/02/20 00:00 98.1 83 17 100/68 (79) 97 06/01/20 21:00 Room Air 06/01/20 20:50 86 109/56 06/01/20 20:00 82 06/01/20 20:00 98.1 86 19 109/56 (73) 97 06/01/20 16:00 102 06/01/20 16:00 97.2 97 18 127/78 (94) 97 06/01/20 12:00 96.6 96 18 129/87 (101) 97 06/01/20 12:00 83 12/28/20 09:50 80 123/61 06/01/20 09:00 Room Air Height (Feet): 5 Height (Inches): 7.00 Weight (Pounds): 160 Gen: NAD HEENT: NCAT Pulm: BL chest rise Abd: Soft, NTND Ext: No c/c/e Skin: No visible rashes Neuro: Awake, interactive Microbiology Date/Time Source Procedure Growth Status 05/31/20 14:30 Urine,Clean Catch Urine Culture - Preliminary Strep Species, Gamma-Hemolytic Yeast Species Resulted Laboratory Tests Test 06/01/20 13:13 Erythrocyte Sedimentation Rate 70 MM/HR (0-20) H Current Medications Medications (Trade) Dose Ordered Sig/Tami Route PRN Reason Start Time Stop Time Status Last Admin Dose Admin Acetaminophen (Tylenol) 650 mg Q4H PRN ORAL FEVER 05/13/20 23:30 06/12/20 23:29 Albuterol/ Ipratropium (Combivent Respimat) 1 puff Q4H PRN INH Shortness of Breath 05/14/20 14:15 06/13/20 14:14 Amiodarone HCl (Cordarone) 200 mg DAILY ORAL 05/14/20 09:00 08/12/20 08:59 06/01/20 09:50 Carvedilol (Coreg) 3.125 mg EVERY 12 HOURS ORAL 05/14/20 09:00 06/13/20 08:59 06/01/20 20:50 Dextrose (Dextrose 50%) 25 ml Q30M PRN IV Hypoglycemia 05/13/20 23:30 08/11/20 23:29 Dextrose (Dextrose 50%) 50 ml Q30M PRN IV Hypoglycemia 05/13/20 23:30 08/11/20 23:29 Heparin Sodium (Porcine) (Heparin 5000 units/ml) 5,000 units EVERY 12 HOURS SUBQ 05/14/20 09:00 06/28/20 08:59 05/27/20 08:53 Hydralazine HCl (Apresoline) 10 mg Q4H PRN IV bp over 160 syst 05/22/20 12:30 08/20/20 12:29 Ondansetron HCl (Zofran) 4 mg Q6H PRN IVP Nausea & Vomiting 05/13/20 23:30 06/12/20 23:29 Polyethylene Glycol (Miralax) 17 gm DAILYPRN PRN ORAL Constipation 05/13/20 23:30 06/12/20 23:29 05/16/20 13:23 Promethazine HCl/ Codeine (Phenergan with Codeine) 5 ml Q6H PRN ORAL cough 05/13/20 23:30 06/12/20 23:29 Kathy Yap M.D. Jun 02, 2020 08:52
--- NOTE | 2020-06-02 08:57 | General Progress Note ---
Subjective ROS Limited/Unobtainable: No Allergies: Coded Allergies: No Known Allergies (Unverified , 05/13/20) Objective Last 24 Hour Vital Signs Date Time Temp Pulse Resp B/P (MAP) Pulse Ox O2 Delivery O2 Flow Rate FiO2 06/02/20 08:13 97 Room Air 21 06/02/20 08:00 76 06/02/20 04:00 77 06/02/20 04:00 97.8 105 20 114/62 (79) 97 06/02/20 00:00 86 06/02/20 00:00 98.1 83 17 100/68 (79) 97 06/01/20 21:00 Room Air 06/01/20 20:50 86 109/56 06/01/20 20:00 82 06/01/20 20:00 98.1 86 19 109/56 (73) 97 06/01/20 16:00 102 06/01/20 16:00 97.2 97 18 127/78 (94) 97 06/01/20 12:00 96.6 96 18 129/87 (101) 97 06/01/20 12:00 83 06/01/20 09:50 80 123/61 06/01/20 09:00 Room Air Intake and Output 06/01/20 06/02/20 19:00 07:00 Intake Total 60 ml 240 ml Output Total 750 ml 600 ml Balance -690 ml -360 ml Intake Oral 60 ml 240 ml Output Urine Total 750 ml 600 ml # Voids 1 1 # Bowel Movements 1 Laboratory Tests 06/01/20 13:13: Erythrocyte Sedimentation Rate 70H Height (Feet): 5 Height (Inches): 7.00 Weight (Pounds): 160 General Appearance: no apparent distress EENT: normal ENT inspection Neck: supple Cardiovascular: normal rate Respiratory/Chest: decreased breath sounds Abdomen: normal bowel sounds, non tender, soft Extremities: non-tender Assessment/Plan Problem List: (1) Elevated LFTs ICD Codes: R79.89 - Other specified abnormal findings of blood chemistry SNOMED: 342636874, 478809081 (2) COPD (chronic obstructive pulmonary disease) ICD Codes: J44.9 - Chronic obstructive pulmonary disease, unspecified SNOMED: 20437512 (3) Dehydration ICD Codes: E86.0 - Dehydration SNOMED: 28239760 (4) Pneumonia ICD Codes: J18.9 - Pneumonia, unspecified organism SNOMED: 923495640 (5) HTN (hypertension) ICD Codes: I10 - Essential (primary) hypertension SNOMED: 97182401 (6) 2019 novel coronavirus disease (COVID-19) ICD Codes: U07.1 - COVID-19 SNOMED: 757530820 Status: progressing, unchanged Assessment/Plan: repeat LFTS hold abd us for now hepatitis panel>> neg fu ID recs off protonix on marinol 5 eating some dietitian recommendation reviewed on ensure Stefan Wilde MD Jun 02, 2020 08:57
[2020-06-02] MEDS: Heparin 5000 units/ml inj SUBQ SCH ×2 (09:00→20:19)
[2020-06-02] MEDS: Amiodarone 200mg tab ORAL SCH (09:00)
--- NOTE | 2020-06-02 10:23 | Nephrology Progress Note ---
Assessment/Plan Problem List: (1) TOPHER (acute kidney injury) (2) 2019 novel coronavirus disease (COVID-19) (3) Pneumonia (4) COPD (chronic obstructive pulmonary disease) (5) Psychosis Assessment Renal failure, acute on chronic Partly dehydration COPD, hypoxia, COVID-19 disease Psychosis Atrial fibrillation High cholesterol Hypertension History of CVA Plan June 02: No CHEM panel drawn today. Will order labs for tomorrow. Continue per consultants June 01: Serum sodium 154. Serum creatinine up to 1.4. Patient appears to be dehydrated. 1 L of D5W IV ordered. Continue to monitor renal parameters. Continue per consultants. May 31: Serum sodium lowering. Renal parameters stable. Low phosphorus addressed. Discussed with RN. May 30: Serum sodium 156. Other renal parameters stable. Will give 1 L of D5W. May 29: No labs drawn today. Will check can panel tomorrow. Continue per consultants. May 28: Labs reviewed. Serum sodium slightly elevated. D5W bolus given. Continue per consultants. Renal parameters stable. May 27: Labs reviewed. Stable renal parameters. Leukocytosis persists. May 26: No labs drawn today. We will check labs in a.m. Continue per current management. Medication list reviewed. May 25: Labs reviewed. Renal parameters much improved. Electrolytes within normal limit. Medication list reviewed. Continue per consultants. May 24: Labs reviewed. Serum creatinine lower. Serum sodium normalized. Electrolytes within normal limit. Will change IV to D5 normal saline. Continue per consultants. Blood pressure stable. May 23: Labs reviewed. Serum creatinine lower. Serum sodium lower. Potassium 5.4 , I suspect partly hemolysis. Patient has a Conway catheter. Continue D5W. Continue to monitor renal parameters. Continue per consultants. May 22: Patient more encephalopathic. Blood pressure low. Labs reviewed. Renal parameters worsened. Conway catheter ordered. Will stop Flomax and Proscar. Will adjust blood pressure medications. Will give IV fluid. Discussed with NAI Corbett. Will keep the patient n.p.o. due to poor mental status. Per orders. May 21: No labs drawn today. Stable from renal standpoint of view. Continue per consultants. May 20: Lab reviewed. Serum creatinine 1.5 stable. Serum sodium lowering. Continue per consultants. May 19: Labs reviewed. Serum creatinine lower to 1.5. Serum sodium mildly elevated. Continue free water administration. Monitor renal parameters. Continue per consultants. May 18: Labs reviewed. Serum creatinine up to 1.7. Electrolytes within normal limit. Continue to monitor renal parameters. Continue per consultants. May 17: Labs reviewed. Serum sodium normalized. Serum creatinine 1.5 stable. Continue per current management. May 16 Creatinine 1.5 unchanged. Blood pressure stable. Electrolytes unchanged. Serum sodium 133. Continue to monitor renal parameters Adjust blood pressure medication Stop saline hydration Monitor renal parameters and electrolytes Pulmonary support Per consultants Avoid nephrotoxic's Urine studies Per orders Subjective ROS Limited/Unobtainable: Yes Objective Objective Last 24 Hour Vital Signs Date Time Temp Pulse Resp B/P (MAP) Pulse Ox O2 Delivery O2 Flow Rate FiO2 06/02/20 09:00 76 91/71 06/02/20 09:00 Room Air 06/02/20 08:13 97 Room Air 21 06/02/20 08:00 97.8 97 20 91/71 (78) 97 06/02/20 08:00 76 06/02/20 04:00 77 06/02/20 04:00 97.8 105 20 114/62 (79) 97 06/02/20 00:00 86 06/02/20 00:00 98.1 83 17 100/68 (79) 97 06/01/20 21:00 Room Air 06/01/20 20:50 86 109/56 06/01/20 20:00 82 06/01/20 20:00 98.1 86 19 109/56 (73) 97 06/01/20 16:00 102 06/01/20 16:00 97.2 97 18 127/78 (94) 97 06/01/20 12:00 96.6 96 18 129/87 (101) 97 06/01/20 12:00 83 Intake and Output 06/01/20 06/02/20 19:00 07:00 Intake Total 60 ml 240 ml Output Total 750 ml 600 ml Balance -690 ml -360 ml Intake Oral 60 ml 240 ml Output Urine Total 750 ml 600 ml # Voids 1 1 # Bowel Movements 1 Laboratory Tests 06/01/20 13:13: Erythrocyte Sedimentation Rate 70H Height (Feet): 5 Height (Inches): 7.00 Weight (Pounds): 160 General Appearance: no apparent distress, lethargic Cardiovascular: normal rate Respiratory/Chest: decreased breath sounds Abdomen: distended Objective No change Fouladian,Alan MD Jun 02, 2020 10:23
--- NOTE | 2020-06-02 10:59 | Pulmonology Progress Note ---
Subjective ROS Limited/Unobtainable: No Constitutional: Reports: no symptoms Respiratory: Reports: no symptoms Allergies: Coded Allergies: No Known Allergies (Unverified , 05/13/20) Objective Last 24 Hour Vital Signs Date Time Temp Pulse Resp B/P (MAP) Pulse Ox O2 Delivery O2 Flow Rate FiO2 06/02/20 09:00 76 91/71 06/02/20 09:00 Room Air 06/02/20 08:13 97 Room Air 21 06/02/20 08:00 97.7 71 20 96/71 (79) 96 06/02/20 08:00 76 06/02/20 04:00 77 06/02/20 04:00 97.8 105 20 114/62 (79) 97 06/02/20 00:00 86 06/02/20 00:00 98.1 83 17 100/68 (79) 97 06/01/20 21:00 Room Air 06/01/20 20:50 86 109/56 06/01/20 20:00 82 06/01/20 20:00 98.1 86 19 109/56 (73) 97 06/01/20 16:00 102 06/01/20 16:00 97.2 97 18 127/78 (94) 97 06/01/20 12:00 96.6 96 18 129/87 (101) 97 06/01/20 12:00 83 Intake and Output 06/01/20 06/02/20 19:00 07:00 Intake Total 60 ml 240 ml Output Total 750 ml 600 ml Balance -690 ml -360 ml Intake Oral 60 ml 240 ml Output Urine Total 750 ml 600 ml # Voids 1 1 # Bowel Movements 1 General Appearance: WD/WN, other - awake HEENT: normocephalic, atraumatic, anicteric, other - O2 4 L via NC Respiratory: chest wall non-tender, rhonchi - left, rhonchi - right Cardiovascular: normal peripheral pulses, normal rate - SR with BBB, Abdomen: normal bowel sounds, soft, non tender Genitourinary: normal external genitalia Extremities: no clubbing Neurologic: alert Lymphatic: no neck adenopathy Musculoskeletal: atrophy - BLE Microbiology Date/Time Source Procedure Growth Status 05/31/20 14:30 Urine,Clean Catch Urine Culture - Preliminary Strep Species, Gamma-Hemolytic Yeast Species Resulted Laboratory Tests 06/01/20 13:13: Erythrocyte Sedimentation Rate 70H Current Medications Medications (Trade) Dose Ordered Sig/Tami Route PRN Reason Start Time Stop Time Status Last Admin Dose Admin Acetaminophen (Tylenol) 650 mg Q4H PRN ORAL FEVER 05/13/20 23:30 06/12/20 23:29 Albuterol/ Ipratropium (Combivent Respimat) 1 puff Q4H PRN INH Shortness of Breath 05/14/20 14:15 06/13/20 14:14 Amiodarone HCl (Cordarone) 200 mg DAILY ORAL 05/14/20 09:00 08/12/20 08:59 06/01/20 09:50 Carvedilol (Coreg) 3.125 mg EVERY 12 HOURS ORAL 05/14/20 09:00 06/13/20 08:59 06/01/20 20:50 Dextrose (Dextrose 50%) 25 ml Q30M PRN IV Hypoglycemia 05/13/20 23:30 08/11/20 23:29 Dextrose (Dextrose 50%) 50 ml Q30M PRN IV Hypoglycemia 05/13/20 23:30 08/11/20 23:29 Heparin Sodium (Porcine) (Heparin 5000 units/ml) 5,000 units EVERY 12 HOURS SUBQ 05/14/20 09:00 06/28/20 08:59 05/27/20 08:53 Hydralazine HCl (Apresoline) 10 mg Q4H PRN IV bp over 160 syst 05/22/20 12:30 08/20/20 12:29 Ondansetron HCl (Zofran) 4 mg Q6H PRN IVP Nausea & Vomiting 05/13/20 23:30 06/12/20 23:29 Polyethylene Glycol (Miralax) 17 gm DAILYPRN PRN ORAL Constipation 05/13/20 23:30 06/12/20 23:29 05/16/20 13:23 Promethazine HCl/ Codeine (Phenergan with Codeine) 5 ml Q6H PRN ORAL cough 05/13/20 23:30 06/12/20 23:29 Assessment/Plan Problems: (1) Nosocomial pneumonia (2) 2019 novel coronavirus disease (COVID-19) (3) TOPHER (acute kidney injury) (4) COPD (chronic obstructive pulmonary disease) (5) Psychosis (6) HTN (hypertension) Assessment/Plan no new complains all reviewed cxr 05/19 showed increasing bilateral infiltrate, 05/25: bilateral infiltrates again demonstrated, which, allowing for slight differences in exposure technique, are probably unchanged cxr 06/01: Interim slight improvement of bilateral infiltrates, over 7 days afebrile titrate fio2 to sat of 92% respiratory treatment prn monitor BP symptomatic treatment. dvt prophylaxis. keep in isolation Umesh Prajapati MD Jun 02, 2020 10:59
[2020-06-02 12:00] VITALS: BP 101/66
[2020-06-02 16:00] VITALS: BP 97/61
[2020-06-02 20:00] VITALS: BP 105/67
--- NOTE | 2020-06-02 21:10 | General Progress Note ---
Subjective ROS Limited/Unobtainable: Yes Allergies: Coded Allergies: No Known Allergies (Unverified , 05/13/20) Objective Last 24 Hour Vital Signs Date Time Temp Pulse Resp B/P (MAP) Pulse Ox O2 Delivery O2 Flow Rate FiO2 06/02/20 20:18 65 105/67 06/02/20 20:00 97.9 65 20 105/67 (80) 96 06/02/20 19:45 96 Room Air 21 06/02/20 16:00 97.7 77 22 97/61 (73) 96 06/02/20 16:00 70 06/02/20 12:00 97.6 67 22 101/66 (78) 95 06/02/20 12:00 71 06/02/20 09:00 76 91/71 06/02/20 09:00 Room Air 06/02/20 08:13 97 Room Air 21 06/02/20 08:00 97.7 71 20 96/71 (79) 96 06/02/20 08:00 76 06/02/20 04:00 77 06/02/20 04:00 97.8 105 20 114/62 (79) 97 06/02/20 00:00 86 06/02/20 00:00 98.1 83 17 100/68 (79) 97 Intake and Output 06/01/20 06/02/20 19:00 07:00 Intake Total 60 ml 240 ml Output Total 750 ml 600 ml Balance -690 ml -360 ml Intake Oral 60 ml 240 ml Output Urine Total 750 ml 600 ml # Voids 1 1 # Bowel Movements 1 Height (Feet): 5 Height (Inches): 7.00 Weight (Pounds): 160 Assessment/Plan Problem List: (1) COPD (chronic obstructive pulmonary disease) ICD Codes: J44.9 - Chronic obstructive pulmonary disease, unspecified SNOMED: 73249578 (2) Dehydration ICD Codes: E86.0 - Dehydration SNOMED: 23645414 (3) Pneumonia ICD Codes: J18.9 - Pneumonia, unspecified organism SNOMED: 204035096 (4) HTN (hypertension) ICD Codes: I10 - Essential (primary) hypertension SNOMED: 39907561 (5) 2019 novel coronavirus disease (COVID-19) ICD Codes: U07.1 - COVID-19 SNOMED: 191354228 (6) TOPHER (acute kidney injury) ICD Codes: N17.9 - Acute kidney failure, unspecified SNOMED: 7120817, 93774218 Status: progressing, unchanged Assessment/Plan: hypernatremia azotemia persistent leukocytosis covid positive resp insuff htn dehydration pna Hillary Smallwood MD Jun 02, 2020 21:09
[2020-06-03] VITALS: BP 104/62
[2020-06-03 04:00] VITALS: BP 103/60
--- NOTE | 2020-06-03 07:32 | General Progress Note ---
Subjective ROS Limited/Unobtainable: No Allergies: Coded Allergies: No Known Allergies (Unverified , 05/13/20) Objective Last 24 Hour Vital Signs Date Time Temp Pulse Resp B/P (MAP) Pulse Ox O2 Delivery O2 Flow Rate FiO2 06/03/20 04:00 97.8 72 18 103/60 (74) 98 06/03/20 02:30 80 06/03/20 00:02 68 06/03/20 00:00 98.0 79 20 104/62 (76) 97 06/02/20 21:00 Room Air 06/02/20 20:18 65 105/67 06/02/20 20:00 97.9 65 20 105/67 (80) 96 06/02/20 19:57 60 06/02/20 19:45 96 Room Air 21 06/02/20 16:00 97.7 77 22 97/61 (73) 96 06/02/20 16:00 70 06/02/20 12:00 97.6 67 22 101/66 (78) 95 06/02/20 12:00 71 06/02/20 09:00 76 91/71 06/02/20 09:00 Room Air 06/02/20 08:13 97 Room Air 21 06/02/20 08:00 97.7 71 20 96/71 (79) 96 06/02/20 08:00 76 Intake and Output 06/02/20 06/03/20 19:00 07:00 Intake Total 100 ml Output Total 450 ml 350 ml Balance -350 ml -350 ml Intake Oral 100 ml Output Urine Total 450 ml 350 ml Height (Feet): 5 Height (Inches): 7.00 Weight (Pounds): 160 General Appearance: no apparent distress EENT: normal ENT inspection Neck: supple Cardiovascular: normal rate Respiratory/Chest: decreased breath sounds Abdomen: normal bowel sounds, non tender, soft Extremities: non-tender Assessment/Plan Problem List: (1) Elevated LFTs ICD Codes: R79.89 - Other specified abnormal findings of blood chemistry SNOMED: 894433878, 984887727 (2) COPD (chronic obstructive pulmonary disease) ICD Codes: J44.9 - Chronic obstructive pulmonary disease, unspecified SNOMED: 47119748 (3) Dehydration ICD Codes: E86.0 - Dehydration SNOMED: 36383940 (4) Pneumonia ICD Codes: J18.9 - Pneumonia, unspecified organism SNOMED: 855664377 (5) HTN (hypertension) ICD Codes: I10 - Essential (primary) hypertension SNOMED: 29876654 (6) 2019 novel coronavirus disease (COVID-19) ICD Codes: U07.1 - COVID-19 SNOMED: 180057900 Status: progressing, unchanged Assessment/Plan: repeat LFTS hold abd us for now hepatitis panel>> neg fu ID recs off protonix on marinol 5 eating some dietitian recommendation reviewed on ensure Stefan Wilde MD Jun 03, 2020 07:32
[2020-06-03 08:00] VITALS: BP 128/49
[2020-06-03] MEDS: Amiodarone 200mg tab ORAL SCH (08:29)
[2020-06-03] MEDS: Heparin 5000 units/ml inj SUBQ SCH ×2 (09:00→21:00)
--- NOTE | 2020-06-03 09:17 | Pulmonology Progress Note ---
Subjective ROS Limited/Unobtainable: No Constitutional: Reports: no symptoms Respiratory: Reports: no symptoms Allergies: Coded Allergies: No Known Allergies (Unverified , 05/13/20) Objective Last 24 Hour Vital Signs Date Time Temp Pulse Resp B/P (MAP) Pulse Ox O2 Delivery O2 Flow Rate FiO2 06/03/20 08:29 81 128/49 06/03/20 08:00 96.7 81 20 128/49 (75) 98 06/03/20 04:00 97.8 72 18 103/60 (74) 98 06/03/20 02:30 80 06/03/20 00:02 68 06/03/20 00:00 98.0 79 20 104/62 (76) 97 06/02/20 21:00 Room Air 06/02/20 20:18 65 105/67 06/02/20 20:00 97.9 65 20 105/67 (80) 96 06/02/20 19:57 60 06/02/20 19:45 96 Room Air 21 06/02/20 16:00 97.7 77 22 97/61 (73) 96 06/02/20 16:00 70 06/02/20 12:00 97.6 67 22 101/66 (78) 95 06/02/20 12:00 71 Intake and Output 06/02/20 06/03/20 19:00 07:00 Intake Total 100 ml Output Total 450 ml 350 ml Balance -350 ml -350 ml Intake Oral 100 ml Output Urine Total 450 ml 350 ml General Appearance: WD/WN, other - awake HEENT: normocephalic, atraumatic, anicteric, other - O2 4 L via NC Respiratory: chest wall non-tender, rhonchi - left, rhonchi - right Cardiovascular: normal peripheral pulses, normal rate - SR with BBB, Abdomen: normal bowel sounds, soft, non tender Genitourinary: normal external genitalia Extremities: no clubbing 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, 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 Lymphatic: no neck adenopathy Musculoskeletal: atrophy - BLE Microbiology Date/Time Source Procedure Growth Status 05/31/20 14:30 Urine,Clean Catch Urine Culture - Preliminary Strep Species, Gamma-Hemolytic Yeast Species Resulted Current Medications Medications (Trade) Dose Ordered Sig/Tami Route PRN Reason Start Time Stop Time Status Last Admin Dose Admin Acetaminophen (Tylenol) 650 mg Q4H PRN ORAL FEVER 05/13/20 23:30 06/12/20 23:29 Albuterol/ Ipratropium (Combivent Respimat) 1 puff Q4H PRN INH Shortness of Breath 05/14/20 14:15 06/13/20 14:14 Amiodarone HCl (Cordarone) 200 mg DAILY ORAL 05/14/20 09:00 08/12/20 08:59 06/03/20 08:29 Carvedilol (Coreg) 3.125 mg EVERY 12 HOURS ORAL 05/14/20 09:00 06/13/20 08:59 06/03/20 08:29 Dextrose (Dextrose 50%) 25 ml Q30M PRN IV Hypoglycemia 05/13/20 23:30 08/11/20 23:29 Dextrose (Dextrose 50%) 50 ml Q30M PRN IV Hypoglycemia 05/13/20 23:30 08/11/20 23:29 Heparin Sodium (Porcine) (Heparin 5000 units/ml) 5,000 units EVERY 12 HOURS SUBQ 05/14/20 09:00 06/28/20 08:59 05/27/20 08:53 Hydralazine HCl (Apresoline) 10 mg Q4H PRN IV bp over 160 syst 05/22/20 12:30 08/20/20 12:29 Ondansetron HCl (Zofran) 4 mg Q6H PRN IVP Nausea & Vomiting 05/13/20 23:30 06/12/20 23:29 Polyethylene Glycol (Miralax) 17 gm DAILYPRN PRN ORAL Constipation 05/13/20 23:30 06/12/20 23:29 05/16/20 13:23 Promethazine HCl/ Codeine (Phenergan with Codeine) 5 ml Q6H PRN ORAL cough 05/13/20 23:30 06/12/20 23:29 Assessment/Plan Problems: (1) Nosocomial pneumonia (2) 2019 novel coronavirus disease (COVID-19) (3) TOPHER (acute kidney injury) (4) COPD (chronic obstructive pulmonary disease) (5) Psychosis (6) HTN (hypertension) Assessment/Plan no new complains all reviewed cxr 05/19 showed increasing bilateral infiltrate, 05/25: bilateral infiltrates again demonstrated, which, allowing for slight differences in exposure technique, are probably unchanged cxr 06/01: Interim slight improvement of bilateral infiltrates, over 7 days afebrile titrate fio2 to sat of 92% respiratory treatment prn monitor BP symptomatic treatment. dvt prophylaxis. keep in isolation Umesh Prjaapati MD Jun 03, 2020 09:17
[2020-06-03 10:46] LABS: HEMATOCRIT 41.6 % (42.0-52.0); HEMOGLOBIN 14.2 G/DL (14.2-18.0); MEAN CORPUSCULAR VOLUME 91 FL (80-99); PLATELET COUNT 131 K/UL (150-450); RED BLOOD COUNT 4.59 M/UL (4.70-6.10); RED CELL DISTRIBUTION WIDTH 15.7 % (11.6-14.8); WHITE BLOOD COUNT 12.6 K/UL (4.8-10.8)
[2020-06-03 11:06] LABS: ALBUMIN 1.6 G/DL (3.4-5.0); ALBUMIN/GLOBULIN RATIO 0.3 (1.0-2.7); BILIRUBIN,TOTAL 0.9 MG/DL (0.2-1.0); CALCIUM 8.6 MG/DL (8.5-10.1); CREATININE 1.4 MG/DL (0.55-1.30); PHOSPHORUS 3.5 MG/DL (2.5-4.9); POTASSIUM 4.2 MMOL/L (3.5-5.1)
--- NOTE | 2020-06-03 15:16 | Nephrology Progress Note ---
Assessment/Plan Problem List: (1) TOPHER (acute kidney injury) (2) 2019 novel coronavirus disease (COVID-19) (3) Pneumonia (4) COPD (chronic obstructive pulmonary disease) (5) Psychosis Assessment Renal failure, acute on chronic Partly dehydration COPD, hypoxia, COVID-19 disease Psychosis Atrial fibrillation High cholesterol Hypertension History of CVA Plan June 03: Labs were reviewed. Serum creatinine 1.4 unchanged. Serum sodium elevated. 1 L D5W ordered. Continue to monitor electrolytes and renal parameters. June 02: No CHEM panel drawn today. Will order labs for tomorrow. Continue per consultants June 01: Serum sodium 154. Serum creatinine up to 1.4. Patient appears to be dehydrated. 1 L of D5W IV ordered. Continue to monitor renal parameters. Continue per consultants. May 31: Serum sodium lowering. Renal parameters stable. Low phosphorus addressed. Discussed with RN. May 30: Serum sodium 156. Other renal parameters stable. Will give 1 L of D5W. May 29: No labs drawn today. Will check can panel tomorrow. Continue per consultants. May 28: Labs reviewed. Serum sodium slightly elevated. D5W bolus given. Continue per consultants. Renal parameters stable. May 27: Labs reviewed. Stable renal parameters. Leukocytosis persists. May 26: No labs drawn today. We will check labs in a.m. Continue per current management. Medication list reviewed. May 25: Labs reviewed. Renal parameters much improved. Electrolytes within normal limit. Medication list reviewed. Continue per consultants. May 24: Labs reviewed. Serum creatinine lower. Serum sodium normalized. Electrolytes within normal limit. Will change IV to D5 normal saline. Continue per consultants. Blood pressure stable. May 23: Labs reviewed. Serum creatinine lower. Serum sodium lower. Potassium 5.4 , I suspect partly hemolysis. Patient has a Conway catheter. Continue D5W. Continue to monitor renal parameters. Continue per consultants. May 22: Patient more encephalopathic. Blood pressure low. Labs reviewed. Renal parameters worsened. Conway catheter ordered. Will stop Flomax and Proscar. Will adjust blood pressure medications. Will give IV fluid. Discussed with NAI Corbett. Will keep the patient n.p.o. due to poor mental status. Per orders. May 21: No labs drawn today. Stable from renal standpoint of view. Continue per consultants. May 20: Lab reviewed. Serum creatinine 1.5 stable. Serum sodium lowering. Continue per consultants. May 19: Labs reviewed. Serum creatinine lower to 1.5. Serum sodium mildly elevated. Continue free water administration. Monitor renal parameters. Continue per consultants. May 18: Labs reviewed. Serum creatinine up to 1.7. Electrolytes within normal limit. Continue to monitor renal parameters. Continue per consultants. May 17: Labs reviewed. Serum sodium normalized. Serum creatinine 1.5 stable. Continue per current management. May 16 Creatinine 1.5 unchanged. Blood pressure stable. Electrolytes unchanged. Serum sodium 133. Continue to monitor renal parameters Adjust blood pressure medication Stop saline hydration Monitor renal parameters and electrolytes Pulmonary support Per consultants Avoid nephrotoxic's Urine studies Per orders Subjective ROS Limited/Unobtainable: Yes Objective Objective Last 24 Hour Vital Signs Date Time Temp Pulse Resp B/P (MAP) Pulse Ox O2 Delivery O2 Flow Rate FiO2 06/03/20 12:00 67 06/03/20 09:00 Nasal Cannula 2.0 06/03/20 08:29 81 128/49 06/03/20 08:00 96.7 81 20 128/49 (75) 98 06/03/20 08:00 80 06/03/20 07:00 96 Room Air 21 06/03/20 04:00 97.8 72 18 103/60 (74) 98 06/03/20 02:30 80 06/03/20 00:02 68 06/03/20 00:00 98.0 79 20 104/62 (76) 97 06/02/20 21:00 Room Air 06/02/20 20:18 65 105/67 06/02/20 20:00 97.9 65 20 105/67 (80) 96 06/02/20 19:57 60 06/02/20 19:45 96 Room Air 21 06/02/20 16:00 97.7 77 22 97/61 (73) 96 06/02/20 16:00 70 Intake and Output 06/02/20 06/03/20 19:00 07:00 Intake Total 100 ml Output Total 450 ml 350 ml Balance -350 ml -350 ml Intake Oral 100 ml Output Urine Total 450 ml 350 ml Laboratory Tests 06/03/20 10:25: White Blood Count 12.6H, Red Blood Count 4.59L, Hemoglobin 14.2, Hematocrit 41.6L, Mean Corpuscular Volume 91, Mean Corpuscular Hemoglobin 30.9, Mean Corpuscular Hemoglobin Concent 34.1, Red Cell Distribution Width 15.7H, Platelet Count 131L, Mean Platelet Volume 11.1H, Neutrophils (%) (Auto) , Lymphocytes (%) (Auto) , Monocytes (%) (Auto) , Eosinophils (%) (Auto) , Basophils (%) (Auto) , Differential Total Cells Counted 100, Neutrophils % (Manual) 90H, Lymphocytes % (Manual) 8L, Monocytes % (Manual) 2, Eosinophils % (Manual) 0, Basophils % (Manual) 0, Band Neutrophils 0, Platelet Estimate DecreasedL, Platelet Morphology Normal, Anisocytosis 1+, Sodium Level 153H, Potassium Level 4.2, Chloride Level 120H, Carbon Dioxide Level 25, Anion Gap 8, Blood Urea Nitrogen 40H, Creatinine 1.4H, Estimat Glomerular Filtration Rate 49.7, Glucose Level 90, Uric Acid 5.8, Calcium Level 8.6, Phosphorus Level 3.5, Total Bilirubin 0.9, Aspartate Amino Transf (AST/SGOT) 64H, Alanine Aminotransferase (ALT/SGPT) 101H, Alkaline Phosphatase 120H, Total Protein 6.8, Albumin 1.6L, Globulin 5.2, Albumin/Globulin Ratio 0.3L Height (Feet): 5 Height (Inches): 7.00 Weight (Pounds): 160 General Appearance: no apparent distress, lethargic Cardiovascular: normal rate Respiratory/Chest: decreased breath sounds Abdomen: distended Objective No change Alan Sánchez MD Jun 03, 2020 15:16
[2020-06-03 16:00] VITALS: BP 130/94
[2020-06-03 20:00] VITALS: BP 110/76
--- NOTE | 2020-06-03 21:57 | General Progress Note ---
Subjective ROS Limited/Unobtainable: Yes Allergies: Coded Allergies: No Known Allergies (Unverified , 05/13/20) Objective Last 24 Hour Vital Signs Date Time Temp Pulse Resp B/P (MAP) Pulse Ox O2 Delivery O2 Flow Rate FiO2 06/03/20 21:00 87 110/76 06/03/20 20:00 98.0 87 20 110/76 (87) 92 06/03/20 19:17 96 Room Air 21 06/03/20 16:00 72 06/03/20 16:00 98.7 59 18 130/94 (106) 97 06/03/20 12:00 67 06/03/20 09:00 Nasal Cannula 2.0 06/03/20 08:29 81 128/49 06/03/20 08:00 96.7 81 20 128/49 (75) 98 06/03/20 08:00 80 06/03/20 07:00 96 Room Air 21 06/03/20 04:00 97.8 72 18 103/60 (74) 98 06/03/20 02:30 80 06/03/20 00:02 68 06/03/20 00:00 98.0 79 20 104/62 (76) 97 Intake and Output 06/02/20 06/03/20 19:00 07:00 Intake Total 100 ml Output Total 450 ml 350 ml Balance -350 ml -350 ml Intake Oral 100 ml Output Urine Total 450 ml 350 ml Laboratory Tests 06/03/20 10:25: White Blood Count 12.6H, Red Blood Count 4.59L, Hemoglobin 14.2, Hematocrit 41.6L, Mean Corpuscular Volume 91, Mean Corpuscular Hemoglobin 30.9, Mean Corpuscular Hemoglobin Concent 34.1, Red Cell Distribution Width 15.7H, Platelet Count 131L, Mean Platelet Volume 11.1H, Neutrophils (%) (Auto) , Lymphocytes (%) (Auto) , Monocytes (%) (Auto) , Eosinophils (%) (Auto) , Basophils (%) (Auto) , Differential Total Cells Counted 100, Neutrophils % (Manual) 90H, Lymphocytes % (Manual) 8L, Monocytes % (Manual) 2, Eosinophils % (Manual) 0, Basophils % (Manual) 0, Band Neutrophils 0, Platelet Estimate DecreasedL, Platelet Morphology Normal, Anisocytosis 1+, Sodium Level 153H, Potassium Level 4.2, Chloride Level 120H, Carbon Dioxide Level 25, Anion Gap 8, Blood Urea Nitrogen 40H, Creatinine 1.4H, Estimat Glomerular Filtration Rate 49.7, Glucose Level 90, Uric Acid 5.8, Calcium Level 8.6, Phosphorus Level 3.5, Total Bilirubin 0.9, Aspartate Amino Transf (AST/SGOT) 64H, Alanine Aminotransferase (ALT/SGPT) 101H, Alkaline Phosphatase 120H, Total Protein 6.8, Albumin 1.6L, Globulin 5.2, Albumin/Globulin Ratio 0.3L Height (Feet): 5 Height (Inches): 7.00 Weight (Pounds): 160 Assessment/Plan Problem List: (1) COPD (chronic obstructive pulmonary disease) ICD Codes: J44.9 - Chronic obstructive pulmonary disease, unspecified SNOMED: 45400422 (2) Dehydration ICD Codes: E86.0 - Dehydration SNOMED: 95684535 (3) Pneumonia ICD Codes: J18.9 - Pneumonia, unspecified organism SNOMED: 903785248 (4) HTN (hypertension) ICD Codes: I10 - Essential (primary) hypertension SNOMED: 67173917 (5) 2019 novel coronavirus disease (COVID-19) ICD Codes: U07.1 - COVID-19 SNOMED: 856775531 (6) TOPHER (acute kidney injury) ICD Codes: N17.9 - Acute kidney failure, unspecified SNOMED: 3708695, 93625612 Status: progressing, unchanged Assessment/Plan: check lytes no fever persistent leukocytosis covid positive resp insuff no wheezing iHllary Smallwood MD Jun 03, 2020 21:57
[2020-06-04] VITALS: BP 108/50
[2020-06-04 04:00] VITALS: BP 103/63
[2020-06-04 08:00] VITALS: BP 102/63
[2020-06-04 08:32] LABS: ALBUMIN 1.7 G/DL (3.4-5.0); ALBUMIN/GLOBULIN RATIO 0.3 (1.0-2.7); BILIRUBIN,TOTAL 0.8 MG/DL (0.2-1.0); CALCIUM 8.5 MG/DL (8.5-10.1); CREATININE 1.6 MG/DL (0.55-1.30); PHOSPHORUS 2.6 MG/DL (2.5-4.9); POTASSIUM 3.3 MMOL/L (3.5-5.1)
--- NOTE | 2020-06-04 08:38 | Infectious Diseases Prog Note ---
Assessment/Plan 74yo M with: Afebrile Normal WBC Lymphopenia Pneumonia COVID pneumonia, severe Acute hypoxic resp failure on NRB mask Possible UTI 05/13 BCx NTD UA 5-10 WBC, UCx >100k Kleb pna (S-CTX) COVID rapid positive CXR: Multifocal pna 05/19 CXR: Increasing bilateral infiltrates 05/31 UA neg, UCx 50-60k Enterococcus and yeast (colonizers) Elevated LFTs, AST/ALT 125 / 80 TOPHER on CKD, Cr 1.5, improving COPD Cardiac disease SN[facility] resident Plan: Cont to monitor off abx Pt doing well on RA, off therapeutics, OK to d/c from ID standpoint OK to d/c COVID isolation given clinical improvement and >10 days from diagnosis Although UCx from 05/31 positive, these represent colonizers given UA without any signs of inflammation and pt wo sx. Would not treat. Trend WBC, Cr Trend mental status 05/23 SP dex #10 05/18 SP RDV #5 05/18 SP Augmentin #1, Azithro #5 05/17 SP CTX #4 Monitor CBC/CMP Monitor temp curve, hemodynamics Monitor resp status D/w RN Thank you for this consult. [facility] will continue to follow. Subjective Allergies: Coded Allergies: No Known Allergies (Unverified , 05/13/20) AF NAD On RA - 2L Objective Last 24 Hour Vital Signs Date Time Temp Pulse Resp B/P (MAP) Pulse Ox O2 Delivery O2 Flow Rate FiO2 06/04/20 04:00 66 06/04/20 04:00 97.5 74 20 103/63 (76) 95 06/04/20 00:00 80 06/04/20 00:00 97.5 75 21 108/50 (69) 94 06/03/20 21:00 Nasal Cannula 2.0 06/03/20 21:00 87 110/76 06/03/20 20:00 98.0 87 20 110/76 (87) 92 06/03/20 20:00 73 06/03/20 19:17 96 Room Air 21 06/03/20 16:00 72 06/03/20 16:00 98.7 59 18 130/94 (106) 97 06/03/20 12:00 67 06/03/20 09:00 Nasal Cannula 2.0 Height (Feet): 5 Height (Inches): 7.00 Weight (Pounds): 160 Gen: NAD HEENT: NCAT Pulm: BL chest rise Abd: Soft, NTND Ext: No c/c/e Skin: No visible rashes Neuro: Awake, interactive Laboratory Tests Test 06/03/20 10:25 06/04/20 05:50 White Blood Count 12.6 K/UL (4.8-10.8) H Red Blood Count 4.59 M/UL (4.70-6.10) L Hemoglobin 14.2 G/DL (14.2-18.0) Hematocrit 41.6 % (42.0-52.0) L Mean Corpuscular Volume 91 FL (80-99) Mean Corpuscular Hemoglobin 30.9 PG (27.0-31.0) Mean Corpuscular Hemoglobin Concent 34.1 G/DL (32.0-36.0) Red Cell Distribution Width 15.7 % (11.6-14.8) H Platelet Count 131 K/UL (150-450) L Mean Platelet Volume 11.1 FL (6.5-10.1) H Neutrophils (%) (Auto) % (45.0-75.0) Lymphocytes (%) (Auto) % (20.0-45.0) Monocytes (%) (Auto) % (1.0-10.0) Eosinophils (%) (Auto) % (0.0-3.0) Basophils (%) (Auto) % (0.0-2.0) Differential Total Cells Counted 100 Neutrophils % (Manual) 90 % (45-75) H Lymphocytes % (Manual) 8 % (20-45) L Monocytes % (Manual) 2 % (1-10) Eosinophils % (Manual) 0 % (0-3) Basophils % (Manual) 0 % (0-2) Band Neutrophils 0 % (0-8) Platelet Estimate Decreased L Platelet Morphology Normal Anisocytosis 1+ Sodium Level 153 MMOL/L (136-145) H 150 MMOL/L (136-145) H Potassium Level 4.2 MMOL/L (3.5-5.1) 3.3 MMOL/L (3.5-5.1) L Chloride Level 120 MMOL/L (98-107) H 115 MMOL/L (98-107) H Carbon Dioxide Level 25 MMOL/L (21-32) 28 MMOL/L (21-32) Anion Gap 8 mmol/L (5-15) 7 mmol/L (5-15) Blood Urea Nitrogen 40 mg/dL (7-18) H 44 mg/dL (7-18) H Creatinine 1.4 MG/DL (0.55-1.30) H 1.6 MG/DL (0.55-1.30) H Estimat Glomerular Filtration Rate 49.7 mL/min (>60) 42.6 mL/min (>60) Glucose Level 90 MG/DL (74-106) 101 MG/DL (74-106) Uric Acid 5.8 MG/DL (2.6-7.2) 5.7 MG/DL (2.6-7.2) Calcium Level 8.6 MG/DL (8.5-10.1) 8.5 MG/DL (8.5-10.1) Phosphorus Level 3.5 MG/DL (2.5-4.9) 2.6 MG/DL (2.5-4.9) Total Bilirubin 0.9 MG/DL (0.2-1.0) 0.8 MG/DL (0.2-1.0) Aspartate Amino Transf (AST/SGOT) 64 U/L (15-37) H 55 U/L (15-37) H Alanine Aminotransferase (ALT/SGPT) 101 U/L (12-78) H 103 U/L (12-78) H Alkaline Phosphatase 120 U/L (46-116) H 127 U/L (46-116) H Total Protein 6.8 G/DL (6.4-8.2) 6.8 G/DL (6.4-8.2) Albumin 1.6 G/DL (3.4-5.0) L 1.7 G/DL (3.4-5.0) L Globulin 5.2 g/dL 5.1 g/dL Albumin/Globulin Ratio 0.3 (1.0-2.7) L 0.3 (1.0-2.7) L Magnesium Level 2.2 MG/DL (1.8-2.4) Gamma Glutamyl Transpeptidase 57 U/L (5-85) Current Medications Medications (Trade) Dose Ordered Sig/Tami Route PRN Reason Start Time Stop Time Status Last Admin Dose Admin Acetaminophen (Tylenol) 650 mg Q4H PRN ORAL FEVER 05/13/20 23:30 06/12/20 23:29 Albuterol/ Ipratropium (Combivent Respimat) 1 puff Q4H PRN INH Shortness of Breath 05/14/20 14:15 06/13/20 14:14 Amiodarone HCl (Cordarone) 200 mg DAILY ORAL 05/14/20 09:00 08/12/20 08:59 06/03/20 08:29 Carvedilol (Coreg) 3.125 mg EVERY 12 HOURS ORAL 05/14/20 09:00 06/13/20 08:59 06/03/20 08:29 Dextrose (Dextrose 50%) 25 ml Q30M PRN IV Hypoglycemia 05/13/20 23:30 08/11/20 23:29 Dextrose (Dextrose 50%) 50 ml Q30M PRN IV Hypoglycemia 05/13/20 23:30 08/11/20 23:29 Heparin Sodium (Porcine) (Heparin 5000 units/ml) 5,000 units EVERY 12 HOURS SUBQ 05/14/20 09:00 06/28/20 08:59 05/27/20 08:53 Hydralazine HCl (Apresoline) 10 mg Q4H PRN IV bp over 160 syst 05/22/20 12:30 08/20/20 12:29 Ondansetron HCl (Zofran) 4 mg Q6H PRN IVP Nausea & Vomiting 05/13/20 23:30 06/12/20 23:29 Polyethylene Glycol (Miralax) 17 gm DAILYPRN PRN ORAL Constipation 05/13/20 23:30 06/12/20 23:29 05/16/20 13:23 Promethazine HCl/ Codeine (Phenergan with Codeine) 5 ml Q6H PRN ORAL cough 05/13/20 23:30 06/12/20 23:29 Kathy Yap M.D. Jun 04, 2020 08:38
[2020-06-04] MEDS: Amiodarone 200mg tab ORAL SCH (08:44)
[2020-06-04] MEDS: Heparin 5000 units/ml inj SUBQ SCH ×2 (08:47→21:00)
--- NOTE | 2020-06-04 10:56 | Nephrology Progress Note ---
Assessment/Plan Problem List: (1) TOPHER (acute kidney injury) (2) 2019 novel coronavirus disease (COVID-19) (3) Pneumonia (4) COPD (chronic obstructive pulmonary disease) (5) Psychosis Assessment Renal failure, acute on chronic Partly dehydration COPD, hypoxia, COVID-19 disease Psychosis Atrial fibrillation High cholesterol Hypertension History of CVA Plan June 04: No labs reviewed. Serum creatinine ab to 1.6. Serum sodium remains higher than normal. Will start D5W at 50 cc an hour. Potassium supplement given. Continue to monitor renal parameters. June 03: Labs were reviewed. Serum creatinine 1.4 unchanged. Serum sodium elevated. 1 L D5W ordered. Continue to monitor electrolytes and renal parameters. June 02: No CHEM panel drawn today. Will order labs for tomorrow. Continue per consultants June 01: Serum sodium 154. Serum creatinine up to 1.4. Patient appears to be dehydrated. 1 L of D5W IV ordered. Continue to monitor renal parameters. Continue per consultants. May 31: Serum sodium lowering. Renal parameters stable. Low phosphorus addressed. Discussed with RN. May 30: Serum sodium 156. Other renal parameters stable. Will give 1 L of D5W. May 29: No labs drawn today. Will check can panel tomorrow. Continue per consultants. May 28: Labs reviewed. Serum sodium slightly elevated. D5W bolus given. Continue per consultants. Renal parameters stable. May 27: Labs reviewed. Stable renal parameters. Leukocytosis persists. May 26: No labs drawn today. We will check labs in a.m. Continue per current management. Medication list reviewed. May 25: Labs reviewed. Renal parameters much improved. Electrolytes within normal limit. Medication list reviewed. Continue per consultants. May 24: Labs reviewed. Serum creatinine lower. Serum sodium normalized. Electrolytes within normal limit. Will change IV to D5 normal saline. Continue per consultants. Blood pressure stable. May 23: Labs reviewed. Serum creatinine lower. Serum sodium lower. Potassium 5.4 , I suspect partly hemolysis. Patient has a Conway catheter. Continue D5W. Continue to monitor renal parameters. Continue per consultants. May 22: Patient more encephalopathic. Blood pressure low. Labs reviewed. Renal parameters worsened. Conway catheter ordered. Will stop Flomax and Proscar. Will adjust blood pressure medications. Will give IV fluid. Discussed with NAI Corbett. Will keep the patient n.p.o. due to poor mental status. Per orders. May 21: No labs drawn today. Stable from renal standpoint of view. Continue per consultants. May 20: Lab reviewed. Serum creatinine 1.5 stable. Serum sodium lowering. Continue per consultants. May 19: Labs reviewed. Serum creatinine lower to 1.5. Serum sodium mildly elevated. Continue free water administration. Monitor renal parameters. Continue per consultants. May 18: Labs reviewed. Serum creatinine up to 1.7. Electrolytes within normal limit. Continue to monitor renal parameters. Continue per consultants. May 17: Labs reviewed. Serum sodium normalized. Serum creatinine 1.5 stable. Continue per current management. May 16 Creatinine 1.5 unchanged. Blood pressure stable. Electrolytes unchanged. Serum sodium 133. Continue to monitor renal parameters Adjust blood pressure medication Stop saline hydration Monitor renal parameters and electrolytes Pulmonary support Per consultants Avoid nephrotoxic's Urine studies Per orders Subjective ROS Limited/Unobtainable: No Constitutional: Reports: malaise, weakness Objective Objective Last 24 Hour Vital Signs Date Time Temp Pulse Resp B/P (MAP) Pulse Ox O2 Delivery O2 Flow Rate FiO2 06/04/20 10:53 Nasal Cannula 2.0 06/04/20 08:44 85 102/63 06/04/20 08:00 97.1 85 20 102/63 (76) 95 06/04/20 08:00 81 06/04/20 04:00 66 06/04/20 04:00 97.5 74 20 103/63 (76) 95 06/04/20 00:00 80 06/04/20 00:00 97.5 75 21 108/50 (69) 94 06/03/20 21:00 Nasal Cannula 2.0 06/03/20 21:00 87 110/76 06/03/20 20:00 98.0 87 20 110/76 (87) 92 06/03/20 20:00 73 06/03/20 19:17 96 Room Air 21 06/03/20 16:00 72 06/03/20 16:00 98.7 59 18 130/94 (106) 97 06/03/20 12:00 67 Intake and Output 06/03/20 06/04/20 19:00 07:00 Intake Total 220 ml 640 ml Output Total 1200 ml 500 ml Balance -980 ml 140 ml Intake Oral 120 ml 240 ml IV Total 100 ml 400 ml Output Urine Total 1200 ml 500 ml # Voids 3 Laboratory Tests 06/04/20 05:50: Sodium Level 150H, Potassium Level 3.3L, Chloride Level 115H, Carbon Dioxide Level 28, Anion Gap 7, Blood Urea Nitrogen 44H, Creatinine 1.6H, Estimat Glomerular Filtration Rate 42.6, Glucose Level 101, Uric Acid 5.7, Calcium Level 8.5, Phosphorus Level 2.6, Magnesium Level 2.2, Total Bilirubin 0.8, Gamma Glutamyl Transpeptidase 57, Aspartate Amino Transf (AST/SGOT) 55H, Alanine Aminotransferase (ALT/SGPT) 103H, Alkaline Phosphatase 127H, Total Protein 6.8, Albumin 1.7L, Globulin 5.1, Albumin/Globulin Ratio 0.3L Height (Feet): 5 Height (Inches): 7.00 Weight (Pounds): 160 General Appearance: no apparent distress Cardiovascular: normal rate Respiratory/Chest: decreased breath sounds Abdomen: distended Objective No change Alan Sánchez MD Jun 04, 2020 10:56
--- NOTE | 2020-06-04 11:20 | Pulmonology Progress Note ---
Subjective ROS Limited/Unobtainable: No Constitutional: Reports: no symptoms Respiratory: Reports: no symptoms Allergies: Coded Allergies: No Known Allergies (Unverified , 05/13/20) Objective Last 24 Hour Vital Signs Date Time Temp Pulse Resp B/P (MAP) Pulse Ox O2 Delivery O2 Flow Rate FiO2 06/04/20 10:53 Nasal Cannula 2.0 06/04/20 08:44 85 102/63 06/04/20 08:00 97.1 85 20 102/63 (76) 95 06/04/20 08:00 81 06/04/20 04:00 66 06/04/20 04:00 97.5 74 20 103/63 (76) 95 06/04/20 00:00 80 06/04/20 00:00 97.5 75 21 108/50 (69) 94 06/03/20 21:00 Nasal Cannula 2.0 06/03/20 21:00 87 110/76 06/03/20 20:00 98.0 87 20 110/76 (87) 92 06/03/20 20:00 73 06/03/20 19:17 96 Room Air 21 06/03/20 16:00 72 06/03/20 16:00 98.7 59 18 130/94 (106) 97 06/03/20 12:00 67 Intake and Output 06/03/20 06/04/20 19:00 07:00 Intake Total 220 ml 640 ml Output Total 1200 ml 500 ml Balance -980 ml 140 ml Intake Oral 120 ml 240 ml IV Total 100 ml 400 ml Output Urine Total 1200 ml 500 ml # Voids 3 General Appearance: WD/WN, other - awake HEENT: normocephalic, atraumatic, anicteric, other - O2 4 L via NC Respiratory: chest wall non-tender, rhonchi - left, rhonchi - right Cardiovascular: normal peripheral pulses, normal rate - SR with BBB, Abdomen: normal bowel sounds, soft, non tender Genitourinary: normal external genitalia Extremities: no clubbing 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, alert Lymphatic: no neck adenopathy Musculoskeletal: atrophy - BLE Laboratory Tests 06/04/20 05:50: Sodium Level 150H, Potassium Level 3.3L, Chloride Level 115H, Carbon Dioxide Level 28, Anion Gap 7, Blood Urea Nitrogen 44H, Creatinine 1.6H, Estimat Glomerular Filtration Rate 42.6, Glucose Level 101, Uric Acid 5.7, Calcium Level 8.5, Phosphorus Level 2.6, Magnesium Level 2.2, Total Bilirubin 0.8, Gamma Glutamyl Transpeptidase 57, Aspartate Amino Transf (AST/SGOT) 55H, Alanine Aminotransferase (ALT/SGPT) 103H, Alkaline Phosphatase 127H, Total Protein 6.8, Albumin 1.7L, Globulin 5.1, Albumin/Globulin Ratio 0.3L Current Medications Medications (Trade) Dose Ordered Sig/Tami Route PRN Reason Start Time Stop Time Status Last Admin Dose Admin Acetaminophen (Tylenol) 650 mg Q4H PRN ORAL FEVER 05/13/20 23:30 06/12/20 23:29 Albuterol/ Ipratropium (Combivent Respimat) 1 puff Q4H PRN INH Shortness of Breath 05/14/20 14:15 06/13/20 14:14 Amiodarone HCl (Cordarone) 200 mg DAILY ORAL 05/14/20 09:00 08/12/20 08:59 06/03/20 08:29 Carvedilol (Coreg) 3.125 mg EVERY 12 HOURS ORAL 05/14/20 09:00 06/13/20 08:59 06/03/20 08:29 Dextrose 1,000 ml @ 50 mls/hr Q20H IV 06/04/20 11:15 07/04/20 11:14 06/04/20 11:13 Dextrose (Dextrose 50%) 25 ml Q30M PRN IV Hypoglycemia 05/13/20 23:30 08/11/20 23:29 Dextrose (Dextrose 50%) 50 ml Q30M PRN IV Hypoglycemia 05/13/20 23:30 08/11/20 23:29 Heparin Sodium (Porcine) (Heparin 5000 units/ml) 5,000 units EVERY 12 HOURS SUBQ 05/14/20 09:00 06/28/20 08:59 06/04/20 08:47 Hydralazine HCl (Apresoline) 10 mg Q4H PRN IV bp over 160 syst 05/22/20 12:30 08/20/20 12:29 Ondansetron HCl (Zofran) 4 mg Q6H PRN IVP Nausea & Vomiting 05/13/20 23:30 1/8/21 23:29 Polyethylene Glycol (Miralax) 17 gm DAILYPRN PRN ORAL Constipation 05/13/20 23:30 06/12/20 23:29 05/16/20 13:23 Potassium Chloride 100 ml @ 100 mls/hr Q1H IVPB 06/04/20 11:30 06/04/20 13:29 Promethazine HCl/ Codeine (Phenergan with Codeine) 5 ml Q6H PRN ORAL cough 05/13/20 23:30 06/12/20 23:29 Assessment/Plan Problems: (1) Nosocomial pneumonia (2) 2019 novel coronavirus disease (COVID-19) (3) TOPHER (acute kidney injury) (4) COPD (chronic obstructive pulmonary disease) (5) Psychosis (6) HTN (hypertension) Assessment/Plan renal function worsening, K low all reviewed cxr 05/19 showed increasing bilateral infiltrate, 05/25: bilateral infiltrates again demonstrated, which, allowing for slight differences in exposure technique, are probably unchanged cxr 06/01: Interim slight improvement of bilateral infiltrates, over 7 days afebrile titrate fio2 to sat of 92% respiratory treatment prn monitor BP symptomatic treatment. dvt prophylaxis. keep in isolation Umesh Prajapati MD Jun 04, 2020 11:20
[2020-06-04 12:05] VITALS: BP 107/77
--- NOTE | 2020-06-04 13:22 | General Progress Note ---
Subjective ROS Limited/Unobtainable: No Allergies: Coded Allergies: No Known Allergies (Unverified , 05/13/20) Objective Last 24 Hour Vital Signs Date Time Temp Pulse Resp B/P (MAP) Pulse Ox O2 Delivery O2 Flow Rate FiO2 06/04/20 12:05 98.0 87 18 107/77 (87) 96 06/04/20 10:53 Nasal Cannula 2.0 06/04/20 08:44 85 102/63 06/04/20 08:00 97.1 85 20 102/63 (76) 95 06/04/20 08:00 81 06/04/20 04:00 66 06/04/20 04:00 97.5 74 20 103/63 (76) 95 06/04/20 00:00 80 06/04/20 00:00 97.5 75 21 108/50 (69) 94 06/03/20 21:00 Nasal Cannula 2.0 06/03/20 21:00 87 110/76 06/03/20 20:00 98.0 87 20 110/76 (87) 92 06/03/20 20:00 73 06/03/20 19:17 96 Room Air 21 06/03/20 16:00 72 06/03/20 16:00 98.7 59 18 130/94 (106) 97 Intake and Output 06/03/20 06/04/20 19:00 07:00 Intake Total 220 ml 640 ml Output Total 1200 ml 500 ml Balance -980 ml 140 ml Intake Oral 120 ml 240 ml IV Total 100 ml 400 ml Output Urine Total 1200 ml 500 ml # Voids 3 Laboratory Tests 06/04/20 05:50: Sodium Level 150H, Potassium Level 3.3L, Chloride Level 115H, Carbon Dioxide Level 28, Anion Gap 7, Blood Urea Nitrogen 44H, Creatinine 1.6H, Estimat Glomerular Filtration Rate 42.6, Glucose Level 101, Uric Acid 5.7, Calcium Level 8.5, Phosphorus Level 2.6, Magnesium Level 2.2, Total Bilirubin 0.8, Gamma Glutamyl Transpeptidase 57, Aspartate Amino Transf (AST/SGOT) 55H, Alanine Aminotransferase (ALT/SGPT) 103H, Alkaline Phosphatase 127H, Total Protein 6.8, Albumin 1.7L, Globulin 5.1, Albumin/Globulin Ratio 0.3L Height (Feet): 5 Height (Inches): 7.00 Weight (Pounds): 160 General Appearance: no apparent distress EENT: PERRL/EOMI Neck: normal alignment Cardiovascular: normal rate Respiratory/Chest: decreased breath sounds Abdomen: normal bowel sounds, non tender, soft Extremities: non-tender Assessment/Plan Problem List: (1) Elevated LFTs ICD Codes: R79.89 - Other specified abnormal findings of blood chemistry SNOMED: 837678023, 354013425 (2) COPD (chronic obstructive pulmonary disease) ICD Codes: J44.9 - Chronic obstructive pulmonary disease, unspecified SNOMED: 23140851 (3) Dehydration ICD Codes: E86.0 - Dehydration SNOMED: 30549165 (4) Pneumonia ICD Codes: J18.9 - Pneumonia, unspecified organism SNOMED: 949727240 (5) HTN (hypertension) ICD Codes: I10 - Essential (primary) hypertension SNOMED: 28524621 (6) 2019 novel coronavirus disease (COVID-19) ICD Codes: U07.1 - COVID-19 SNOMED: 492855534 Status: progressing, unchanged Assessment/Plan: repeat LFTS hold abd us for now hepatitis panel>> neg fu ID recs off protonix on marinol 5 eating some dietitian recommendation reviewed on ensure Stefan Wilde MD Jun 04, 2020 13:21
[2020-06-04 16:00] VITALS: BP 100/59
--- NOTE | 2020-06-04 16:18 | General Progress Note ---
Subjective ROS Limited/Unobtainable: Yes Allergies: Coded Allergies: No Known Allergies (Unverified , 05/13/20) Objective Last 24 Hour Vital Signs Date Time Temp Pulse Resp B/P (MAP) Pulse Ox O2 Delivery O2 Flow Rate FiO2 06/04/20 16:09 69 06/04/20 12:05 98.0 87 18 107/77 (87) 96 06/04/20 12:00 70 06/04/20 10:53 Nasal Cannula 2.0 06/04/20 08:44 85 102/63 06/04/20 08:00 97.1 85 20 102/63 (76) 95 06/04/20 08:00 81 06/04/20 04:00 66 06/04/20 04:00 97.5 74 20 103/63 (76) 95 06/04/20 00:00 80 06/04/20 00:00 97.5 75 21 108/50 (69) 94 06/03/20 21:00 Nasal Cannula 2.0 06/03/20 21:00 87 110/76 06/03/20 20:00 98.0 87 20 110/76 (87) 92 06/03/20 20:00 73 06/03/20 19:17 96 Room Air 21 Intake and Output 06/03/20 06/04/20 19:00 07:00 Intake Total 220 ml 640 ml Output Total 1200 ml 500 ml Balance -980 ml 140 ml Intake Oral 120 ml 240 ml IV Total 100 ml 400 ml Output Urine Total 1200 ml 500 ml # Voids 3 Laboratory Tests 06/04/20 05:50: Sodium Level 150H, Potassium Level 3.3L, Chloride Level 115H, Carbon Dioxide Level 28, Anion Gap 7, Blood Urea Nitrogen 44H, Creatinine 1.6H, Estimat Glomerular Filtration Rate 42.6, Glucose Level 101, Uric Acid 5.7, Calcium Level 8.5, Phosphorus Level 2.6, Magnesium Level 2.2, Total Bilirubin 0.8, Gamma Glutamyl Transpeptidase 57, Aspartate Amino Transf (AST/SGOT) 55H, Alanine Aminotransferase (ALT/SGPT) 103H, Alkaline Phosphatase 127H, Total Protein 6.8, Albumin 1.7L, Globulin 5.1, Albumin/Globulin Ratio 0.3L Height (Feet): 5 Height (Inches): 7.00 Weight (Pounds): 160 Assessment/Plan Problem List: (1) COPD (chronic obstructive pulmonary disease) ICD Codes: J44.9 - Chronic obstructive pulmonary disease, unspecified SNOMED: 23842744 (2) Dehydration ICD Codes: E86.0 - Dehydration SNOMED: 42544935 (3) Pneumonia ICD Codes: J18.9 - Pneumonia, unspecified organism SNOMED: 498473179 (4) HTN (hypertension) ICD Codes: I10 - Essential (primary) hypertension SNOMED: 16661033 (5) 2019 novel coronavirus disease (COVID-19) ICD Codes: U07.1 - COVID-19 SNOMED: 401919174 (6) TOPHER (acute kidney injury) ICD Codes: N17.9 - Acute kidney failure, unspecified SNOMED: 8565082, 56213398 Status: progressing, unchanged Assessment/Plan: copd no wheezing pna supportive rx persistent leukocytosis covid positive Hillary Smallwood MD Jun 04, 2020 16:18
[2020-06-04 20:00] VITALS: BP 111/56
--- NOTE | 2020-06-04 22:38 | Psychiatric Progress Note ---
Psychiatry Progress Note Psychiatry Progress Note Medications Current Medications Medications (Trade) Dose Ordered Sig/Tami Route PRN Reason Start Time Stop Time Status Last Admin Dose Admin Acetaminophen (Tylenol) 650 mg Q4H PRN ORAL FEVER 05/13/20 23:30 06/12/20 23:29 Albuterol/ Ipratropium (Combivent Respimat) 1 puff Q4H PRN INH Shortness of Breath 05/14/20 14:15 06/13/20 14:14 Amiodarone HCl (Cordarone) 200 mg DAILY ORAL 05/14/20 09:00 08/12/20 08:59 06/03/20 08:29 Carvedilol (Coreg) 3.125 mg EVERY 12 HOURS ORAL 05/14/20 09:00 06/13/20 08:59 06/03/20 08:29 Dextrose 1,000 ml @ 50 mls/hr Q20H IV 06/04/20 11:15 07/04/20 11:14 06/04/20 11:13 Dextrose (Dextrose 50%) 25 ml Q30M PRN IV Hypoglycemia 05/13/20 23:30 08/11/20 23:29 Dextrose (Dextrose 50%) 50 ml Q30M PRN IV Hypoglycemia 05/13/20 23:30 08/11/20 23:29 Heparin Sodium (Porcine) (Heparin 5000 units/ml) 5,000 units EVERY 12 HOURS SUBQ 05/14/20 09:00 06/28/20 08:59 06/04/20 08:47 Hydralazine HCl (Apresoline) 10 mg Q4H PRN IV bp over 160 syst 05/22/20 12:30 08/20/20 12:29 Ondansetron HCl (Zofran) 4 mg Q6H PRN IVP Nausea & Vomiting 05/13/20 23:30 06/12/20 23:29 Polyethylene Glycol (Miralax) 17 gm DAILYPRN PRN ORAL Constipation 05/13/20 23:30 06/12/20 23:29 05/16/20 13:23 Promethazine HCl/ Codeine (Phenergan with Codeine) 5 ml Q6H PRN ORAL cough 05/13/20 23:30 06/12/20 23:29 Neurological/Psychiatric: Reports: anxiety, depressed, emotional problems Allergies: Coded Allergies: No Known Allergies (Unverified , 12/9/20) Objective Data Height (Feet): 5 Height (Inches): 7.00 Weight (Pounds): 160 General Appearance: no apparent distress Additional Comments: awake, disoriented to situation and date. Mood is little anxious. Affect is blunted, congruent with mood. Thought process is concrete. Thought content, no suicidal or homicidal ideation. Cognition is impaired. Insight and judgment is impaired. Assessment/Plan Vermilion I: ASSESSMENT: Vermilion I Acute toxic encephalopathy. Vermilion II Deferred. Vermilion III COVID-19 pneumonia. Renal failure. Vermilion IV Low. Vermilion V 20. PLAN: 1. We will discontinue the Ativan and risperidone. 2. Bilateral soft restraints. 3. Discussed with Dr. Smallwood. Status: progressing, unchanged Status Narrative ASSESSMENT: Vermilion I Acute toxic encephalopathy. Vermilion II Deferred. Vermilion III COVID-19 pneumonia. Renal failure. Vermilion IV Low. Vermilion V 20. PLAN: 1. We will discontinue the Ativan and risperidone. 2. Bilateral soft restraints. 3. Discussed with Dr. Smallwood. Assessment/Plan: ASSESSMENT: Vermilion I Acute toxic encephalopathy. Vermilion II Deferred. Vermilion III COVID-19 pneumonia. Renal failure. Vermilion IV Low. Vermilion V 20. PLAN: 1. We will discontinue the Ativan and risperidone. 2. Bilateral soft restraints. 3. Discussed with Dr. Smallwood. Adeel Knapp MD Jun 04, 2020 22:38
[2020-06-05] VITALS: BP 109/59
[2020-06-05 04:00] VITALS: BP 109/55
[2020-06-05 07:09] LABS: HEMATOCRIT 38.8 % (42.0-52.0); HEMOGLOBIN 12.3 G/DL (14.2-18.0); MEAN CORPUSCULAR VOLUME 100 FL (80-99); PLATELET COUNT 149 K/UL (150-450); RED BLOOD COUNT 3.89 M/UL (4.70-6.10); RED CELL DISTRIBUTION WIDTH 14.3 % (11.6-14.8); WHITE BLOOD COUNT 13.9 K/UL (4.8-10.8)
[2020-06-05 08:00] VITALS: BP 106/53
[2020-06-05 08:46] LABS: ALBUMIN 1.5 G/DL (3.4-5.0); ALBUMIN/GLOBULIN RATIO 0.3 (1.0-2.7); ALKALINE PHOSPHATASE 119 U/L (46-116); ASPARTATE AMINO TRANSFERASE 55 U/L (15-37); BILIRUBIN,TOTAL 0.7 MG/DL (0.2-1.0); BLOOD UREA NITROGEN 36 mg/dL (7-18); CALCIUM 8.1 MG/DL (8.5-10.1); CARBON DIOXIDE 27 MMOL/L (21-32); CREATININE 1.5 MG/DL (0.55-1.30); PHOSPHORUS 2.4 MG/DL (2.5-4.9)
[2020-06-05 08:56] LABS: ALANINE AMINOTRANSFERASE 101 U/L (12-78); CHLORIDE 113 MMOL/L (98-107); POTASSIUM 3.5 MMOL/L (3.5-5.1); SODIUM 147 MMOL/L (136-145)
[2020-06-05] MEDS: Amiodarone 200mg tab ORAL SCH (09:08)
[2020-06-05] MEDS: Heparin 5000 units/ml inj SUBQ SCH ×2 (09:10→21:32)
--- NOTE | 2020-06-05 11:09 | Pulmonology Progress Note ---
Subjective ROS Limited/Unobtainable: Yes Allergies: Coded Allergies: No Known Allergies (Unverified , 05/13/20) Subjective no fevers, leukocytosis trending down on O2 2 L via NC no resp distress denies chest pain Objective Last 24 Hour Vital Signs Date Time Temp Pulse Resp B/P (MAP) Pulse Ox O2 Delivery O2 Flow Rate FiO2 06/05/20 09:00 80 06/05/20 09:00 80 106/53 06/05/20 08:00 69 06/05/20 08:00 97.1 71 14 106/53 (70) 97 06/05/20 04:00 97.6 74 20 109/55 (73) 94 06/05/20 04:00 48 06/05/20 01:51 98.1 06/05/20 00:00 68 06/05/20 00:00 97.7 60 20 109/59 (76) 96 06/04/20 21:00 Nasal Cannula 2.0 06/04/20 21:00 74 111/56 06/04/20 20:00 97.9 74 20 111/56 (74) 94 06/04/20 20:00 71 06/04/20 19:53 96 Nasal Cannula 2.0 28 06/04/20 16:09 69 06/04/20 16:00 97.7 84 20 100/59 (73) 97 06/04/20 12:05 98.0 87 18 107/77 (87) 96 06/04/20 12:00 70 Intake and Output 06/04/20 06/05/20 19:00 07:00 Intake Total 560 ml 735 ml Output Total 450 ml 480 ml Balance 110 ml 255 ml Intake Oral 360 ml 185 ml IV Total 200 ml 550 ml Output Urine Total 450 ml 480 ml General Appearance: WD/WN, other - awake HEENT: normocephalic, atraumatic, anicteric, other - O2 4 L via NC Respiratory: chest wall non-tender, lungs clear Cardiovascular: normal peripheral pulses, normal rate - SR with BBB, Abdomen: normal bowel sounds, soft, non tender Genitourinary: normal external genitalia Extremities: no clubbing 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 normal, alert, responsive Lymphatic: no neck adenopathy Musculoskeletal: atrophy - BLE Laboratory Tests 06/05/20 06:07: White Blood Count 13.9H, Red Blood Count 3.89L, Hemoglobin 12.3L, Hematocrit 38.8L, Mean Corpuscular Volume 100H, Mean Corpuscular Hemoglobin 31.6H, Mean Corpuscular Hemoglobin Concent 31.6L, Red Cell Distribution Width 14.3, Platelet Count 149L, Mean Platelet Volume 11.3H, Neutrophils (%) (Auto) , Lymphocytes (%) (Auto) , Monocytes (%) (Auto) , Eosinophils (%) (Auto) , Basophils (%) (Auto) , Neutrophils % (Manual) [Pending], Lymphocytes % (Manual) [Pending], Platelet Estimate [Pending], Platelet Morphology [Pending], Sodium Level 147H, Potassium Level 3.5, Chloride Level 113H, Carbon Dioxide Level 27, Blood Urea Nitrogen 36H , Creatinine 1.5H, Estimat Glomerular Filtration Rate 45.9, Glucose Level 117H, Calcium Level 8.1L, Phosphorus Level 2.4L, Magnesium Level 2.1, Total Bilirubin 0.7, Aspartate Amino Transf (AST/SGOT) 55H, Alanine Aminotransferase (ALT/SGPT) 101H, Alkaline Phosphatase 119H, C-Reactive Protein, Quantitative 9.3H, Total Protein 6.3L, Albumin 1.5L, Globulin 4.8, Albumin/Globulin Ratio 0.3L Current Medications Medications (Trade) Dose Ordered Sig/Tami Route PRN Reason Start Time Stop Time Status Last Admin Dose Admin Acetaminophen (Tylenol) 650 mg Q4H PRN ORAL FEVER 05/13/20 23:30 06/12/20 23:29 06/05/20 01:21 Albuterol/ Ipratropium (Combivent Respimat) 1 puff Q4H PRN INH Shortness of Breath 05/14/20 14:15 06/13/20 14:14 Amiodarone HCl (Cordarone) 200 mg DAILY ORAL 05/14/20 09:00 08/12/20 08:59 06/05/20 09:08 Carvedilol (Coreg) 3.125 mg EVERY 12 HOURS ORAL 05/14/20 09:00 06/13/20 08:59 06/03/20 08:29 Dextrose 1,000 ml @ 50 mls/hr Q20H IV 06/04/20 11:15 07/04/20 11:14 06/05/20 07:56 Dextrose (Dextrose 50%) 25 ml Q30M PRN IV Hypoglycemia 05/13/20 23:30 08/11/20 23:29 Dextrose (Dextrose 50%) 50 ml Q30M PRN IV Hypoglycemia 05/13/20 23:30 08/11/20 23:29 Heparin Sodium (Porcine) (Heparin 5000 units/ml) 5,000 units EVERY 12 HOURS SUBQ 05/14/20 09:00 06/28/20 08:59 06/05/20 09:10 Hydralazine HCl (Apresoline) 10 mg Q4H PRN IV bp over 160 syst 05/22/20 12:30 08/20/20 12:29 Ondansetron HCl (Zofran) 4 mg Q6H PRN IVP Nausea & Vomiting 05/13/20 23:30 06/12/20 23:29 Polyethylene Glycol (Miralax) 17 gm DAILYPRN PRN ORAL Constipation 05/13/20 23:30 06/12/20 23:29 05/16/20 13:23 Promethazine HCl/ Codeine (Phenergan with Codeine) 5 ml Q6H PRN ORAL cough 05/13/20 23:30 06/12/20 23:29 Assessment/Plan Assessment/Plan ASSESSMENT COVID-19 pneumonia Acute hypoxemic respiratory failure , requiring nonrebreather mask- now on NC-resolved Possible UTI TOPHER COPD HTN History of CVA Elevated LFT PLAN OF CARE tele O2 titrate to keep sat above 92%, now on NC pulmonary toilet steroids ->completed 10 days course s/p abx DVT prophylaxis a/tussive as needed fup with inflamm markers: latest CRP 9.3 06/01 CXR improvement in infiltrates monitor renal parameters, electrolytes, correct as needed ; s/p IVF f/up with further nephro recs trend LFT hepatitis panel negative fup with GI recs supportive care case discussed and evaluated by supervising physician Esperanza Howell NP Jun 05, 2020 11:09 Rocky Archibald MD Jun 05, 2020 19:47
[2020-06-05 12:00] VITALS: BP 102/53
[2020-06-05 16:00] VITALS: BP 113/63
--- NOTE | 2020-06-05 17:12 | Nephrology Progress Note ---
Assessment/Plan Problem List: (1) TOPHER (acute kidney injury) (2) 2019 novel coronavirus disease (COVID-19) (3) Pneumonia (4) COPD (chronic obstructive pulmonary disease) (5) Psychosis Assessment Renal failure, acute on chronic Partly dehydration COPD, hypoxia, COVID-19 disease Psychosis Atrial fibrillation High cholesterol Hypertension History of CVA Plan June 04: No labs reviewed. Serum creatinine ab to 1.6. Serum sodium remains higher than normal. Will start D5W at 50 cc an hour. Potassium supplement given. Continue to monitor renal parameters. June 03: Labs were reviewed. Serum creatinine 1.4 unchanged. Serum sodium elevated. 1 L D5W ordered. Continue to monitor electrolytes and renal parameters. June 02: No CHEM panel drawn today. Will order labs for tomorrow. Continue per consultants June 01: Serum sodium 154. Serum creatinine up to 1.4. Patient appears to be dehydrated. 1 L of D5W IV ordered. Continue to monitor renal parameters. Continue per consultants. May 31: Serum sodium lowering. Renal parameters stable. Low phosphorus addressed. Discussed with RN. May 30: Serum sodium 156. Other renal parameters stable. Will give 1 L of D5W. May 29: No labs drawn today. Will check can panel tomorrow. Continue per consultants. May 28: Labs reviewed. Serum sodium slightly elevated. D5W bolus given. Continue per consultants. Renal parameters stable. May 27: Labs reviewed. Stable renal parameters. Leukocytosis persists. May 26: No labs drawn today. We will check labs in a.m. Continue per current management. Medication list reviewed. May 25: Labs reviewed. Renal parameters much improved. Electrolytes within normal limit. Medication list reviewed. Continue per consultants. May 24: Labs reviewed. Serum creatinine lower. Serum sodium normalized. Electrolytes within normal limit. Will change IV to D5 normal saline. Continue per consultants. Blood pressure stable. May 23: Labs reviewed. Serum creatinine lower. Serum sodium lower. Potassium 5.4 , I suspect partly hemolysis. Patient has a Conway catheter. Continue D5W. Continue to monitor renal parameters. Continue per consultants. May 22: Patient more encephalopathic. Blood pressure low. Labs reviewed. Renal parameters worsened. Conway catheter ordered. Will stop Flomax and Proscar. Will adjust blood pressure medications. Will give IV fluid. Discussed with NAI Corbett. Will keep the patient n.p.o. due to poor mental status. Per orders. May 21: No labs drawn today. Stable from renal standpoint of view. Continue per consultants. May 20: Lab reviewed. Serum creatinine 1.5 stable. Serum sodium lowering. Continue per consultants. May 19: Labs reviewed. Serum creatinine lower to 1.5. Serum sodium mildly elevated. Continue free water administration. Monitor renal parameters. Continue per consultants. May 18: Labs reviewed. Serum creatinine up to 1.7. Electrolytes within normal limit. Continue to monitor renal parameters. Continue per consultants. May 17: Labs reviewed. Serum sodium normalized. Serum creatinine 1.5 stable. Continue per current management. May 16 Creatinine 1.5 unchanged. Blood pressure stable. Electrolytes unchanged. Serum sodium 133. Continue to monitor renal parameters Adjust blood pressure medication Stop saline hydration Monitor renal parameters and electrolytes Pulmonary support Per consultants Avoid nephrotoxic's Urine studies Per orders Objective Objective Last 24 Hour Vital Signs Date Time Temp Pulse Resp B/P (MAP) Pulse Ox O2 Delivery O2 Flow Rate FiO2 06/05/20 12:00 97.2 74 16 102/53 (69) 96 06/05/20 12:00 60 06/05/20 09:00 80 06/05/20 09:00 Room Air 06/05/20 09:00 80 106/53 06/05/20 08:00 69 06/05/20 08:00 97.1 71 14 106/53 (70) 97 06/05/20 04:00 97.6 74 20 109/55 (73) 94 06/05/20 04:00 48 06/05/20 01:51 98.1 06/05/20 00:00 68 06/05/20 00:00 97.7 60 20 109/59 (76) 96 06/04/20 21:00 Nasal Cannula 2.0 06/04/20 21:00 74 111/56 06/04/20 20:00 97.9 74 20 111/56 (74) 94 06/04/20 20:00 71 06/04/20 19:53 96 Nasal Cannula 2.0 28 Intake and Output 06/04/20 06/05/20 19:00 07:00 Intake Total 560 ml 735 ml Output Total 450 ml 480 ml Balance 110 ml 255 ml Intake Oral 360 ml 185 ml IV Total 200 ml 550 ml Output Urine Total 450 ml 480 ml Laboratory Tests 06/05/20 06:07: White Blood Count 13.9H, Red Blood Count 3.89L, Hemoglobin 12.3L, Hematocrit 38.8L, Mean Corpuscular Volume 100H, Mean Corpuscular Hemoglobin 31.6H, Mean Corpuscular Hemoglobin Concent 31.6L, Red Cell Distribution Width 14.3, Platelet Count 149L, Mean Platelet Volume 11.3H, Neutrophils (%) (Auto) , Lymphocytes (%) (Auto) , Monocytes (%) (Auto) , Eosinophils (%) (Auto) , Basophils (%) (Auto) , Differential Total Cells Counted 100, Neutrophils % (Manual) 90H, Lymphocytes % (Manual) 8L, Monocytes % (Manual) 2, Eosinophils % (Manual) 0, Basophils % (Manual) 0, Band Neutrophils 0, Platelet Estimate Adequate, Platelet Morphology Normal, Anisocytosis 1+, Sodium Level 147H, Potassium Level 3.5, Chloride Level 113H, Carbon Dioxide Level 27, Blood Urea Nitrogen 36H, Creatinine 1.5H, Estimat Glomerular Filtration Rate 45.9, Glucose Level 117H, Calcium Level 8.1L, Priscilla sphorus Level 2.4L, Magnesium Level 2.1, Total Bilirubin 0.7, Aspartate Amino Transf (AST/SGOT) 55H, Alanine Aminotransferase (ALT/SGPT) 101H, Alkaline Phosphatase 119H, C-Reactive Protein, Quantitative 9.3H, Total Protein 6.3L, Albumin 1.5L, Globulin 4.8, Albumin/Globulin Ratio 0.3L Height (Feet): 5 Height (Inches): 7.00 Weight (Pounds): 160 Objective No change Alan Sánchez MD Jun 05, 2020 17:12
--- NOTE | 2020-06-05 18:29 | Nephrology Progress Note ---
Assessment/Plan Problem List: (1) TOPHER (acute kidney injury) (2) 2019 novel coronavirus disease (COVID-19) (3) Pneumonia (4) COPD (chronic obstructive pulmonary disease) (5) Psychosis Assessment Renal failure, acute on chronic Partly dehydration COPD, hypoxia, COVID-19 disease Psychosis Atrial fibrillation High cholesterol Hypertension History of CVA Plan June 05: Labs reviewed. Serum sodium lowering. Serum creatinine lowered to 1.5. Continue D5W 50 cc an hour. Continue to monitor renal parameters. June 04: No labs reviewed. Serum creatinine ab to 1.6. Serum sodium remains higher than normal. Will start D5W at 50 cc an hour. Potassium supplement given. Continue to monitor renal parameters. June 03: Labs were reviewed. Serum creatinine 1.4 unchanged. Serum sodium elevated. 1 L D5W ordered. Continue to monitor electrolytes and renal parameters. June 02: No CHEM panel drawn today. Will order labs for tomorrow. Continue per consultants June 01: Serum sodium 154. Serum creatinine up to 1.4. Patient appears to be dehydrated. 1 L of D5W IV ordered. Continue to monitor renal parameters. Continue per consultants. May 31: Serum sodium lowering. Renal parameters stable. Low phosphorus addressed. Discussed with RN. May 30: Serum sodium 156. Other renal parameters stable. Will give 1 L of D5W. May 29: No labs drawn today. Will check can panel tomorrow. Continue per consultants. May 28: Labs reviewed. Serum sodium slightly elevated. D5W bolus given. Continue per consultants. Renal parameters stable. May 27: Labs reviewed. Stable renal parameters. Leukocytosis persists. May 26: No labs drawn today. We will check labs in a.m. Continue per current management. Medication list reviewed. May 25: Labs reviewed. Renal parameters much improved. Electrolytes within normal limit. Medication list reviewed. Continue per consultants. May 24: Labs reviewed. Serum creatinine lower. Serum sodium normalized. Electrolytes within normal limit. Will change IV to D5 normal saline. Continue per consultants. Blood pressure stable. May 23: Labs reviewed. Serum creatinine lower. Serum sodium lower. Potassium 5.4 , I suspect partly hemolysis. Patient has a Conway catheter. Continue D5W. Continue to monitor renal parameters. Continue per consultants. May 22: Patient more encephalopathic. Blood pressure low. Labs reviewed. Renal parameters worsened. Conway catheter ordered. Will stop Flomax and Proscar. Will adjust blood pressure medications. Will give IV fluid. Discussed with NAI Corbett. Will keep the patient n.p.o. due to poor mental status. Per orders. May 21: No labs drawn today. Stable from renal standpoint of view. Continue per consultants. May 20: Lab reviewed. Serum creatinine 1.5 stable. Serum sodium lowering. Continue per consultants. May 19: Labs reviewed. Serum creatinine lower to 1.5. Serum sodium mildly elevated. Continue free water administration. Monitor renal parameters. Continue per consultants. May 18: Labs reviewed. Serum creatinine up to 1.7. Electrolytes within normal limit. Continue to monitor renal parameters. Continue per consultants. May 17: Labs reviewed. Serum sodium normalized. Serum creatinine 1.5 stable. Continue per current management. May 16 Creatinine 1.5 unchanged. Blood pressure stable. Electrolytes unchanged. Serum sodium 133. Continue to monitor renal parameters Adjust blood pressure medication Stop saline hydration Monitor renal parameters and electrolytes Pulmonary support Per consultants Avoid nephrotoxic's Urine studies Per orders Subjective ROS Limited/Unobtainable: Yes Objective Objective Last 24 Hour Vital Signs Date Time Temp Pulse Resp B/P (MAP) Pulse Ox O2 Delivery O2 Flow Rate FiO2 06/05/20 12:00 97.2 74 16 102/53 (69) 96 06/05/20 12:00 60 06/05/20 09:00 80 06/05/20 09:00 Room Air 06/05/20 09:00 80 106/53 06/05/20 08:00 69 06/05/20 08:00 97.1 71 14 106/53 (70) 97 06/05/20 04:00 97.6 74 20 109/55 (73) 94 06/05/20 04:00 48 06/05/20 01:51 98.1 06/05/20 00:00 68 06/05/20 00:00 97.7 60 20 109/59 (76) 96 06/04/20 21:00 Nasal Cannula 2.0 06/04/20 21:00 74 111/56 06/04/20 20:00 97.9 74 20 111/56 (74) 94 06/04/20 20:00 71 06/04/20 19:53 96 Nasal Cannula 2.0 28 Intake and Output 06/04/20 06/05/20 19:00 07:00 Intake Total 560 ml 735 ml Output Total 450 ml 480 ml Balance 110 ml 255 ml Intake Oral 360 ml 185 ml IV Total 200 ml 550 ml Output Urine Total 450 ml 480 ml Laboratory Tests 06/05/20 06:07: White Blood Count 13.9H, Red Blood Count 3.89L, Hemoglobin 12.3L, Hematocrit 38.8L, Mean Corpuscular Volume 100H, Mean Corpuscular Hemoglobin 31.6H, Mean Corpuscular Hemoglobin Concent 31.6L, Red Cell Distribution Width 14.3, Platelet Count 149L, Mean Platelet Volume 11.3H, Neutrophils (%) (Auto) , Lymphocytes (%) (Auto) , Monocytes (%) (Auto) , Eosinophils (%) (Auto) , Basophils (%) (Auto) , Differential Total Cells Counted 100, Neutrophils % (Manual) 90H, Lymphocytes % (Manual) 8L, Monocytes % (Manual) 2, Eosinophils % (Manual) 0, Basophils % (Manual) 0, Band Neutrophils 0, Platelet Estimate Adequate, Platelet Morphology Normal, Anisocytosis 1+, Sodium Level 147H, Potassium Level 3.5, Chloride Level 113H, Carbon Dioxide Level 27, Blood Urea Nitrogen 36H, Creatinine 1.5H, Estimat Glomerular Filtration Rate 45.9, Glucose Level 117H, Calcium Level 8.1L, Phosphorus Level 2.4L, Magnesium Level 2.1, Total Bilirubin 0.7, Aspartate Amino Transf (AST/SGOT) 55H, Alanine Aminotransferase (ALT/SGPT) 101H, Alkaline Phosphatase 119H, C-Reactive Protein, Quantitative 9.3H, Total Protein 6.3L, Albumin 1.5L, Globulin 4.8, Albumin/Globulin Ratio 0.3L Height (Feet): 5 Height (Inches): 7.00 Weight (Pounds): 160 General Appearance: no apparent distress, lethargic Cardiovascular: normal rate Respiratory/Chest: decreased breath sounds Abdomen: distended Objective No change Alan Sánchez MD Jun 05, 2020 18:29
[2020-06-05 20:00] VITALS: BP 105/57
--- NOTE | 2020-06-05 20:10 | General Progress Note ---
Subjective ROS Limited/Unobtainable: Yes Allergies: Coded Allergies: No Known Allergies (Unverified , 05/13/20) Objective Last 24 Hour Vital Signs Date Time Temp Pulse Resp B/P (MAP) Pulse Ox O2 Delivery O2 Flow Rate FiO2 06/05/20 16:00 97.5 61 18 113/63 (80) 95 06/05/20 16:00 54 06/05/20 12:00 97.2 74 16 102/53 (69) 96 06/05/20 12:00 60 06/05/20 09:00 80 06/05/20 09:00 Room Air 06/05/20 09:00 80 106/53 06/05/20 08:00 69 06/05/20 08:00 97.1 71 14 106/53 (70) 97 06/05/20 04:00 97.6 74 20 109/55 (73) 94 06/05/20 04:00 48 06/05/20 01:51 98.1 06/05/20 00:00 68 06/05/20 00:00 97.7 60 20 109/59 (76) 96 06/04/20 21:00 Nasal Cannula 2.0 06/04/20 21:00 74 111/56 Intake and Output 06/04/20 06/05/20 19:00 07:00 Intake Total 560 ml 735 ml Output Total 450 ml 480 ml Balance 110 ml 255 ml Intake Oral 360 ml 185 ml IV Total 200 ml 550 ml Output Urine Total 450 ml 480 ml Laboratory Tests 06/05/20 06:07: White Blood Count 13.9H, Red Blood Count 3.89L, Hemoglobin 12.3L, Hematocrit 38.8L, Mean Corpuscular Volume 100H, Mean Corpuscular Hemoglobin 31.6H, Mean Corpuscular Hemoglobin Concent 31.6L, Red Cell Distribution Width 14.3, Platelet Count 149L, Mean Platelet Volume 11.3H, Neutrophils (%) (Auto) , Lymphocytes (%) (Auto) , Monocytes (%) (Auto) , Eosinophils (%) (Auto) , Basophils (%) (Auto) , Differential Total Cells Counted 100, Neutrophils % (Manual) 90H, Lymphocytes % (Manual) 8L, Monocytes % (Manual) 2, Eosinophils % (Manual) 0, Basophils % (Manual) 0, Band Neutrophils 0, Platelet Estimate Adequate, Platelet Morphology Normal, Anisocytosis 1+, Sodium Level 147H, Potassium Level 3.5, Chloride Level 113H, Carbon Dioxide Level 27, Blood Urea Nitrogen 36H, Creatinine 1.5H, Estimat Glomerular Filtration Rate 45.9, Glucose Level 117H, Calcium Level 8.1L, Phosphorus Level 2.4L, Magnesium Level 2.1, Total Bilirubin 0.7, Aspartate Amino Transf (AST/SGOT) 55H, Alanine Aminotransferase (ALT/SGPT) 101H, Alkaline Phosphatase 119H, C-Reactive Protein, Quantitative 9.3H, Total Protein 6.3L, Albumin 1.5L, Globulin 4.8, Albumin/Globulin Ratio 0.3L Height (Feet): 5 Height (Inches): 7.00 Weight (Pounds): 160 Assessment/Plan Problem List: (1) COPD (chronic obstructive pulmonary disease) ICD Codes: J44.9 - Chronic obstructive pulmonary disease, unspecified SNOMED: 89145037 (2) Dehydration ICD Codes: E86.0 - Dehydration SNOMED: 62011772 (3) Pneumonia ICD Codes: J18.9 - Pneumonia, unspecified organism SNOMED: 305022005 (4) HTN (hypertension) ICD Codes: I10 - Essential (primary) hypertension SNOMED: 83582596 (5) 2019 novel coronavirus disease (COVID-19) ICD Codes: U07.1 - COVID-19 SNOMED: 729777840 (6) TOPHER (acute kidney injury) ICD Codes: N17.9 - Acute kidney failure, unspecified SNOMED: 6492021, 16654551 Status: progressing, unchanged Assessment/Plan: copd no change not hypoxic persistent leukocytosis covid positive Hillary Smallwood MD Jun 05, 2020 20:10
--- NOTE | 2020-06-05 20:54 | Psychiatric Progress Note ---
Psychiatry Progress Note Psychiatry Progress Note Medications Current Medications Medications (Trade) Dose Ordered Sig/Tami Route PRN Reason Start Time Stop Time Status Last Admin Dose Admin Acetaminophen (Tylenol) 650 mg Q4H PRN ORAL FEVER 05/13/20 23:30 06/12/20 23:29 06/05/20 01:21 Albuterol/ Ipratropium (Combivent Respimat) 1 puff Q4H PRN INH Shortness of Breath 05/14/20 14:15 06/13/20 14:14 Amiodarone HCl (Cordarone) 200 mg DAILY ORAL 05/14/20 09:00 08/12/20 08:59 06/05/20 09:08 Carvedilol (Coreg) 3.125 mg EVERY 12 HOURS ORAL 05/14/20 09:00 06/13/20 08:59 06/03/20 08:29 Dextrose 1,000 ml @ 50 mls/hr Q20H IV 06/04/20 11:15 07/04/20 11:14 06/05/20 07:56 Dextrose (Dextrose 50%) 25 ml Q30M PRN IV Hypoglycemia 05/13/20 23:30 08/11/20 23:29 Dextrose (Dextrose 50%) 50 ml Q30M PRN IV Hypoglycemia 05/13/20 23:30 08/11/20 23:29 Heparin Sodium (Porcine) (Heparin 5000 units/ml) 5,000 units EVERY 12 HOURS SUBQ 05/14/20 09:00 06/28/20 08:59 06/05/20 09:10 Hydralazine HCl (Apresoline) 10 mg Q4H PRN IV bp over 160 syst 05/22/20 12:30 08/20/20 12:29 Ondansetron HCl (Zofran) 4 mg Q6H PRN IVP Nausea & Vomiting 05/13/20 23:30 06/12/20 23:29 Polyethylene Glycol (Miralax) 17 gm DAILYPRN PRN ORAL Constipation 05/13/20 23:30 06/12/20 23:29 05/16/20 13:23 Promethazine HCl/ Codeine (Phenergan with Codeine) 5 ml Q6H PRN ORAL cough 05/13/20 23:30 06/12/20 23:29 Neurological/Psychiatric: Reports: anxiety, depressed, emotional problems Allergies: Coded Allergies: No Known Allergies (Unverified , 05/13/20) Objective Data Height (Feet): 5 Height (Inches): 7.00 Weight (Pounds): 160 General Appearance: no apparent distress, alert, confused, agitated Additional Comments: awake, disoriented to situation and date. Mood is little anxious. Affect is blunted, congruent with mood. Thought process is concrete. Thought content, no suicidal or homicidal ideation. Cognition is impaired. Insight and judgment is impaired. Assessment/Plan [place] I: ASSESSMENT: [place] I Acute toxic encephalopathy. [place] II Deferred. [place] III COVID-19 pneumonia. Renal failure. [place] IV Low. [place] V 20. PLAN: 1. We will discontinue the Ativan and risperidone. 2. Bilateral soft restraints. 3. Discussed with Dr. Smallwood. Status: progressing, unchanged Status Narrative ASSESSMENT: [place] I Acute toxic encephalopathy. [place] II Deferred. [place] III COVID-19 pneumonia. Renal failure. [place] IV Low. [place] V 20. PLAN: 1. We will discontinue the Ativan and risperidone. 2. Bilateral soft restraints. 3. Discussed with Dr. Smallwood. Assessment/Plan: ASSESSMENT: [place] I Acute toxic encephalopathy. [place] II Deferred. [place] III COVID-19 pneumonia. Renal failure. [place] IV Low. [place] V 20. PLAN: 1. We will discontinue the Ativan and risperidone. 2. Bilateral soft restraints. 3. Discussed with Dr. Smallwood. Adeel Knapp MD Jun 05, 2020 20:54
[2020-06-06] VITALS (7 sets, daily range): BP systolic 95–110; BP diastolic 53–65
[2020-06-06 07:00] LABS: HEMATOCRIT 36.6 % (42.0-52.0); HEMOGLOBIN 12.1 G/DL (14.2-18.0); MEAN CORPUSCULAR VOLUME 96 FL (80-99); PLATELET COUNT 145 K/UL (150-450); RED BLOOD COUNT 3.83 M/UL (4.70-6.10); RED CELL DISTRIBUTION WIDTH 14.8 % (11.6-14.8); WHITE BLOOD COUNT 10.9 K/UL (4.8-10.8)
[2020-06-06 07:30] LABS: CALCIUM 8.4 MG/DL (8.5-10.1); CREATININE 1.3 MG/DL (0.55-1.30); POTASSIUM 3.4 MMOL/L (3.5-5.1)
[2020-06-06 07:31] LABS: ALANINE AMINOTRANSFERASE 103 U/L (12-78); ALBUMIN 1.6 G/DL (3.4-5.0); ALKALINE PHOSPHATASE 122 U/L (46-116); ASPARTATE AMINO TRANSFERASE 66 U/L (15-37); BILIRUBIN,DIRECT 0.4 MG/DL (0.0-0.3); BILIRUBIN,TOTAL 0.8 MG/DL (0.2-1.0); PHOSPHORUS 2.4 MG/DL (2.5-4.9)
--- NOTE | 2020-06-06 08:30 | General Progress Note ---
Subjective Constitutional: Reports: weakness Allergies: Coded Allergies: No Known Allergies (Unverified , 05/13/20) All Systems: reviewed and negative except above Subjective sleepy in room Objective Last 24 Hour Vital Signs Date Time Temp Pulse Resp B/P (MAP) Pulse Ox O2 Delivery O2 Flow Rate FiO2 06/06/20 04:00 97.4 72 19 102/59 (73) 96 06/06/20 04:00 87 06/06/20 00:00 98.1 63 18 99/53 (68) 96 06/06/20 00:00 55 06/05/20 21:00 68 101/53 06/05/20 21:00 Room Air 06/05/20 20:00 98 06/05/20 20:00 97.6 65 18 105/57 (73) 96 06/05/20 16:00 97.5 61 18 113/63 (80) 95 06/05/20 16:00 54 06/05/20 12:00 97.2 74 16 102/53 (69) 96 06/05/20 12:00 60 06/05/20 09:00 80 06/05/20 09:00 Room Air 06/05/20 09:00 80 106/53 Intake and Output 06/05/20 06/06/20 19:00 07:00 Intake Total 410 ml 483 ml Output Total 300 ml 320 ml Balance 110 ml 163 ml Intake Oral 360 ml 15 ml IV Total 50 ml 468 ml Output Urine Total 300 ml 320 ml Laboratory Tests 06/06/20 06:35: White Blood Count 10.9H, Red Blood Count 3.83L, Hemoglobin 12.1L, Hematocrit 36.6L, Mean Corpuscular Volume 96, Mean Corpuscular Hemoglobin 31.7H, Mean Corpuscular Hemoglobin Concent 33.2, Red Cell Distribution Width 14.8, Platelet Count 145L, Mean Platelet Volume 11.1H, Neutrophils (%) (Auto) , Lymphocytes (%) (Auto) , Monocytes (%) (Auto) , Eosinophils (%) (Auto) , Basophils (%) (Auto) , Neutrophils % (Manual) [Pending], Lymphocytes % (Manual) [Pending], Platelet Estimate [Pending], Platelet Morphology [Pending], Sodium Level 141, Potassium Level 3.4L, Chloride Level 109H, Carbon Dioxide Level 27, Anion Gap 5, Blood Urea Nitrogen 30H, Creatinine 1.3, Estimat Glomerular Filtration Rate 54.1, Glucose Level 93, Calcium Level 8.4L, Phosphorus Level 2.4L, Magnesium Level 1.9, Total Bilirubin 0.8, Direct Bilirubin 0.4H, Aspartate Amino Transf (AST/SGOT) 66H, Alanine Aminotransferase (ALT/SGPT) 103H, Alkaline Phosphatase 122H, Total Protein 5.5L, Albumin 1.6L Height (Feet): 5 Height (Inches): 7.00 Weight (Pounds): 160 General Appearance: lethargic EENT: normal ENT inspection Neck: normal alignment Cardiovascular: normal peripheral pulses, normal rate, regular rhythm Respiratory/Chest: chest wall non-tender, lungs clear, normal breath sounds Abdomen: normal bowel sounds, non tender, soft Neurologic: motor weakness Skin: normal pigmentation, warm/dry Assessment/Plan Problem List: (1) Pneumonia ICD Codes: J18.9 - Pneumonia, unspecified organism SNOMED: 274438280 (2) HTN (hypertension) ICD Codes: I10 - Essential (primary) hypertension SNOMED: 69638829 (3) COPD (chronic obstructive pulmonary disease) ICD Codes: J44.9 - Chronic obstructive pulmonary disease, unspecified SNOMED: 55767701 (4) Dehydration ICD Codes: E86.0 - Dehydration SNOMED: 30613468 (5) 2019 novel coronavirus disease (COVID-19) ICD Codes: U07.1 - COVID-19 SNOMED: 193926254 (6) Psychosis ICD Codes: F29 - Unspecified psychosis not due to a substance or known physiological condition SNOMED: 22984846 Status: progressing, unchanged Assessment/Plan: o2p ulm tx abx pt diet cbc bmp am Sonny GonzalesNadege Jun 06, 2020 08:30
--- NOTE | 2020-06-06 08:50 | Diagnostic Imaging Report ---
EXAM: XR Chest, 1 View CLINICAL HISTORY: SOB TECHNIQUE: Frontal view of the chest. COMPARISON: 06/01/20 FINDINGS: Lungs: Given the difference in technique, there has been no significant change in patchy mild diffuse bilateral alveolar infiltrates. Pleural space: Unremarkable. No pneumothorax. Heart: Unremarkable. No cardiomegaly. Mediastinum: Unremarkable. Bones/joints: Unremarkable. IMPRESSION: Given the difference in technique, there has been no significant change in patchy mild diffuse bilateral alveolar infiltrates.
[2020-06-06] MEDS: Amiodarone 200mg tab ORAL SCH (10:09)
[2020-06-06] MEDS: Heparin 5000 units/ml inj SUBQ SCH ×2 (10:12→21:01)
--- NOTE | 2020-06-06 10:38 | Pulmonology Progress Note ---
Subjective ROS Limited/Unobtainable: Yes Allergies: Coded Allergies: No Known Allergies (Unverified , 05/13/20) All Systems: reviewed and negative except above Subjective no fevers, leukocytosis resolved on RA no resp distress denies chest pain Objective Last 24 Hour Vital Signs Date Time Temp Pulse Resp B/P (MAP) Pulse Ox O2 Delivery O2 Flow Rate FiO2 06/06/20 09:00 74 110/65 06/06/20 08:00 97.6 74 16 110/65 (80) 97 06/06/20 04:00 97.4 72 19 102/59 (73) 96 06/06/20 04:00 87 06/06/20 00:00 98.1 63 18 99/53 (68) 96 06/06/20 00:00 55 06/05/20 21:00 68 101/53 06/05/20 21:00 Room Air 06/05/20 20:00 98 06/05/20 20:00 97.6 65 18 105/57 (73) 96 06/05/20 16:00 97.5 61 18 113/63 (80) 95 06/05/20 16:00 54 06/05/20 12:00 97.2 74 16 102/53 (69) 96 06/05/20 12:00 60 Intake and Output 06/05/20 06/06/20 19:00 07:00 Intake Total 410 ml 483 ml Output Total 300 ml 320 ml Balance 110 ml 163 ml Intake Oral 360 ml 15 ml IV Total 50 ml 468 ml Output Urine Total 300 ml 320 ml General Appearance: WD/WN, other - awake HEENT: normocephalic, atraumatic, anicteric Respiratory: chest wall non-tender, lungs clear Cardiovascular: normal peripheral pulses, normal rate - SR with BBB, Abdomen: normal bowel sounds, soft, non tender Genitourinary: normal external genitalia Extremities: no clubbing 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, alert, responsive Lymphatic: no neck adenopathy Musculoskeletal: atrophy - BLE Laboratory Tests 06/06/20 06:35: White Blood Count 10.9H, Red Blood Count 3.83L, Hemoglobin 12.1L, Hematocrit 36.6L, Mean Corpuscular Volume 96, Mean Corpuscular Hemoglobin 31.7H, Mean Corpuscular Hemoglobin Concent 33.2, Red Cell Distribution Width 14.8, Platelet Count 145L, Mean Platelet Volume 11.1H, Neutrophils (%) (Auto) , Lymphocytes (%) (Auto) , Monocytes (%) (Auto) , Eosinophils (%) (Auto) , Basophils (%) (Auto) , Differential Total Cells Counted 100, Neutrophils % (Manual) 71, Lymphocytes % (Manual) 18L, Monocytes % (Manual) 8, Eosinophils % (Manual) 0, Basophils % (Manual) 0, Myelocytes % 2H, Band Neutrophils 1, Platelet Estimate DecreasedL, Platelet Morphology Normal, Anisocytosis 1+, Sodium Level 141, Potassium Level 3.4L, Chloride Level 109H, Carbon Dioxide Level 27, Anion Gap 5, Blood Urea Nitrogen 30H, Creatinine 1.3, Estimat Glomerular Filtration Rate 54.1, Glucose Level 93, Calcium Level 8.4L, Phosphorus Level 2.4L, Magnesium Level 1.9, Total Bilirubin 0.8, Direct Bilirubin 0.4H, Aspartate Amino Transf (AST/SGOT) 66H, Ala nine Aminotransferase (ALT/SGPT) 103H, Alkaline Phosphatase 122H, Total Protein 5.5L, Albumin 1.6L Current Medications Medications (Trade) Dose Ordered Sig/Tami Route PRN Reason Start Time Stop Time Status Last Admin Dose Admin Acetaminophen (Tylenol) 650 mg Q4H PRN ORAL FEVER 05/13/20 23:30 06/12/20 23:29 06/05/20 01:21 Albuterol/ Ipratropium (Combivent Respimat) 1 puff Q4H PRN INH Shortness of Breath 05/14/20 14:15 06/13/20 14:14 Amiodarone HCl (Cordarone) 200 mg DAILY ORAL 05/14/20 09:00 08/12/20 08:59 06/06/20 10:09 Carvedilol (Coreg) 3.125 mg EVERY 12 HOURS ORAL 05/14/20 09:00 06/13/20 08:59 06/03/20 08:29 Dextrose 1,000 ml @ 50 mls/hr Q20H IV 06/04/20 11:15 07/04/20 11:14 06/06/20 04:39 Dextrose (Dextrose 50%) 25 ml Q30M PRN IV Hypoglycemia 05/13/20 23:30 08/11/20 23:29 Dextrose (Dextrose 50%) 50 ml Q30M PRN IV Hypoglycemia 05/13/20 23:30 08/11/20 23:29 Heparin Sodium (Porcine) (Heparin 5000 units/ml) 5,000 units EVERY 12 HOURS SUBQ 05/14/20 09:00 06/28/20 08:59 06/06/20 10:12 Hydralazine HCl (Apresoline) 10 mg Q4H PRN IV bp over 160 syst 05/22/20 12:30 08/20/20 12:29 Ondansetron HCl (Zofran) 4 mg Q6H PRN IVP Nausea & Vomiting 05/13/20 23:30 06/12/20 23:29 Polyethylene Glycol (Miralax) 17 gm DAILYPRN PRN ORAL Constipation 05/13/20 23:30 06/12/20 23:29 05/16/20 13:23 Potassium Phosphate 250 ml @ 41.671 mls/ hr ONCE ONCE IVPB 06/06/20 10:45 06/06/20 16:44 Promethazine HCl/ Codeine (Phenergan with Codeine) 5 ml Q6H PRN ORAL cough 05/13/20 23:30 06/12/20 23:29 Assessment/Plan Assessment/Plan ASSESSMENT COVID-19 pneumonia Acute hypoxemic respiratory failure , requiring nonrebreather mask- now on NC- resolved Possible UTI TOPHER COPD HTN History of CVA Elevated LFT PLAN OF CARE tele Date of sx onset: prior to ED presentation on 05/14 Positive test: 05/14 rapid COVID 19 +, COVID 19 by PCR 05/30 NGT O2 RA HFA s/p REM x 5 days ( 05/14-05/18) s/p Dex x 10 days ( 05/14 -05/23) DVT PPX: Heparin D dimer 1.76 Trend CRP 62.2-9.3 s/p abx per ID recs CXR 06/06 -> patchy mild diffuse bilateral alveolar infiltrates. Monitor volumes and renal function. K and P replaced this am Fup with consultants recs FC Discuss GOC case discussed and evaluated by supervising physician Esperanza Howell NP Jun 06, 2020 10:38 Rocky Archibald MD Jun 06, 2020 19:40
[2020-06-06] MEDS ORDERED: Potassium Phosphate 15mm/250ml 250 ML IVPB ONE (10:45)
[2020-06-06] MEDS: Miralax 17gm pkt ORAL PRN (11:29)
--- NOTE | 2020-06-06 15:17 | Nephrology Progress Note ---
Assessment/Plan Problem List: (1) TOPHER (acute kidney injury) (2) 2019 novel coronavirus disease (COVID-19) (3) Pneumonia (4) COPD (chronic obstructive pulmonary disease) (5) Psychosis Assessment Renal failure, acute on chronic Partly dehydration COPD, hypoxia, COVID-19 disease Psychosis Atrial fibrillation High cholesterol Hypertension History of CVA Plan June 06: Labs reviewed. Potassium and phosphorus low. K-Phos IV ordered. Continue to monitor renal parameters. June 05: Labs reviewed. Serum sodium lowering. Serum creatinine lowered to 1.5. Continue D5W 50 cc an hour. Continue to monitor renal parameters. June 04: No labs reviewed. Serum creatinine ab to 1.6. Serum sodium remains higher than normal. Will start D5W at 50 cc an hour. Potassium supplement given. Continue to monitor renal parameters. June 03: Labs were reviewed. Serum creatinine 1.4 unchanged. Serum sodium elevated. 1 L D5W ordered. Continue to monitor electrolytes and renal parameters. June 02: No CHEM panel drawn today. Will order labs for tomorrow. Continue per consultants June 01: Serum sodium 154. Serum creatinine up to 1.4. Patient appears to be dehydrated. 1 L of D5W IV ordered. Continue to monitor renal parameters. Continue per consultants. May 31: Serum sodium lowering. Renal parameters stable. Low phosphorus addressed. Discussed with RN. May 30: Serum sodium 156. Other renal parameters stable. Will give 1 L of D5W. May 29: No labs drawn today. Will check can panel tomorrow. Continue per consultants. May 28: Labs reviewed. Serum sodium slightly elevated. D5W bolus given. Continue per consultants. Renal parameters stable. May 27: Labs reviewed. Stable renal parameters. Leukocytosis persists. May 26: No labs drawn today. We will check labs in a.m. Continue per current management. Medication list reviewed. May 25: Labs reviewed. Renal parameters much improved. Electrolytes wi thin normal limit. Medication list reviewed. Continue per consultants. May 24: Labs reviewed. Serum creatinine lower. Serum sodium normalized. Electrolytes within normal limit. Will change IV to D5 normal saline. Continue per consultants. Blood pressure stable. May 23: Labs reviewed. Serum creatinine lower. Serum sodium lower. Potassium 5.4 , I suspect partly hemolysis. Patient has a Conway catheter. Continue D5W. Continue to monitor renal parameters. Continue per consultants. May 22: Patient more encephalopathic. Blood pressure low. Labs reviewed. Renal parameters worsened. Conway catheter ordered. Will stop Flomax and Proscar. Will adjust blood pressure medications. Will give IV fluid. Discussed with NAI Corbett. Will keep the patient n.p.o. due to poor mental status. Per orders. May 21: No labs drawn today. Stable from renal standpoint of view. Continue per consultants. May 20: Lab reviewed. Serum creatinine 1.5 stable. Serum sodium lowering. Continue per consultants. May 19: Labs reviewed. Serum creatinine lower to 1.5. Serum sodium mildly elevated. Continue free water administration. Monitor renal parameters. Continue per consultants. May 18: Labs reviewed. Serum creatinine up to 1.7. Electrolytes within normal limit. Continue to monitor renal parameters. Continue per consultants. May 17: Labs reviewed. Serum sodium normalized. Serum creatinine 1.5 stable. Continue per current management. May 16 Creatinine 1.5 unchanged. Blood pressure stable. Electrolytes unchanged. Serum sodium 133. Continue to monitor renal parameters Adjust blood pressure medication Stop saline hydration Monitor renal parameters and electrolytes Pulmonary support Per consultants Avoid nephrotoxic's Urine studies Per orders Subjective ROS Limited/Unobtainable: No Constitutional: Reports: malaise Objective Objective Last 24 Hour Vital Signs Date Time Temp Pulse Resp B/P (MAP) Pulse Ox O2 Delivery O2 Flow Rate FiO2 06/06/20 12:00 53 06/06/20 09:00 74 110/65 06/06/20 09:00 Room Air 06/06/20 08:00 68 06/06/20 08:00 97.6 74 16 110/65 (80) 97 06/06/20 04:00 97.4 72 19 102/59 (73) 96 06/06/20 04:00 87 06/06/20 00:00 98.1 63 18 99/53 (68) 96 06/06/20 00:00 55 06/05/20 21:00 68 101/53 06/05/20 21:00 Room Air 06/05/20 20:00 98 06/05/20 20:00 97.6 65 18 105/57 (73) 96 06/05/20 16:00 97.5 61 18 113/63 (80) 95 06/05/20 16:00 54 Intake and Output 06/05/20 06/06/20 19:00 07:00 Intake Total 410 ml 483 ml Output Total 300 ml 320 ml Balance 110 ml 163 ml Intake Oral 360 ml 15 ml IV Total 50 ml 468 ml Output Urine Total 300 ml 320 ml Laboratory Tests 06/06/20 06:35: White Blood Count 10.9H, Red Blood Count 3.83L, Hemoglobin 12.1L, Hematocrit 36.6L, Mean Corpuscular Volume 96, Mean Corpuscular Hemoglobin 31.7H, Mean Corpuscular Hemoglobin Concent 33.2, Red Cell Distribution Width 14.8, Platelet Count 145L, Mean Platelet Volume 11.1H, Neutrophils (%) (Auto) , Lymphocytes (%) (Auto) , Monocytes (%) (Auto) , Eosinophils (%) (Auto) , Basophils (%) (Auto) , Differential Total Cells Counted 100, Neutrophils % (Manual) 71, Lymphocytes % (Manual) 18L, Monocytes % (Manual) 8, Eosinophils % (Manual) 0, Basophils % (Manual) 0, Myelocytes % 2H, Band Neutrophils 1, Platelet Estimate DecreasedL, Platelet Morphology Normal, Anisocytosis 1+, Sodium Level 141, Potassium Level 3.4L, Chloride Level 109H, Carbon Dioxide Level 27, Anion Gap 5, Blood Urea Ni trogen 30H, Creatinine 1.3, Estimat Glomerular Filtration Rate 54.1, Glucose Level 93, Calcium Level 8.4L, Phosphorus Level 2.4L, Magnesium Level 1.9, Total Bilirubin 0.8, Direct Bilirubin 0.4H, Aspartate Amino Transf (AST/SGOT) 66H, Alanine Aminotransferase (ALT/SGPT) 103H, Alkaline Phosphatase 122H, Total Protein 5.5L, Albumin 1.6L Height (Feet): 5 Height (Inches): 7.00 Weight (Pounds): 160 General Appearance: no apparent distress Cardiovascular: normal rate Respiratory/Chest: decreased breath sounds Abdomen: distended Objective No change Alan Sánchez MD Jun 06, 2020 15:17
[2020-06-07] VITALS: BP 124/71
[2020-06-07 04:00] VITALS: BP 113/91
[2020-06-07 08:00] VITALS: BP 99/57
[2020-06-07] MEDS: Amiodarone 200mg tab ORAL SCH (08:39)
[2020-06-07] MEDS: Heparin 5000 units/ml inj SUBQ SCH ×2 (08:44→21:08)
--- NOTE | 2020-06-07 08:49 | General Progress Note ---
Subjective Constitutional: Reports: weakness Allergies: Coded Allergies: No Known Allergies (Unverified , 05/13/20) All Systems: reviewed and negative except above Subjective sleepy in room Objective Last 24 Hour Vital Signs Date Time Temp Pulse Resp B/P (MAP) Pulse Ox O2 Delivery O2 Flow Rate FiO2 06/07/20 08:39 68 99/57 06/07/20 08:00 98.0 68 17 99/57 (71) 98 06/07/20 04:00 70 06/07/20 04:00 98.1 68 16 113/91 (98) 97 06/07/20 00:00 98.4 72 15 124/71 (88) 96 06/07/20 00:00 83 06/06/20 21:00 Room Air 06/06/20 20:55 73 100/59 06/06/20 20:00 126 06/06/20 20:00 98.2 73 17 100/59 (73) 96 06/06/20 18:11 97.5 66 20 100/62 (75) 96 06/06/20 16:00 79 06/06/20 16:00 97.5 66 20 100/62 (75) 96 06/06/20 12:00 97.3 73 20 95/62 (73) 97 06/06/20 12:00 53 06/06/20 09:00 74 110/65 06/06/20 09:00 Room Air Intake and Output 06/06/20 06/07/20 19:00 07:00 Intake Total 200 ml 120 ml Output Total 250 ml 300 ml Balance -50 ml -180 ml Intake Oral 200 ml 120 ml Output Urine Total 250 ml 300 ml # Voids 1 # Bowel Movements 1 Laboratory Tests 06/06/20 20:12: D-Dimer 2.88H 06/07/20 08:00: White Blood Count [Pending], Red Blood Count [Pending], Hemoglobin [Pending], Hematocrit [Pending], Mean Corpuscular Volume [Pending], Mean Corpuscular Hemoglobin [Pending], Mean Corpuscular Hemoglobin Concent [Pending], Red Cell Distribution Width [Pending], Platelet Count [Pending], Mean Platelet Volume [Pending], Neutrophils (%) (Auto) [Pending], Lymphocytes (%) (Auto) [Pending], Monocytes (%) (Auto) [Pending], Eosinophils (%) (Auto) [Pending], Basophils (%) (Auto) [Pending], Sodium Level [Pending], Potassium Level [Pending], Chloride Level [Pending], Carbon Dioxide Level [Pending], Blood Urea Nitrogen [Pending], Creatinine [Pending], Estimat Glomerular Filtration Rate [Pending], Glucose Level [Pending], Calcium Level [Pending], Phosphorus Level [Pending], Magnesium Level [Pending], Total Bilirubin [Pending], Aspartate Amino Transf (AST/SGOT) [Pending], Alanine Aminotransferase (ALT/SGPT) [Pending], Alkaline Phosphatase [Pending], Total Protein [Pending], Albumin [Pending], Globulin [Pending] Height (Feet): 5 Height (Inches): 7.00 Weight (Pounds): 160 General Appearance: lethargic EENT: normal ENT inspection Neck: normal alignment Cardiovascular: normal peripheral pulses, normal rate, regular rhythm Respiratory/Chest: chest wall non-tender, lungs clear, normal breath sounds Abdomen: normal bowel sounds, non tender, soft Extremities: normal inspection Edema: no edema noted Arm (L), no edema noted Arm (R), no edema noted Leg (L), no edema noted Leg (R), no edema noted Pedal (L), no edema noted Pedal (R), no edema noted Generalized Neurologic: responsive, motor weakness Skin: normal pigmentation, warm/dry Assessment/Plan Problem List: (1) Pneumonia ICD Codes: J18.9 - Pneumonia, unspecified organism SNOMED: 141822935 (2) HTN (hypertension) ICD Codes: I10 - Essential (primary) hypertension SNOMED: 04681474 (3) COPD (chronic obstructive pulmonary disease) ICD Codes: J44.9 - Chronic obstructive pulmonary disease, unspecified SNOMED: 67321198 (4) Dehydration ICD Codes: E86.0 - Dehydration SNOMED: 08126132 (5) 2019 novel coronavirus disease (COVID-19) ICD Codes: U07.1 - COVID-19 SNOMED: 266033679 (6) Psychosis ICD Codes: F29 - Unspecified psychosis not due to a substance or known physiological condition SNOMED: 90305627 Status: unchanged Assessment/Plan: o2p ulm tx abx pt diet cbc bmp am Sonny Gonzales DO Jun 07, 2020 08:49
[2020-06-07 08:56] LABS: BASOPHILS % (AUTO) 0.7 % (0.0-2.0); EOSINOPHILS % (AUTO) 0.6 % (0.0-3.0); HEMATOCRIT 36.3 % (42.0-52.0); HEMOGLOBIN 12.2 G/DL (14.2-18.0); MEAN CORPUSCULAR VOLUME 94 FL (80-99); MONOCYTES % (AUTO) 4.7 % (1.0-10.0); PLATELET COUNT 202 K/UL (150-450); RED BLOOD COUNT 3.87 M/UL (4.70-6.10)
[2020-06-07 09:20] LABS: PHOSPHORUS 2.6 MG/DL (2.5-4.9)
[2020-06-07 09:25] LABS: ALBUMIN 1.6 G/DL (3.4-5.0); ALBUMIN/GLOBULIN RATIO 0.3 (1.0-2.7); BILIRUBIN,TOTAL 0.9 MG/DL (0.2-1.0); CALCIUM 8.3 MG/DL (8.5-10.1); CREATININE 1.3 MG/DL (0.55-1.30); POTASSIUM 3.5 MMOL/L (3.5-5.1)
--- NOTE | 2020-06-07 10:09 | Infectious Diseases Prog Note ---
Assessment/Plan 74yo M with: Afebrile Normal WBC Lymphopenia Pneumonia COVID pneumonia, severe Acute hypoxic resp failure on NRB mask Possible UTI 05/13 BCx NTD UA 5-10 WBC, UCx >100k Kleb pna (S-CTX) COVID rapid positive CXR: Multifocal pna 05/19 CXR: Increasing bilateral infiltrates 05/31 UA neg, UCx 50-60k Enterococcus and yeast (colonizers) Elevated LFTs, AST/ALT 125 / 80 TOPHER on CKD, Cr 1.5, improving COPD Cardiac disease SNF resident Plan: Cont to monitor off abx Pt doing well on RA, off therapeutics, OK to d/c from ID standpoint OK to d/c COVID isolation given clinical improvement and >10 days from diagnosis 05/23 SP dex #10 05/18 SP RDV #5 05/18 SP Augmentin #1, Azithro #5 05/17 SP CTX #4 Monitor CBC/CMP Monitor temp curve, hemodynamics Monitor resp status D/w RN Thank you for this consult. [facility] will continue to follow. Subjective Allergies: Coded Allergies: No Known Allergies (Unverified , 05/13/20) AF NAD On RA WBC 10, improving Objective Last 24 Hour Vital Signs Date Time Temp Pulse Resp B/P (MAP) Pulse Ox O2 Delivery O2 Flow Rate FiO2 06/07/20 09:00 Room Air 06/07/20 08:39 68 99/57 06/07/20 08:00 98.0 68 17 99/57 (71) 98 06/07/20 04:00 70 06/07/20 04:00 98.1 68 16 113/91 (98) 97 06/07/20 00:00 98.4 72 15 124/71 (88) 96 06/07/20 00:00 83 06/06/20 21:00 Room Air 06/06/20 20:55 73 100/59 06/06/20 20:00 126 06/06/20 20:00 98.2 73 17 100/59 (73) 96 06/06/20 18:11 97.5 66 20 100/62 (75) 96 06/06/20 16:00 79 06/06/20 16:00 97.5 66 20 100/62 (75) 96 06/06/20 12:00 97.3 73 20 95/62 (73) 97 06/06/20 12:00 53 Height (Feet): 5 Height (Inches): 7.00 Weight (Pounds): 160 Gen: NAD HEENT: NCAT Pulm: BL chest rise Abd: Soft, NTND Ext: No c/c/e Skin: No visible rashes Neuro: Awake, interactive Laboratory Tests Test 06/06/20 20:12 06/07/20 08:00 D-Dimer 2.88 mg/L FEU (0.00-0.49) H White Blood Count 10.0 K/UL (4.8-10.8) Red Blood Count 3.87 M/UL (4.70-6.10) L Hemoglobin 12.2 G/DL (14.2-18.0) L Hematocrit 36.3 % (42.0-52.0) L Mean Corpuscular Volume 94 FL (80-99) Mean Corpuscular Hemoglobin 31.6 PG (27.0-31.0) H Mean Corpuscular Hemoglobin Concent 33.7 G/DL (32.0-36.0) Red Cell Distribution Width 15.0 % (11.6-14.8) H Platelet Count 202 K/UL (150-450) Mean Platelet Volume 9.5 FL (6.5-10.1) Neutrophils (%) (Auto) 83.0 % (45.0-75.0) H Lymphocytes (%) (Auto) 11.0 % (20.0-45.0) L Monocytes (%) (Auto) 4.7 % (1.0-10.0) Eosinophils (%) (Auto) 0.6 % (0.0-3.0) Basophils (%) (Auto) 0.7 % (0.0-2.0) Sodium Level 140 MMOL/L (136-145) Potassium Level 3.5 MMOL/L (3.5-5.1) Chloride Level 107 MMOL/L (98-107) Carbon Dioxide Level 25 MMOL/L (21-32) Anion Gap 8 mmol/L (5-15) Blood Urea Nitrogen 24 mg/dL (7-18) H Creatinine 1.3 MG/DL (0.55-1.30) Estimat Glomerular Filtration Rate 54.1 mL/min (>60) Glucose Level 62 MG/DL (74-106) L Calcium Level 8.3 MG/DL (8.5-10.1) L Phosphorus Level 2.6 MG/DL (2.5-4.9) Magnesium Level 1.9 MG/DL (1.8-2.4) Total Bilirubin 0.9 MG/DL (0.2-1.0) Aspartate Amino Transf (AST/SGOT) 56 U/L (15-37) H Alanine Aminotransferase (ALT/SGPT) 102 U/L (12-78) H Alkaline Phosphatase 125 U/L (46-116) H Total Protein 6.5 G/DL (6.4-8.2) Albumin 1.6 G/DL (3.4-5.0) L Globulin 4.9 g/dL Albumin/Globulin Ratio 0.3 (1.0-2.7) L Current Medications Medications (Trade) Dose Ordered Sig/Tami Route PRN Reason Start Time Stop Time Status Last Admin Dose Admin Acetaminophen (Tylenol) 650 mg Q4H PRN ORAL FEVER 05/13/20 23:30 06/12/20 23:29 06/05/20 01:21 Albuterol/ Ipratropium (Combivent Respimat) 1 puff Q4H PRN INH Shortness of Breath 05/14/20 14:15 06/13/20 14:14 Amiodarone HCl (Cordarone) 200 mg DAILY ORAL 05/14/20 09:00 08/12/20 08:59 06/06/20 10:09 Carvedilol (Coreg) 3.125 mg EVERY 12 HOURS ORAL 05/14/20 09:00 06/13/20 08:59 06/03/20 08:29 Dextrose (Dextrose 50%) 25 ml Q30M PRN IV Hypoglycemia 05/13/20 23:30 08/11/20 23:29 Dextrose (Dextrose 50%) 50 ml Q30M PRN IV Hypoglycemia 05/13/20 23:30 08/11/20 23:29 Heparin Sodium (Porcine) (Heparin 5000 units/ml) 5,000 units EVERY 12 HOURS SUBQ 05/14/20 09:00 06/28/20 08:59 06/07/20 08:44 Hydralazine HCl (Apresoline) 10 mg Q4H PRN IV bp over 160 syst 05/22/20 12:30 08/20/20 12:29 Ondansetron HCl (Zofran) 4 mg Q6H PRN IVP Nausea & Vomiting 05/13/20 23:30 06/12/20 23:29 Polyethylene Glycol (Miralax) 17 gm DAILYPRN PRN ORAL Constipation 05/13/20 23:30 06/12/20 23:29 06/06/20 11:29 Promethazine HCl/ Codeine (Phenergan with Codeine) 5 ml Q6H PRN ORAL cough 05/13/20 23:30 06/12/20 23:29 Kathy Yap M.D. Jun 07, 2020 10:09
--- NOTE | 2020-06-07 11:14 | Pulmonology Progress Note ---
Subjective ROS Limited/Unobtainable: No Allergies: Coded Allergies: No Known Allergies (Unverified , 05/13/20) All Systems: reviewed and negative except above Subjective no fevers, leukocytosis resolved on RA no resp distress denies chest pain Objective Last 24 Hour Vital Signs Date Time Temp Pulse Resp B/P (MAP) Pulse Ox O2 Delivery O2 Flow Rate FiO2 06/07/20 09:00 Room Air 06/07/20 08:39 68 99/57 06/07/20 08:00 93 06/07/20 08:00 98.0 68 17 99/57 (71) 98 06/07/20 04:00 70 06/07/20 04:00 98.1 68 16 113/91 (98) 97 06/07/20 00:00 98.4 72 15 124/71 (88) 96 06/07/20 00:00 83 06/06/20 21:00 Room Air 06/06/20 20:55 73 100/59 06/06/20 20:00 126 06/06/20 20:00 98.2 73 17 100/59 (73) 96 06/06/20 18:11 97.5 66 20 100/62 (75) 96 06/06/20 16:00 79 06/06/20 16:00 97.5 66 20 100/62 (75) 96 06/06/20 12:00 97.3 73 20 95/62 (73) 97 06/06/20 12:00 53 Intake and Output 06/06/20 06/07/20 19:00 07:00 Intake Total 200 ml 120 ml Output Total 250 ml 300 ml Balance -50 ml -180 ml Intake Oral 200 ml 120 ml Output Urine Total 250 ml 300 ml # Voids 1 # Bowel Movements 1 General Appearance: WD/WN, other - awake HEENT: normocephalic, atraumatic, anicteric Respiratory: chest wall non-tender, lungs clear Cardiovascular: normal peripheral pulses, normal rate - SR with BBB, Abdomen: normal bowel sounds, soft, non tender Genitourinary: normal external genitalia Extremities: no clubbing 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, alert, responsive Lymphatic: no neck adenopathy Musculoskeletal: atrophy - BLE Laboratory Tests 06/06/20 20:12: D-Dimer 2.88H 06/07/20 08:00: White Blood Count 10.0, Red Blood Count 3.87L, Hemoglobin 12.2L, Hematocrit 36.3L, Mean Corpuscular Volume 94, Mean Corpuscular Hemoglobin 31.6H, Mean Corpuscular Hemoglobin Concent 33.7, Red Cell Distribution Width 15.0H, Platelet Count 202, Mean Platelet Volume 9.5, Neutrophils (%) (Auto) 83.0H, Lymphocytes (%) (Auto) 11.0L, Monocytes (%) (Auto) 4.7, Eosinophils (%) (Auto) 0.6, Basophils (%) (Auto) 0.7, Sodium Level 140, Potassium Level 3.5, Chloride Level 107, Carbon Dioxide Level 25, Anion Gap 8, Blood Urea Nitrogen 24H, Creatinine 1.3, Estimat Glomerular Filtration Rate 54.1, Glucose Level 62L, Calcium Level 8.3L, Phosphorus Level 2.6, Magnesium Level 1.9, Total Bilirubin 0.9, Aspartate Amino Transf (AST/SGOT) 56H, Alanine Aminotransferase (ALT/SGPT) 102H, Alkaline Phosphatase 125H, Total Protein 6.5, Albumin 1.6L, Globulin 4.9, Albumin/Globulin Ratio 0.3L Current Medications Medications (Trade) Dose Ordered Sig/Tami Route PRN Reason Start Time Stop Time Status Last Admin Dose Admin Acetaminophen (Tylenol) 650 mg Q4H PRN ORAL FEVER 05/13/20 23:30 06/12/20 23:29 06/05/20 01:21 Albuterol/ Ipratropium (Combivent Respimat) 1 puff Q4H PRN INH Shortness of Breath 05/14/20 14:15 06/13/20 14:14 Amiodarone HCl (Cordarone) 200 mg DAILY ORAL 05/14/20 09:00 08/12/20 08:59 06/06/20 10:09 Carvedilol (Coreg) 3.125 mg EVERY 12 HOURS ORAL 05/14/20 09:00 06/13/20 08:59 06/03/20 08:29 Dextrose (Dextrose 50%) 25 ml Q30M PRN IV Hypoglycemia 05/13/20 23:30 08/11/20 23:29 Dextrose (Dextrose 50%) 50 ml Q30M PRN IV Hypoglycemia 05/13/20 23:30 08/11/20 23:29 Heparin Sodium (Porcine) (Heparin 5000 units/ml) 5,000 units EVERY 12 HOURS SUBQ 05/14/20 09:00 06/28/20 08:59 06/07/20 08:44 Hydralazine HCl (Apresoline) 10 mg Q4H PRN IV bp over 160 syst 05/22/20 12:30 08/20/20 12:29 Ondansetron HCl (Zofran) 4 mg Q6H PRN IVP Nausea & Vomiting 05/13/20 23:30 06/12/20 23:29 Polyethylene Glycol (Miralax) 17 gm DAILYPRN PRN ORAL Constipation 05/13/20 23:30 06/12/20 23:29 06/06/20 11:29 Promethazine HCl/ Codeine (Phenergan with Codeine) 5 ml Q6H PRN ORAL cough 05/13/20 23:30 06/12/20 23:29 Assessment/Plan Assessment/Plan ASSESSMENT COVID-19 pneumonia Acute hypoxemic respiratory failure , requiring nonrebreather mask- now on NC- resolved Possible UTI TOPHER COPD HTN History of CVA Elevated LFT PLAN OF CARE tele Date of sx onset: prior to ED presentation on 05/14 Positive test: 05/14 rapid COVID 19 +, COVID 19 by PCR 05/30 NGT O2 RA HFA s/p REM x 5 days ( 05/14-05/18) s/p Dex x 10 days ( 05/14 -05/23) DVT PPX: Heparin D dimer 1.76 Trend CRP 62.2-9.3 s/p abx per ID recs CXR 1/2 -> patchy mild diffuse bilateral alveolar infiltrates. Monitor volumes and renal function. K and P replaced this am Fup with consultants recs FC Discuss GOC dc plan per primary team no need for isolation, given onset of symptoms > 10 days case discussed and evaluated by supervising physician Esperanza Howell NP Jun 07, 2020 11:13 Rocky Archibald MD Jun 07, 2020 20:35
[2020-06-07 12:00] VITALS: BP 99/61
--- NOTE | 2020-06-07 13:20 | Nephrology Progress Note ---
Assessment/Plan Problem List: (1) TOPHER (acute kidney injury) (2) 2019 novel coronavirus disease (COVID-19) (3) Pneumonia (4) COPD (chronic obstructive pulmonary disease) (5) Psychosis Assessment Renal failure, acute on chronic Partly dehydration COPD, hypoxia, COVID-19 disease Psychosis Atrial fibrillation High cholesterol Hypertension History of CVA Plan June 07: Labs reviewed. Renal parameters and electrolytes stable. Continue per consultants. June 06: Labs reviewed. Potassium and phosphorus low. K-Phos IV ordered. Continue to monitor renal parameters. June 05: Labs reviewed. Serum sodium lowering. Serum creatinine lowered to 1.5. Continue D5W 50 cc an hour. Continue to monitor renal parameters. June 04: No labs reviewed. Serum creatinine ab to 1.6. Serum sodium remains higher than normal. Will start D5W at 50 cc an hour. Potassium supplement given. Continue to monitor renal parameters. June 03: Labs were reviewed. Serum creatinine 1.4 unchanged. Serum sodium elevated. 1 L D5W ordered. Continue to monitor electrolytes and renal parameters. June 02: No CHEM panel drawn today. Will order labs for tomorrow. Continue per consultants June 01: Serum sodium 154. Serum creatinine up to 1.4. Patient appears to be dehydrated. 1 L of D5W IV ordered. Continue to monitor renal parameters. Continue per consultants. May 31: Serum sodium lowering. Renal parameters stable. Low phosphorus addressed. Discussed with RN. May 30: Serum sodium 156. Other renal parameters stable. Will give 1 L of D5W. May 29: No labs drawn today. Will check can panel tomorrow. Continue per consultants. May 28: Labs reviewed. Serum sodium slightly elevated. D5W bolus given. Continue per consultants. Renal parameters stable. May 27: Labs reviewed. Stable renal parameters. Leukocytosis persists. May 26: No labs drawn today. We will check labs in a.m. Continue per current management. Medication list reviewed. May 25: Labs reviewed. Renal parameters much improved. Electrolytes within normal limit. Medication list reviewed. Continue per consultants. May 24: Labs reviewed. Serum creatinine lower. Serum sodium normalized. Electrolytes within normal limit. Will change IV to D5 normal saline. Continue per consultants. Blood pressure stable. May 23: Labs reviewed. Serum creatinine lower. Serum sodium lower. Potassium 5.4 , I suspect partly hemolysis. Patient has a Conway catheter. Continue D5W. Continue to monitor renal parameters. Continue per consultants. May 22: Patient more encephalopathic. Blood pressure low. Labs reviewed. Renal parameters worsened. Conway catheter ordered. Will stop Flomax and Proscar. Will adjust blood pressure medications. Will give IV fluid. Discussed with NAI Corbett. Will keep the patient n.p.o. due to poor mental status. Per orders. May 21: No labs drawn today. Stable from renal standpoint of view. Continue per consultants. May 20: Lab reviewed. Serum creatinine 1.5 stable. Serum sodium lowering. Continue per consultants. May 19: Labs reviewed. Serum creatinine lower to 1.5. Serum sodium mildly elevated. Continue free water administration. Monitor renal parameters. Continue per consultants. May 18: Labs reviewed. Serum creatinine up to 1.7. Electrolytes within normal limit. Continue to monitor renal parameters. Continue per consultants. May 17: Labs reviewed. Serum sodium normalized. Serum creatinine 1.5 stable. Continue per current management. May 16 Creatinine 1.5 unchanged. Blood pressure stable. Electrolytes unchanged. Serum sodium 133. Continue to monitor renal parameters Adjust blood pressure medication Stop saline hydration Monitor renal parameters and electrolytes Pulmonary support Per consultants Avoid nephrotoxic's Urine studies Per orders Subjective ROS Limited/Unobtainable: No Constitutional: Reports: malaise Objective Objective Last 24 Hour Vital Signs Date Time Temp Pulse Resp B/P (MAP) Pulse Ox O2 Delivery O2 Flow Rate FiO2 06/07/20 12:00 73 06/07/20 12:00 98.2 74 18 99/61 (74) 98 06/07/20 09:00 Room Air 06/07/20 08:39 68 99/57 06/07/20 08:00 93 06/07/20 08:00 98.0 68 17 99/57 (71) 98 06/07/20 04:00 70 06/07/20 04:00 98.1 68 16 113/91 (98) 97 06/07/20 00:00 98.4 72 15 124/71 (88) 96 06/07/20 00:00 83 06/06/20 21:00 Room Air 06/06/20 20:55 73 100/59 06/06/20 20:00 126 06/06/20 20:00 98.2 73 17 100/59 (73) 96 06/06/20 18:11 97.5 66 20 100/62 (75) 96 06/06/20 16:00 79 06/06/20 16:00 97.5 66 20 100/62 (75) 96 Intake and Output 06/06/20 06/07/20 19:00 07:00 Intake Total 200 ml 120 ml Output Total 250 ml 300 ml Balance -50 ml -180 ml Intake Oral 200 ml 120 ml Output Urine Total 250 ml 300 ml # Voids 1 # Bowel Movements 1 Laboratory Tests 06/06/20 20:12: D-Dimer 2.88H 06/07/20 08:00: White Blood Count 10.0, Red Blood Count 3.87L, Hemoglobin 12.2L, Hematocrit 36.3L, Mean Corpuscular Volume 94, Mean Corpuscular Hemoglobin 31.6H, Mean Corpuscular Hemoglobin Concent 33.7, Red Cell Distribution Width 15.0H, Platelet Count 202, Mean Platelet Volume 9.5, Neutrophils (%) (Auto) 83.0H, Lymphocytes (%) (Auto) 11.0L, Monocytes (%) (Auto) 4.7, Eosinophils (%) (Auto) 0.6, Basophils (%) (Auto) 0.7, Sodium Level 140, Potassium Level 3.5, Chloride Level 107, Carbon Dioxide Level 25, Anion Gap 8, Blood Urea Nitrogen 24H, Creatinine 1.3, Estimat Glomerular Filtration Rate 54.1, Glucose Level 62L, Calcium Level 8.3L, Phosphorus Level 2.6, Magnesium Level 1.9, Total Bilirubin 0.9, Aspartate Amino Transf (AST/SGOT) 56H, Alanine Aminotransferase (ALT/SGPT) 102H, Alkaline Phosphatase 125H, Total Protein 6.5, Albumin 1.6L, Globulin 4.9, Albumin/Globulin Ratio 0.3L Height (Feet): 5 Height (Inches): 7.00 Weight (Pounds): 160 General Appearance: no apparent distress Cardiovascular: normal rate Respiratory/Chest: decreased breath sounds Abdomen: soft Objective No change Alan Sánchez MD Jun 07, 2020 13:20
[2020-06-07 16:00] VITALS: BP 96/60
[2020-06-07 20:00] VITALS: BP 109/64
[2020-06-08] VITALS: BP 92/55
[2020-06-08 04:00] VITALS: BP 97/54
[2020-06-08 06:44] LABS: BASOPHILS % (AUTO) 0.5 % (0.0-2.0); EOSINOPHILS % (AUTO) 0.7 % (0.0-3.0); HEMATOCRIT 36.3 % (42.0-52.0); HEMOGLOBIN 11.8 G/DL (14.2-18.0); LYMPHOCYTES % (AUTO) 11.7 % (20.0-45.0); MEAN CORPUSCULAR VOLUME 97 FL (80-99); MONOCYTES % (AUTO) 5.6 % (1.0-10.0); NEUTROPHILS % (AUTO) 81.6 % (45.0-75.0); PLATELET COUNT 232 K/UL (150-450); RED BLOOD COUNT 3.74 M/UL (4.70-6.10); RED CELL DISTRIBUTION WIDTH 13.6 % (11.6-14.8); WHITE BLOOD COUNT 9.1 K/UL (4.8-10.8)
[2020-06-08 07:09] LABS: CALCIUM 8.4 MG/DL (8.5-10.1); CREATININE 1.2 MG/DL (0.55-1.30); POTASSIUM 3.6 MMOL/L (3.5-5.1)
[2020-06-08 08:00] VITALS: BP 90/58
--- NOTE | 2020-06-08 08:36 | General Progress Note ---
Subjective Constitutional: Reports: weakness Allergies: Coded Allergies: No Known Allergies (Unverified , 05/13/20) All Systems: reviewed and negative except above Subjective sleepy in room Objective Last 24 Hour Vital Signs Date Time Temp Pulse Resp B/P (MAP) Pulse Ox O2 Delivery O2 Flow Rate FiO2 06/08/20 08:00 98.1 58 20 90/58 (69) 95 06/08/20 04:00 98.4 62 16 97/54 (68) 96 06/08/20 04:00 60 06/08/20 00:00 67 06/08/20 00:00 98.1 67 15 92/55 (67) 96 06/07/20 21:00 74 109/64 06/07/20 21:00 Room Air 06/07/20 20:00 98.2 74 17 109/64 (79) 95 06/07/20 20:00 74 06/07/20 19:00 95 Room Air 21 06/07/20 16:00 107 06/07/20 16:00 97.8 72 17 96/60 (72) 96 06/07/20 12:00 73 06/07/20 12:00 98.2 74 18 99/61 (74) 98 06/07/20 09:00 Room Air 06/07/20 08:39 68 99/57 Intake and Output 06/07/20 06/08/20 19:00 07:00 Intake Total 240 ml 360 ml Output Total 500 ml 700 ml Balance -260 ml -340 ml Intake Oral 240 ml 360 ml Output Urine Total 500 ml 700 ml # Voids 1 # Bowel Movements 1 Laboratory Tests 06/08/20 05:30: White Blood Count 9.1, Red Blood Count 3.74L, Hemoglobin 11.8L, Hematocrit 36.3L , Mean Corpuscular Volume 97, Mean Corpuscular Hemoglobin 31.6H, Mean Corpuscular Hemoglobin Concent 32.6, Red Cell Distribution Width 13.6, Platelet Count 232, Mean Platelet Volume 9.1, Neutrophils (%) (Auto) 81.6H, Lymphocytes (%) (Auto) 11.7L, Monocytes (%) (Auto) 5.6, Eosinophils (%) (Auto) 0.7, Basophils (%) (Auto) 0.5, Sodium Level 141, Potassium Level 3.6, Chloride Level 108H, Carbon Dioxide Level 26, Anion Gap 7, Blood Urea Nitrogen 23H, Creatinine 1.2, Estimat Glomerular Filtration Rate 59.3, Glucose Level 87, Calcium Level 8.4L Height (Feet): 5 Height (Inches): 7.00 Weight (Pounds): 160 General Appearance: lethargic EENT: normal ENT inspection Neck: normal alignment Cardiovascular: normal peripheral pulses, normal rate, regular rhythm Respiratory/Chest: chest wall non-tender, lungs clear, normal breath sounds Abdomen: normal bowel sounds, non tender, soft Extremities: normal inspection Edema: no edema noted Arm (L), no edema noted Arm (R), no edema noted Leg (L), no edema noted Leg (R), no edema noted Pedal (L), no edema noted Pedal (R), no edema noted Generalized Neurologic: motor weakness Skin: normal pigmentation, warm/dry Assessment/Plan Problem List: (1) Pneumonia ICD Codes: J18.9 - Pneumonia, unspecified organism SNOMED: 660357207 (2) HTN (hypertension) ICD Codes: I10 - Essential (primary) hypertension SNOMED: 69298492 (3) COPD (chronic obstructive pulmonary disease) ICD Codes: J44.9 - Chronic obstructive pulmonary disease, unspecified SNOMED: 77365958 (4) Dehydration ICD Codes: E86.0 - Dehydration SNOMED: 06522995 (5) 2019 novel coronavirus disease (COVID-19) ICD Codes: U07.1 - COVID-19 SNOMED: 873694389 (6) Psychosis ICD Codes: F29 - Unspecified psychosis not due to a substance or known physiological condition SNOMED: 64980004 Status: stable, progressing Assessment/Plan: o2p ulm tx abx pt diet cbc bmp am Sonny GonzalesNadege Jun 08, 2020 08:36
[2020-06-08] MEDS: Heparin 5000 units/ml inj SUBQ SCH ×2 (09:00→20:49)
[2020-06-08] MEDS: Amiodarone 200mg tab ORAL SCH (09:07)
--- NOTE | 2020-06-08 09:17 | Pulmonology Progress Note ---
Subjective ROS Limited/Unobtainable: No Allergies: Coded Allergies: No Known Allergies (Unverified , 05/13/20) All Systems: reviewed and negative except above Subjective no fevers, no leukocytosis /resolved on RA no resp distress denies chest pain Objective Last 24 Hour Vital Signs Date Time Temp Pulse Resp B/P (MAP) Pulse Ox O2 Delivery O2 Flow Rate FiO2 06/08/20 09:00 58 90/58 06/08/20 08:00 98.1 58 20 90/58 (69) 95 06/08/20 04:00 98.4 62 16 97/54 (68) 96 06/08/20 04:00 60 06/08/20 00:00 67 06/08/20 00:00 98.1 67 15 92/55 (67) 96 06/07/20 21:00 74 109/64 06/07/20 21:00 Room Air 06/07/20 20:00 98.2 74 17 109/64 (79) 95 06/07/20 20:00 74 06/07/20 19:00 95 Room Air 21 06/07/20 16:00 107 06/07/20 16:00 97.8 72 17 96/60 (72) 96 06/07/20 12:00 73 06/07/20 12:00 98.2 74 18 99/61 (74) 98 Intake and Output 06/07/20 06/08/20 19:00 07:00 Intake Total 240 ml 360 ml Output Total 500 ml 700 ml Balance -260 ml -340 ml Intake Oral 240 ml 360 ml Output Urine Total 500 ml 700 ml # Voids 1 # Bowel Movements 1 General Appearance: WD/WN, other - awake HEENT: normocephalic, atraumatic, anicteric Respiratory: chest wall non-tender, lungs clear Cardiovascular: normal peripheral pulses, normal rate - SR with BBB, Abdomen: normal bowel sounds, soft, non tender Genitourinary: normal external genitalia Extremities: no clubbing 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, 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, 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 Lymphatic: no neck adenopathy Musculoskeletal: atrophy - BLE Laboratory Tests 06/08/20 05:30: White Blood Count 9.1, Red Blood Count 3.74L, Hemoglobin 11.8L, Hematocrit 36.3L , Mean Corpuscular Volume 97, Mean Corpuscular Hemoglobin 31.6H, Mean Corpuscular Hemoglobin Concent 32.6, Red Cell Distribution Width 13.6, Platelet Count 232, Mean Platelet Volume 9.1, Neutrophils (%) (Auto) 81.6H, Lymphocytes (%) (Auto) 11.7L, Monocytes (%) (Auto) 5.6, Eosinophils (%) (Auto) 0.7, Basophils (%) (Auto) 0.5, Sodium Level 141, Potassium Level 3.6, Chloride Level 108H, Carbon Dioxide Level 26, Anion Gap 7, Blood Urea Nitrogen 23H, Creatinine 1.2, Estimat Glomerular Filtration Rate 59.3, Glucose Level 87, Calcium Level 8.4L Current Medications Medications (Trade) Dose Ordered Sig/Tami Route PRN Reason Start Time Stop Time Status Last Admin Dose Admin Acetaminophen (Tylenol) 650 mg Q4H PRN ORAL FEVER 05/13/20 23:30 06/12/20 23:29 06/05/20 01:21 Albuterol/ Ipratropium (Combivent Respimat) 1 puff Q4H PRN INH Shortness of Breath 05/14/20 14:15 06/13/20 14:14 Amiodarone HCl (Cordarone) 200 mg DAILY ORAL 05/14/20 09:00 08/12/20 08:59 06/08/20 09:07 Carvedilol (Coreg) 3.125 mg EVERY 12 HOURS ORAL 05/14/20 09:00 06/13/20 08:59 06/03/20 08:29 Dextrose (Dextrose 50%) 25 ml Q30M PRN IV Hypoglycemia 05/13/20 23:30 08/11/20 23:29 Dextrose (Dextrose 50%) 50 ml Q30M PRN IV Hypoglycemia 05/13/20 23:30 08/11/20 23:29 Heparin Sodium (Porcine) (Heparin 5000 units/ml) 5,000 units EVERY 12 HOURS SUBQ 05/14/20 09:00 06/28/20 08:59 06/07/20 21:08 Hydralazine HCl (Apresoline) 10 mg Q4H PRN IV bp over 160 syst 05/22/20 12:30 08/20/20 12:29 Ondansetron HCl (Zofran) 4 mg Q6H PRN IVP Nausea & Vomiting 05/13/20 23:30 06/12/20 23:29 Polyethylene Glycol (Miralax) 17 gm DAILYPRN PRN ORAL Constipation 05/13/20 23:30 06/12/20 23:29 06/06/20 11:29 Promethazine HCl/ Codeine (Phenergan with Codeine) 5 ml Q6H PRN ORAL cough 05/13/20 23:30 06/12/20 23:29 Assessment/Plan Assessment/Plan ASSESSMENT COVID-19 pneumonia Acute hypoxemic respiratory failure , requiring nonrebreather mask- now on NC- resolved Possible UTI TOPHER COPD HTN History of CVA Elevated LFT PLAN OF CARE tele Date of sx onset: prior to ED presentation on 05/14 Positive test: 05/14 rapid COVID 19 +, COVID 19 by PCR 05/30 NGT O2 RA HFA s/p REM x 5 days ( 05/14-05/18) s/p Dex x 10 days ( 05/14 -05/23) DVT PPX: Heparin D dimer 1.76 Trend CRP 62.2-9.3 s/p abx per ID recs CXR 06/06 -> patchy mild diffuse bilateral alveolar infiltrates. Monitor volumes and renal function. K and P replaced this am Fup with consultants recs FC Discuss GOC dc plan per primary team no need for isolation, given onset of symptoms > 10 days case discussed and evaluated by supervising physician Esperanza Howell NP Jun 08, 2020 09:17 Rocky Archibald MD Jun 08, 2020 21:41
--- NOTE | 2020-06-08 10:55 | General Progress Note ---
Subjective ROS Limited/Unobtainable: No Allergies: Coded Allergies: No Known Allergies (Unverified , 05/13/20) Objective Last 24 Hour Vital Signs Date Time Temp Pulse Resp B/P (MAP) Pulse Ox O2 Delivery O2 Flow Rate FiO2 06/08/20 09:00 Room Air 06/08/20 09:00 58 90/58 06/08/20 08:00 98.1 58 20 90/58 (69) 95 06/08/20 08:00 56 06/08/20 04:00 98.4 62 16 97/54 (68) 96 06/08/20 04:00 60 06/08/20 00:00 67 06/08/20 00:00 98.1 67 15 92/55 (67) 96 06/07/20 21:00 74 109/64 06/07/20 21:00 Room Air 06/07/20 20:00 98.2 74 17 109/64 (79) 95 06/07/20 20:00 74 06/07/20 19:00 95 Room Air 21 06/07/20 16:00 107 06/07/20 16:00 97.8 72 17 96/60 (72) 96 06/07/20 12:00 73 06/07/20 12:00 98.2 74 18 99/61 (74) 98 Intake and Output 06/07/20 06/08/20 19:00 07:00 Intake Total 240 ml 360 ml Output Total 500 ml 700 ml Balance -260 ml -340 ml Intake Oral 240 ml 360 ml Output Urine Total 500 ml 700 ml # Voids 1 # Bowel Movements 1 Laboratory Tests 06/08/20 05:30: White Blood Count 9.1, Red Blood Count 3.74L, Hemoglobin 11.8L, Hematocrit 36.3L , Mean Corpuscular Volume 97, Mean Corpuscular Hemoglobin 31.6H, Mean Corpuscular Hemoglobin Concent 32.6, Red Cell Distribution Width 13.6, Platelet Count 232, Mean Platelet Volume 9.1, Neutrophils (%) (Auto) 81.6H, Lymphocytes (%) (Auto) 11.7L, Monocytes (%) (Auto) 5.6, Eosinophils (%) (Auto) 0.7, Basophils (%) (Auto) 0.5, Sodium Level 141, Potassium Level 3.6, Chloride Level 108H, Carbon Dioxide Level 26, Anion Gap 7, Blood Urea Nitrogen 23H, Creatinine 1.2, Estimat Glomerular Filtration Rate 59.3, Glucose Level 87, Calcium Level 8.4L Height (Feet): 5 Height (Inches): 7.00 Weight (Pounds): 160 General Appearance: no apparent distress EENT: normal ENT inspection Neck: supple Cardiovascular: normal rate Respiratory/Chest: decreased breath sounds Abdomen: normal bowel sounds, non tender, soft Extremities: non-tender Assessment/Plan Problem List: (1) Elevated LFTs ICD Codes: R79.89 - Other specified abnormal findings of blood chemistry SNOMED: 724750815, 085902143 (2) COPD (chronic obstructive pulmonary disease) ICD Codes: J44.9 - Chronic obstructive pulmonary disease, unspecified SNOMED: 78790699 (3) Dehydration ICD Codes: E86.0 - Dehydration SNOMED: 93047687 (4) Pneumonia ICD Codes: J18.9 - Pneumonia, unspecified organism SNOMED: 042438682 (5) HTN (hypertension) ICD Codes: I10 - Essential (primary) hypertension SNOMED: 64993252 (6) 2019 novel coronavirus disease (COVID-19) ICD Codes: U07.1 - COVID-19 SNOMED: 907640641 Status: stable, progressing Assessment/Plan: repeat LFTS hold abd us for now hepatitis panel>> neg fu ID recs off protonix on marinol 5 eating better on ensure Stefan Wilde MD Jun 08, 2020 10:55
[2020-06-08 12:00] VITALS: BP 87/53
--- NOTE | 2020-06-08 12:14 | Diagnostic Imaging Report ---
Indication: Right leg pain Technique: Grayscale and duplex images of the right lower extremity veins. Exam was ordered as bilateral, but the left leg could not be imaged due to inability of patient to cooperate Comparison: None Findings: On the right, grayscale and duplex images demonstrate no evidence of intraluminal thrombus. Normal phasic Doppler waveforms, demonstrating normal augmentation response and no evidence of valvular insufficiency. Greater saphenous vein(s) and tibial veins are patent. Normal compressibility. Impression: Negative for evidence of lower extremity deep venous thrombosis on the right. Note that although exam was ordered is bilateral, left leg could not be imaged due to inability of the patient to cooperate
--- NOTE | 2020-06-08 13:21 | Nephrology Progress Note ---
Assessment/Plan Problem List: (1) TOPHER (acute kidney injury) (2) 2019 novel coronavirus disease (COVID-19) (3) Pneumonia (4) COPD (chronic obstructive pulmonary disease) (5) Psychosis Assessment Renal failure, acute on chronic Partly dehydration COPD, hypoxia, COVID-19 disease Psychosis Atrial fibrillation High cholesterol Hypertension History of CVA Plan June 08: Labs reviewed. Renal parameters are stable. Continue her consul tants. June 07: Labs reviewed. Renal parameters and electrolytes stable. Continue per consultants. June 06: Labs reviewed. Potassium and phosphorus low. K-Phos IV ordered. Continue to monitor renal parameters. June 05: Labs reviewed. Serum sodium lowering. Serum creatinine lowered to 1.5. Continue D5W 50 cc an hour. Continue to monitor renal parameters. June 04: No labs reviewed. Serum creatinine ab to 1.6. Serum sodium remains higher than normal. Will start D5W at 50 cc an hour. Potassium supplement given. Continue to monitor renal parameters. June 03: Labs were reviewed. Serum creatinine 1.4 unchanged. Serum sodium elevated. 1 L D5W ordered. Continue to monitor electrolytes and renal parameters. June 02: No CHEM panel drawn today. Will order labs for tomorrow. Continue per consultants June 01: Serum sodium 154. Serum creatinine up to 1.4. Patient appears to be dehydrated. 1 L of D5W IV ordered. Continue to monitor renal parameters. Continue per consultants. May 31: Serum sodium lowering. Renal parameters stable. Low phosphorus addressed. Discussed with RN. May 30: Serum sodium 156. Other renal parameters stable. Will give 1 L of D5W. May 29: No labs drawn today. Will check can panel tomorrow. Continue per consultants. May 28: Labs reviewed. Serum sodium slightly elevated. D5W bolus given. Continue per consultants. Renal parameters stable. May 27: Labs reviewed. Stable renal parameters. Leukocytosis persists. May 26: No labs drawn today. We will check labs in a.m. Continue per current management. Medication list reviewed. May 25: Labs reviewed. Renal parameters much improved. Electrolytes within normal limit. Medication list reviewed. Continue per consultants. May 24: Labs reviewed. Serum creatinine lower. Serum sodium normalized. Electrolytes within normal limit. Will change IV to D5 normal saline. Continue per consultants. Blood pressure stable. May 23: Labs reviewed. Serum creatinine lower. Serum sodium lower. Potassium 5.4 , I suspect partly hemolysis. Patient has a Conway catheter. Continue D5W. Continue to monitor renal parameters. Continue per consultants. May 22: Patient more encephalopathic. Blood pressure low. Labs reviewed. Renal parameters worsened. Conway catheter ordered. Will stop Flomax and Proscar. Will adjust blood pressure medications. Will give IV fluid. Discussed with NAI Corbett. Will keep the patient n.p.o. due to poor mental status. Per orders. May 21: No labs drawn today. Stable from renal standpoint of view. Continue per consultants. May 20: Lab reviewed. Serum creatinine 1.5 stable. Serum sodium lowering. Continue per consultants. May 19: Labs reviewed. Serum creatinine lower to 1.5. Serum sodium mildly elevated. Continue free water administration. Monitor renal parameters. Continue per consultants. May 18: Labs reviewed. Serum creatinine up to 1.7. Electrolytes within normal limit. Continue to monitor renal parameters. Continue per consultants. May 17: Labs reviewed. Serum sodium normalized. Serum creatinine 1.5 stable. Continue per current management. May 16 Creatinine 1.5 unchanged. Blood pressure stable. Electrolytes unchanged. Serum sodium 133. Continue to monitor renal parameters Adjust blood pressure medication Stop saline hydration Monitor renal parameters and electrolytes Pulmonary support Per consultants Avoid nephrotoxic's Urine studies Per orders Subjective ROS Limited/Unobtainable: No Constitutional: Reports: malaise, weakness Objective Objective Last 24 Hour Vital Signs Date Time Temp Pulse Resp B/P (MAP) Pulse Ox O2 Delivery O2 Flow Rate FiO2 06/08/20 09:00 Room Air 06/08/20 09:00 58 90/58 06/08/20 08:00 98.1 58 20 90/58 (69) 95 06/08/20 08:00 56 06/08/20 04:00 98.4 62 16 97/54 (68) 96 06/08/20 04:00 60 06/08/20 00:00 67 06/08/20 00:00 98.1 67 15 92/55 (67) 96 06/07/20 21:00 74 109/64 06/07/20 21:00 Room Air 06/07/20 20:00 98.2 74 17 109/64 (79) 95 06/07/20 20:00 74 06/07/20 19:00 95 Room Air 21 06/07/20 16:00 107 06/07/20 16:00 97.8 72 17 96/60 (72) 96 Intake and Output 06/07/20 06/08/20 19:00 07:00 Intake Total 240 ml 360 ml Output Total 500 ml 700 ml Balance -260 ml -340 ml Intake Oral 240 ml 360 ml Output Urine Total 500 ml 700 ml # Voids 1 # Bowel Movements 1 Laboratory Tests 06/08/20 05:30: White Blood Count 9.1, Red Blood Count 3.74L, Hemoglobin 11.8L, Hematocrit 36.3L , Mean Corpuscular Volume 97, Mean Corpuscular Hemoglobin 31.6H, Mean Corpuscular Hemoglobin Concent 32.6, Red Cell Distribution Width 13.6, Platelet Count 232, Mean Platelet Volume 9.1, Neutrophils (%) (Auto) 81.6H, Lymphocytes (%) (Auto) 11.7L, Monocytes (%) (Auto) 5.6, Eosinophils (%) (Auto) 0.7, Basophils (%) (Auto) 0.5, Sodium Level 141, Potassium Level 3.6, Chloride Level 108H, Carbon Dioxide Level 26, Anion Gap 7, Blood Urea Nitrogen 23H, Creatinine 1.2, Estimat Glomerular Filtration Rate 59.3, Glucose Level 87, Calcium Level 8.4L Height (Feet): 5 Height (Inches): 7.00 Weight (Pounds): 160 General Appearance: no apparent distress Cardiovascular: normal rate Respiratory/Chest: decreased breath sounds Abdomen: distended Objective No change Alan Sánchez MD Jun 08, 2020 13:21
[2020-06-08 16:00] VITALS: BP 85/51
--- NOTE | 2020-06-08 19:32 | Psychiatric Progress Note ---
Psychiatry Progress Note Psychiatry Progress Note Medications Current Medications Medications (Trade) Dose Ordered Sig/Tami Route PRN Reason Start Time Stop Time Status Last Admin Dose Admin Acetaminophen (Tylenol) 650 mg Q4H PRN ORAL FEVER 05/13/20 23:30 06/12/20 23:29 06/05/20 01:21 Albuterol/ Ipratropium (Combivent Respimat) 1 puff Q4H PRN INH Shortness of Breath 05/14/20 14:15 06/13/20 14:14 Amiodarone HCl (Cordarone) 200 mg DAILY ORAL 05/14/20 09:00 08/12/20 08:59 06/08/20 09:07 Carvedilol (Coreg) 3.125 mg EVERY 12 HOURS ORAL 05/14/20 09:00 06/13/20 08:59 06/03/20 08:29 Dextrose (Dextrose 50%) 25 ml Q30M PRN IV Hypoglycemia 05/13/20 23:30 08/11/20 23:29 Dextrose (Dextrose 50%) 50 ml Q30M PRN IV Hypoglycemia 05/13/20 23:30 08/11/20 23:29 Heparin Sodium (Porcine) (Heparin 5000 units/ml) 5,000 units EVERY 12 HOURS SUBQ 05/14/20 09:00 06/28/20 08:59 06/07/20 21:08 Hydralazine HCl (Apresoline) 10 mg Q4H PRN IV bp over 160 syst 05/22/20 12:30 08/20/20 12:29 Ondansetron HCl (Zofran) 4 mg Q6H PRN IVP Nausea & Vomiting 05/13/20 23:30 06/12/20 23:29 Polyethylene Glycol (Miralax) 17 gm DAILYPRN PRN ORAL Constipation 05/13/20 23:30 06/12/20 23:29 06/06/20 11:29 Promethazine HCl/ Codeine (Phenergan with Codeine) 5 ml Q6H PRN ORAL cough 05/13/20 23:30 06/12/20 23:29 Neurological/Psychiatric: Reports: anxiety, depressed, emotional problems Allergies: Coded Allergies: No Known Allergies (Unverified , 05/13/20) Objective Data Height (Feet): 5 Height (Inches): 7.00 Weight (Pounds): 160 General Appearance: alert, agitated Additional Comments: awake, disoriented to situation and date. Mood is little anxious. Affect is blunted, congruent with mood. Thought process is concrete. Thought content, no suicidal or homicidal ideation. Cognition is impaired. Insight and judgment is impaired. Assessment/Plan [place]ub[place] I: ASSESSMENT: Aud[place] I Acute toxic encephalopathy. Aud[place]on II Deferred. Aud[place]on III COVID-19 pneumonia. Renal failure. [place] IV Low. [place] V 20. PLAN: 1. We will discontinue the Ativan and risperidone. 2. Bilateral soft restraints. 3. Discussed with Dr. Smallwood. Status: stable, progressing Status Narrative ASSESSMENT: Audubon I Acute toxic encephalopathy. Audubon II Deferred. Audubon III COVID-19 pneumonia. Renal failure. [place] IV Low. [place] V 20. PLAN: 1. We will discontinue the Ativan and risperidone. 2. Bilateral soft restraints. 3. Discussed with Dr. Smallwood. Assessment/Plan: ASSESSMENT: Audubon I Acute toxic encephalopathy. Audubon II Deferred. Audubon III COVID-19 pneumonia. Renal failure. [place]on IV Low. [place] V 20. PLAN: 1. We will discontinue the Ativan and risperidone. 2. Bilateral soft restraints. 3. Discussed with Dr. Smallwood. Adeel Knapp MD Jun 08, 2020 19:32
[2020-06-08 20:00] VITALS: BP 103/53
[2020-06-09] VITALS: BP 94/50
[2020-06-09 04:00] VITALS: BP 92/60
[2020-06-09 07:57] LABS: BASOPHILS % (AUTO) 0.6 % (0.0-2.0); EOSINOPHILS % (AUTO) 0.6 % (0.0-3.0); HEMOGLOBIN 11.1 G/DL (14.2-18.0); LYMPHOCYTES % (AUTO) 12.5 % (20.0-45.0); MEAN CORPUSCULAR VOLUME 94 FL (80-99); MONOCYTES % (AUTO) 5.8 % (1.0-10.0); NEUTROPHILS % (AUTO) 80.5 % (45.0-75.0); PLATELET COUNT 284 K/UL (150-450); RED BLOOD COUNT 3.53 M/UL (4.70-6.10); RED CELL DISTRIBUTION WIDTH 15.1 % (11.6-14.8); WHITE BLOOD COUNT 8.7 K/UL (4.8-10.8)
[2020-06-09 08:00] VITALS: BP 94/56
[2020-06-09 08:13] LABS: ALBUMIN 1.5 G/DL (3.4-5.0); ALBUMIN/GLOBULIN RATIO 0.3 (1.0-2.7); BILIRUBIN,TOTAL 0.6 MG/DL (0.2-1.0); CALCIUM 8.2 MG/DL (8.5-10.1); CREATININE 1.2 MG/DL (0.55-1.30); POTASSIUM 3.7 MMOL/L (3.5-5.1)
--- NOTE | 2020-06-09 08:34 | General Progress Note ---
Subjective ROS Limited/Unobtainable: No Allergies: Coded Allergies: No Known Allergies (Unverified , 05/13/20) Objective Last 24 Hour Vital Signs Date Time Temp Pulse Resp B/P (MAP) Pulse Ox O2 Delivery O2 Flow Rate FiO2 06/09/20 04:00 99.0 66 18 92/60 (71) 95 06/09/20 04:00 66 06/09/20 00:00 98.2 70 18 94/50 (65) 95 06/09/20 00:00 56 06/08/20 21:00 Room Air 06/08/20 20:47 77 103/53 06/08/20 20:00 73 06/08/20 20:00 97.5 77 16 103/53 (70) 97 06/08/20 19:20 95 Room Air 21 06/08/20 16:00 64 06/08/20 16:00 98.1 67 16 85/51 (62) 96 06/08/20 12:00 70 06/08/20 12:00 98.1 63 17 87/53 (64) 95 06/08/20 09:00 Room Air 06/08/20 09:00 58 90/58 Intake and Output 06/08/20 06/09/20 19:00 07:00 Intake Total 860 ml 450 ml Output Total 700 ml 550 ml Balance 160 ml -100 ml Intake Oral 360 ml 450 ml IV Total 500 ml Output Urine Total 700 ml 550 ml # Voids 1 # Bowel Movements 1 Laboratory Tests 06/08/20 19:20: Troponin I 0.016 06/09/20 06:12: White Blood Count 8.7, Red Blood Count 3.53L, Hemoglobin 11.1L, Hematocrit 33.0L , Mean Corpuscular Volume 94, Mean Corpuscular Hemoglobin 31.6H, Mean Corpuscular Hemoglobin Concent 33.8, Red Cell Distribution Width 15.1H, Platelet Count 284, Mean Platelet Volume 8.8, Neutrophils (%) (Auto) 80.5H, Lymphocytes (%) (Auto) 12.5L, Monocytes (%) (Auto) 5.8, Eosinophils (%) (Auto) 0.6, Basophils (%) (Auto) 0.6, Sodium Level 137, Potassium Level 3.7, Chloride Level 105, Carbon Dioxide Level 27, Anion Gap 5, Blood Urea Nitrogen 21H, Creatinine 1.2, Estimat Glomerular Filtration Rate 59.3, Glucose Level 80, Calcium Level 8.2L, Total Bilirubin 0.6, Aspartate Amino Transf (AST/SGOT) 35, Alanine Aminotransferase (ALT/SGPT) 73, Alkaline Phosphatase 98, Total Protein 5.9L, Albumin 1.5L, Globulin 4.4, Albumin/Globulin Ratio 0.3L Height (Feet): 5 Height (Inches): 7.00 Weight (Pounds): 160 General Appearance: no apparent distress EENT: normal ENT inspection Neck: supple Cardiovascular: normal rate Respiratory/Chest: decreased breath sounds Abdomen: normal bowel sounds, non tender, soft Extremities: non-tender Assessment/Plan Problem List: (1) Elevated LFTs ICD Codes: R79.89 - Other specified abnormal findings of blood chemistry SNOMED: 561883582, 561368805 (2) COPD (chronic obstructive pulmonary disease) ICD Codes: J44.9 - Chronic obstructive pulmonary disease, unspecified SNOMED: 23561404 (3) Dehydration ICD Codes: E86.0 - Dehydration SNOMED: 53325865 (4) Pneumonia ICD Codes: J18.9 - Pneumonia, unspecified organism SNOMED: 982367337 (5) HTN (hypertension) ICD Codes: I10 - Essential (primary) hypertension SNOMED: 76452293 (6) 2019 novel coronavirus disease (COVID-19) ICD Codes: U07.1 - COVID-19 SNOMED: 260796448 Status: stable, progressing Assessment/Plan: repeat LFTS hold abd us for now hepatitis panel>> neg fu ID recs off protonix on marinol 5 eating better on ensure Stefan Wilde MD Jun 09, 2020 08:34
--- NOTE | 2020-06-09 08:37 | Infectious Diseases Prog Note ---
Assessment/Plan 74yo M with: Afebrile Normal WBC Lymphopenia Pneumonia COVID pneumonia, severe Acute hypoxic resp failure on NRB mask Possible UTI 05/13 BCx NTD UA 5-10 WBC, UCx >100k Kleb pna (S-CTX) COVID rapid positive CXR: Multifocal pna 05/19 CXR: Increasing bilateral infiltrates 05/31 UA neg, UCx 50-60k Enterococcus and yeast (colonizers) Elevated LFTs, AST/ALT 125 / 80 TOPHER on CKD, Cr 1.5, improving COPD Cardiac disease SNF resident Plan: Cont to monitor off abx Pt doing well on RA, off therapeutics, OK to d/c from ID standpoint OK to d/c COVID isolation given clinical improvement and >10 days from diagnosis 05/23 SP dex #10 05/18 SP RDV #5 05/18 SP Augmentin #1, Azithro #5 05/17 SP CTX #4 Monitor CBC/CMP Monitor temp curve, hemodynamics Monitor resp status D/w RN Thank you for this consult. [facility] will continue to follow. Subjective Allergies: Coded Allergies: No Known Allergies (Unverified , 05/13/20) AF NAD On RA WBC 8 Objective Last 24 Hour Vital Signs Date Time Temp Pulse Resp B/P (MAP) Pulse Ox O2 Delivery O2 Flow Rate FiO2 06/09/20 04:00 99.0 66 18 92/60 (71) 95 06/09/20 04:00 66 06/09/20 00:00 98.2 70 18 94/50 (65) 95 06/09/20 00:00 56 06/08/20 21:00 Room Air 06/08/20 20:47 77 103/53 06/08/20 20:00 73 06/08/20 20:00 97.5 77 16 103/53 (70) 97 06/08/20 19:20 95 Room Air 21 06/08/20 16:00 64 06/08/20 16:00 98.1 67 16 85/51 (62) 96 06/08/20 12:00 70 06/08/20 12:00 98.1 63 17 87/53 (64) 95 06/08/20 09:00 Room Air 06/08/20 09:00 58 90/58 Height (Feet): 5 Height (Inches): 7.00 Weight (Pounds): 160 Gen: NAD HEENT: NCAT Pulm: BL chest rise Abd: Soft, NTND Ext: No c/c/e Skin: No visible rashes Neuro: Awake, interactive Laboratory Tests Test 06/08/20 19:20 06/09/20 06:12 Troponin I 0.016 ng/mL (0.000-0.056) White Blood Count 8.7 K/UL (4.8-10.8) Red Blood Count 3.53 M/UL (4.70-6.10) L Hemoglobin 11.1 G/DL (14.2-18.0) L Hematocrit 33.0 % (42.0-52.0) L Mean Corpuscular Volume 94 FL (80-99) Mean Corpuscular Hemoglobin 31.6 PG (27.0-31.0) H Mean Corpuscular Hemoglobin Concent 33.8 G/DL (32.0-36.0) Red Cell Distribution Width 15.1 % (11.6-14.8) H Platelet Count 284 K/UL (150-450) Mean Platelet Volume 8.8 FL (6.5-10.1) Neutrophils (%) (Auto) 80.5 % (45.0-75.0) H Lymphocytes (%) (Auto) 12.5 % (20.0-45.0) L Monocytes (%) (Auto) 5.8 % (1.0-10.0) Eosinophils (%) (Auto) 0.6 % (0.0-3.0) Basophils (%) (Auto) 0.6 % (0.0-2.0) Sodium Level 137 MMOL/L (136-145) Potassium Level 3.7 MMOL/L (3.5-5.1) Chloride Level 105 MMOL/L (98-107) Carbon Dioxide Level 27 MMOL/L (21-32) Anion Gap 5 mmol/L (5-15) Blood Urea Nitrogen 21 mg/dL (7-18) H Creatinine 1.2 MG/DL (0.55-1.30) Estimat Glomerular Filtration Rate 59.3 mL/min (>60) Glucose Level 80 MG/DL (74-106) Calcium Level 8.2 MG/DL (8.5-10.1) L Total Bilirubin 0.6 MG/DL (0.2-1.0) Aspartate Amino Transf (AST/SGOT) 35 U/L (15-37) Alanine Aminotransferase (ALT/SGPT) 73 U/L (12-78) Alkaline Phosphatase 98 U/L (46-116) Total Protein 5.9 G/DL (6.4-8.2) L Albumin 1.5 G/DL (3.4-5.0) L Globulin 4.4 g/dL Albumin/Globulin Ratio 0.3 (1.0-2.7) L Current Medications Medications (Trade) Dose Ordered Sig/Tami Route PRN Reason Start Time Stop Time Status Last Admin Dose Admin Acetaminophen (Tylenol) 650 mg Q4H PRN ORAL FEVER 05/13/20 23:30 06/12/20 23:29 06/05/20 01:21 Albuterol/ Ipratropium (Combivent Respimat) 1 puff Q4H PRN INH Shortness of Breath 05/14/20 14:15 06/13/20 14:14 Amiodarone HCl (Cordarone) 200 mg DAILY ORAL 05/14/20 09:00 08/12/20 08:59 06/08/20 09:07 Carvedilol (Coreg) 3.125 mg EVERY 12 HOURS ORAL 05/14/20 09:00 06/13/20 08:59 06/03/20 08:29 Dextrose (Dextrose 50%) 25 ml Q30M PRN IV Hypoglycemia 05/13/20 23:30 08/11/20 23:29 Dextrose (Dextrose 50%) 50 ml Q30M PRN IV Hypoglycemia 05/13/20 23:30 08/11/20 23:29 Heparin Sodium (Porcine) (Heparin 5000 units/ml) 5,000 units EVERY 12 HOURS SUBQ 05/14/20 09:00 06/28/20 08:59 06/08/20 20:49 Hydralazine HCl (Apresoline) 10 mg Q4H PRN IV bp over 160 syst 05/22/20 12:30 08/20/20 12:29 Ondansetron HCl (Zofran) 4 mg Q6H PRN IVP Nausea & Vomiting 05/13/20 23:30 06/12/20 23:29 Polyethylene Glycol (Miralax) 17 gm DAILYPRN PRN ORAL Constipation 05/13/20 23:30 06/12/20 23:29 1//21 11:29 Promethazine HCl/ Codeine (Phenergan with Codeine) 5 ml Q6H PRN ORAL cough 05/13/20 23:30 06/12/20 23:29 Kathy Yap M.D. Jun 09, 2020 08:37
--- NOTE | 2020-06-09 08:47 | Pulmonology Progress Note ---
Subjective ROS Limited/Unobtainable: No Allergies: Coded Allergies: No Known Allergies (Unverified , 05/13/20) All Systems: reviewed and negative except above Subjective on RA no resp distress no fevers, no leukocytosis /resolved denies chest pain Objective Last 24 Hour Vital Signs Date Time Temp Pulse Resp B/P (MAP) Pulse Ox O2 Delivery O2 Flow Rate FiO2 06/09/20 04:00 99.0 66 18 92/60 (71) 95 06/09/20 04:00 66 06/09/20 00:00 98.2 70 18 94/50 (65) 95 06/09/20 00:00 56 06/08/20 21:00 Room Air 06/08/20 20:47 77 103/53 06/08/20 20:00 73 06/08/20 20:00 97.5 77 16 103/53 (70) 97 06/08/20 19:20 95 Room Air 21 06/08/20 16:00 64 06/08/20 16:00 98.1 67 16 85/51 (62) 96 06/08/20 12:00 70 06/08/20 12:00 98.1 63 17 87/53 (64) 95 06/08/20 09:00 Room Air 06/08/20 09:00 58 90/58 Intake and Output 06/08/20 06/09/20 19:00 07:00 Intake Total 860 ml 450 ml Output Total 700 ml 550 ml Balance 160 ml -100 ml Intake Oral 360 ml 450 ml IV Total 500 ml Output Urine Total 700 ml 550 ml # Voids 1 # Bowel Movements 1 General Appearance: WD/WN, other - awake HEENT: normocephalic, atraumatic, anicteric Respiratory: chest wall non-tender, lungs clear Cardiovascular: normal peripheral pulses, normal rate - SR with BBB, Abdomen: normal bowel sounds, soft, non tender Genitourinary: normal external genitalia Extremities: no clubbing 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7, Chloride Level 105, Carbon Dioxide Level 27, Anion Gap 5, Blood Urea Nitrogen 21H, Creatinine 1.2, Estimat Glomerular Filtration Rate 59.3, Glucose Level 80, Calcium Level 8.2L, Total Bilirubin 0.6, Aspartate Amino Transf (AST/SGOT) 35, Alanine Aminotransferase (ALT/SGPT) 73, Alkaline Phosphatase 98, Total Protein 5.9L, Albumin 1.5L, Globulin 4.4, Albumin/Globulin Ratio 0.3L Current Medications Medications (Trade) Dose Ordered Sig/Tami Route PRN Reason Start Time Stop Time Status Last Admin Dose Admin Acetaminophen (Tylenol) 650 mg Q4H PRN ORAL FEVER 05/13/20 23:30 06/12/20 23:29 06/05/20 01:21 Albuterol/ Ipratropium (Combivent Respimat) 1 puff Q4H PRN INH Shortness of Breath 05/14/20 14:15 06/13/20 14:14 Amiodarone HCl (Cordarone) 200 mg DAILY ORAL 05/14/20 09:00 08/12/20 08:59 06/08/20 09:07 Carvedilol (Coreg) 3.125 mg EVERY 12 HOURS ORAL 05/14/20 09:00 06/13/20 08:59 06/03/20 08:29 Dextrose (Dextrose 50%) 25 ml Q30M PRN IV Hypoglycemia 05/13/20 23:30 08/11/20 23:29 Dextrose (Dextrose 50%) 50 ml Q30M PRN IV Hypoglycemia 05/13/20 23:30 08/11/20 23:29 Heparin Sodium (Porcine) (Heparin 5000 units/ml) 5,000 units EVERY 12 HOURS SUBQ 05/14/20 09:00 06/28/20 08:59 06/08/20 20:49 Hydralazine HCl (Apresoline) 10 mg Q4H PRN IV bp over 160 syst 05/22/20 12:30 08/20/20 12:29 Ondansetron HCl (Zofran) 4 mg Q6H PRN IVP Nausea & Vomiting 05/13/20 23:30 06/12/20 23:29 Polyethylene Glycol (Miralax) 17 gm DAILYPRN PRN ORAL Constipation 05/13/20 23:30 06/12/20 23:29 06/06/20 11:29 Promethazine HCl/ Codeine (Phenergan with Codeine) 5 ml Q6H PRN ORAL cough 05/13/20 23:30 06/12/20 23:29 Assessment/Plan Assessment/Plan ASSESSMENT COVID-19 pneumonia Acute hypoxemic respiratory failure , requiring nonrebreather mask- now on NC- resolved Possible UTI TOPHER COPD HTN History of CVA Elevated LFT PLAN OF CARE tele Date of sx onset: prior to ED presentation on 05/14 Positive test: 05/14 rapid COVID 19 +, COVID 19 by PCR 05/30 NGT O2 RA HFA s/p REM x 5 days ( 05/14-05/18) s/p Dex x 10 days ( 05/14 -05/23) DVT PPX: Heparin Venous Duplex BLE 06/08 NGT D dimer 1.76 Trend CRP 62.2-9.3 s/p abx per ID recs CXR 06/06 -> patchy mild diffuse bilateral alveolar infiltrates. Monitor volumes and renal function. K and P replaced this am Fup with consultants recs FC Discuss GOC dc plan per primary team no need for isolation, given onset of symptoms > 10 days case discussed and evaluated by supervising physician Esperanza Howell NP Jun 09, 2020 08:47
--- NOTE | 2020-06-09 09:24 | Nephrology Progress Note ---
Assessment/Plan Problem List: (1) TOPEHR (acute kidney injury) (2) 2019 novel coronavirus disease (COVID-19) (3) Pneumonia (4) COPD (chronic obstructive pulmonary disease) (5) Psychosis Assessment Renal failure, acute on chronic Partly dehydration COPD, hypoxia, COVID-19 disease Psychosis Atrial fibrillation High cholesterol Hypertension History of CVA Plan Error June 08: Labs reviewed. Renal parameters are stable. Continue her consultants. June 07: Labs reviewed. Renal parameters and electrolytes stable. Continue per consultants. June 06: Labs reviewed. Potassium and phosphorus low. K-Phos IV ordered. Continue to monitor renal parameters. June 05: Labs reviewed. Serum sodium lowering. Serum creatinine lowered to 1.5. Continue D5W 50 cc an hour. Continue to monitor renal parameters. June 04: No labs reviewed. Serum creatinine ab to 1.6. Serum sodium remains higher than normal. Will start D5W at 50 cc an hour. Potassium supplement given. Continue to monitor renal parameters. June 03: Labs were reviewed. Serum creatinine 1.4 unchanged. Serum sodium elevated. 1 L D5W ordered. Continue to monitor electrolytes and renal parameters. June 02: No CHEM panel drawn today. Will order labs for tomorrow. Continue per consultants June 01: Serum sodium 154. Serum creatinine up to 1.4. Patient appears to be dehydrated. 1 L of D5W IV ordered. Continue to monitor renal parameters. Continue per consultants. May 31: Serum sodium lowering. Renal parameters stable. Low phosphorus addressed. Discussed with RN. May 30: Serum sodium 156. Other renal parameters stable. Will give 1 L of D5W. May 29: No labs drawn today. Will check can panel tomorrow. Continue per consultants. May 28: Labs reviewed. Serum sodium slightly elevated. D5W bolus given. Continue per consultants. Renal parameters stable. May 27: Labs reviewed. Stable renal parameters. Leukocytosis persists. May 26: No labs drawn today. We will check labs in a.m. Continue per current management. Medication list reviewed. May 25: Labs reviewed. Renal parameters much improved. Electrolytes within normal limit. Medication list reviewed. Continue per consultants. May 24: Labs reviewed. Serum creatinine lower. Serum sodium normalized. Electrolytes within normal limit. Will change IV to D5 normal saline. Continue per consultants. Blood pressure stable. May 23: Labs reviewed. Serum creatinine lower. Serum sodium lower. Potassium 5.4 , I suspect partly hemolysis. Patient has a Conway catheter. Continue D5W. Continue to monitor renal parameters. Continue per consultants. May 22: Patient more encephalopathic. Blood pressure low. Labs reviewed. Renal parameters worsened. Conway catheter ordered. Will stop Flomax and Proscar. Will adjust blood pressure medications. Will give IV fluid. Discussed with NAI Corbett. Will keep the patient n.p.o. due to poor mental status. Per orders. May 21: No labs drawn today. Stable from renal standpoint of view. Continue per consultants. May 20: Lab reviewed. Serum creatinine 1.5 stable. Serum sodium lowering. Continue per consultants. May 19: Labs reviewed. Serum creatinine lower to 1.5. Serum sodium mildly elevated. Continue free water administration. Monitor renal parameters. Continue per consultants. May 18: Labs reviewed. Serum creatinine up to 1.7. Electrolytes within normal limit. Continue to monitor renal parameters. Continue per consultants. May 17: Labs reviewed. Serum sodium normalized. Serum creatinine 1.5 stable. Continue per current management. May 16 Creatinine 1.5 unchanged. Blood pressure stable. Electrolytes unchanged. Serum sodium 133. Continue to monitor renal parameters Adjust blood pressure medication Stop saline hydration Monitor renal parameters and electrolytes Pulmonary support Per consultants Avoid nephrotoxic's Urine studies Per orders Objective Objective Last 24 Hour Vital Signs Date Time Temp Pulse Resp B/P (MAP) Pulse Ox O2 Delivery O2 Flow Rate FiO2 06/09/20 04:00 99.0 66 18 92/60 (71) 95 06/09/20 04:00 66 06/09/20 00:00 98.2 70 18 94/50 (65) 95 06/09/20 00:00 56 06/08/20 21:00 Room Air 06/08/20 20:47 77 103/53 06/08/20 20:00 73 06/08/20 20:00 97.5 77 16 103/53 (70) 97 06/08/20 19:20 95 Room Air 21 06/08/20 16:00 64 06/08/20 16:00 98.1 67 16 85/51 (62) 96 06/08/20 12:00 70 06/08/20 12:00 98.1 63 17 87/53 (64) 95 Intake and Output 06/08/20 06/09/20 18:59 06:59 Intake Total 860 ml 450 ml Output Total 700 ml 550 ml Balance 160 ml -100 ml Intake Oral 360 ml 450 ml IV Total 500 ml Output Urine Total 700 ml 550 ml # Voids 1 # Bowel Movements 1 Laboratory Tests 06/08/20 19:20: Troponin I 0.016 06/09/20 06:12: White Blood Count 8.7, Red Blood Count 3.53L, Hemoglobin 11.1L, Hematocrit 33.0L , Mean Corpuscular Volume 94, Mean Corpuscular Hemoglobin 31.6H, Mean Corpuscular Hemoglobin Concent 33.8, Red Cell Distribution Width 15.1H, Platelet Count 284, Mean Platelet Volume 8.8, Neutrophils (%) (Auto) 80.5H, Lymphocytes (%) (Auto) 12.5L, Monocytes (%) (Auto) 5.8, Eosinophils (%) (Auto) 0.6, Basophils (%) (Auto) 0.6, Sodium Level 137, Potassium Level 3.7, Chloride Level 105, Carbon Dioxide Level 27, Anion Gap 5, Blood Urea Nitrogen 21H, Creatinine 1.2, Estimat Glomerular Filtration Rate 59.3, Glucose Level 80, Calcium Level 8.2L, Total Bilirubin 0.6, Aspartate Amino Transf (AST/SGOT) 35, Alanine Aminotransferase (ALT/SGPT) 73, Alkaline Phosphatase 98, Total Protein 5.9L, Albumin 1.5L, Globulin 4.4, Albumin/Globulin Ratio 0.3L Height (Feet): 5 Height (Inches): 7.00 Weight (Pounds): 160 Objective No change Alan Sánchez MD Jun 09, 2020 09:24
[2020-06-09] MEDS: Amiodarone 200mg tab ORAL SCH (10:07)
[2020-06-09] MEDS: Heparin 5000 units/ml inj SUBQ SCH ×2 (10:10→21:08)
--- NOTE | 2020-06-09 10:28 | Cardiac Electrophysiology PN ---
Subjective Subjective [id number] Objective Last 24 Hour Vital Signs Date Time Temp Pulse Resp B/P (MAP) Pulse Ox O2 Delivery O2 Flow Rate FiO2 06/09/20 09:00 66 94/56 06/09/20 04:00 99.0 66 18 92/60 (71) 95 06/09/20 04:00 66 06/09/20 00:00 98.2 70 18 94/50 (65) 95 06/09/20 00:00 56 06/08/20 21:00 Room Air 06/08/20 20:47 77 103/53 06/08/20 20:00 73 06/08/20 20:00 97.5 77 16 103/53 (70) 97 06/08/20 19:20 95 Room Air 21 06/08/20 16:00 64 06/08/20 16:00 98.1 67 16 85/51 (62) 96 06/08/20 12:00 70 06/08/20 12:00 98.1 63 17 87/53 (64) 95 Intake and Output 06/08/20 06/09/20 19:00 07:00 Intake Total 860 ml 450 ml Output Total 700 ml 550 ml Balance 160 ml -100 ml Intake Oral 360 ml 450 ml IV Total 500 ml Output Urine Total 700 ml 550 ml # Voids 1 # Bowel Movements 1 Laboratory Tests Test 06/08/20 19:20 06/09/20 06:12 Troponin I 0.016 ng/mL (0.000-0.056) White Blood Count 8.7 K/UL (4.8-10.8) Red Blood Count 3.53 M/UL (4.70-6.10) L Hemoglobin 11.1 G/DL (14.2-18.0) L Hematocrit 33.0 % (42.0-52.0) L Mean Corpuscular Volume 94 FL (80-99) Mean Corpuscular Hemoglobin 31.6 PG (27.0-31.0) H Mean Corpuscular Hemoglobin Concent 33.8 G/DL (32.0-36.0) Red Cell Distribution Width 15.1 % (11.6-14.8) H Platelet Count 284 K/UL (150-450) Mean Platelet Volume 8.8 FL (6.5-10.1) Neutrophils (%) (Auto) 80.5 % (45.0-75.0) H Lymphocytes (%) (Auto) 12.5 % (20.0-45.0) L Monocytes (%) (Auto) 5.8 % (1.0-10.0) Eosinophils (%) (Auto) 0.6 % (0.0-3.0) Basophils (%) (Auto) 0.6 % (0.0-2.0) Sodium Level 137 MMOL/L (136-145) Potassium Level 3.7 MMOL/L (3.5-5.1) Chloride Level 105 MMOL/L (98-107) Carbon Dioxide Level 27 MMOL/L (21-32) Anion Gap 5 mmol/L (5-15) Blood Urea Nitrogen 21 mg/dL (7-18) H Creatinine 1.2 MG/DL (0.55-1.30) Estimat Glomerular Filtration Rate 59.3 mL/min (>60) Glucose Level 80 MG/DL (74-106) Calcium Level 8.2 MG/DL (8.5-10.1) L Total Bilirubin 0.6 MG/DL (0.2-1.0) Aspartate Amino Transf (AST/SGOT) 35 U/L (15-37) Alanine Aminotransferase (ALT/SGPT) 73 U/L (12-78) Alkaline Phosphatase 98 U/L (46-116) Total Protein 5.9 G/DL (6.4-8.2) L Albumin 1.5 G/DL (3.4-5.0) L Globulin 4.4 g/dL Albumin/Globulin Ratio 0.3 (1.0-2.7) L Demarcus Ochoa MD Jun 09, 2020 10:28
[2020-06-09 12:00] VITALS: BP 129/80
--- NOTE | 2020-06-09 13:34 | General Progress Note ---
Subjective Constitutional: Reports: weakness Allergies: Coded Allergies: No Known Allergies (Unverified , 05/13/20) All Systems: reviewed and negative except above Subjective sleepy in room Objective Last 24 Hour Vital Signs Date Time Temp Pulse Resp B/P (MAP) Pulse Ox O2 Delivery O2 Flow Rate FiO2 06/09/20 12:00 98.6 80 19 129/80 (96) 96 06/09/20 09:00 Room Air 06/09/20 09:00 66 94/56 06/09/20 08:00 64 06/09/20 08:00 98.6 65 18 94/56 (69) 97 06/09/20 04:00 99.0 66 18 92/60 (71) 95 06/09/20 04:00 66 06/09/20 00:00 98.2 70 18 94/50 (65) 95 06/09/20 00:00 56 06/08/20 21:00 Room Air 06/08/20 20:47 77 103/53 06/08/20 20:00 73 06/08/20 20:00 97.5 77 16 103/53 (70) 97 06/08/20 19:20 95 Room Air 21 06/08/20 16:00 64 06/08/20 16:00 98.1 67 16 85/51 (62) 96 Intake and Output 06/08/20 06/09/20 19:00 07:00 Intake Total 860 ml 450 ml Output Total 700 ml 550 ml Balance 160 ml -100 ml Intake Oral 360 ml 450 ml IV Total 500 ml Output Urine Total 700 ml 550 ml # Voids 1 # Bowel Movements 1 Laboratory Tests 06/08/20 19:20: Troponin I 0.016 06/09/20 06:12: White Blood Count 8.7, Red Blood Count 3.53L, Hemoglobin 11.1L, Hematocrit 33.0L , Mean Corpuscular Volume 94, Mean Corpuscular Hemoglobin 31.6H, Mean Corpuscular Hemoglobin Concent 33.8, Red Cell Distribution Width 15.1H, Platelet Count 284, Mean Platelet Volume 8.8, Neutrophils (%) (Auto) 80.5H, Lymphocytes (%) (Auto) 12.5L, Monocytes (%) (Auto) 5.8, Eosinophils (%) (Auto) 0.6, Basophils (%) (Auto) 0.6, Sodium Level 137, Potassium Level 3.7, Chloride Level 105, Carbon Dioxide Level 27, Anion Gap 5, Blood Urea Nitrogen 21H, Creatinine 1.2, Estimat Glomerular Filtration Rate 59.3, Glucose Level 80, Calcium Level 8.2L, Total Bilirubin 0.6, Aspartate Amino Transf (AST/SGOT) 35, Alanine Aminotransferase (ALT/SGPT) 73, Alkaline Phosphatase 98, Total Protein 5.9L, Albumin 1.5L, Globulin 4.4, Albumin/Globulin Ratio 0.3L Height (Feet): 5 Height (Inches): 7.00 Weight (Pounds): 160 General Appearance: lethargic EENT: normal ENT inspection Neck: normal alignment Cardiovascular: normal peripheral pulses, normal rate, regular rhythm Respiratory/Chest: chest wall non-tender, lungs clear, normal breath sounds Abdomen: normal bowel sounds, non tender, soft Extremities: normal inspection Edema: no edema noted Arm (L), no edema noted Arm (R), no edema noted Leg (L), no edema noted Leg (R), no edema noted Pedal (L), no edema noted Pedal (R), no edema noted Generalized Neurologic: motor weakness Skin: normal pigmentation, warm/dry Assessment/Plan Problem List: (1) Pneumonia ICD Codes: J18.9 - Pneumonia, unspecified organism SNOMED: 205778433 (2) HTN (hypertension) ICD Codes: I10 - Essential (primary) hypertension SNOMED: 31941528 (3) COPD (chronic obstructive pulmonary disease) ICD Codes: J44.9 - Chronic obstructive pulmonary disease, unspecified SNOMED: 43719110 (4) Dehydration ICD Codes: E86.0 - Dehydration SNOMED: 04173656 (5) 2019 novel coronavirus disease (COVID-19) ICD Codes: U07.1 - COVID-19 SNOMED: 598368650 (6) Psychosis ICD Codes: F29 - Unspecified psychosis not due to a substance or known physiological condition SNOMED: 45272583 Status: stable, progressing Assessment/Plan: o2 pulm tx abx pt diet dc to snf Sonny Gonzales ChiFrancoisNadege Jun 09, 2020 13:34
--- NOTE | 2020-06-09 13:56 | Nephrology Progress Note ---
Assessment/Plan Problem List: (1) TOPHER (acute kidney injury) (2) 2019 novel coronavirus disease (COVID-19) (3) Pneumonia (4) COPD (chronic obstructive pulmonary disease) (5) Psychosis Assessment Renal failure, acute on chronic Partly dehydration COPD, hypoxia, COVID-19 disease Psychosis Atrial fibrillation High cholesterol Hypertension History of CVA Plan June 09: Labs reviewed. Renal parameters stable. Medication list reviewed. Discharge planning in process. Okay to DC from renal standpoint of view. June 08: Labs reviewed. Renal parameters are stable. Continue her consultants. June 07: Labs reviewed. Renal parameters and electrolytes stable. Continue per consultants. June 06: Labs reviewed. Potassium and phosphorus low. K-Phos IV ordered. Continue to monitor renal parameters. June 05: Labs reviewed. Serum sodium lowering. Serum creatinine lowered to 1.5. Continue D5W 50 cc an hour. Continue to monitor renal parameters. June 04: No labs reviewed. Serum creatinine ab to 1.6. Serum sodium remains higher than normal. Will start D5W at 50 cc an hour. Potassium supplement given. Continue to monitor renal parameters. June 03: Labs were reviewed. Serum creatinine 1.4 unchanged. Serum sodium elevated. 1 L D5W ordered. Continue to monitor electrolytes and renal parameters. June 02: No CHEM panel drawn today. Will order labs for tomorrow. Continue per consultants June 01: Serum sodium 154. Serum creatinine up to 1.4. Patient appears to be dehydrated. 1 L of D5W IV ordered. Continue to monitor renal parameters. Continue per consultants. May 31: Serum sodium lowering. Renal parameters stable. Low phosphorus addressed. Discussed with RN. May 30: Serum sodium 156. Other renal parameters stable. Will give 1 L of D5W. May 29: No labs drawn today. Will check can panel tomorrow. Continue per consultants. May 28: Labs reviewed. Serum sodium slightly elevated. D5W bolus given. Continue per consultants. Renal parameters stable. May 27: Labs reviewed. Stable renal parameters. Leukocytosis persists. May 26: No labs drawn today. We will check labs in a.m. Continue per current management. Medication list reviewed. May 25: Labs reviewed. Renal parameters much improved. Electrolytes within normal limit. Medication list reviewed. Continue per consultants. May 24: Labs reviewed. Serum creatinine lower. Serum sodium normalized. Electrolytes within normal limit. Will change IV to D5 normal saline. Continue per consultants. Blood pressure stable. May 23: Labs reviewed. Serum creatinine lower. Serum sodium lower. Potassium 5.4 , I suspect partly hemolysis. Patient has a Conway catheter. Continue D5W. Continue to monitor renal parameters. Continue per consultants. May 22: Patient more encephalopathic. Blood pressure low. Labs reviewed. Renal parameters worsened. Conway catheter ordered. Will stop Flomax and Proscar. Will adjust blood pressure medications. Will give IV fluid. Discussed with NAI Corbett. Will keep the patient n.p.o. due to poor mental status. Per orders. May 21: No labs drawn today. Stable from renal standpoint of view. Continue per consultants. May 20: Lab reviewed. Serum creatinine 1.5 stable. Serum sodium lowering. Continue per consultants. May 19: Labs reviewed. Serum creatinine lower to 1.5. Serum sodium mildly elevated. Continue free water administration. Monitor renal parameters. Continue per consultants. May 18: Labs reviewed. Serum creatinine up to 1.7. Electrolytes within normal limit. Continue to monitor renal parameters. Continue per consultants. May 17: Labs reviewed. Serum sodium normalized. Serum creatinine 1.5 stable. Continue per current management. May 16 Creatinine 1.5 unchanged. Blood pressure stable. Electrolytes unchanged. Serum sodium 133. Continue to monitor renal parameters Adjust blood pressure medication Stop saline hydration Monitor renal parameters and electrolytes Pulmonary support Per consultants Avoid nephrotoxic's Urine studies Per orders Subjective ROS Limited/Unobtainable: No Constitutional: Reports: malaise Objective Objective Last 24 Hour Vital Signs Date Time Temp Pulse Resp B/P (MAP) Pulse Ox O2 Delivery O2 Flow Rate FiO2 06/09/20 12:00 98.6 80 19 129/80 (96) 96 06/09/20 09:00 Room Air 06/09/20 09:00 66 94/56 06/09/20 08:00 64 06/09/20 08:00 98.6 65 18 94/56 (69) 97 06/09/20 04:00 99.0 66 18 92/60 (71) 95 06/09/20 04:00 66 06/09/20 00:00 98.2 70 18 94/50 (65) 95 06/09/20 00:00 56 06/08/20 21:00 Room Air 06/08/20 20:47 77 103/53 06/08/20 20:00 73 06/08/20 20:00 97.5 77 16 103/53 (70) 97 06/08/20 19:20 95 Room Air 21 06/08/20 16:00 64 06/08/20 16:00 98.1 67 16 85/51 (62) 96 Intake and Output 06/08/20 06/09/20 19:00 07:00 Intake Total 860 ml 450 ml Output Total 700 ml 550 ml Balance 160 ml -100 ml Intake Oral 360 ml 450 ml IV Total 500 ml Output Urine Total 700 ml 550 ml # Voids 1 # Bowel Movements 1 Current Medications Medications (Trade) Dose Ordered Sig/Tami Route PRN Reason Start Time Stop Time Status Last Admin Dose Admin Acetaminophen (Tylenol) 650 mg Q4H PRN ORAL FEVER 05/13/20 23:30 06/12/20 23:29 06/05/20 01:21 Albuterol/ Ipratropium (Combivent Respimat) 1 puff Q4H PRN INH Shortness of Breath 05/14/20 14:15 06/13/20 14:14 Amiodarone HCl (Cordarone) 200 mg DAILY ORAL 05/14/20 09:00 08/12/20 08:59 06/09/20 10:07 Dextrose (Dextrose 50%) 25 ml Q30M PRN IV Hypoglycemia 05/13/20 23:30 08/11/20 23:29 Dextrose (Dextrose 50%) 50 ml Q30M PRN IV Hypoglycemia 05/13/20 23:30 08/11/20 23:29 Heparin Sodium (Porcine) (Heparin 5000 units/ml) 5,000 units EVERY 12 HOURS SUBQ 05/14/20 09:00 06/28/20 08:59 06/09/20 10:10 Hydralazine HCl (Apresoline) 10 mg Q4H PRN IV bp over 160 syst 05/22/20 12:30 08/20/20 12:29 Ondansetron HCl (Zofran) 4 mg Q6H PRN IVP Nausea & Vomiting 05/13/20 23:30 06/12/20 23:29 Polyethylene Glycol (Miralax) 17 gm DAILYPRN PRN ORAL Constipation 05/13/20 23:30 06/12/20 23:29 06/06/20 11:29 Promethazine HCl/ Codeine (Phenergan with Codeine) 5 ml Q6H PRN ORAL cough 05/13/20 23:30 06/12/20 23:29 Laboratory Tests 06/08/20 19:20: Troponin I 0.016 06/09/20 06:12: White Blood Count 8.7, Red Blood Count 3.53L, Hemoglobin 11.1L, Hematocrit 33.0L , Mean Corpuscular Volume 94, Mean Corpuscular Hemoglobin 31.6H, Mean Corpuscular Hemoglobin Concent 33.8, Red Cell Distribution Width 15.1H, Platelet Count 284, Mean Platelet Volume 8.8, Neutrophils (%) (Auto) 80.5H, Lymphocytes (%) (Auto) 12.5L, Monocytes (%) (Auto) 5.8, Eosinophils (%) (Auto) 0.6, Basophils (%) (Auto) 0.6, Sodium Level 137, Potassium Level 3.7, Chloride Level 105, Carbon Dioxide Level 27, Anion Gap 5, Blood Urea Nitrogen 21H, Creatinine 1.2, Estimat Glomerular Filtration Rate 59.3, Glucose Level 80, Calcium Level 8.2L, Total Bilirubin 0.6, Aspartate Amino Transf (AST/SGOT) 35, Alanine Aminotransferase (ALT/SGPT) 73, Alkaline Phosphatase 98, Total Protein 5.9L, Albumin 1.5L, Globulin 4.4, Albumin/Globulin Ratio 0.3L Height (Feet): 5 Height (Inches): 7.00 Weight (Pounds): 160 General Appearance: no apparent distress Cardiovascular: other - Variable rate Respiratory/Chest: decreased breath sounds Abdomen: distended Objective No change Alan Sánchez MD Jun 09, 2020 13:55
[2020-06-09 16:00] VITALS: BP 127/71
--- NOTE | 2020-06-09 16:00 | Consultation ---
DATE OF CONSULTATION: 06/09/2020 CARDIOLOGY CONSULTATION CONSULTING PHYSICIAN: Demarcus Ochoa MD REFERRING PHYSICIAN: Sonny Gonzales DO REASON FOR CONSULTATION: Management of bradycardia in the patient with atrial fibrillation. HISTORY OF PRESENT ILLNESS: The patient is a 74-year-old gentleman with history of hypertension, paroxysmal atrial fibrillation, COPD, and schizophrenia, who is a jail resident. He was admitted on May 14, 2020, with generalized weakness. The patient was started on supplemental oxygen by paramedics and was found to be COVID-positive. The patient was on amiodarone, aspirin, and Coreg as well as azithromycin resumed. Over the last 4 weeks, the patient was taken off of COVID isolation. On telemetry, the patient had bradycardia and Cardiac Electrophysiology consultation was requested for further evaluation and management. REVIEW OF SYSTEMS: Negative other than what was mentioned in the history of present illness. The patient is confused and in restraints. PAST MEDICAL HISTORY: As mentioned above. FAMILY HISTORY: Noncontributory. SOCIAL HISTORY: [facility] resident. No history of drug use. PHYSICAL EXAMINATION: VITAL SIGNS: Show blood pressure of 94/56, pulse 66, respirations 18, and he is afebrile. HEAD AND NECK: Shows no JVD. LUNGS: Coarse rhonchi. CARDIOVASCULAR: Regular S1 and S2 with no gallop. ABDOMEN: Soft. EXTREMITIES: No pitting edema. LABORATORY AND DIAGNOSTIC DATA: His EKG shows sinus rhythm with complete left bundle-branch block. Labs show white count of 8.7, hemoglobin 11.2, hematocrit 33, and platelet count of 284,000. Sodium 137, potassium 3.7, BUN of 21, creatinine 1.2, and glucose of 80. D-dimer is 2.88. ASSESSMENT AND PLAN: 1. Paroxysmal atrial fibrillation, currently in sinus rhythm and has remained in sinus rhythm during the hospital stay. The patient is on amiodarone 200 mg daily and Coreg 3.125 mg b.i.d. We will start the patient on aspirin and watch the patient on telemetry. We will check thyroid function test and echocardiogram. It is of note, the patient refused echocardiogram earlier. 2. Hypotension. The only medication he is on is Coreg that we will hold for systolic blood pressure less than 110. 3. History of hypertension, currently on the Coreg and p.r.n. hydralazine if needed. 4. Status post COVID pneumonia by PCR on May 30, currently on room air. He got remdesivir for 5 days and dexamethasone for 10 days. 5. Elevated D-dimer. Bilateral lower extremity duplex was negative. 6. Complete left bundle-branch block. Thank you very much for allowing me to participate in the care of this patient. Please do not hesitate to contact me for any questions regarding my evaluation. Demarcus Ochoa M.D. DR: Lesley JOB#: [id number] CC:
--- NOTE | 2020-06-09 19:59 | Psychiatric Progress Note ---
Psychiatry Progress Note Psychiatry Progress Note Medications Current Medications Medications (Trade) Dose Ordered Sig/Tami Route PRN Reason Start Time Stop Time Status Last Admin Dose Admin Acetaminophen (Tylenol) 650 mg Q4H PRN ORAL FEVER 05/13/20 23:30 06/12/20 23:29 06/05/20 01:21 Albuterol/ Ipratropium (Combivent Respimat) 1 puff Q4H PRN INH Shortness of Breath 05/14/20 14:15 06/13/20 14:14 Amiodarone HCl (Cordarone) 200 mg DAILY ORAL 05/14/20 09:00 08/12/20 08:59 06/09/20 10:07 Dextrose (Dextrose 50%) 25 ml Q30M PRN IV Hypoglycemia 05/13/20 23:30 08/11/20 23:29 Dextrose (Dextrose 50%) 50 ml Q30M PRN IV Hypoglycemia 05/13/20 23:30 08/11/20 23:29 Heparin Sodium (Porcine) (Heparin 5000 units/ml) 5,000 units EVERY 12 HOURS SUBQ 05/14/20 09:00 06/28/20 08:59 06/09/20 10:10 Hydralazine HCl (Apresoline) 10 mg Q4H PRN IV bp over 160 syst 05/22/20 12:30 08/20/20 12:29 Ondansetron HCl (Zofran) 4 mg Q6H PRN IVP Nausea & Vomiting 05/13/20 23:30 06/12/20 23:29 Polyethylene Glycol (Miralax) 17 gm DAILYPRN PRN ORAL Constipation 05/13/20 23:30 06/12/20 23:29 06/06/20 11:29 Promethazine HCl/ Codeine (Phenergan with Codeine) 5 ml Q6H PRN ORAL cough 05/13/20 23:30 06/12/20 23:29 Neurological/Psychiatric: Reports: anxiety, depressed, emotional problems Allergies: Coded Allergies: No Known Allergies (Unverified , 05/13/20) Objective Data Height (Feet): 5 Height (Inches): 7.00 Weight (Pounds): 160 General Appearance: no apparent distress, alert, confused Additional Comments: awake, disoriented to situation and date. Mood is little anxious. Affect is blunted, congruent with mood. Thought process is concrete. Thought content, no suicidal or homicidal ideation. Cognition is impaired. Insight and judgment is impaired. Assessment/Plan [place] I: ASSESSMENT: [place] I Acute toxic encephalopathy. [place] II Deferred. [place] III COVID-19 pneumonia. Renal failure. [place] IV Low. [place] V 20. PLAN: 1. We will discontinue the Ativan and risperidone. 2. Bilateral soft restraints. 3. Discussed with Dr. Smallwood. Status: stable, progressing Status Narrative ASSESSMENT: [place] I Acute toxic encephalopathy. [place] II Deferred. [place] III COVID-19 pneumonia. Renal failure. [place] IV Low. [place] V 20. PLAN: 1. We will discontinue the Ativan and risperidone. 2. Bilateral soft restraints. 3. Discussed with Dr. Smallwood. Assessment/Plan: ASSESSMENT: [place] I Acute toxic encephalopathy. Dallas II Deferred. [place] III COVID-19 pneumonia. Renal failure. [place] IV Low. [place] V 20. PLAN: 1. We will discontinue the Ativan and risperidone. 2. Bilateral soft restraints. 3. Discussed with Dr. Smallwood. Adeel Knapp MD Jun 09, 2020 19:59
[2020-06-09 20:00] VITALS: BP 92/60
--- NOTE | 2020-06-10 02:32 | Cardiology Report ---
APPROVED REPORT EKG Measurement Heart [id number] PA [id number] <Conclusion> Normal sinus rhythm Left axis deviation Left bundle branch block Abnormal ECG
--- NOTE | 2020-06-11 09:09 | Discharge Summary ---
Discharge Summary Discharge Summary _ DATE OF ADMISSION: 05/13/2020 DATE OF DISCHARGE: [] 06/09/2020 DISCHARGED BY: Dr. Gonzales REASON FOR ADMISSION: 74 years old male, resident of [facility] facility, with past medical history of COPD, hypertension, CVA , was brought for evaluation due to generalized weakness. Patient was hypoxic . Chest x-ray demonstrated diffuse patchy infiltrates in both lungs. Rapid COVID-19 was positive. Patient started on IV fluids , steroids, provided with supplemental oxygen and admitted to isolation room for further management. CONSULTANTS: junior sales representative Dr. Mena pulmonary Dr. Prajapati ID specialist Dr. Yap GI specialist Dr. Wilde administration intern Dr. Sánchez psychiatrist [facility]RSE: Patient admitted to isolation room. Supplemental oxygen provided and titrated to keep pulse oximetry above 92%. Patient initially required nonrebreather mask. HFA provided. Patient received 5 days of remdesivir and 10 days of dexamethasone. DVT prophylaxis with heparin provided. Venous duplex bilateral lower extremity was negative. Patient was followed-up with inflammatory markers. CRP trended down from 62.2 to 9.3. Patient received antibiotics as per ID specialist recommendation.. Patient was followed -up with a chest x-ray. COVID-19 by PCR on 05/30 was not detected. Blood cultures were negative. ID specialist cleared patient from isolation , given clinical improvement and more than 10 days from initial diagnosis. Renal parameters and electrolytes were closely monitored ,electrolytes corrected as needed ,nephrotoxic's were avoided . creatinine from initial 1.6 down to 1.2. Patient noted elevated LFT . LFT were trending m and prior to discharge: AST 35, ALT 72. Hepatitis panel was negative. Patient noted to have paroxysmal atrial fibrillation , [employer] consulted. Patient spontaneously converted to sinus rhythm and then remained in sinus rhythm during the hospital stay. Patient was on amiodarone and Coreg. Patient started on aspirin. TSH was stable Patient refused echocardiogram . Patient with history of hypertension , was on Coreg .Blood pressure was cont rolled. Supportive care provided. As patient clinically improved, he was able to be weaned to oxygen 2 L via nasal cannula then to the room air. Pulse oximetry remained stable , no shortness of breath. Patient clinically stabilized and was ready for transfer to [facility] facility for continuation of care. FINAL DIAGNOSES: COVID-19 pneumonia Acute hypoxemic respiratory failure requiring nonrebreather mask -resolved Acute kidney injury-resolved COPD Hypertension History of CVA Elevated LFT-resolved Paroxysmal atrial fibrillation Acute toxic encephalopathy DISCHARGE MEDICATIONS: See Medication Reconciliation list. DISCHARGE INSTRUCTIONS: Patient was discharged to the [facility] facility. Follow up with medical doctor at the facility. I have been assigned to dictate discharge summary for this account. Esperanza Howell NP Jun 11, 2020 09:09
== END 2020-06-09 22:14 | DRG 137 ==
LOC: EDBD 16:52 → EDBEDREQ 18:09 → EMR 19:02 → 2E 19:32 → EDBEDREQSVC 20:03 → EDBEDREQ 05-14 11:59
DX: U07.1 COVID-19 (principal); N17.9 Acute kidney failure, unspecified; J96.01 Acute respiratory failure with hypoxia; J12.82 Pneumonia due to coronavirus disease 2019; E46 Unspecified protein-calorie malnutrition; N39.0 Urinary tract infection, site not specified; J44.9 Chronic obstructive pulmonary disease, unspecified; Z86.73 Personal history of transient ischemic attack (TIA), and cerebral infarction without residual deficits; I48.0 Paroxysmal atrial fibrillation; G92 Toxic encephalopathy; R79.89 Other specified abnormal findings of blood chemistry; I10 Essential (primary) hypertension; Z79.82 Long term (current) use of aspirin; E86.0 Dehydration; I12.9 Hypertensive chronic kidney disease with stage 1 through stage 4 chronic kidney disease, or unspecified chronic kidney disease; N18.9 Chronic kidney disease, unspecified; F29 Unspecified psychosis not due to a substance or known physiological condition; K21.9 Gastro-esophageal reflux disease without esophagitis; E78.00 Pure hypercholesterolemia, unspecified
CPT/HCPCS: 36415; 71045; 80048; 80053; 80061; 80069; 80076; 81001; 81003; 82140; 82248; 82550; 82553; 82607; 82728; 82746; 82977; 83036; 83540; 83550; 83605; 83615; 83690; 83735; 83880; 84100; 84443; 84484; 84550; 85007; 85025; 85379; 85610; 85651; 85730; 86140; 86705; 86709; 86803; 87040; 87086; 87181; 87340; 93005; 93971; 96374; 99285; J3490; J7030; U0002